=== PATIENT | female | born 1970 | race Caucasian/White ===

== ENCOUNTER 2017-12-21 12:09 | Emergency (ER) | payer MEDICAID, SELFPAY ==
[2017-12-21 12:10] VITALS: BP 150/79; PULSE 92; RESP 18; TEMP 36.3; O2SAT 95; BMI 42.5
[2017-12-21 14:10] VITALS: BP 136/78; PULSE 94; RESP 20; O2SAT 94
--- NOTE | 2017-12-21 14:34 | ED.VIS.GEN ---
History of Present Illness Chief Complaint: Chest Other Informant: Patient, PCP Onset: Yesterday Context: Sudden Onset - upon waking up from bronchoscopy procedure Timing: Continuous Quality: pain Location: right chest Current Severity: Moderate Maximum Severity: Moderate Worsened by: deep inspiration Relieved by: rest Associated Symptoms: mild sob Narrative: Patient has chronic cough, and in the workup for this had a bronchoscopy yesterday which involved taking a biopsy of a bronchiole in the right middle lobe. Since the procedure she has had right-sided pleuritic discomfort but did not tell the harness brusher until she called the office today because symptoms were worse. She was sent to the ER for further evaluation and x-ray to rule out pneumothorax. Prior similar symptoms: No - Past Medical History (1) Chronic cough Status: Chronic Past Medical History - Allergies and Home Meds Allergies/Adverse Reactions: Allergies latex Adverse Reaction (Verified 09/27/15 19:49) Hives Primary Care Physician: Moose Valdovinos DO [Primary Care Provider] - Smoking Status: Former smoker Review of Systems All systems negative except as indicated General: Reports: - - No syncope/near syncope Cardiovascular: Reports: Chest pain. Denies: Palpitations, Heart racing Respiratory: Reports: Dyspnea, Cough. Denies: Sputum, Dyspnea on exertion Gastrointestinal: Denies: Abdominal pain, Nausea, Vomiting Physical Exam Vital Signs/Narrative: Vital Signs Temp Pulse Resp BP Pulse Ox 12/21/17 12:10 97.3 F L 92 18 150/79 H 95 Inital Vital Signs reviewed: Yes General: Well nourished, Well developed, Obese Head: Normocephalic, Atraumatic Neck: Supple, Nontender, No JVD Cardiovascular: Regular rate, Regular rhythm, No murmurs Respiratory: No distress, CTA bilaterally, Chest nontender Skin: Normal color, No rash Neurological: Alert, Oriented x3, Cranial nerves II-XII grossly intact, Normal Strength, Normal Sensation Psychological: Normal affect - Well-appearing, NAD. Conversing in full sentences. Diagnostic/Tx/Re-eval Clinical Impression(s) from Imaging Studies Chest X-Ray 12/21/17 12:50 IMPRESSION: 10% right-sided pneumothorax with findings suggestive of bibasilar atelectasis worse on the left side. Electronically Signed: Aldair Su MD at 13:42 EDT Tel [phone], Service support , - Medical Decision Making Chest x-ray shows 10% pneumothorax. This explains her symptoms, there is no sign of a thorax, she is tolerating this extremely well and her vital signs are stable. Discussed with her harness brusher Dr. Forrester, who agrees that given that it has been about 24 hours, he would be comfortable managing her as an outpatient, repeating chest x-ray tomorrow. We will offer the patient analgesics, advising her to return if she gets worse, otherwise following up for repeat chest x-ray tomorrow in the office will contact her regarding the results. She is comfortable with that plan. ED Disposition - Plan for ED Patient: Disposition: Home or Assisted Living Chief Complaint: Chest Other Diagnosis: Pneumothorax after biopsy Instructions: ED Pneumothorax Spontaneous Prescriptions: Hydrocodone Bitart/Apap 5-325 [[place] 5MG-325MG] 1 tab PO Q4H PRN PRN 2 Days #10 tab PRN Reason: Pain Referrals: Jimmie Forrester MD [NON-STAFF] - Additional Instructions: There is an order already placed for a repeat chest x-ray tomorrow or you. Go to the [facility] outpatient specialty Center, in the radiology clinic. Dr. Forrester will look at the x-ray and call you to talk with you about the results.
== END 2017-12-21 15:05 | disposition home or self-care (01) ==
PROVIDERS: Emergency Provider Emergency Medicine; Family Provider Student in an Organized Health Care Education/Training Program; PCP Student in an Organized Health Care Education/Training Program
DX: J95.811 Postprocedural pneumothorax (principal); Z79.84 Long term (current) use of oral hypoglycemic drugs; Z79.82 Long term (current) use of aspirin; Z79.899 Other long term (current) drug therapy; Z87.891 Personal history of nicotine dependence
CPT/HCPCS: 71046; 99282

== ENCOUNTER 2018-01-22 09:58 | Inpatient (IN) | payer MEDICAID, SELFPAY ==
[2018-01-22] VITALS (9 sets, daily range): BP systolic 112–160; BP diastolic 68–94; PULSE 88–108; RESP 18–22; TEMP 36.9–37.2; O2SAT 95–100; BMI 43.7
--- NOTE | 2018-01-22 10:19 | EKG12_ITS ---
Test Reason : SOB Blood Pressure : / mmHG Vent. Rate : 103 BPM Atrial Rate : 103 BPM P-R Int : 162 ms QRS Dur : 086 ms QT Int : 374 ms P-R-T Axes : 054 055 042 degrees QTc Int : 489 ms Sinus tachycardia Otherwise normal ECG Confirmed by MACRINA AVINA MD ([id number]), assignment desk editor SERENITY BEY ([id number]) on 01/29/2018 3:22:10 PM Referred By: KATALINA
--- NOTE | 2018-01-22 10:23 | NURSING ---
NO OLD EKGS
[2018-01-22 10:47] LABS: Absolute Lymphocyte Count 6.75 X10^3/ul (0.83-4.51); Absolute Neutrophil Count 6.9 X10^3/uL (2.0-7.7); Basophil# 0.04 X10^3/uL; Basophil% 0.3 % (0-1); Eosinophil# 0.26 X10^3/uL; Eosinophils% 1.7 % (0-5); Hematocrit 43.8 % (37-47); Hemoglobin 15.1 g/dl (12.0-15.0); Lymphocyte # 6.75 X10^3/ul (4.0); Lymphocyte % 45.2 % (19-41); Mean Corp Hgb Conc 34.5 g/gl (32-36); Mean Corpuscular Hgb 31.5 pg (27.0-32.0); Mean Corpuscular Volume 91.3 fL (81-99); Mean Platelet Vol. 10.9 fl (6.2-12.0); Monocyte# 0.93 X10^3/uL; Monocyte% 6.2 % (0-10); Neutrophil # 6.87 X10^3/uL (2.7-7.7); Neutrophil % 46.1 % (47-70); Platelet Count 331 K/mm3 (150-450); RBC Distribution Width CV 12.9 % (11.6-14.6); RBC Distribution Width SD 42.1 fl (35.1-43.9); White Blood Count 14.9 K/mm3 (4.4-11.0)
[2018-01-22 10:52] LABS: Differential Indicated SCAN CRITERIA MET; POSITIVE COUNT NO; POSITIVE DIFFERENTIAL YES; POSITIVE MORPHOLOGY NO
[2018-01-22 11:03] LABS: Anion Gap 10 (5-15); BUN 10 mg/dL (7-18); BUN/Creat Ratio 12.8 RATIO (10-20); Chloride 99 mmol/L (98-107); Creatinine, Serum 0.78 mg/dL (0.55-1.02); EST Glomerular Filtration Rate 84 mL/min (>60); Est Glom Filt Rate - Afr Amer 102 mL/min (>60); Estimated Creatinine Clearance 75.34 ml/min; Glucose 307 mg/dL (74-106); Potassium 3.3 mmol/L (3.5-5.1); Sodium Level 135 mmol/L (136-145)
--- NOTE | 2018-01-22 11:05 | RAD_ITS ---
STUDY: X-RAY CHEST REASON FOR EXAM: Female, 47 years old. 3 week history of cough. Low-grade fever. TECHNIQUE: PA and lateral views of the chest. COMPARISON: Comparison is made with prior examination dated December 21, 2017. FINDINGS: Stable increased markings with areas of confluence in the lingular segment of the left upper lobe. This may represent a combination of scarring and possible superimposed infiltration and/or atelectasis. There is no demonstrated pleural abnormality. Normal size heart. Normal mediastinum and biju. Normal visualized pulmonary arteries. Normal visualized aortic arch and descending thoracic aorta. Normal visualized thoracic spine. Normal visualized ribs, clavicles, and shoulders. There is no demonstrated abnormality of the visualized soft tissue structures of the upper abdomen. RAD/Chest PA and Lateral IMPRESSION: Mild increased markings in the lingular segment of the left upper lobe suggestive of atelectasis and/or infiltrate superimposed on scarring. Electronically Signed: Aldair Su MD at 11:28 EDT Tel [phone], Service support ,
--- NOTE | 2018-01-22 11:29 | CT_ITS ---
STUDY: CTA CHEST REASON FOR EXAM: Female, 47 years old. Bronchitis, COPD, on antibiotics and steroids, worsening symptoms. History of hypertension, asthma, diabetes, factor V deficiency. RADIATION DOSAGE (If Supplied By Facility): CTDIvol = ( 16.71 ) mGy, DLP = ( 775.91 ) mGycm TECHNIQUE: The examination was performed with the intravenous administration of 100cc ml of Isovue 370 contrast material. Post-processing of the angiographic images was performed, with multiplanar reformation and 3D reconstruction. Individualized dose optimization techniques were used for this CT. COMPARISON: X-ray chest 01/22/2018 at 12/21/2017. FINDINGS: Supraclavicular: No acute process. Mild asymmetric enlargement of the right thyroid gland without distinct nodularity. Body wall soft tissues: No acute process. Upper abdomen: There is evidence of hepatic steatosis with probable hepatomegaly. No acute upper abdominal process is evident. Osseous structures: No acute process. Lungs: A few patchy very small groundglass opacities are present in the left lower lobe, anterior segment left upper lobe, no similar features seen on the right. Nonspecific. The largest focus of groundglass opacity in the left lower lobe measures about 11.5 mm. The region of ground glass opacity at the cardiophrenic angle of the anterior segment of the left upper lobe measures about 2.8 x 3.0 cm. In the lingula and right middle lobe, medial margins, there is mild subsegmental atelectasis associated with mild bronchial wall thickening and mild bronchiectasis, likely chronic inflammatory. Mediastinum: Normal esophagus. There is no mediastinal or hilar mass or lymphadenopathy. Aorta: Nondilated, no dissection, minimal atherosclerosis. Pulmonary arteries: Nondilated. No large central pulmonary embolus. Contrast bolus timing is suboptimal for definitive characterization of peripheral pulmonary arteries. There is no convincing evidence of peripheral pulmonary embolism in limited evaluation. Heart: Normal heart size without effusion. Grossly normal chamber morphology. No appendage thrombus. Minimal plaque seen in the proximal LAD. CT/CTA Chest W/WO Contrast IMPRESSION: There is no convincing evidence of acute pulmonary embolus. Minimal coronary atherosclerosis. No other acute cardiovascular abnormality. Mild abnormalities in the left lung. Small areas of groundglass opacity. Multifocal the left lower lobe, solitary zone of groundglass in the left upper lobe likely reflecting an infectious process with presenting symptoms of bronchitis. The airways do not exhibit a generalized pattern of bronchial wall thickening. There are however small subsegmental regions of chronic-appearing bronchial wall thickening with minimal bronchiectasis in the right middle lobe and lingula. Electronically Signed: Oliver Heard, at 12:19 EDT Tel , Service support ,
[2018-01-22] MEDS: levoFLOXacin IV 500 MG/100 ML BAG 100 MG IV (12:46)
--- NOTE | 2018-01-22 12:51 | NURSING ---
319 COPD EXAC, PNEUMONIA
--- NOTE | 2018-01-22 12:51 | ED.VISSUMM ---
- ER Visit Summary Date of Service: 01/22/18 Chief Complaint: Increased cough and increased wheezing History of Present Illness: The patient is a 47 F who was sent to the emergency department for failed outpatient treatment of COPD. The patient reports 2 weeks of increased cough and increased wheezing. She was recently treated with clarithromycin and prednisone by her primary care physician. She started treatment 5 days ago. She states she is not improving. She was seen again today and then sent to her steel rule die maker apprentice office. She was seen by the physician assistant media planner. They reported that she was very tight and wheezy she was given a breathing treatment and then sent here. The patient does also have a history of pulmonary embolism due to factor V Leiden. She was previously anticoagulated but had bleeding complications so currently only takes aspirin. She also has a history of diabetes hypertension hyperlipidemia although she denies any history of coronary disease. She denies any chest pain. Physical Examination: Heart rate 108 respiratory rate 22 Patient able to speak in full sentences she does not appear to be in any respiratory distress her lungs are clear to auscultation on my exam Heart regular rhythm tachycardia Abdomen soft Extremities nontender without edema Test Results: EKG shows sinus rhythm at a rate of 103. Labs notable for white blood cell count 14.9. Chest x-ray shows increased markings in the lingula and left upper lobe. CTA of the chest shows no convincing evidence of pulmonary embolism, there is minimal coronary arthrosclerosis, patient has multifocal groundglass opacity in the left lung as well as some chronic bronchial wall thickening Emergency Department Course and Treatment: Patient's lungs were actually clear at the time my exam. Patient did have a recent pneumothorax about 1 month ago. I was concerned that her ongoing cough and shortness of breath may be related to this and pulmonary embolism was also considered given her history. Workup as above shows no pneumothorax or pulmonary embolism but there is multifocal groundglass opacity. Patient was given IV Levaquin to cover community-acquired pneumonia and will be admitted. Treatment Plan: [] Disposition: Admit Impression: Community acquired pneumonia This note was generated with [employer] dictation software. It may contain incorrect words, spelling, and punctuation that were not noted in review of the chart prior to signing ED Disposition - Plan for ED Patient: Chief Complaint: Shortness of Breath Referrals: Moose Valdovinos DO [Primary Care Provider] -
--- NOTE | 2018-01-22 12:55 | ED.DCSUM_ITS ---
- ER Visit Summary Date of Service: 01/22/18 Chief Complaint: Increased cough and increased wheezing History of Present Illness: The patient is a 47 F who was sent to the emergency department for failed outpatient treatment of COPD. The patient reports 2 weeks of increased cough and increased wheezing. She was recently treated with clarithromycin and prednisone by her primary care physician. She started treatment 5 days ago. She states she is not improving. She was seen again today and then sent to her front line leader office. She was seen by the physician education administrative assistant. They reported that she was very tight and wheezy she was given a breathing treatment and then sent here. The patient does also have a history of pulmonary embolism due to factor V Leiden. She was previously anticoagulated but had bleeding complications so currently only takes aspirin. She also has a history of diabetes hypertension hyperlipidemia although she denies any history of coronary disease. She denies any chest pain. Physical Examination: Heart rate 108 respiratory rate 22 Patient able to speak in full sentences she does not appear to be in any respiratory distress her lungs are clear to auscultation on my exam Heart regular rhythm tachycardia Abdomen soft Extremities nontender without edema Test Results: EKG shows sinus rhythm at a rate of 103. Labs notable for white blood cell count 14.9. Chest x-ray shows increased markings in the lingula and left upper lobe. CTA of the chest shows no convincing evidence of pulmonary embolism, there is minimal coronary arthrosclerosis, patient has multifocal groundglass opacity in the left lung as well as some chronic bronchial wall thickening Emergency Department Course and Treatment: Patient's lungs were actually clear at the time my exam. Patient did have a recent pneumothorax about 1 month ago. I was concerned that her ongoing cough and shortness of breath may be related to this and pulmonary embolism was also considered given her history. Workup as above shows no pneumothorax or pulmonary embolism but there is multifocal groundglass opacity. Patient was given IV Levaquin to cover community-acquired pneumonia and will be admitted. Treatment Plan: [] Disposition: Admit Impression: Community acquired pneumonia This note was generated with [employer] dictation software. It may contain incorrect words, spelling, and punctuation that were not noted in review of the chart prior to signing ED Disposition - Plan for ED Patient: Chief Complaint: Shortness of Breath Referrals: Moose Valdovinos DO [Primary Care Provider] -
--- NOTE | 2018-01-22 13:33 | HP.PCM_ITS ---
Problem List (1) Atypical pneumonia Status: Acute (2) COPD exacerbation Status: Acute (3) Bronchiectasis Status: Chronic (4) Diabetes mellitus type 2 in obese Status: Chronic (5) Hypertension Status: Chronic (6) Morbid obesity Status: Chronic History of Present Illness Date of Admission: 01/22/18 Chief Complaint: Progressive worsening of shortness of breath for 2-3 weeks The patient is a 47 year old F with history of COPD, bronchiectasis and multiple recurrent pneumonia since age 8, 22 pack years of smoking, quit in 2014 came to ER with progressive worsening of shortness of breath for 2-3 weeks. Patient had bronchoscopy by Dr. Forrester about a month ago, exact diagnosis, findings not available. Patient is also not clear about her pulmonary history in detail. She is having fever for about 2-3 weeks, highest 102.3 Fahrenheit last night, worsening of cough with clear sputum, chest congestion and progressive worsening of shortness of breath. She saw PCP last and was given Biaxin and prednisone but she did not feel improvement in 5 days and therefore she went to see her doctor. She was seen by nurse practitioner of Dr. Forrester and was sent to ER. In ED, chest CT scan was done and shows no features of PE but small areas of groundglass opacity, multifocal left lower lobe and solitary zone left upper lobe. Subsegmental atelectasis chronic in nature [] Past Medical History Past Medical History (Chronic Problems): Chronic Problems Chronic cough (Chronic) Bronchiectasis (Chronic) Diabetes mellitus type 2 in obese (Chronic) Hypertension (Chronic) Morbid obesity (Chronic) Allergies latex Adverse Reaction (Verified 01/22/18 10:15) Hives Home Medications: Ambulatory Orders Medication Instructions Recorded Albuterol Aerosols [Ventolin 2.5 mg INHALATION Q4HWA.RT 09/27/15 Aerosols] Aspirin 81 mg PO DAILY 09/27/15 Cetirizine HCl [Zyrtec] 5 mg PO DAILY 09/27/15 Fluticasone 0.05% [Flonase Nasal 2 spray NASAL DAILY 09/27/15 [place]] Glimepiride [Amaryl] 2 mg PO BID 09/27/15 Lisinopril [Zestril] 20 mg PO DAILY 09/27/15 Montelukast [Singulair] 10 mg PO DAILY 09/27/15 [place]-3 Fatty Acids/Fish Oil [Fish 2 each PO DAILY 09/27/15 Oil 1,000 mg Softgel] Omeprazole [Prilosec] 40 mg PO DAILY 09/27/15 RX: Multivitamins,Ther W-Minerals 1 tablet PO DAILY 09/27/15 [Multivitamin With Minerals] Simvastatin [Zocor] 40 mg PO QHS 09/27/15 buPROPion XL [Wellbutrin Xl] 300 mg PO DAILY 09/27/15 Duloxetine Hcl [Cymbalta] 60 mg PO DAILY 01/30/16 Hydrochlorothiazide [Hctz] 25 mg PO DAILY 01/30/16 Alogliptin Benzoate [Alogliptin] 25 mg PO DAILY 01/22/18 Amitriptyline HCl [Elavil] 25 mg PO QHS 01/22/18 Calcium Carbonate [Calcium] 600 mg PO DAILY 01/22/18 Clarithromycin [Clarithromycin ER] 500 mg PO DAILY 01/22/18 Guaifenesin/Codeine [Robitussin AC] 5 ml PO Q6H PRN PRN 01/22/18 Insulin Glargine,Hum.rec.anlog 35 unit SQ DAILY 01/22/18 [Basaglar Kwikpen U-100] Lorazepam [Ativan] 0.5 mg PO BID PRN PRN 01/22/18 RX: Budesonide/Formoterol 160/4.5 4.5 - 160 mcg INHALATION BID 01/22/18 [Symbicort 160/4.5 Mcg Inhaler (SP)] RX: Metformin(XR) [Glucophage Xr] 1,000 mg PO BIDCM 01/22/18 RX: Ondansetron [Zofran Odt] 4 mg PO DAILY PRN 01/22/18 RX: Potassium Gluconate 500 mg PO DAILY 01/22/18 Smoking Status: Former smoker VTE Information - Inpt Only VTE Present on Admission: No VTE Mechan Device Prophylaxis: None VTE Pharm Prophylaxis ordered?: Yes Patient Problems: Active and Suspected Problems Atypical pneumonia (Acute) COPD exacerbation (Acute) - Physical Exam Vital Signs Temp Pulse Resp BP Pulse Ox 98.9 F 92 18 124/78 H 96 01/22/18 09:59 01/22/18 12:51 01/22/18 12:51 01/22/18 12:51 01/22/18 12:51 Oxygen Delivery Method Room Air Weight: 246 lb 14.684 oz Body Mass Index (BMI) 43.7 Laboratory Tests Past 24 Hrs 01/22/18 01/22/18 10:33 10:33 WBC 14.9 H RBC 4.80 Hgb 15.1 H Hct 43.8 MCV 91.3 MCH 31.5 MCHC 34.5 RDW 12.9 RDW Differential 42.1 Plt Count 331 MPV 10.9 Immature Gran % (Auto) 0.500 Neut % (Auto) 46.1 L Lymph % (Auto) 45.2 H [place]ancock % (Auto) 6.2 Eos % (Auto) 1.7 Baso % (Auto) 0.3 Absolute Neuts (auto) 6.9 Absolute Lymphs (auto) 6.75 H Total Counted Not Reportable Differential Comment COMMENT Sodium 135 L Potassium 3.3 L Chloride 99 Carbon Dioxide 26.0 Anion Gap 10 BUN 10 Creatinine 0.78 Estim Creat Clear Calc 75.34 Est GFR (MDRD) Af Amer 102 Est GFR (MDRD) Non-Af 84 BUN/Creatinine Ratio 12.8 Glucose 307 H Calcium 9.0 Assessment/Plan All Active Problems Atypical pneumonia (Acute) COPD exacerbation (Acute) The patient is a 47 year old F with history of COPD, bronchiectasis and multiple recurrent pneumonia since age 8, 22 pack years of smoking, quit in 2014 came to ER with progressive worsening of shortness of breath for 2-3 weeks. Patient had bronchoscopy by Dr. Forrester about a month ago, exact diagnosis, findings not available. Patient is also not clear about her pulmonary history in detail. She is having fever for about 2-3 weeks, highest 102.3 Fahrenheit last night, worsening of cough with clear sputum, chest congestion and progressive worsening of shortness of breath. She saw PCP last and was given Biaxin and prednisone but she did not feel improvement in 5 days and therefore she went to see her doctor. She was seen by nurse practitioner of Dr. Forrester and was sent to ER. Patient denies chest pain. In ED, chest CT scan was done and shows no features of PE but small areas of groundglass opacity, multifocal left lower lobe and solitary zone left upper lobe. Subsegmental atelectasis chronic in nature. Twelve-lead EKG shows sinus tach at 103/min. 1 COPD exacerbation, with chronic bronchial wall thickening with minimal atelectasis in right middle lobe and lingula: Patient is being admitted to regular MedSurg floor. On cardiac technologist. Started on bronchodilator, IV Solu- Medrol, incentive spirometry, chest physiotherapy and IV antibiotics. Infectious workup with sputum culture, blood cultures x2, urinary antigens, UA and respiratory panel. Requested medical record from Dr Forrester office regarding bronchoscopy report, tissue biopsy report, other pulmonary and cardiovascular workup like EKG and echo. 2. Atypical pneumonia, multifocal in left upper lobe and left lower lobe: Patient is treated with Biaxin for 5 days. Started on Levaquin. Follow culture reports as mentioned above. 3. 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 Diabetes mellitus type 2, hypertension and morbid obesity: Blood sugar is uncontrolled. A1c tomorrow a.m. On Accu-Cheks before meals and at bedtime and cover with NovoLog sliding scale. Dose of Lantus increased to 40 units daily. Weight loss counseling and operating room tech consult. Multiple comorbidities complicates the present care and expect difficult and delay recovery. Home medication reconciliation done. DVT prophylaxis: On heparin 5000 units subcutaneous twice daily. Follow CBC and if hemoglobin drops or any active bleeding will discontinue it. This note was generated with [employer] dictation software. Every effort was made to ensure accuracy, however computerized embroidery designer mistakes may persist. Clinical Impression(s) from Imaging Studies Chest X-Ray 01/22/18 11:05 IMPRESSION: Mild increased markings in the lingular segment of the left upper lobe suggestive of atelectasis and/or infiltrate superimposed on scarring. Chest CTA 01/22/18 11:29 IMPRESSION: There is no convincing evidence of acute pulmonary embolus. Minimal coronary atherosclerosis. No other acute cardiovascular abnormality. Mild abnormalities in the left lung. Small areas of groundglass opacity. Multifocal the left lower lobe, solitary zone of groundglass in the left upper lobe likely reflecting an infectious process with presenting symptoms of bronchitis. The airways do not exhibit a generalized pattern of bronchial wall thickening. There are however small subsegmental regions of chronic-appearing bronchial wall thickening with minimal bronchiectasis in the right middle lobe and lingula. Laboratory Results 01/22/18 10:33: WBC 14.9 H, RBC 4.80, Hgb 15.1 H, Hct 43.8, MCV 91.3, MCH 31.5, MCHC 34.5, RDW 12.9, RDW Differential 42.1, Plt Count 331, MPV 10.9, Immature Gran % (Auto) 0.500, Neut % (Auto) 46.1 L, Lymph % (Auto) 45.2 H, Hancock % (Auto) 6.2, Eos % (Auto) 1.7, Baso % (Auto) 0.3, Absolute Neuts (auto) 6.9, Absolute Lymphs (auto) 6.75 H, Total Counted Not Reportable, Differential Comment COMMENT 01/22/18 10:33: Sodium 135 L, Potassium 3.3 L, Chloride 99, Carbon Dioxide 26.0, Anion Gap 10, BUN 10, Creatinine 0.78, Estim Creat Clear Calc 75.34, Est GFR (MDRD) Af Amer 102, Est GFR (MDRD) Non-Af 84, BUN/Creatinine Ratio 12.8, Glucose 307 H, Calcium 9.0 Code Visit Inpatient E&M: 86964 Init Hosp L3
[2018-01-22] MEDS: Ipratropium/Albuterol Sulfate 3 ML AMPUL.NEB INHALATION ×2 (15:32→19:22)
[2018-01-22 16:14] LABS: BNP,B-Type NATRIURETIC PEPTIDE 10.9 pg/mL (0-100)
[2018-01-22 17:25] LABS: Bedside Glucose 314 mg/dL (70-110)
[2018-01-22] MEDS: guaiFENesin/Codeine 5 ML UDC PO (17:29)
[2018-01-22] MEDS: Glimepiride 2 MG Tablet PO (17:29)
[2018-01-22] MEDS: Insulin Lispro 100 UNIT/ML INSULN.PEN SQ ×2 (17:29→22:09)
[2018-01-22] MEDS: Loratadine 10 MG Tablet PO (17:29)
[2018-01-22] MEDS: Heparin Injection (Vial) 5,000 UNIT/ML VIAL 5000 UNIT SC (17:29)
[2018-01-22 20:31] LABS: Bacteria 0 SEEN /hpf (None Seen); Mucous, Urine 0 SEEN /hpf (<or=2+); Red Blood Cells-Urine 0 SEEN /hpf (0-5)
[2018-01-22 20:54] LABS: Color, Urine Yellow (Yellow); Glucose, Dipstick 1000 mg/dl (Normal); Ketone-Dipstick Negative (Negative); Leukocyte Esterase-Dipstick 25 /ul (Negative); Nitrite-Dipstick Negative (Negative); Occult Blood-Urine Negative /ul (Negative); Protein-Dipstick Negative (Negative); Specific Gravity, Urine 1.015 (1.002-1.030); Urine Bilirubin Dipstick Negative (Negative); Urine Clarity Clear (Clear); Urine Urobilinogen Normal (Normal)
[2018-01-22 21:02] LABS: Squamous Epithelial Cells - UA 0-5 SEEN /hpf (5-10); White Blood Cells 0-5 SEEN /hpf (0-5)
[2018-01-22] MEDS: guaiFENesin 600 MG Tablet PO (22:08)
[2018-01-22] MEDS: Amitriptyline 25 MG Tablet PO (22:08)
[2018-01-22] MEDS: Atorvastatin Calcium 20 MG Tablet PO (22:08)
[2018-01-22] MEDS: 0.9% NaCl Peripheral Flush Adult/Peds IV (22:15)
[2018-01-22 22:20] LABS: Bedside Glucose 185 mg/dL (70-110)
[2018-01-23] VITALS (16 sets, daily range): BP systolic 114–140; BP diastolic 61–81; PULSE 63–112; RESP 16–18; TEMP 36.6–36.9; O2SAT 95–100
[2018-01-23] MEDS: guaiFENesin/Codeine 5 ML UDC PO ×5 (00:15→23:29)
[2018-01-23 06:07] LABS: Absolute Lymphocyte Count 1.95 X10^3/ul (0.83-4.51); Absolute Neutrophil Count 7.1 X10^3/uL (2.0-7.7); Basophil# 0.02 X10^3/uL; Basophil% 0.2 % (0-1); Eosinophil# 0.01 X10^3/uL; Eosinophils% 0.1 % (0-5); Hematocrit 43.1 % (37-47); Hemoglobin 14.5 g/dl (12.0-15.0); Lymphocyte # 1.95 X10^3/ul (4.0); Mean Corp Hgb Conc 33.6 g/gl (32-36); Mean Corpuscular Volume 92.1 fL (81-99); Mean Platelet Vol. 11.3 fl (6.2-12.0); Monocyte# 0.14 X10^3/uL; Monocyte% 1.5 % (0-10); Neutrophil % 76.7 % (47-70); Platelet Count 318 K/mm3 (150-450); RBC Distribution Width CV 13.1 % (11.6-14.6); RBC Distribution Width SD 43.4 fl (35.1-43.9); Red Blood Count 4.68 M/mm3 (4.2-5.4); White Blood Count 9.3 K/mm3 (4.4-11.0)
[2018-01-23 06:15] LABS: POSITIVE COUNT NO; POSITIVE DIFFERENTIAL NO; POSITIVE MORPHOLOGY NO
[2018-01-23 06:30] LABS: ALB/GLOB Ratio 0.8 RATIO (0.9-2.4); AST(SGOT) 32 U/L (15-37); Alanine Aminotransfer ALT/SGPT 43 U/L (13-56); Albumin, Serum 3.2 g/dL (3.2-5.0); Alkaline Phosphatase 76 U/L (45-117); Anion Gap 6 (5-15); BUN 10 mg/dL (7-18); BUN/Creat Ratio 14.6 RATIO (10-20); Calcium,Total 8.7 mg/dL (8.5-10.1); Chloride 102 mmol/L (98-107); Creatinine, Serum 0.68 mg/dL (0.55-1.02); EST Glomerular Filtration Rate 99 mL/min (>60); Est Glom Filt Rate - Afr Amer 119 mL/min (>60); Estimated Creatinine Clearance 86.42 ml/min; Globulin 4.2 g/dL (2.2-4.2); Glucose 328 mg/dL (74-106); Potassium 4.8 mmol/L (3.5-5.1); Protein, Total 7.4 g/dL (6.4-8.2); Sodium Level 135 mmol/L (136-145)
[2018-01-23 06:35] LABS: Bedside Glucose 324 mg/dL (70-110)
[2018-01-23] MEDS: 0.9% NaCl Peripheral Flush Adult/Peds IV ×3 (06:36→22:01)
[2018-01-23] MEDS: Insulin Lispro 100 UNIT/ML INSULN.PEN SQ ×4 (06:36→21:55)
[2018-01-23] MEDS: Ipratropium/Albuterol Sulfate 3 ML AMPUL.NEB INHALATION ×5 (07:10→23:38)
[2018-01-23] MEDS: Multivitamins,Ther W-Minerals Tablet 1 TABLET PO (07:43)
[2018-01-23] MEDS: Calcium Carbonate 500 MG Tablet PO (07:43)
[2018-01-23] MEDS: Glimepiride 2 MG Tablet PO ×2 (07:43→17:20)
[2018-01-23] MEDS: Aspirin 81 MG TAB.CHEW PO (07:44)
[2018-01-23 07:59] LABS: Hemoglobin A1c 10.5 % (4.2-6.3)
--- NOTE | 2018-01-23 09:23 | PN_ITS ---
Patient Problems: Active and Suspected Problems Atypical pneumonia (Acute) COPD exacerbation (Acute) Subjective: Patient shortness of breath, cough is better than yesterday but is still wheezing and gets easily short of breath and starts coughing on conversation. Complain of mild chest congestion. Has history of asthmatic bronchitis/COPD with bronchiectasis. History of multiple pneumonia since age of 8. Did not get outpatient records from Dr Forrester office. Vitals/I&O's: Vital Signs Temp Pulse Resp BP Pulse Ox 98.1 F 63 16 114/81 H 97 01/23/18 07:39 01/23/18 07:39 01/23/18 07:39 01/23/18 07:39 01/23/18 07:39 Oxygen Delivery Method Room Air Weight: 246 lb 14.684 oz Body Mass Index (BMI) 43.7 Intake and Output for Last 24 Hours 01/21/18 01/22/18 01/23/18 23:59 23:59 23:59 Intake Total 240 / 240 1770 / 1770 Balance 240 / 240 1770 / 1770 General: Alert, Oriented x3, Cooperative HEENT: Atraumatic, PERRLA, EOMI, Normocephalic Neck: Supple, No JVD, Negative Carotid Bruits Lungs: Diminished, Rhonchi, Short of Breath, Wheezes Cardiovascular: Regular rate, No murmurs Abdomen: Bowel Sounds Present, Soft, Non Tender, Non-Distended Extremities: No edema, Capillary Refill Less than 3 Seconds Skin: No rashes, No breakdown Musculoskeletal: No Tenderness to Palpation of Joints or Extremities Neurological: Cranial nerves II-XII grossly intact Psych/Mental Status: Normal Affect, Appropriate Microbiology Past 72 Hours 01/22/18 15:45 Mucosa - Nasopharyngeal Respiratory Panel (PCR) - Final 01/22/18 20:20 Urine, Clean Catch Streptococcus pneumoniae Antigen (M - Final 01/22/18 20:20 Urine, Clean Catch Legionella Antigen - Final Laboratory Results 01/22/18 10:33: WBC 14.9 H, RBC 4.80, Hgb 15.1 H, Hct 43.8, MCV 91.3, MCH 31.5, MCHC 34.5, RDW 12.9, RDW Differential 42.1, Plt Count 331, MPV 10.9, Immature Gran % (Auto) 0.500, Neut % (Auto) 46.1 L, Lymph % (Auto) 45.2 H, [place] % (Auto) 6.2, Eos % (Auto) 1.7, Baso % (Auto) 0.3, Absolute Neuts (auto) 6.9, Absolute Lymphs (auto) 6.75 H, Total Counted Not Reportable, Differential Comment COMMENT 01/22/18 10:33: Sodium 135 L, Potassium 3.3 L, Chloride 99, Carbon Dioxide 26.0, Anion Gap 10, BUN 10, Creatinine 0.78, Estim Creat Clear Calc 75.34, Est GFR (MDRD) Af Amer 102, Est GFR (MDRD) Non-Af 84, BUN/Creatinine Ratio 12.8, Glucose 307 H, Calcium 9.0 01/22/18 15:10: B-Natriuretic Peptide 10.9 01/22/18 17:20: POC Glucose 314 H 01/22/18 20:20: Urine Color Yellow, Urine Clarity Clear, Urine pH 6.0, Ur Specific Aline 1.015, Urine Protein Negative, Urine Glucose (UA) 1000 H, Urine Ketones Negative, Urine Occult Blood Negative, Urine Nitrite Negative, Urine Bilirubin Negative, Urine Urobilinogen Normal, Ur Leukocyte Esterase 25 H, Urine RBC 0 SEEN, Urine WBC 0-5 SEEN, Ur Squamous Epith Cells 0-5 SEEN, Urine Bacteria 0 SEEN, Urine Mucus 0 SEEN 01/22/18 22:05: POC Glucose 185 H 01/23/18 05:25: WBC 9.3, RBC 4.68, Hgb 14.5, Hct 43.1, MCV 92.1, MCH 31.0, MCHC 33.6, RDW 13.1, RDW Differential 43.4, Plt Count 318, MPV 11.3, Immature Gran % (Auto) 0.500, Neut % (Auto) 76.7 H, Lymph % (Auto) 21.0, [place] % (Auto) 1.5, Eos % (Auto) 0.1, Baso % (Auto) 0.2, Absolute Neuts (auto) 7.1, Absolute Lymphs (auto) 1.95, Total Counted Not Reportable 01/23/18 05:25: Sodium 135 L, Potassium 4.8, Chloride 102, Carbon Dioxide 27.0, Anion Gap 6, BUN 10, Creatinine 0.68, Estim Creat Clear Calc 86.42, Est GFR (MDRD) Af Amer 119, Est GFR (MDRD) Non-Af 99, BUN/Creatinine Ratio 14.6, Glucose 328 H, Calcium 8.7, Total Bilirubin 0.30, AST 32, ALT 43, Alkaline Phosphatase 76, Total Protein 7.4, Albumin 3.2, Globulin 4.2, Albumin/Globulin Ratio 0.8 L 01/23/18 05:25: Hemoglobin A1c 10.5 H 01/23/18 06:28: POC Glucose 324 H Current Medications Acetaminophen (Tylenol) 650 mg PO Q6H PRN PRN PRN Reason: Mild Pain (scale 0-3)/T>100.7 Al Hydroxide/Mg Hydroxide (Mylanta Ii) 30 ml PO Q6H PRN PRN PRN Reason: Gastric Burning Albuterol Sulfate (Ventolin Aerosols) 2.5 mg INHALATION Q2H PRN PRN PRN Reason: SHORTNESS OF BREATH Albuterol/Ipratropium (Duoneb) 3 ml INHALATION Q4H.RT [facility] Last Admin: 01/23/18 07:10 Dose: 3 ml Amitriptyline HCl (Elavil) 25 mg PO QHS [facility] Last Admin: 01/22/18 22:08 Dose: 25 mg Aspirin (Aspirin, Baby) 81 mg PO DAILY@0800 [facility] Last Admin: 01/23/18 07:44 Dose: 81 mg Atorvastatin Calcium (Lipitor) 20 mg PO QHS [facility] Last Admin: 01/22/18 22:08 Dose: 20 mg Bisacodyl (Dulcolax) 10 mg RECTAL DAILY PRN PRN PRN Reason: Constipation Bupropion HCl (Wellbutrin Xl) 300 mg PO DAILY [facility] Admin: 01/23/18 07:43 Dose: 500 mg Dextrose (D50w Syringe) 0 gm IV X1 PRN; Protocol PRN Reason: Hypoglycemia Docusate Sodium (Colace) 200 mg PO BID PRN PRN PRN Reason: Constipation Duloxetine HCl (Cymbalta) 60 mg PO DAILY [facility] Fluticasone Propionate (Flonase Nasal [place]) 2 spray NASAL DAILY [facility] Glimepiride (Amaryl) [facility] Last Admin: 01/23/18 07:43 Dose: 2 mg Glucagon () 1 mg IM .X1 PRN PRN Reason: Hypoglycemia Guaifenesin (Mucinex) 600 mg PO BID [facility] Last Admin: 01/22/18 22:08 Dose: 600 mg Guaifenesin/Codeine Phosphate (Robitussin Ac) 5 ml PO Q6 [facility] Last Admin: 01/23/18 06:35 Dose: 5 ml Heparin Sodium (Porcine) (Heparin Na) 5,000 unit SC BID [facility] Last Admin: 01/22/18 17:29 Dose: 5,000 unit Hydrochlorothiazide (Hctz) 25 mg PO DAILY [facility] Influenza Virus Vaccine Quadrival (Fluarix/Fluzone) 0.5 ml IM .ONCE ONE Stop: 01/23/18 10:01 Insulin Glargine (Lantus (Bkc)) 40 units SC QHS [facility] Last Admin: 01/22/18 22:09 Dose: 40 u Insulin Human Lispro (Humalog Kwikpen (Bkc)) 0 unit SQ ACHS [facility]; Protocol Last Admin: 01/23/18 06:36 Dose: 6 units Lisinopril (Zestril) 20 mg PO DAILY [facility] Loratadine (Claritin) 10 mg PO DAILY [facility] Last Admin: 01/22/18 17:29 Dose: 10 mg Lorazepam (Ativan) 0.5 mg PO BID PRN PRN PRN Reason: ANXIETY Methylprednisolone (Solu-Medrol) 40 mg IV Q8 [facility] Last Admin: 01/23/18 06:36 Dose: 40 mg Montelukast Sodium (Singulair) 10 mg PO DAILY [facility] Morphine Sulfate () 2 - 4 mg IV Q3H PRN PRN PRN Reason: Severe Pain (pain scale 6-10) Multivitamins/Minerals (Multivitamin With Minerals) [facility] Last Admin: 01/23/18 07:43 Dose: 1 tablet Ondansetron HCl (Zofran) 4 mg IV Q8H PRN PRN PRN Reason: Nausea Oxycodone HCl (Oxyir) 5 mg PO Q4H PRN PRN PRN Reason: Moderate Pain (pain scale 4-5) Pantoprazole Sodium (Protonix) 40 mg PO DAILY [facility] Polyethylene Glycol (Miralax) 17 gm PO DAILY [facility] Sodium Chloride () 5 - 30 ml IV UD PRN PRN Reason: SALINE FLUSH Last Admin: 10/02/18 06:36 Dose: 10 ml Zolpidem Tartrate (Ambien (Generic)) 5 mg PO QHS PRN PRN PRN Reason: INSOMNIA Medical Necessity - Tobacco Use Smoking Status: Former smoker Assessment/Plan All Active Problems Atypical pneumonia (Acute) COPD exacerbation (Acute) The patient is a 47 year old F with history of COPD, bronchiectasis and multiple recurrent pneumonia since age 8, 22 pack years of smoking, quit in 2015 came to ER with progressive worsening of shortness of breath for 2-3 weeks. Patient had bronchoscopy by Dr. Forrester about a month ago, exact diagnosis, findings not available. Patient is also not clear about her pulmonary history in detail. She is having fever for about 2-3 weeks, highest 102.3 Fahrenheit last night, worsening of cough with clear sputum, chest congestion and progressive worsening of shortness of breath. She saw PCP last and was given Biaxin and prednisone but she did not feel improvement in 5 days and therefore she went to see her doctor. She was seen by nurse practitioner of Dr. Forrester and was sent to ER. Patient denies chest pain. In ED, chest CT scan was done and shows no features of PE but small areas of groundglass opacity, multifocal left lower lobe and solitary zone left upper lobe. Subsegmental atelectasis chronic in nature. Twelve-lead EKG shows sinus tach at 103/min. 1 COPD exacerbation, with chronic bronchial wall thickening with minimal atelectasis in right middle lobe and lingula: Patient is being admitted to regular MedSurg floor. 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 Started on bronchodilator, IV Solu- Medrol, incentive spirometry, chest physiotherapy and IV antibiotics. Infectious workup with sputum culture, blood cultures x2, pending. Urinary antigens, UA and respiratory panel are negative. Requested medical record from Dr Forrester office regarding bronchoscopy report, tissue biopsy report, other pulmonary and cardiovascular workup like EKG and echo but has not received yet. 2. Atypical pneumonia, multifocal in left upper lobe and left lower lobe: Patient is treated with Biaxin for 5 days. Started on Levaquin. Follow culture reports as mentioned above. 3. 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 Diabetes mellitus type 2, hypertension and morbid obesity: Blood sugar is uncontrolled. A1c tomorrow a.m. On Accu-Cheks before meals and at bedtime and cover with NovoLog sliding scale. Dose of Lantus increased to 40 units daily. Weight loss counseling and clinical nurse consult. Multiple comorbidities complicates the present care and expect difficult and delay recovery. Home medication reconciliation done. DVT prophylaxis: On heparin 5000 units subcutaneous twice daily. Follow CBC and if hemoglobin drops or any active bleeding will discontinue it. This note was generated with [employer] dictation software. Every effort was made to ensure accuracy, however computerized cistern room operator mistakes may persist. Clinical Impression(s) from Imaging Studies Chest X-Ray 01/22/18 11:05 IMPRESSION: Mild increased markings in the lingular segment of the left upper lobe suggestive of atelectasis and/or infiltrate superimposed on scarring. Chest CTA 01/22/18 11:29 IMPRESSION: There is no convincing evidence of acute pulmonary embolus. Minimal coronary atherosclerosis. No other acute cardiovascular abnormality. Mild abnormalities in the left lung. Small areas of groundglass opacity. Multifocal the left lower lobe, solitary zone of groundglass in the left upper lobe likely reflecting an infectious process with presenting symptoms of bronchitis. The airways do not exhibit a generalized pattern of bronchial wall thickening. There are however small subsegmental regions of chronic-appearing bronchial wall thickening with minimal bronchiectasis in the right middle lobe and lingula. Clinical Impression(s) from Imaging Studies Chest X-Ray 01/22/18 11:05 IMPRESSION: Mild increased markings in the lingular segment of the left upper lobe suggestive of atelectasis and/or infiltrate superimposed on scarring. Chest CTA 01/22/18 11:29 IMPRESSION: There is no convincing evidence of acute pulmonary embolus. Minimal coronary atherosclerosis. No other acute cardiovascular abnormality. Mild abnormalities in the left lung. Small areas of groundglass opacity. Multifocal the left lower lobe, solitary zone of groundglass in the left upper lobe likely reflecting an infectious process with presenting symptoms of bronchitis. The airways do not exhibit a generalized pattern of bronchial wall thickening. There are however small subsegmental regions of chronic-appearing bronchial wall thickening with minimal bronchiectasis in the right middle lobe and lingula. Microbiology Past 72 Hours 01/22/18 15:45 Mucosa - Nasopharyngeal Respiratory Panel (PCR) - Final 01/22/18 20:20 Urine, Clean Catch Streptococcus pneumoniae Antigen (M - Final 01/22/18 20:20 Urine, Clean Catch Legionella Antigen - Final Laboratory Results 01/23/18 05:25: WBC 9.3, RBC 4.68, Hgb 14.5, Hct 43.1, MCV 92.1, MCH 31.0, MCHC 33.6, RDW 13.1, RDW Differential 43.4, Plt Count 318, MPV 11.3, Immature Gran % (Auto) 0.500, Neut % (Auto) 76.7 H, Lymph % (Auto) 21.0, [place] % (Auto) 1.5, Eos % (Auto) 0.1, Baso % (Auto) 0.2, Absolute Neuts (auto) 7.1, Absolute Lymphs (auto) 1.95, Total Counted Not Reportable 01/23/18 05:25: Sodium 135 L, Potassium 4.8, Chloride 102, Carbon Dioxide 27.0, Anion Gap 6, BUN 10, Creatinine 0.68, Estim Creat Clear Calc 86.42, Est GFR (MDRD) Af Amer 119, Est GFR (MDRD) Non-Af 99, BUN/Creatinine Ratio 14.6, Glucose 328 H, Calcium 8.7, Total Bilirubin 0.30, AST 32, ALT 43, Alkaline Phosphatase 76, Total Protein 7.4, Albumin 3.2, Globulin 4.2, Albumin/Globulin Ratio 0.8 L 01/23/18 05:25: Hemoglobin A1c 10.5 H 01/23/18 06:28: POC Glucose 324 H Code Visit Inpatient E&M: 07292 Subs Hosp L3
--- NOTE | 2018-01-23 09:47 | PCA ---
faxed medical records again to [facility]
[2018-01-23] MEDS: buPROPion (XL) 300 MG TABLET.XL PO (10:01)
[2018-01-23] MEDS: DULoxetine Hcl 60 MG Capsule PO (10:01)
[2018-01-23] MEDS: Fluticasone 0.05% 1 SPRAY NASAL.SRY 2 SPRAY NASAL (10:01)
[2018-01-23] MEDS: Heparin Injection (Vial) 5,000 UNIT/ML VIAL 5000 UNIT SC ×2 (10:02→22:00)
[2018-01-23] MEDS: Lisinopril 20 MG Tablet PO (10:02)
[2018-01-23] MEDS: Montelukast 10 MG Tablet PO (10:02)
[2018-01-23] MEDS: guaiFENesin 600 MG Tablet PO ×2 (10:02→22:00)
[2018-01-23] MEDS: hydroCHLOROthiazide 25 MG Tablet PO (10:02)
[2018-01-23] MEDS: Loratadine 10 MG Tablet PO (10:03)
[2018-01-23] MEDS: Polyethylene Glycol 3350 17 GM PACKET PO (10:04)
[2018-01-23] MEDS: Pantoprazole Sodium 40 MG Tablet PO (10:04)
--- NOTE | 2018-01-23 10:05 | CASEMGMT ---
SEE YRN PALACIOS ASSESS LINK: D/C PLAN: Home Face to Face with patient for initial transition planning/care coordination assessment. YRN PALACIOS introduced self and role at [facility]. Pt sitting up on chair in room. Awake/alert/oriented. Care providers, pharmacy, and demographics verified. Pt is diabetic and states she has all of the diabetic supplies and meds that she needs. Pt does report that she has been interested in looking into getting some assistance at home for vp ad sales [place] d/t she has not been feeling well for awhile and states she could use some assistance with financial needs. SW consult made for this as well as for AD. Offered/accepted flyer on [facility] and voiced appreciation. PCP: Dr Moose Valdovinos Specialists: Dr. Loving Preferred Pharmacy: [facility] [facility] Retail on Day of discharge only. Insurance: [employer] Plan Prescription Benefit: [employer] Plan Living Will/HPOA: Does not have but would like to speak with SW. SW consult made. Living Arrangements: Lives w/dari, Ignacio Joseph. Transportation: Drives. States her figuerita's mother can provide transportation home from hospital. DME/HHC: Has a rollator which she does use. Also has shower chair, raised toilet seat, rails/grab bars, hand held shower, CPAP, nebulizer, and O2. [facility] Has a concentrator and portable O2. Wears 2 L/M PRN. CM to follow for any further discharge planning needs that may arise. Braulio FREY RN, CM
--- NOTE | 2018-01-23 11:12 | CASEMGMT ---
Social Work Note SW received referral for limited support at home and advanced directives. SW met with pt. SW educated pt on [facility], private aide and Home assistance program through [facility]. Pt informed this worker that she will be switching to [employer] insurance soon. SW explained that once pt gets [employer] she will get a case resource manager. SW informed pt to contact her case resource manager through [facility] and her case resource manager can contact [facility] to see about waiver services. Pt states understanding. Pt states that she would like to complete advanced directives. Pt and this worker completed advanced directives. Original provided to pt and copy was placed on chart. Pt denied additional needs or concerns at this time. Sandy Soto CLINICAL DIETICIAN, SPRING MACHINE OPERATOR
[2018-01-23 11:26] LABS: Bedside Glucose 376 mg/dL (70-110)
--- NOTE | 2018-01-23 14:36 | ECHOD_ITS ---
Reason For Study: COPD, BRONCHIECTASIS Procedure This was a 2D Doppler, Color Flow transthoracic echocardiogram. The study was technically difficult. Exam performed portable in patient room. Left Ventricle Normal LV size. Left ventricular systolic function is normal. The estimated ejection fraction is 70 %. No evidence for diastolic dysfunction. No regional wall motion abnormalities noted. Right Ventricle Normal RV size. Normal systolic function. Atria Normal left atrium. Normal right atrium. No doppler evidence for ASD. Mitral Valve There is no mitral annular calcification. Normal mitral valve. Trivial mitral valve insufficiency. Tricuspid Valve Normal tricuspid valve. Trivial tricuspid valve insufficiency. Right ventricular systolic pressure estimated to be 24 mmHg. Aortic Valve The aortic valve is not well visualized. Pulmonic Valve The pulmonic valve is not well visualized. Trivial pulmonic valve insufficiency. Great Vessels Normal sized aortic root. Pericardium/Pleural No pericardial effusion. MMode/2D Measurements & Calculations LVIDd: 4.5 cm IVSd: 1.1 cm Ao root diam: 3.0 cm LVIDs: 2.7 cm LVPWd: 1.1 cm LA dimension: 3.6 cm FS: 41.1 % LAV(MOD-bp): 40.0 ml LA A4 area: 14.4 cm2 LAV(MOD-bp) Indexed: 18.9 ml/m2 LAV(MOD-sp2): 44.1 ml LAV(MOD-sp4): 31.8 ml Doppler Measurements & Calculations MV E max armani: 85.4 cm/sec Lat Peak E' Armani: 10.1 cm/sec Med Peak E' Armani: 7.9 cm/sec MV A max armani: 110.4 cm/sec E/E' lat: 8.5 E/E' med: 10.8 MV E/A: 0.77 Ao V2 max: 153.0 cm/sec LV V1 max: 115.3 cm/sec PA V2 max: 88.9 cm/sec Ao max P.4 mmHg LV V1 max P.3 mmHg TR max armani: 229.5 cm/sec TR max P.1 mmHg Interpretation Summary The study was technically difficult. Left ventricular systolic function is normal. The estimated ejection fraction is 70 %. Trivial mitral valve insufficiency. Trivial tricuspid valve insufficiency. Trivial pulmonic valve insufficiency. Right ventricular systolic pressure estimated to be 24 mmHg. No evidence for diastolic dysfunction. Ordering Physician: Kennedy Esteban Referring Physician: Moose Pelaez Performed By: Fidelia Joseph, MAUREEN, RVT
[2018-01-23 16:10] LABS: Bedside Glucose 386 mg/dL (70-110)
--- NOTE | 2018-01-23 21:45 | NURSING ---
Called for lab backup. Blood sugar 517. Text to
[2018-01-23] MEDS: Amitriptyline 25 MG Tablet PO (22:00)
[2018-01-23] MEDS: Atorvastatin Calcium 20 MG Tablet PO (22:00)
[2018-01-23 22:11] LABS: Bedside Glucose > 500 mg/dL (70-110)
[2018-01-23 22:27] LABS: Glucose 492 mg/dL (74-106)
[2018-01-23 22:41] LABS: Bedside Glucose > 500 mg/dL (70-110)
[2018-01-23 23:05] LABS: Bedside Glucose 477 mg/dL (70-110)
[2018-01-23] MEDS: Insulin Lispro 100 UNIT/ML INSULN.PEN 10 UNIT SC (23:29)
[2018-01-24 03:19] VITALS: BP 97/52; PULSE 88; RESP 16; TEMP 37.2; O2SAT 98
[2018-01-24 03:21] LABS: Bedside Glucose 345 mg/dL (70-110)
[2018-01-24 03:22] VITALS: PULSE 82
[2018-01-24 03:25] VITALS: PULSE 107; RESP 18
[2018-01-24] MEDS: Ipratropium/Albuterol Sulfate 3 ML AMPUL.NEB INHALATION ×2 (03:25→11:11)
[2018-01-24] MEDS: guaiFENesin/Codeine 5 ML UDC PO ×2 (06:17→13:02)
[2018-01-24] MEDS: 0.9% NaCl Peripheral Flush Adult/Peds IV (06:17)
[2018-01-24] MEDS: Insulin Lispro 100 UNIT/ML INSULN.PEN SQ ×2 (06:19→12:44)
[2018-01-24 06:31] LABS: Bedside Glucose 330 mg/dL (70-110)
[2018-01-24 08:36] VITALS: BP 96/64; PULSE 78; RESP 20; TEMP 37; O2SAT 95
[2018-01-24] MEDS: DULoxetine Hcl 60 MG Capsule PO (08:48)
[2018-01-24] MEDS: Calcium Carbonate 500 MG Tablet PO (08:48)
[2018-01-24] MEDS: Loratadine 10 MG Tablet PO (08:48)
[2018-01-24] MEDS: Multivitamins,Ther W-Minerals Tablet 1 TABLET PO (08:48)
[2018-01-24] MEDS: Aspirin 81 MG TAB.CHEW PO (08:48)
[2018-01-24] MEDS: Pantoprazole Sodium 40 MG Tablet PO (08:48)
[2018-01-24] MEDS: Montelukast 10 MG Tablet PO (08:48)
[2018-01-24] MEDS: guaiFENesin 600 MG Tablet PO (08:49)
[2018-01-24 08:50] LABS: Bedside Glucose 273 mg/dL (70-110)
[2018-01-24] MEDS: buPROPion (XL) 300 MG TABLET.XL PO (08:50)
[2018-01-24] MEDS: Polyethylene Glycol 3350 17 GM PACKET PO (08:50)
[2018-01-24] MEDS: Glimepiride 2 MG Tablet PO (08:50)
[2018-01-24 10:00] VITALS: PULSE 100
[2018-01-24] MEDS: Insulin Lispro 100 UNIT/ML INSULN.PEN 8 UNIT SC ×2 (10:30→12:43)
--- NOTE | 2018-01-24 10:30 | PCM.DC ---
- Discharge Diagnoses Current Active Problems: Current Active and Chronic Problems Atypical pneumonia (Acute) COPD exacerbation (Acute) Bronchiectasis (Chronic) Diabetes mellitus type 2 in obese (Chronic) Hypertension (Chronic) Morbid obesity (Chronic) You will use the following diet at home:: Calorie/Carbohydrate Controlled (specify 1200, 1400, etc) - 1800 ADA diet Your food should be the consistency of: Regular Discharge Activity: May not drive while taking narcotic pain medications. - On Robitussin-AC Call your doctor if you observe: Fever of 101 or Higher, Inability to urinate, Shortness of breath, Fainting spells Allergies/Adverse Reactions: Allergies latex Adverse Reaction (Verified 01/22/18 10:15) Hives Medications to take at Discharge Albuterol Aerosols [Ventolin Aerosols] 2.5 mg INHALATION Q4HWA.RT 09/27/15 Aspirin 81 mg PO DAILY 09/27/15 Cetirizine HCl [Zyrtec] 5 mg PO DAILY 09/27/15 Fluticasone 0.05% [Flonase Nasal [place]] 2 spray NASAL DAILY 09/27/15 Glimepiride [Amaryl] 2 mg PO BID 09/27/15 Lisinopril [Zestril] 20 mg PO DAILY 09/27/15 Montelukast [Singulair] 10 mg PO DAILY 09/27/15 Multivitamins,Ther W-Minerals [Multivitamin With Minerals] 1 tablet PO DAILY 09/27/15 [place]-3 Fatty Acids/Fish Oil [Fish Oil 1,000 mg Softgel] 2 each PO DAILY 09/27/15 Omeprazole [Prilosec] 40 mg PO DAILY 09/27/15 Simvastatin [Zocor] 40 mg PO QHS 09/27/15 buPROPion XL [Wellbutrin Xl] 300 mg PO DAILY 09/27/15 Duloxetine Hcl [Cymbalta] 60 mg PO DAILY 01/30/16 Hydrochlorothiazide [Hctz] 25 mg PO DAILY 01/30/16 Alogliptin Benzoate [Alogliptin] 25 mg PO DAILY 01/22/18 Amitriptyline HCl [Elavil] 25 mg PO QHS 01/22/18 Budesonide/Formoterol 160/4.5 [Symbicort 160/4.5 Mcg Inhaler (SP)] 4.5 - 160 mcg INHALATION BID 01/22/18 Calcium Carbonate [Calcium] 600 mg PO DAILY 01/22/18 Lorazepam [Ativan] 0.5 mg PO BID PRN PRN 01/22/18 Metformin(XR) [Glucophage Xr] 1,000 mg PO BIDCM 01/22/18 Ondansetron [Zofran Odt] 4 mg PO DAILY PRN 01/22/18 Potassium Gluconate 500 mg PO DAILY 01/22/18 Guaifenesin/Codeine [Robitussin AC] 5 ml PO Q6H PRN #0 01/24/18 Insulin Glargine,Hum.rec.anlog [Basaglar Kwikpen U-100] 40 unit SQ DAILY #0 01/24/18 Levofloxacin [Levaquin] 500 mg PO DAILY #7 tab 01/24/18 Prednisone 10 mg PO UD #42 tab 01/24/18 The following prescriptions were given: Levofloxacin [Levaquin] 500 mg PO DAILY #7 tab Prednisone 10 mg PO UD #42 tab Primary Care Physician: Moose Valdovinos DO [Primary Care Provider] - Please follow up with your Primary Care Physician in: in 2 weeks Test Results: Test results from this visit will be discussed in further detail at your follow-up appointment, if applicable. Please Follow Up With: Jimmie Forrester MD When: in 2 weeks
--- NOTE | 2018-01-24 10:33 | PCM.DC.SUM ---
Discharge Date and Diagnosis Date of Admission: 01/22/18 Date of Discharge: 01/24/18 - Primary Discharge Diagnosis Active and Suspected Problems Atypical pneumonia (Acute) COPD exacerbation (Acute) - Secondary Discharge Diagnosis Chronic Problems Chronic cough (Chronic) Bronchiectasis (Chronic) Diabetes mellitus type 2 in obese (Chronic) Hypertension (Chronic) Morbid obesity (Chronic) Hospital Course and Treatment Summary of Care Provided: [] The patient is a 47 year old F with history of COPD, bronchiectasis and multiple recurrent pneumonia since age 8, 22 pack years of smoking, quit in 2014 came to ER with progressive worsening of shortness of breath for 2-3 weeks. Patient had bronchoscopy by Dr. Forrester about a month ago, exact diagnosis, findings not available. Patient is also not clear about her pulmonary history in detail. She is having fever for about 2-3 weeks, highest 102.3 Fahrenheit last night, worsening of cough with clear sputum, chest congestion and progressive worsening of shortness of breath. She saw PCP last and was given Biaxin and prednisone but she did not feel improvement in 5 days and therefore she went to see her doctor. She was seen by nurse practitioner of Dr. Forrester and was sent to ER. Patient denies chest pain. In ED, chest CT scan was done and shows no features of PE but small areas of groundglass opacity, multifocal left lower lobe and solitary zone left upper lobe. Subsegmental atelectasis chronic in nature. Twelve-lead EKG shows sinus tach at 103/min. Patient was seen and examined today. Patient symptoms of shortness of breath and cough improved. General: Alert, Oriented x3, Cooperative HEENT: Atraumatic, PERRLA, EOMI, Normocephalic Neck: Supple, No JVD, Negative Carotid Bruits Lungs: Air entry improved bilaterally. Mild rhonchi and wheezes Cardiovascular: Regular rate, No murmurs Abdomen: Bowel Sounds Present, Soft, Non Tender, Non-Distended Extremities: No edema, Capillary Refill Less than 3 Seconds Skin: No rashes, No breakdown Musculoskeletal: No Tenderness to Palpation of Joints or Extremities Neurological: Cranial nerves II-XII grossly intact Psych/Mental Status: Normal Affect, Appropriate 1 COPD exacerbation, with chronic bronchial wall thickening with minimal atelectasis in right middle lobe and lingula: Patient is being admitted to regular MedSurg floor. 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 Started on bronchodilator, IV Solu-Medrol, incentive spirometry, chest physiotherapy and IV antibiotics. Infectious workup with blood cultures x2 are negative for more than 2 days. Urinary antigens, UA and respiratory panel are negative. Requested medical record from Dr Forrester office regarding bronchoscopy report, tissue biopsy report, other pulmonary and cardiovascular workup like EKG and echo but has not received yet. BNP normal. Patient discharged on Levaquin for 7 more days. Patient advised to follow-up with Dr Forrester. 2. Atypical pneumonia, multifocal in left upper lobe and left lower lobe: Patient is treated with Biaxin for 5 days. Started on Levaquin. Follow culture reports as mentioned above. 3. 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 Diabetes mellitus type 2, hypertension and morbid obesity: Blood sugar is uncontrolled. A1c high, 10.5. On Accu-Cheks before meals and at bedtime and cover with NovoLog sliding scale. Dose of Lantus increased to 40 units daily. Weight loss counseling and document manager consult. Multiple comorbidities complicates the present care and expect difficult and delay recovery. Home medication reconciliation done. DVT prophylaxis: On heparin 5000 units subcutaneous twice daily. Follow CBC and if hemoglobin drops or any active bleeding will discontinue it. Discharge medication reconciliation done. Discharge follow-up instructions completed. Total time spent, exact 35 minutes on discharge meds reconciliation, examination, review of imaging and blood test and discussion with the patient on follow-up instructions. This note was generated with [employer] dictation software. 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 Discharge Activity: May not drive while taking narcotic pain medications. - On Robitussin-AC Call your doctor if you observe: Fever of 101 or Higher, Inability to urinate, Shortness of breath, Fainting spells Home Medications: Medications to take at Discharge Albuterol Aerosols [Ventolin Aerosols] 2.5 mg INHALATION Q4HWA.RT 09/27/15 Aspirin 81 mg PO DAILY 09/27/15 Cetirizine HCl [Zyrtec] 5 mg PO DAILY 09/27/15 Fluticasone 0.05% [Flonase Nasal [place]] 2 spray NASAL DAILY 09/27/15 Glimepiride [Amaryl] 2 mg PO BID 09/27/15 Lisinopril [Zestril] 20 mg PO DAILY 09/27/15 Montelukast [Singulair] 10 mg PO DAILY 09/27/15 Multivitamins,Ther W-Minerals [Multivitamin With Minerals] 1 tablet PO DAILY 09/27/15 Scammon-3 Fatty Acids/Fish Oil [Fish Oil 1,000 mg Softgel] 2 each PO DAILY 09/27/15 Omeprazole [Prilosec] 40 mg PO DAILY 09/27/15 Simvastatin [Zocor] 40 mg PO QHS 09/27/15 buPROPion XL [Wellbutrin Xl] 300 mg PO DAILY 09/27/15 Duloxetine Hcl [Cymbalta] 60 mg PO DAILY 01/30/16 Hydrochlorothiazide [Hctz] 25 mg PO DAILY 01/30/16 Alogliptin Benzoate [Alogliptin] 25 mg PO DAILY 01/22/18 Amitriptyline HCl [Elavil] 25 mg PO QHS 01/22/18 Budesonide/Formoterol 160/4.5 [Symbicort 160/4.5 Mcg Inhaler (SP)] 4.5 - 160 mcg INHALATION BID 01/22/18 Calcium Carbonate [Calcium] 600 mg PO DAILY 01/22/18 Lorazepam [Ativan] 0.5 mg PO BID PRN PRN 01/22/18 Metformin(XR) [Glucophage Xr] 1,000 mg PO BIDCM 01/22/18 Ondansetron [Zofran Odt] 4 mg PO DAILY PRN 01/22/18 Potassium Gluconate 500 mg PO DAILY 01/22/18 Guaifenesin/Codeine [Robitussin AC] 5 ml PO Q6H PRN #0 01/24/18 Insulin Glargine,Hum.rec.anlog [Basaglstone Trinhikpen U-100] 40 unit SQ DAILY #0 01/24/18 Levofloxacin [Levaquin] 500 mg PO DAILY #7 tab 01/24/18 Prednisone 10 mg PO UD #42 tab 01/24/18 Following Prescrptions Were Given to Patient: Levofloxacin [Levaquin] 500 mg PO DAILY #7 tab Prednisone 10 mg PO UD #42 tab Primary Care Physician: Moose Valdovinos DO [Primary Care Provider] - Please follow up with your Primary Care Physician in: in 2 weeks Please Follow Up With: Jimmie Forrester MD When: in 2 weeks Medical Necessity - Tobacco Use Smoking Status: Former smoker Meaningful Use Info Meaningful Use Diagnoses (Choose all that apply): None applicable Code Visit Inpatient E&M: 28331 Disch Hosp
[2018-01-24] MEDS: Fluticasone 0.05% 1 SPRAY NASAL.SRY 2 SPRAY NASAL (10:34)
[2018-01-24 11:30] VITALS: PULSE 108; RESP 23
[2018-01-24 12:30] LABS: Bedside Glucose 343 mg/dL (70-110)
[2018-01-24] MEDS: levoFLOXacin 500 MG Tablet PO (13:02)
--- NOTE | 2018-01-25 16:06 | CASEMGMT ---
YRN PALACIOS DC PHONE CALL DC Date: 01/24/18 Disposition: home LACE/STRATA: 02/24 Call to pt's phone. Message left with call back information if pt had questions or concern re: dc, instructions, prescriptions or f/u. A.Susu BSN RN ACM
== END 2018-01-24 14:44 | disposition home or self-care (01) | DRG 89 ==
LOC: ED 10:51 → MS3 13:01
PROVIDERS: Hospitalist; Admitting Provider Internal Medicine; Emergency Provider Emergency Medicine; Family Provider Student in an Organized Health Care Education/Training Program; PCP Student in an Organized Health Care Education/Training Program; Visit Provider Internal Medicine
DX: J18.9 Pneumonia, unspecified organism (principal); E11.65 Type 2 diabetes mellitus with hyperglycemia; J44.0 Chronic obstructive pulmonary disease with (acute) lower respiratory infection; J44.1 Chronic obstructive pulmonary disease with (acute) exacerbation; J47.9 Bronchiectasis, uncomplicated; D68.51 Activated protein C resistance; Z23 Encounter for immunization; I10 Essential (primary) hypertension; E66.01 Morbid (severe) obesity due to excess calories; Z79.4 Long term (current) use of insulin; Z68.41 Body mass index [BMI] 40.0-44.9, adult; Z87.891 Personal history of nicotine dependence; Z86.711 Personal history of pulmonary embolism; Z87.01 Personal history of pneumonia (recurrent)
CPT/HCPCS: 36415; 71046; 71275; 80048; 80053; 81001; 82947; 82962; 83036; 83880; 85025; 87040; 87086; 87088; 87449; 87633; 93005; 93306; 94640; 94667; 94668; 99282; J7050; Q9957; Q9967; 90686; A4216

== ENCOUNTER 2018-06-15 08:32 | Emergency (ER) | payer MEDICAID, SELFPAY ==
[2018-06-15] VITALS (7 sets, daily range): BP systolic 122–148; BP diastolic 80–107; PULSE 99–114; RESP 16–22; TEMP 36.6–37.7; O2SAT 96–98; BMI 43.5
--- NOTE | 2018-06-15 08:45 | RAD_ITS ---
STUDY: X-RAY CHEST REASON FOR EXAM: Female, 47 years old. One-week history of cough, fever and wheezing. TECHNIQUE: PA and lateral views of the chest. COMPARISON: Comparison is made with prior study dated January 22, 2018. FINDINGS: Since prior study, there has been increased infiltration and/or atelectasis in the lingular segment of the left upper lobe. This most likely represents superimposed position of atelectasis and infiltrate on scarring. Follow-up is recommended. There is no demonstrated pleural abnormality. Normal size heart. Normal mediastinum and biju. Normal visualized pulmonary arteries. Normal visualized aortic arch and descending thoracic aorta. Normal visualized thoracic spine. Normal visualized ribs, clavicles, and shoulders. There is no demonstrated abnormality of the visualized soft tissue structures of the upper abdomen. RAD/Chest PA and Lateral IMPRESSION: Progressive increased markings in the lingular segment of the left upper lobe as described. Superimposed infiltration and/or atelectasis should be excluded. Electronically Signed: Aldair Su MD at 10:40 EST , Service support ,
--- NOTE | 2018-06-15 08:47 | ED.VIS.GEN ---
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 2 days ago she developed headache, fever subjective since she does not have a thermometer, myalgias, arthralgias, nasal symptoms, sore throat and cough. She reports increased wheezing. She is only able to walk 5-10 steps before she becomes dyspneic. She denies chest discomfort of any type. She has no known history of coronary disease. She denies orthopnea or PND. She states her blood sugars normally are approximately 100. They have been 300 to greater than 400 the past several days. She does have history of pulmonary embolus and factor V Leiden deficiency. She had complications with anticoagulation and is only on aspirin. (Menorrhagia for greater than a month) Past Medical History - Allergies and Home Meds Allergies/Adverse Reactions: Allergies latex Adverse Reaction (Verified 06/15/18 08:35) [facility] Primary Care Physician: Moose Valdovinos DO [Primary Care Provider] - Prior records reviewed: Yes Past Medical History: - - Type 2 diabetes requiring insulin, hypertension, hypercholesterolemia, COPD Lives: Alone Smoking Status: Former smoker Alcohol: None Drugs: None Review of Systems General: Reports: Chills, Fever, Malaise, Subjective, Sweats. Denies: Weight loss Eyes: Reports: Blurred Vision - bilaterally. Denies: Visual changes - bilaterally, Diplopia ENT: Denies: Bilateral ear pain, Rhinorrhea, Sore throat Cardiovascular: Denies: Chest pain, Palpitations Respiratory: Reports: Dyspnea, Cough, Dyspnea on exertion. Denies: Sputum, Orthopnea, Paroxysmal nocturnal dyspnea Gastrointestinal: Reports: Nausea. Denies: Abdominal pain, Vomiting, Diarrhea, Melena, Hematochezia Genitourinary: Denies: Dysuria, Hematuria, Frequency Musculoskeletal: Reports: Myalgias, Arthralgias. Denies: Back pain, Extremity Pain Skin: Denies: Rash, Wounds Neurological: Reports: Headache, Weakness. Denies: Parasthesia, Numbness Endocrine: Reports: Polyuria, Polydipsia Allergy: Reports: Uticaria, Swelling of the mouth Physical Exam Vital Signs/Narrative: Vital Signs Temp Pulse Resp BP Pulse Ox 06/15/18 08:32 100 F H 114 H 20 H 148/107 H 98 Inital Vital Signs reviewed: Yes General: Well nourished, Well developed, Obese, Acute Distress, - - Mild Head: Normocephalic, Atraumatic Eyes: Perrl, EOMI. Negative for: Pale conjunctiva, Scleral icterus ENT: TM's clear, Dry mucous membranes. Negative for: No rhinorrhea, Sinus tenderness Neck: Supple, Nontender, No lymphadenopathy, No JVD Cardiovascular: Regular rhythm, No murmurs, Normal S1, Normal S2, Tachycardia. Negative for: Regular rate Respiratory: Chest nontender, Wheezing, Decreased Air Movement. Negative for: No distress, Retractions Abdomen: Soft, Nontender, Nondistended, Normal bowel sounds Back: Nontender, Normal Inspection Extremities: Nontender, No edema. Negative for: Tenderness, Calf Tenderness Skin: Normal color, No rash. Negative for: Cyanosis, Diaphoresis Neurological: Alert, Oriented x3, Cranial nerves II-XII grossly intact, Normal Strength, Normal Sensation, Normal Gait Psychological: Normal affect, Normal Mood Diagnostic/Tx/Re-eval Chest X-Ray - ED: 2 View, Normal, Heart, Lungs, Mediastinum, Bony Structures, No Acute Disease CBC is unremarkable. Basic metabolic panels marked for glucose of 404 with a normal CO2 and anion gap. Rapid influenza test is negative. Urinalysis is consistent with urinary tract infection. This is contributing to her hyperglycemia. - Rhythm Strip Rhythm Strip: Sinus Rhythm Rate: 98 - IA interval, QRS duration, QT interval and axis are normal. Ectopy: None - EKG Initial EKG Interpretation: Sinus Rhythm, - - Ventricular rate is 98. IA interval, QRS duration, QT interval and axis are normal. The EKG is normal. - Medical Decision Making Patient has symptoms consistent with influenza. Rapid influenza screen was obtained. Because she was reporting dyspnea with exertion with history of diabetes will obtain EKG to evaluate for acute cardiac ischemia. Chest x-ray to evaluate for pneumonia since she has history of COPD with wheezing. CBC was obtained to assess white count and H&H. Electrode panel was obtained to assess CO2, anion gap and blood sugar. Patient has classic symptoms for hyper glycemia greater than 400. Will obtain UA as well to evaluate for infection. Patient was ordered 10 units of insulin subcu for glucose of 404. She also received 1 L of normal saline. Since urine is consistent with a urinary tract infection, urine culture was sent and she received 1 g of Rocephin. Plan is to discharge with antibiotics for 7 days, Macrobid 100 mg twice daily ED Disposition - Plan for ED Patient: Disposition: Home or Assisted Living Diagnosis: Acute URI, Acute cystitis, Hyperglycemia due to type 2 diabetes mellitus Instructions: ED Viral Syndrome, ED UTI Cystitis Female, ED Hyperglycemia Diabetic Prescriptions: Nitrofurantoin Macrocrystals [Macrobid] 100 mg PO Q12 #10 cap Referrals: Moose Valdovinos DO [Primary Care Provider] - 3-5 Days
--- NOTE | 2018-06-15 08:51 | ED.DCSUM_ITS ---
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 2 days ago she developed headache, fever subjective since she does not have a thermometer, myalgias, arthralgias, nasal symptoms, sore throat and cough. She reports increased wheezing. She is only able to walk 5- 10 steps before she becomes dyspneic. She denies chest discomfort of any type. She has no known history of coronary disease. She denies orthopnea or PND. She states her blood sugars normally are approximately 100. They have been 300 to greater than 400 the past several days. She does have history of pulmonary embolus and factor V Leiden deficiency. She had complications with anticoagulation and is only on aspirin. (Menorrhagia for greater than a month) Past Medical History - Allergies and Home Meds Allergies/Adverse Reactions: Allergies latex Adverse Reaction (Verified 06/15/18 08:35) [facility] Primary Care Physician: Moose Valdovinos DO [Primary Care Provider] - Prior records reviewed: Yes Past Medical History: - - Type 2 diabetes requiring insulin, hypertension, hypercholesterolemia, COPD Lives: Alone Smoking Status: Former smoker Alcohol: None Drugs: None Review of Systems General: Reports: Chills, Fever, Malaise, Subjective, Sweats. Denies: Weight loss Eyes: Reports: Blurred Vision - bilaterally. Denies: Visual changes - bilaterally, Diplopia ENT: Denies: Bilateral ear pain, Rhinorrhea, Sore throat Cardiovascular: Denies: Chest pain, Palpitations Respiratory: Reports: Dyspnea, Cough, Dyspnea on exertion. Denies: Sputum, Orthopnea, Paroxysmal nocturnal dyspnea Gastrointestinal: Reports: Nausea. Denies: Abdominal pain, Vomiting, Diarrhea, Melena, Hematochezia Genitourinary: Denies: Dysuria, Hematuria, Frequency Musculoskeletal: Reports: Myalgias, Arthralgias. Denies: Back pain, Extremity Pain Skin: Denies: Rash, Wounds Neurological: Reports: Headache, Weakness. Denies: Parasthesia, Numbness Endocrine: Reports: Polyuria, Polydipsia Allergy: Reports: Uticaria, Swelling of the mouth Physical Exam Vital Signs/Narrative: Vital Signs Temp Pulse Resp BP Pulse Ox 06/15/18 08:32 100 F H 114 H 20 H 148/107 H 98 Inital Vital Signs reviewed: Yes General: Well nourished, Well developed, Obese, Acute Distress, - - Mild Head: Normocephalic, Atraumatic Eyes: Perrl, EOMI. Negative for: Pale conjunctiva, Scleral icterus ENT: TM's clear, Dry mucous membranes. Negative for: No rhinorrhea, Sinus tenderness Neck: Supple, Nontender, No lymphadenopathy, No JVD Cardiovascular: Regular rhythm, No murmurs, Normal S1, Normal S2, Tachycardia. Negative for: Regular rate Respiratory: Chest nontender, Wheezing, Decreased Air Movement. Negative for: No distress, Retractions Abdomen: Soft, Nontender, Nondistended, Normal bowel sounds Back: Nontender, Normal Inspection Extremities: Nontender, No edema. Negative for: Tenderness, Calf Tenderness Skin: Normal color, No rash. Negative for: Cyanosis, Diaphoresis Neurological: Alert, Oriented x3, Cranial nerves II-XII grossly intact, Normal Strength, Normal Sensation, Normal Gait Psychological: Normal affect, Normal Mood Diagnostic/Tx/Re-eval Chest X-Ray - ED: 2 View, Normal, Heart, Lungs, Mediastinum, Bony Structures, No Acute Disease CBC is unremarkable. Basic metabolic panels marked for glucose of 404 with a normal CO2 and anion gap. Rapid influenza test is negative. Urinalysis is consistent with urinary tract infection. This is contributing to her hyperglycemia. - Rhythm Strip Rhythm Strip: Sinus Rhythm Rate: 98 - TN interval, QRS duration, QT interval and axis are normal. Ectopy: None - EKG Initial EKG Interpretation: Sinus Rhythm, - - Ventricular rate is 98. TN interval, QRS duration, QT interval and axis are normal. The EKG is normal. - Medical Decision Making Patient has symptoms consistent with influenza. Rapid influenza screen was obtained. Because she was reporting dyspnea with exertion with history of diabetes will obtain EKG to evaluate for acute cardiac ischemia. Chest x-ray to evaluate for pneumonia since she has history of COPD with wheezing. CBC was obtained to assess white count and H&H. Electrode panel was obtained to assess CO2, anion gap and blood sugar. Patient has classic symptoms for hyper glycemia greater than 400. Will obtain UA as well to evaluate for infection. Patient was ordered 10 units of insulin subcu for glucose of 404. She also received 1 L of normal saline. Since urine is consistent with a urinary tract infection, urine culture was sent and she received 1 g of Rocephin. Plan is to discharge with antibiotics for 7 days, Macrobid 100 mg twice daily ED Disposition - Plan for ED Patient: Disposition: Home or Assisted Living Diagnosis: Acute URI, Acute cystitis, Hyperglycemia due to type 2 diabetes mellitus Instructions: ED Viral Syndrome, ED UTI Cystitis Female, ED Hyperglycemia Diabetic Prescriptions: Nitrofurantoin Macrocrystals [Macrobid] 100 mg PO Q12 #10 cap Referrals: Moose Valdovinos DO [Primary Care Provider] - 3-5 Days
--- NOTE | 2018-06-15 08:54 | EKG12_ITS ---
Test Reason : DYSRHYTHMIA Blood Pressure : / mmHG Vent. Rate : 098 BPM Atrial Rate : 098 BPM P-R Int : 166 ms QRS Dur : 084 ms QT Int : 364 ms P-R-T Axes : 045 068 026 degrees QTc Int : 464 ms Normal sinus rhythm Normal ECG Confirmed by FABRICE GARZA, MACRINA ([id number]), senior editor ANGELICA JUNE ([id number] on 06/19/2018 4:40:47 PM Referred By: MARY ANN Confirmed By:MACRINA AVINA MD
[2018-06-15 09:03] LABS: Absolute Lymphocyte Count 4.05 X10^3/ul (0.83-4.51); Absolute Neutrophil Count 5.6 X10^3/uL (2.0-7.7); Basophil# 0.04 X10^3/uL; Basophil% 0.4 % (0-1); Eosinophil# 0.47 X10^3/uL; Eosinophils% 4.3 % (0-5); Hemoglobin 15.7 g/dl (12.0-15.0); Lymphocyte # 4.05 X10^3/ul (4.0); Lymphocyte % 37.1 % (19-41); Mean Corp Hgb Conc 33.4 g/gl (32-36); Mean Corpuscular Hgb 31.5 pg (27.0-32.0); Mean Corpuscular Volume 94.4 fL (81-99); Monocyte# 0.73 X10^3/uL; Monocyte% 6.7 % (0-10); Neutrophil # 5.59 X10^3/uL (2.7-7.7); Neutrophil % 51.2 % (47-70); POSITIVE COUNT NO; POSITIVE DIFFERENTIAL NO; POSITIVE MORPHOLOGY NO; Platelet Count 296 K/mm3 (150-450); RBC Distribution Width CV 13.4 % (11.6-14.6); RBC Distribution Width SD 46.1 fl (35.1-43.9); Red Blood Count 4.98 M/mm3 (4.2-5.4); White Blood Count 10.9 K/mm3 (4.4-11.0)
[2018-06-15] MEDS: 0.9% Normal Saline 1,000 ML 1000 ML IV (09:06)
[2018-06-15] MEDS: Ipratropium/Albuterol Sulfate 3 ML AMPUL.NEB INHALATION (09:07)
[2018-06-15] MEDS: Albuterol 2.5 MG/3 ML VIAL.NEB. INHALATION (09:07)
[2018-06-15 09:16] LABS: Anion Gap 14 (5-15); BUN 8 mg/dL (7-18); Calcium,Total 8.3 mg/dL (8.5-10.1); Chloride 99 mmol/L (98-107); Creatinine, Serum 0.89 mg/dL (0.55-1.02); EST Glomerular Filtration Rate 72 mL/min (>60); Est Glom Filt Rate - Afr Amer 88 mL/min (>60); Estimated Creatinine Clearance 66.03 ml/min; Glucose 404 mg/dL (74-106); Potassium 3.8 mmol/L (3.5-5.1); Sodium Level 137 mmol/L (136-145)
[2018-06-15] MEDS: Insulin Lispro 100 UNIT/ML INSULN.PEN 10 UNIT SC (10:48)
[2018-06-15 11:13] LABS: Mucous, Urine 0 SEEN /hpf (<or=2+)
[2018-06-15 11:16] LABS: Color, Urine Yellow (Yellow); Glucose, Dipstick 1000 mg/dl (Normal); Ketone-Dipstick 5 mg/dl (Negative); Leukocyte Esterase-Dipstick 500 /ul (Negative); Nitrite-Dipstick Negative (Negative); Occult Blood-Urine 10 /ul (Negative); Protein-Dipstick Negative (Negative); Specific Gravity, Urine 1.015 (1.002-1.030); Urine Bilirubin Dipstick Negative (Negative); Urine Clarity Sl. Cloudy (Clear); Urine Urobilinogen Normal (Normal)
[2018-06-15 11:23] LABS: Red Blood Cells-Urine 0-5 SEEN /hpf (0-5); Squamous Epithelial Cells - UA 0-5 SEEN /hpf (5-10); White Blood Cells 25-50 SEEN /hpf (0-5)
[2018-06-15 11:24] LABS: Bacteria 1+ /hpf (None Seen); Trichomonas 0-5 SEEN /hpf (None Seen)
[2018-06-15] MEDS: Ceftriaxone 1 GM/50 ML BAG IV (12:03)
--- NOTE | 2018-06-15 12:56 | ED.RN ---
IV DC'ED, CATHETER INTACT, SMALL GAUZE DRESSING PLACED. DISCHARGE INSTRUCTIONS GIVEN TO AND REVIEWED WITH PATIENT, PATIENT DENIES QUESTIONS OR CONCERNS AND VOICES UNDERSTANDING OF DISCHARGE INSTRUCTIONS. PT AMBULATES OUT OF ROOM WITHOUT DIFFICULTY.
== END 2018-06-15 12:57 | disposition home or self-care (01) ==
PROVIDERS: Emergency Provider Emergency Medicine; Family Provider Student in an Organized Health Care Education/Training Program; PCP Student in an Organized Health Care Education/Training Program
DX: J06.9 Acute upper respiratory infection, unspecified (principal); N30.00 Acute cystitis without hematuria; E11.65 Type 2 diabetes mellitus with hyperglycemia; D68.51 Activated protein C resistance; J44.9 Chronic obstructive pulmonary disease, unspecified; I10 Essential (primary) hypertension; E78.00 Pure hypercholesterolemia, unspecified; Z79.82 Long term (current) use of aspirin; Z79.4 Long term (current) use of insulin; Z79.899 Other long term (current) drug therapy; Z86.711 Personal history of pulmonary embolism; Z87.891 Personal history of nicotine dependence
CPT/HCPCS: 71046; 80048; 81001; 85025; 87086; 87088; 87804; 93005; 94640; 96361; 96365; 99284; J7030; A4216

== ENCOUNTER 2018-06-22 17:17 | Inpatient (IN) | payer MEDICAID, SELFPAY ==
[2018-06-15 08:32] VITALS: BMI 43.5
[2018-06-22] VITALS (13 sets, daily range): BP systolic 90–141; BP diastolic 45–92; PULSE 93–129; RESP 15–32; TEMP 36.2–37.4; O2SAT 91–98; BMI 43.3; BMI 42.7
--- NOTE | 2018-06-22 17:38 | EKG12_ITS ---
Test Reason : REPEAT Blood Pressure : / mmHG Vent. Rate : 101 BPM Atrial Rate : 101 BPM P-R Int : 156 ms QRS Dur : 078 ms QT Int : 368 ms P-R-T Axes : 007 042 025 degrees QTc Int : 477 ms Sinus tachycardia Low voltage QRS Septal infarct , age undetermined Abnormal ECG Confirmed by FABRICE GARZA, MACRINA ([id number]), videotape editor SERENITY BEY ([id number]) on 06/25/2018 1:14:46 PM Referred By: Vinod Jaffe Confirmed By:MACRINA AVINA MD
[2018-06-22] MEDS: Ipratropium/Albuterol Sulfate 3 ML AMPUL.NEB INHALATION (17:54)
[2018-06-22] MEDS: 0.9% Normal Saline 1,000 ML 999 ML IV (17:58)
[2018-06-22] MEDS: MethylPREDNISolone 125 MG/2 ML Vial IV (17:58)
[2018-06-22] MEDS: Ketorolac 30 MG/ML Syringe IV (17:58)
--- NOTE | 2018-06-22 18:00 | RAD_ITS ---
STUDY: X-RAY CHEST REASON FOR EXAM: Female, 48 years old. Cough and fever TECHNIQUE: Frontal and lateral views of the chest. COMPARISON: June 15, 2018 chest x-ray FINDINGS: Left lower lobe airspace disease. Right lung clear. There is no demonstrated pleural abnormality. Normal size heart. Normal mediastinum and biju. Normal visualized pulmonary arteries. Normal visualized aortic arch and descending thoracic aorta. Normal visualized thoracic spine. Normal visualized ribs, clavicles, and shoulders. There is no demonstrated abnormality of the visualized soft tissue structures of the upper abdomen. RAD/Chest PA and Lateral IMPRESSION: Left lower lobe airspace disease unchanged. Electronically Signed: Julio Cesar Holly MD at 18:33 EST , Service support ,
[2018-06-22 18:11] LABS: Absolute Lymphocyte Count 2.71 X10^3/ul (0.83-4.51); Absolute Neutrophil Count 4.8 X10^3/uL (2.0-7.7); Basophil# 0.03 X10^3/uL; Basophil% 0.3 % (0-1); Eosinophil# 0.05 X10^3/uL; Eosinophils% 0.6 % (0-5); Hematocrit 46.1 % (37-47); Hemoglobin 15.6 g/dl (12.0-15.0); Lymphocyte # 2.71 X10^3/ul (4.0); Lymphocyte % 31.2 % (19-41); Mean Corp Hgb Conc 33.8 g/gl (32-36); Mean Corpuscular Hgb 31.1 pg (27.0-32.0); Mean Corpuscular Volume 91.8 fL (81-99); Mean Platelet Vol. 11.4 fl (6.2-12.0); Monocyte# 1.03 X10^3/uL; Monocyte% 11.9 % (0-10); Neutrophil # 4.83 X10^3/uL (2.7-7.7); Neutrophil % 55.7 % (47-70); Platelet Count 237 K/mm3 (150-450); RBC Distribution Width CV 13.6 % (11.6-14.6); RBC Distribution Width SD 45.1 fl (35.1-43.9); Red Blood Count 5.02 M/mm3 (4.2-5.4); White Blood Count 8.7 K/mm3 (4.4-11.0)
[2018-06-22 18:14] LABS: POSITIVE COUNT NO; POSITIVE DIFFERENTIAL NO; POSITIVE MORPHOLOGY NO
[2018-06-22 18:28] LABS: Anion Gap 14 (5-15); BUN 11 mg/dL (7-18); BUN/Creat Ratio 11.7 RATIO (10-20); Chloride 95 mmol/L (98-107); Creatinine, Serum 0.94 mg/dL (0.55-1.02); EST Glomerular Filtration Rate 68 mL/min (>60); Est Glom Filt Rate - Afr Amer 82 mL/min (>60); Estimated Creatinine Clearance 61.86 ml/min; Glucose 297 mg/dL (74-106); Magnesium 1.2 mg/dL (1.6-2.6); Potassium 3.3 mmol/L (3.5-5.1); Sodium Level 134 mmol/L (136-145)
--- NOTE | 2018-06-22 18:47 | ED.DCSUM_ITS ---
- ER Visit Summary Date of Service: 06/22/18 Chief Complaint: Cough History of Present Illness: The patient is a [address] Root. She reports that she has a cough began approximately 3 weeks ago. Is nonproductive. States that she has had a temperature of 103.9 degrees. She was here 1 week ago and had an influenza test that was negative. She was diagnosed with UTI and discharged on Macrobid. She reports that her dysuria and frequency is completely resolved. However, her cough is worsened. Patient saw her primary care physician 2 days ago and was placed on Levaquin. States that her last dose was today. She reports that she is continuing to have fevers up to 102.3 degrees. Her cough is nonproductive. She has chest pain that is increased with breathing or coughing. She reports that she has moderate shortness of breath. Is worse with ambulation or coughing. She reports she has had nausea without vomiting or diarrhea. She has a headache that stated 10 severity. She has a history of similar headaches. Physical Examination: Vitals: 9.4, 140/83, 129, 32, 95% on room air which is not hypoxic. General: Well-nourished and well-developed. Head: Normocephalic atraumatic. Neck: Supple, no lymphadenopathy. No JVD. Nontender. Cardiovascular: Tachycardic regular rhythm. No murmurs. Respiratory: No respiratory distress. Mild wheezing bilaterally with decreased air movement. Abdominal: Soft, nontender, nondistended, normal bowel sounds. No guarding, rebound, or peritoneal signs. Back: Nontender. Extremities: Nontender, no edema. Skin: Normal color, no rash. Neurologic: Alert and oriented ?3. Cranial nerves II through XII are intact. Normal strength and sensation. Psych: Normal affect. Test Results: EKG is sinus tach at 122 with a QTC of 604. This is a change from last month. At that time her QTC was 464. Repeat EKG shows her QT to be improved to 477. CBC is marked for hemoglobin of 15.6 monocytes of 2. Chem-7 is more for sodium 134, potassium 3.3, chloride 95, glucose 297. Troponin is negative. Chest x-ray shows a left lower lobe infiltrate. Patient is positive for influenza A. Magnesium is 1.2. Emergency Department Course and Treatment: Patient was treated albuterol and Atrovent aerosols. She is given Solu-Medrol IV. She is given Toradol IV. She was given Rocephin and doxycycline IV. She was given Tamiflu p.o. She is resting comfortably. We attempted to ambulate the patient emergency department. She did not even make it to the door prior to being so short of breath that she can walk. Her pulse ox at that time was 90%. She will be admitted to the hospital for further relation and treatment. Treatment Plan: Patient was discussed with Dr. Jaffe. Disposition: Admitted in improved condition. Impression: 1. Influenza A. 2. Pneumonia, community-acquired. 3. Hypoxia. 4. Prolonged QTC on Levaquin. This note was generated with [email or web address] dictation software. It may contain incorrect words, spelling, and punctuation that were not noted in review of the chart prior to signing ED Disposition - Plan for ED Patient: Disposition: Acute [facility], [place]
--- NOTE | 2018-06-22 19:15 | EKG12_ITS ---
Test Reason : SOB Blood Pressure : / mmHG Vent. Rate : 122 BPM Atrial Rate : 122 BPM P-R Int : 152 ms QRS Dur : 078 ms QT Int : 424 ms P-R-T Axes : 056 072 066 degrees QTc Int : 604 ms Sinus tachycardia Otherwise normal ECG Confirmed by FABRICE GARZA, MACRINA ([id number]), technical writer and editor SERENITY BEY ([id number] on 06/25/2018 1:36:32 PM Referred By: Vinod Jaffe Confirmed By:MACRINA AVINA MD
--- NOTE | 2018-06-22 19:34 | ED.RN ---
PT ONLY MADE IT ABOUT 10 STEPS OUT OF ER ROOM BEFORE COUGHING UNCONTROLLABLY AND STATING SHE COULD NOT WALK ANY FURTHER
[2018-06-22] MEDS: Ceftriaxone 1 GM/50 ML BAG IV (19:35)
[2018-06-22] MEDS: Oseltamivir Phosphate 75 MG Capsule PO ×2 (20:35→22:54)
--- NOTE | 2018-06-22 20:48 | HP.PCM_ITS ---
Problem List (1) COPD (chronic obstructive pulmonary disease) Status: Chronic (2) Bronchiectasis Status: Chronic (3) Diabetes mellitus type 2 in obese Status: Chronic (4) Hypertension Status: Chronic (5) Morbid obesity Status: Chronic History of Present Illness Date of Admission: 06/22/18 Chief Complaint: Cough, fever, shortness of breath. The patient is a 48 year old F with past medical history as mentioned above presented to the emergency room because of cough, shortness of breath, fever and wheezing. Her illness started around 3 weeks ago with dry cough, that has been progressive, associated with gradually increasing shortness of breath, mainly exertional, aggravated by activity, not significantly relieved with rest and also associated with wheezing and fever of up to 103.9 Fahrenheit. Around 1 week ago, she came to the emergency department because of cough and shortness of breath, nasal swab for influenza a and B were negative and she was found to have UTI and was discharged on Macrobid. She continued to have cough, shortness of breath and fever and 3 days ago, she saw the nurse practitioner at her PCPs office who prescribed Levaquin and she has been on Levaquin for the last 3 days. She mentioned that she has no improvement of her symptoms after she was started on either Macrobid or Levaquin. She has history of long times smoking, quit a few years ago and was diagnosed with COPD/asthma overlap and also with probable bronchiectasis. She has been following up with [facility] pulmonology [place]. In the emergency department, patient was afebrile, tachycardic, blood pressure was stable, pulse ox was 94% on 2 L. Her routine blood work was remarkable for pota ssium of 3.3 and magnesium of 1.2. Initial EKG revealed sinus tachycardia with prolonged QTC of 604 ms, there was no evidence of acute ischemic changes. After she received breathing treatment, repeat EKG revealed sinus tachycardia and QTC was 464 ms and again without evidence of acute ischemic changes. Her troponin was negative. Chest x-ray showed questionable left lower lobe infiltrate. Nasa l swab for influenza a and B was positive for influenza A. She is being admitted acute COPD exacerbation likely triggered by influenza A as well as probable in the left lower lobe community-acquired pneumonia, hypokalemia, hypomagnesemia and prolonged QTC on the EKG. Past Medical History Past Medical History (Chronic Problems): Chronic Problems COPD (chronic obstructive pulmonary disease) (Chronic) Chronic cough (Chronic) Bronchiectasis (Chronic) Diabetes mellitus type 2 in obese (Chronic) Hypertension (Chronic) Morbid obesity (Chronic) Allergies latex Adverse Reaction (Verified 06/22/18 17:21) Hives Home Medications: Ambulatory Orders Medication Instructions Recorded Albuterol Aerosols [Ventolin 2.5 mg INHALATION Q4HWA.RT 09/27/15 Aerosols] Aspirin 81 mg PO DAILY #0 09/27/15 Cetirizine HCl [Zyrtec] 5 mg PO DAILY 09/27/15 Fluticasone 0.05% [Flonase Nasal 2 spray NASAL BID 09/27/15 [place]] Glimepiride [Amaryl] 2 mg PO BID 09/27/15 Lisinopril [Zestril] 20 mg PO DAILY 09/27/15 Montelukast [Singulair] 10 mg PO DAILY 09/27/15 Multivitamins,Ther W-Minerals 1 tablet PO DAILY 09/27/15 [Multivitamin With Minerals] [place]-3 Fatty Acids/Fish Oil [Fish 2 each PO BID 09/27/15 Oil 1,000 mg Softgel] Omeprazole [Prilosec] 40 mg PO DAILY 09/27/15 Simvastatin [Zocor] 40 mg PO QHS 09/27/15 buPROPion XL [Wellbutrin Xl] 300 mg PO DAILY 09/27/15 Hydrochlorothiazide [Hctz] 25 mg PO DAILY 01/30/16 Alogliptin Benzoate [Alogliptin] 25 mg PO DAILY 01/22/18 Amitriptyline HCl [Elavil] 25 mg PO QHS 01/22/18 Budesonide/Formoterol 160/4.5 4.5 - 160 mcg INHALATION BID 01/22/18 [Symbicort 160/4.5 Mcg Inhaler (SP)] Calcium Carbonate [Calcium] 600 mg PO DAILY 01/22/18 Lorazepam [Ativan] 0.5 mg PO BID PRN PRN 01/22/18 Metformin(XR) [Glucophage Xr] 1,000 mg PO BIDCM 01/22/18 Ondansetron [Zofran Odt] 4 mg PO DAILY PRN 01/22/18 Potassium Gluconate 500 mg PO DAILY 01/22/18 Insulin Glargine,Hum.rec.anlog 40 unit SQ DAILY #0 01/24/18 [Basaglar Gregoriapen U-100] Bupropion HCl [Wellbutrin Xl] 150 mg PO DAILY 06/22/18 Duloxetine HCl 60 mg PO BID 06/22/18 levoFLOXacin tablet [Levaquin 750 mg PO DAILY 06/22/18 tablet] Surgical History: no surgical history Psychiatric History: Depression 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 Denies: Weakness, Fatigue Eyes: Denies: Blurred vision, Double vision, Drainage, Redness HEENT: Denies: Difficulty Hearing, Ear Pain, Eye Pain, Nasal Congestion, Sore Throat Cardiovascular: Denies: Chest Pain, Chest Pressure, Chest Tightness, Heaviness, Light Headedness, Palpitations, Syncope Respiratory: Reports: Cough, Pleuritic Pain, Shortness of breath at rest, Shortness of breath upon exertion, Wheezing. Denies: Sputum production Gastrointestinal: Denies: Abdominal Pain, Constipation, Diarrhea, Nausea, Vomiting Genitourinary: Denies: Dysuria, Frequency, Hematuria Musculoskeletal: Denies: Arm Pain, Back Pain, Foot Pain Skin: Denies: Dryness, Rash Neurological: Denies: Balance problems, Double vision, Slurred speech, Confusion, Focal weakness, Headaches, Incoordination Psychiatric: Reports: Depression. Denies: Anxiety Endocrine: Denies: Change in Body Habitus, Polydipsia VTE Information - Inpt Only VTE Present on Admission: No VTE Mechan Device Prophylaxis: None VTE Pharm Prophylaxis ordered?: Yes - Physical Exam General: Alert, Oriented x3, Cooperative, - - Moderately short of breath. HEENT: Atraumatic, PERRLA, EOMI, Normocephalic Oral: Moist Mucosa, No Gingival or Mucosal Lesions/ Ulcerations Neck: Supple, No JVD, Negative Carotid Bruits, Trachea Midline, Thyroid Normal Size and Texture Lungs: No rales, Diminished, Rhonchi, Short of Breath, Wheezes, - - Decreased sounds bilateral, bilateral expiratory wheezes, rhonchi. Cardiovascular: Regular rate, Regular Rhythm, Normal S1, Normal S2, PMI Normal, Tachycardic Abdomen: Bowel Sounds Present, Soft, Non Tender, Non-Distended, No Hepato- splenomegaly, Obese Extremities: No clubbing, No cyanosis, No edema Skin: No rashes, No breakdown Lymphatic: No Cervical, Supraclavicular, or Inguinal Adenopathy Neurological: Cranial nerves II-XII grossly intact, Motor Exam 5/5 strength throughout Psych/Mental Status: Normal Affect, Appropriate, Alert and oriented to time, place, person, mood and affect Vital Signs Temp Pulse Resp BP Pulse Ox 97.1 F L 110 H 18 112/68 94 06/22/18 19:10 06/22/18 19:10 06/22/18 19:10 06/22/18 19:10 06/22/18 19:10 Oxygen Flow Rate (L/min) 2 Oxygen Delivery Method Room Air Weight: 244 lb 7.882 oz Body Mass Index (BMI) 43.3 Microbiology Past 72 Hours 06/22/18 17:55 Influenza Types A,B Direct FA (RORY) - Final Mucosa - Nose Influenzae A Laboratory Tests Past 24 Hrs 06/22/18 06/22/18 18:00 18:00 WBC 8.7 RBC 5.02 Hgb 15.6 H Hct 46.1 MCV 91.8 MCH 31.1 MCHC 33.8 RDW 13.6 RDW Differential 45.1 H Plt Count 237 MPV 11.4 Immature Gran % (Auto) 0.300 Neut % (Auto) 55.7 Lymph % (Auto) 31.2 [place] % (Auto) 11.9 H Eos % (Auto) 0.6 Baso % (Auto) 0.3 Absolute Neuts (auto) 4.8 Absolute Lymphs (auto) 2.71 Total Counted Not Reportable Sodium 134 L Potassium 3.3 L Chloride 95 L Carbon Dioxide 25.0 Anion Gap 14 BUN 11 Creatinine 0.94 Estim Creat Clear Calc 61.86 Est GFR (MDRD) Af Amer 82 Est GFR (MDRD) Non-Af 68 BUN/Creatinine Ratio 11.7 Glucose 297 H Calcium 9.0 Magnesium 1.2 L Troponin I < 0.015 Clinical Impression(s) from Imaging Studies Chest X-Ray 06/22/18 18:00 IMPRESSION: Left lower lobe airspace disease unchanged. Electronically Signed: Julio Cesar Holly MD at 18:33 EST , Service support , Assessment/Plan This is a 48 years old female patient presented to the emergency room because of 3 weeks history of persistent dry cough, shortness of breath, fever and wheezing, has been on Levaquin for the last 3 days and was on Macrobid for 5 days before that without improvement, found to have questionable left lower lobe infiltrate and also tested positive for influenza A and she is being admitted for acute COPD exacerbation due to influenza A, probable left lower lobe community acquired pneumonia, hypoxia, hypokalemia, hypomagnesemia and prolonged QTC on the EKG. #1 acute COPD exacerbation/hypoxia: Likely triggered by influenza A. Patient mentioned that she has oxygen tank at home but she is not using it. Chest x-ray reviewed as above. She is hypoxic, tachycardic, afebrile. Plan: Admit to MedSurg floor, cardiac monitoring, sputum culture, start IV Zosyn, Tamiflu twice daily, IV steroids, bronchodilators, chest physiotherapy, incentive spirometer, repeat CBC and BMP tomorrow morning. #2 probable left lower lobe community-acquired pneumonia: Chest x-ray reviewed as above. No sepsis or severe sepsis. On her chart, bronchiectasis listed on her medical problems and she did mention that she had bronchiectasis as well, unclear. Patient was on Levaquin for 3 days and was on Macrobid for 5 days before that. Plan: Sputum culture, start IV Zosyn, bronchodilators, IV steroids as above. #3 hypokalemia/hypomagnesemia: Likely because of HCTZ. Plan to replace potassium with oral K Dur, replace magnesium with IV magnesium sulfate, repeat BMP and serum medicine tomorrow morning. #4 prolonged QTC on the EKG: Initial EKG revealed QTC of 604 ms, sinus tachycardia. After she received breathing treatment, repeat EKG revealed QTC of 464 ms without evidence of acute ischemic changes. Her troponin is negative. She denies any chest pain. Plan: Replace potassium and magnesium, repeat EKG tomorrow morning. #5 hypertension: Blood pressure stable, continue HCTZ and lisinopril. #6 type 2 diabetes mellitus: ADA diet, Accu-Cheks, continue home doses of glargine insulin, continue glimepiride and metformin. #7 depression/anxiety: Continue Wellbutrin, duloxetine, Ativan. #8 hyperlipidemia: Continue statins. #9 DVT prophylaxis: Subcu Lovenox. This note was generated with [employer] dictation software. It may contain incorrect words, spelling, and punctuation that were not noted in checking the note before signing. Code Visit Inpatient E&M: 34951 Init Hosp L3
[2018-06-22] MEDS: Magnesium Sulfate 4gm/100mL 4 GM/100 ML IV.SOLN. IV (22:12)
[2018-06-22] MEDS: 0.9% Normal Saline 1,000 ML 75 ML IV (22:12)
[2018-06-22] MEDS: Atorvastatin Calcium 20 MG Tablet PO (22:54)
[2018-06-22] MEDS: guaiFENesin 1,200 MG Tablet 1200 MG PO (22:54)
[2018-06-22] MEDS: DULoxetine Hcl 60 MG Capsule PO (22:54)
[2018-06-22] MEDS: Amitriptyline 25 MG Tablet PO (22:56)
[2018-06-22] MEDS: Albuterol 2.5 MG/3 ML VIAL.NEB. INHALATION (22:59)
[2018-06-22 23:10] LABS: Bedside Glucose > 500 mg/dL (70-110)
--- NOTE | 2018-06-22 23:24 | NURSING ---
CHECKED BGT ON ADMISSION. 1ST FPPDI=447, 2ND CHECK = 511. CALLED LAB FOR STAT BACK UP GLUCOSE LEVEL. PT IS NOT SYMPTOMATIC AT THIS TIME
[2018-06-23] VITALS (23 sets, daily range): BP systolic 96–122; BP diastolic 52–69; PULSE 88–110; RESP 12–26; TEMP 36.2–37.2; O2SAT 90–97
[2018-06-23 00:08] LABS: Glucose 482 mg/dL (74-106)
[2018-06-23] MEDS: Insulin Lispro 100 UNIT/ML INSULN.PEN 20 UNIT SC (00:58)
[2018-06-23] MEDS: Ipratropium/Albuterol Sulfate 3 ML AMPUL.NEB INHALATION ×4 (01:02→19:16)
[2018-06-23 01:44] LABS: Color, Urine Yellow (Yellow); Glucose, Dipstick 1000 mg/dl (Normal); Leukocyte Esterase-Dipstick 100 /ul (Negative); Nitrite-Dipstick Negative (Negative); Occult Blood-Urine 150 /ul (Negative); Protein-Dipstick 15 mg/dl (Negative); Specific Gravity, Urine 1.015 (1.002-1.030); Urine Bilirubin Dipstick Negative (Negative); Urine Clarity Sl. Cloudy (Clear); Urine Urobilinogen Normal (Normal)
[2018-06-23 01:46] LABS: Ketone-Dipstick 150 mg/dl (Negative)
--- NOTE | 2018-06-23 05:55 | EKG12_ITS ---
Test Reason : AM EKG Blood Pressure : / mmHG Vent. Rate : 096 BPM Atrial Rate : 096 BPM P-R Int : 180 ms QRS Dur : 090 ms QT Int : 400 ms P-R-T Axes : 053 053 041 degrees QTc Int : 505 ms Normal sinus rhythm Low voltage QRS Prolonged QT Abnormal ECG When compared with ECG of 22-JUN-2018 17:50, MANUAL COMPARISON REQUIRED, DATA IS UNCONFIRMED Confirmed by FABRICE GARZA, MACRINA ([id number]), manuscript editor SERNEITY BEY ([id number]) on 06/26/2018 1:18:44 PM Referred By: Vinod Jaffe Confirmed By:MACRINA AVINA MD
[2018-06-23 06:33] LABS: Absolute Lymphocyte Count 1.14 X10^3/ul (0.83-4.51); Basophil# 0.01 X10^3/uL; Basophil% 0.1 % (0-1); Hematocrit 41.9 % (37-47); Hemoglobin 13.8 g/dl (12.0-15.0); Lymphocyte # 1.14 X10^3/ul (4.0); Lymphocyte % 10.7 % (19-41); Mean Corp Hgb Conc 32.9 g/gl (32-36); Mean Corpuscular Hgb 30.4 pg (27.0-32.0); Mean Corpuscular Volume 92.3 fL (81-99); Mean Platelet Vol. 11.8 fl (6.2-12.0); Monocyte# 0.46 X10^3/uL; Monocyte% 4.3 % (0-10); Neutrophil # 8.98 X10^3/uL (2.7-7.7); Neutrophil % 84.5 % (47-70); Platelet Count 220 K/mm3 (150-450); RBC Distribution Width CV 13.7 % (11.6-14.6); RBC Distribution Width SD 45.7 fl (35.1-43.9); Red Blood Count 4.54 M/mm3 (4.2-5.4); White Blood Count 10.6 K/mm3 (4.4-11.0)
[2018-06-23 06:44] LABS: POSITIVE COUNT NO; POSITIVE DIFFERENTIAL NO; POSITIVE MORPHOLOGY NO
[2018-06-23 06:50] LABS: Anion Gap 14 (5-15); BUN 17 mg/dL (7-18); BUN/Creat Ratio 22.3 RATIO (10-20); Calcium,Total 7.6 mg/dL (8.5-10.1); Chloride 100 mmol/L (98-107); Creatinine, Serum 0.76 mg/dL (0.55-1.02); EST Glomerular Filtration Rate 87 mL/min (>60); Est Glom Filt Rate - Afr Amer 105 mL/min (>60); Estimated Creatinine Clearance 76.51 ml/min; Glucose 427 mg/dL (74-106); Magnesium 2.5 mg/dL (1.6-2.6); Potassium 3.7 mmol/L (3.5-5.1); Sodium Level 131 mmol/L (136-145)
[2018-06-23 07:11] LABS: Bedside Glucose 425 mg/dL (70-110)
[2018-06-23] MEDS: Aspirin 81 MG TAB.CHEW PO (08:45)
[2018-06-23] MEDS: Glimepiride 2 MG Tablet PO ×2 (08:45→16:44)
[2018-06-23] MEDS: Pantoprazole Sodium 40 MG Tablet PO (10:23)
[2018-06-23] MEDS: Oseltamivir Phosphate 75 MG Capsule PO ×2 (10:23→20:42)
[2018-06-23] MEDS: Montelukast 10 MG Tablet PO (10:23)
[2018-06-23] MEDS: Lisinopril 20 MG Tablet PO (10:23)
[2018-06-23] MEDS: buPROPion (XL) 300 MG TABLET.XL PO (10:23)
[2018-06-23] MEDS: buPROPion (XL) 150 MG TABLET.XL PO (10:23)
[2018-06-23] MEDS: DULoxetine Hcl 60 MG Capsule PO ×2 (10:23→20:42)
[2018-06-23] MEDS: guaiFENesin 1,200 MG Tablet 1200 MG PO ×2 (10:23→20:42)
[2018-06-23] MEDS: Enoxaparin 40 MG/0.4 ML Syringe SC (10:24)
[2018-06-23] MEDS: Glucerna Shake 120 ML LIQUID PO ×3 (10:26→16:44)
[2018-06-23] MEDS: hydroCHLOROthiazide 25 MG Tablet PO (10:28)
--- NOTE | 2018-06-23 11:21 | CASEMGMT ---
YRN PALACIOS assessment: Face to Face with patient for initial transition planning/care coordination assessment. YRN PALACIOS introduced self and role at [facility], pt voices understanding and consents to assessment at this time. Pt is sitting up in bed in no distress at this time. Pt is A/Ox4 at this time and answers all questions appropriately at this time. Care providers, pharmacy, and demographics verified at this time. PCP: Bonifacio Specialists: claus Forrester Preferred Pharmacy: [facility] Insurance: [place] Prescription Benefit: [place] Living Will/HPOA: Pt does have LW/HPOA and they are currently on file at [facility] at this time. Pt states her dari, Ignacio Joseph, is HPOA. LNOK: dari Stanley Living Arrangements: Pt states lives with dari in 1 story home and states no concerns at home at this time. Pt states is normally independent with ADL's. Transportation: Pt states drives self and states no transportation concerns at this time. DME/HHC: Pt states has the following DME: rollater, raised toilet, hand held shower, grab bars, shower chair, nebulizer, cpap, and 2 liters home oxygen prn thru [facility] but states all her portable tanks are empty. Pt then was unsure if her order was even thru [facility] still. Call to [facility] answering service and they state that no one has access to charts on the weekend so there is no one to verify pt is active with [facility] at this time. Pt nuha has had HHC in the past but not currently and has not been to SNF. Pt states no concerns with going home at time of discharge. Pt states is on disability. Pt states does not smoke or drink ETOH. Pt states no further concerns/needs at this time. CM to follow for any further discharge planning/needs. Advised pt to ask for CM if any further questions/concerns/needs arise, voices understanding. Plan: [place] YRN PALACIOS
[2018-06-23 11:50] LABS: Bedside Glucose 445 mg/dL (70-110)
--- NOTE | 2018-06-23 12:14 | PCM.PROGNOTE ---
Subjective: Antibiotics day #2-Zosyn The patient is a 48-year-old female with a past medical history of morbid obesity, diabetes mellitus type 2, hypertension, hyperlipidemia, anxiety, depression, obstructive sleep apnea (noncompliant with CPAP), bronchiectasis and COPD who presented to the emergency department at [facility] on 06/22/2018 complaining of cough, fever and shortness of breath. She stated that symptoms started 3 weeks ago with a dry cough. She complained of fevers up to 103.9 ?F. 3 days prior to presentation to the emergency room she saw the nurse practitioner at her PCPs office and was prescribed Levaquin. She stated she had no improvement. She is followed by the nursing educator at the [facility] in [place]. Vital signs at presentation to the emergency room were temp 99.4, pulse rate 129, blood pressure 140/83, respiratory rate 32 and she was 95% saturated on room air. White blood cell count was 8.7 with a unremarkable differential. Hemoglobin was 15.6 and platelets were within normal limits. Sodium was low at 134 and the potassium was low at 3.3. BUN was 11 and the creatinine was 0.94. Random blood sugar was 297. Magnesium was low at 1.2 and the troponin was less than 0.015. Rapid influenza swab was positive for influenza A. Chest x-ray showed infiltrate versus atelectasis in the left base. She was admitted to the hospital with a diagnosis of influenza A, possible community-acquired pneumonia in the left base, hypokalemia, hypomagnesemia and prolonged QTC. She was started on Tamiflu, IV steroids, aerosolized bronchodilators, incentive spirometry and Acapella. All events of the past 24 hours been reviewed. T-max was at admission and was 99.4. She has been afebrile since. She is mildly tachycardic with heart rates that ranged from 88-107 bpm. Blood pressures are within normal limits. Pulse ox this morning is 90% on 4 L. All lab from today was personally reviewed. White blood cell count is 10.6 and she has a left shift however she is on high-dose intravenous steroids. Sodium was low at 131 and the serum bicarb is 17. The anion gap is 14. Blood sugars are in excess of 400. Magnesium has been repleted and is 2.5. Urine for Legionella and streptococcal antigens is negative. - Physical Exam General: Alert, Cooperative, - - looks ill and she is working hard to breath HEENT: Atraumatic, PERRLA, EOMI, Normocephalic, - - injected conjunctiva BL Oral: Dry Mucosa Neck: Supple, No Nodes, No Nuchal Rigidity, Trachea Midline Lungs: Diminished, Tachypneic, Wheezes, - - + Conversational dyspnea, mild grunting respirations Cardiovascular: Regular Rhythm, Normal S1, Normal S2, No murmurs, No rub noted, No Gallop, Tachycardic Abdomen: Bowel Sounds Present, Soft, Non Tender, Non-Distended, Obese Extremities: No clubbing, No cyanosis, No edema, Capillary Refill Less than 3 Seconds, No Calf Tenderness Skin: No rashes, No breakdown Neurological: Neuro grossly intact Vital Signs Temp Pulse Resp BP Pulse Ox 98.4 F 104 H 18 101/54 L 94 06/23/18 11:44 06/23/18 11:44 06/23/18 11:44 06/23/18 11:44 06/23/18 11:44 Oxygen Flow Rate (L/min) 3 Oxygen Delivery Method Nasal Cannula Weight: 240 lb 15.444 oz Body Mass Index (BMI) 42.7 Intake and Output for Last 24 Hours 06/21/18 06/22/18 06/23/18 23:59 23:59 23:59 Intake Total 1035 / 1035 757 / 757 Output Total 1000 / 1000 Balance 1035 / 1035 -243 / -243 Microbiology Past 72 Hours 06/23/18 01:05 Streptococcus pneumoniae Antigen (M - Final Urine, Clean Catch 06/23/18 01:05 Legionella Antigen - Final Urine, Clean Catch 06/22/18 17:55 Influenza Types A,B Direct FA (RORY) - Final Mucosa - Nose Influenzae A Laboratory Tests Past 24 Hrs 06/22/18 06/22/18 06/22/18 18:00 18:00 23:25 WBC 8.7 RBC 5.02 Hgb 15.6 H Hct 46.1 MCV 91.8 MCH 31.1 MCHC 33.8 RDW 13.6 RDW Differential 45.1 H Plt Count 237 MPV 11.4 Immature Gran % (Auto) 0.300 Neut % (Auto) 55.7 Lymph % (Auto) 31.2 [place] % (Auto) 11.9 H Eos % (Auto) 0.6 Baso % (Auto) 0.3 Absolute Neuts (auto) 4.8 Absolute Lymphs (auto) 2.71 Total Counted Not Reportable Sodium 134 L Potassium 3.3 L Chloride 95 L Carbon Dioxide 25.0 Anion Gap 14 BUN 11 Creatinine 0.94 Estim Creat Clear Calc 61.86 Est GFR (MDRD) Af Amer 82 Est GFR (MDRD) Non-Af 68 BUN/Creatinine Ratio 11.7 Glucose 297 H 482 H* Calcium 9.0 Magnesium 1.2 L Troponin I < 0.015 Urine Color Urine Clarity Urine pH Ur Specific [place] Urine Protein Urine Glucose (UA) Urine Ketones Urine Occult Blood Urine Nitrite Urine Bilirubin Urine Urobilinogen Ur Leukocyte Esterase 06/23/18 06/23/18 06/23/18 01:05 05:55 05:55 WBC 10.6 RBC 4.54 Hgb 13.8 Hct 41.9 MCV 92.3 MCH 30.4 MCHC 32.9 RDW 13.7 RDW Differential 45.7 H Plt Count 220 MPV 11.8 Immature Gran % (Auto) 0.400 Neut % (Auto) 84.5 H Lymph % (Auto) 10.7 L [place] % (Auto) 4.3 Eos % (Auto) 0.0 Baso % (Auto) 0.1 Absolute Neuts (auto) 9.0 H Absolute Lymphs (auto) 1.14 Total Counted Not Reportable Sodium 131 L Potassium 3.7 Chloride 100 Carbon Dioxide 17.0 L Anion Gap 14 BUN 17 Creatinine 0.76 Estim Creat Clear Calc 76.51 Est GFR (MDRD) Af Amer 105 Est GFR (MDRD) Non-Af 87 BUN/Creatinine Ratio 22.3 H Glucose 427 H Calcium 7.6 L Magnesium 2.5 Troponin I Urine Color Yellow Urine Clarity Sl. Cloudy Urine pH 5.0 Ur Specific [place] 1.015 Urine Protein 15 H Urine Glucose (UA) 1000 H Urine Ketones 150 H Urine Occult Blood 150 H Urine Nitrite Negative Urine Bilirubin Negative Urine Urobilinogen Normal Ur Leukocyte Esterase 100 H POC Glucose 06/23/18 06/23/18 06/22/18 11:40 07:04 23:06 POC Glucose 445 H 425 H > 500 H* Medical Necessity - Tobacco Use Smoking Status: Former smoker Assessment/Plan Impressions 1. acute exacerbation asthma/COPD 2. possible L basilar pneumonia vs atelectasis 3. acute respiratory failure with hypoxemia 4. 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 History of bronchiectasis 6. Type 2 diabetes mellitus 7. Morbid obesity 8. Hypertension 9. Depression 10. Metabolic acidosis-suspect secondary to hyperventilation/respiratory alkalosis Increase Lantus to 60 units every morning 22 units of Humalog now And sliding scale insulin before meals and at bedtime-high dose DC the zosyn and continue Levaquin - it was working.....temps have defervesced and the white blood cell count was normal at admission with a normal differential. ABG now serum acetone, liver panel, serum and urine osmolality and urine sodium. Recheck the lab in the AM BIPAP Code Visit Inpatient E&M: 71218 Subs Hosp L3
[2018-06-23] MEDS: Insulin Lispro 100 UNIT/ML INSULN.PEN 22 UNIT SC (12:56)
[2018-06-23] MEDS: 0.9% Normal Saline 1,000 ML 999 ML IV (12:56)
[2018-06-23 12:59] LABS: AST(SGOT) 30 U/L (15-37); Alanine Aminotransfer ALT/SGPT 30 U/L (13-56); Albumin, Serum 3.3 g/dL (3.2-5.0); Alkaline Phosphatase 65 U/L (45-117); Bilirubin, Direct 0.15 mg/dL (0.00-0.30); Protein, Total 7.3 g/dL (6.4-8.2)
[2018-06-23 13:04] LABS: Hemoglobin A1c 11.5 % (4.2-6.3)
[2018-06-23 13:53] LABS: Osmolality, Serum 301 mOsm/KG (275-295)
[2018-06-23] MEDS: 0.9% Normal Saline 1,000 ML 125 ML IV ×2 (13:55→20:41)
[2018-06-23] MEDS: levoFLOXacin IV 750 MG/150 ML BAG 100 MG IV (13:55)
[2018-06-23 13:56] LABS: Allen Test POS; Base Excess -9 mmol/L (-2 to +2); Bicarbonate 16.4 mmol/L (22-26); Blood Gas Specimen Type ART; O2 Delivery Device Nasal Can; PO2 63 mmHG (75-100); SITE L Radial; SO2 92 % (95-99); Time Given 1340; Total Carbon Dioxide 17 mmol/L; pCO2 28.3 mmHg (35-45); pH 7.37 (7.35-7.45)
[2018-06-23] MEDS: Acetaminophen 325 MG Tablet 650 MG PO (13:59)
[2018-06-23] MEDS: 0.9% NaCl Peripheral Flush Adult/Peds IV ×2 (14:00→20:43)
[2018-06-23 14:03] LABS: Osmolality, Urine 677 mOsm/KG
[2018-06-23 16:25] LABS: Bedside Glucose 266 mg/dL (70-110)
[2018-06-23] MEDS: Insulin Lispro 100 UNIT/ML INSULN.PEN SC ×2 (16:40→20:52)
[2018-06-23] MEDS: Amitriptyline 25 MG Tablet PO (20:42)
[2018-06-23] MEDS: Atorvastatin Calcium 20 MG Tablet PO (20:42)
[2018-06-23 21:01] LABS: Bedside Glucose 307 mg/dL (70-110)
[2018-06-23 22:39] LABS: Urine Sodium 43 mmol/L (Not Establ.)
[2018-06-24] VITALS (22 sets, daily range): BP systolic 97–123; BP diastolic 58–73; PULSE 85–115; RESP 12–24; TEMP 36.3–36.9; O2SAT 92–97
[2018-06-24] MEDS: Ipratropium/Albuterol Sulfate 3 ML AMPUL.NEB INHALATION ×4 (00:04→19:05)
[2018-06-24] MEDS: 0.9% Normal Saline 1,000 ML 125 ML IV ×3 (04:28→22:17)
[2018-06-24] MEDS: Insulin Lispro 100 UNIT/ML INSULN.PEN SC ×4 (06:12→22:23)
[2018-06-24 06:25] LABS: Bedside Glucose 265 mg/dL (70-110)
[2018-06-24] MEDS: Albuterol 2.5 MG/3 ML VIAL.NEB. INHALATION (07:11)
[2018-06-24] MEDS: Glimepiride 2 MG Tablet PO ×2 (07:37→17:09)
[2018-06-24] MEDS: Aspirin 81 MG TAB.CHEW PO (07:37)
[2018-06-24 07:39] LABS: Anion Gap 11 (5-15); BUN 14 mg/dL (7-18); BUN/Creat Ratio 27.9 RATIO (10-20); Calcium,Total 7.7 mg/dL (8.5-10.1); Chloride 106 mmol/L (98-107); Cholesterol 138 mg/dL (200); EST Glomerular Filtration Rate 141 mL/min (>60); Est Glom Filt Rate - Afr Amer 170 mL/min (>60); Glucose 270 mg/dL (74-106); High Density Lipoprotein 27 mg/dL; Magnesium 2.4 mg/dL (1.6-2.6); Phosphorus 2.9 mg/dL (2.5-4.9); Potassium 4.9 mmol/L (3.5-5.1); Sodium Level 136 mmol/L (136-145); Triglycerides 192 mg/dL; Very Low Density Lipoprotein 38 mg/dL (5-40)
[2018-06-24] MEDS: Glucerna Shake 120 ML LIQUID PO ×3 (09:55→17:11)
[2018-06-24] MEDS: Montelukast 10 MG Tablet PO (09:56)
[2018-06-24] MEDS: levoFLOXacin IV 750 MG/150 ML BAG 100 MG IV (09:56)
[2018-06-24] MEDS: DULoxetine Hcl 60 MG Capsule PO ×2 (09:56→22:17)
[2018-06-24] MEDS: Lisinopril 20 MG Tablet PO (09:56)
[2018-06-24] MEDS: Pantoprazole Sodium 40 MG Tablet PO (09:56)
[2018-06-24] MEDS: buPROPion (XL) 300 MG TABLET.XL PO (09:56)
[2018-06-24] MEDS: Oseltamivir Phosphate 75 MG Capsule PO ×2 (09:56→22:18)
[2018-06-24] MEDS: guaiFENesin 1,200 MG Tablet 1200 MG PO ×2 (09:56→22:17)
[2018-06-24] MEDS: LINAGLIPTIN 5 MG TABLET PO (09:58)
[2018-06-24] MEDS: buPROPion (XL) 150 MG TABLET.XL PO (09:58)
[2018-06-24] MEDS: hydroCHLOROthiazide 25 MG Tablet PO (09:58)
[2018-06-24] MEDS: Enoxaparin 40 MG/0.4 ML Syringe SC (10:04)
[2018-06-24 11:30] LABS: Bedside Glucose 344 mg/dL (70-110)
--- NOTE | 2018-06-24 12:14 | PCM.PROGNOTE ---
Subjective: Day #3 antibiotics Day #3 Tamiflu The patient is a 48-year-old female with a past medical history of morbid obesity, diabetes mellitus type 2, hypertension, hyperlipidemia, anxiety, depression, obstructive sleep apnea (noncompliant with CPAP), bronchiectasis and COPD who presented to the emergency department at [facility] on 06/22/2018 complaining of cough, fever and shortness of breath. Chest x-ray in the emergency room showed possible infiltrate in the left base. The influenza swab was positive for influenza A. She was admitted to the hospital with a diagnosis of influenza A, left basal pneumonia and exacerbation of asthma/COPD. She was started on Tamiflu, high-dose intravenous steroids, aerosolized bronchodilators, incentive spirometry and Acapella. All events of the past 24 hours of been reviewed. She has been afebrile for greater than 24 hours now. Vital signs are stable. Oxygen has been weaned down to 2 L/min and she is 93% saturated on a 2 L nasal cannula currently. She was started on BiPAP at 12/6 yesterday and tolerated well. Fluid balance since admission is +[phone]. Lab: Serum bicarb is up to 19 today from 17 yesterday. Blood sugars are not well controlled secondary to high-dose intravenous steroids. Phosphorus and magnesium are within normal limits. Sodium is 136 today, up from 131 with hydration. Creatinine is 0.5 with a BUN of 14. LDL is 73 and the HDL is 27 with triglycerides of 192. Microbiology Legionella and streptococcal antigens in the urine were negative. Sputum was never obtained for culture. doing much better today. Tolerated the BIPAP without a problem. Still having SOB with minimal exertion. Denies CP....except with cough Cough is dry Objective: General: Alert, oriented ?3, cooperative, pleasant and appropriate, NAD when lying in bed....gets tachypneic with minimal exertion Neck: Supple, trachea midline, no enlarged cervical nodes, no enlarged supraclavicular nodes Lungs: better air exchange today, still with end expiratory wheezing, no rales, not tachypneic at rest, no conversational dyspnea and no accessory muscle use today Heart: regular with an increased resting HR, normal S1, normal S2, no murmur, no gallop, no rub Abdomen: Soft, NT, ND, bowel sounds present Extremities: No clubbing, no peripheral edema, no cyanosis - Physical Exam Vital Signs Temp Pulse Resp BP Pulse Ox 97.8 F 112 H 18 103/64 93 06/24/18 08:09 06/24/18 10:00 06/24/18 08:09 06/24/18 08:09 06/24/18 09:00 Oxygen Flow Rate (L/min) 2 Oxygen Delivery Method Nasal Cannula Weight: 240 lb 15.444 oz Body Mass Index (BMI) 42.7 Intake and Output for Last 24 Hours 06/22/18 06/23/18 06/24/18 23:59 23:59 23:59 Intake Total 1035 / 1035 4957 / 4957 2494 / 2494 Output Total 1000 / 1000 800 / 800 Balance 1035 / 1035 3957 / 3957 1694 / 1694 Microbiology Past 72 Hours 06/23/18 01:05 Streptococcus pneumoniae Antigen (M - Final Urine, Clean Catch 06/23/18 01:05 Legionella Antigen - Final Urine, Clean Catch 06/22/18 17:55 Influenza Types A,B Direct FA (RORY) - Final Mucosa - Nose Influenzae A Laboratory Tests Past 24 Hrs 06/23/18 06/23/18 06/23/18 05:55 05:55 12:25 Specimen Type Sample Site pH Bicarbonate Actual POC Total CO2 Base Excess O2 Saturation ABG pCO2 ABG pO2 Evans Test O2 Delivery Device Liter Flow Blood Gas Notified Whom Blood Gas Notified Time Sodium Potassium Chloride Carbon Dioxide Anion Gap BUN Creatinine Estim Creat Clear Calc Est GFR (MDRD) Af Amer Est GFR (MDRD) Non-Af BUN/Creatinine Ratio Glucose Hemoglobin A1c 11.5 H Serum Osmolality Calcium Phosphorus Magnesium Total Bilirubin 0.50 Direct Bilirubin 0.15 AST 30 ALT 30 Alkaline Phosphatase 65 Total Protein 7.3 Albumin 3.3 Globulin 4.0 Triglycerides Cholesterol LDL Cholesterol VLDL Cholesterol HDL Cholesterol Urine Osmolality Ur Random Sodium 43 Acetone Level 06/23/18 06/23/18 06/23/18 12:50 12:50 13:48 Specimen Type ART Sample Site L Radial pH 7.37 Bicarbonate Actual 16.4 L POC Total CO2 17 Base Excess -9 L O2 Saturation 92 L ABG pCO2 28.3 L ABG pO2 63 L Evans Test POS O2 Delivery Device Nasal Can Liter Flow 4.0 Blood Gas Notified Whom [facility] Blood Gas Notified Time 1340 Sodium Potassium Chloride Carbon Dioxide Anion Gap BUN Creatinine Estim Creat Clear Calc Est GFR (MDRD) Af Amer Est GFR (MDRD) Non-Af BUN/Creatinine Ratio Glucose Hemoglobin A1c Serum Osmolality 301 H Calcium Phosphorus Magnesium Total Bilirubin Direct Bilirubin AST ALT Alkaline Phosphatase Total Protein Albumin Globulin Triglycerides Cholesterol LDL Cholesterol VLDL Cholesterol HDL Cholesterol Urine Osmolality Ur Random Sodium Acetone Level NEGATIVE 06/23/18 06/24/18 13:50 05:56 Specimen Type Sample Site pH Bicarbonate Actual POC Total CO2 Base Excess O2 Saturation ABG pCO2 ABG pO2 Evans Test O2 Delivery Device Liter Flow Blood Gas Notified Whom Blood Gas Notified Time Sodium 136 Potassium 4.9 Chloride 106 Carbon Dioxide 19.0 L Anion Gap 11 BUN 14 Creatinine 0.50 L Estim Creat Clear Calc 116.30 Est GFR (MDRD) Af Amer 170 Est GFR (MDRD) Non-Af 141 BUN/Creatinine Ratio 27.9 H Glucose 270 H Hemoglobin A1c Serum Osmolality Calcium 7.7 L Phosphorus 2.9 Magnesium 2.4 Total Bilirubin Direct Bilirubin AST ALT Alkaline Phosphatase Total Protein Albumin Globulin Triglycerides 192 Cholesterol 138 LDL Cholesterol 73 VLDL Cholesterol 38 HDL Cholesterol 27 L Urine Osmolality 677 Ur Random Sodium Acetone Level POC Glucose 06/24/18 06/24/18 06/23/18 11:24 06:11 20:51 POC Glucose 344 H 265 H 307 H 06/23/18 16:20 POC Glucose 266 H Medical Necessity - Tobacco Use Smoking Status: Former smoker Assessment/Plan Impressions 1. acute exacerbation asthma/COPD 2. possible L basilar pneumonia vs atelectasis 3. acute respiratory failure with hypoxemia 4. RUFINA - has not been compliant with CPAP for years...sees Dr. Muse's ACLS SPECIALIST 5. History of bronchiectasis 6. Type 2 diabetes mellitus-uncontrolled, hemoglobin A1c is 11.5. 7. Morbid obesity 8. Hypertension 9. Depression 10. Metabolic acidosis-suspect secondary to hyperventilation/respiratory alkalosis 11. Hyponatremia-resolved with normal saline Continue to adjust insulin Continue Solu-Medrol 40 mg every 8 hours Continue Tamiflu Continue Levaquin 750 mg daily Recommend she follow-up [facility] at discharge She would like to follow-up with Dr. Hernandez or Dr. Chase in pulmonary clinic for PFTs and a sleep study going forward We discussed lifestyle changes and weight loss Continue BiPAP anytime she is sleeping Code Visit Inpatient E&M: 95492 Subs Hosp L2
[2018-06-24 17:20] LABS: Bedside Glucose 260 mg/dL (70-110)
[2018-06-24] MEDS: Amitriptyline 25 MG Tablet PO (22:17)
[2018-06-24] MEDS: Atorvastatin Calcium 20 MG Tablet PO (22:18)
[2018-06-24 22:50] LABS: Bedside Glucose 294 mg/dL (70-110)
[2018-06-25] VITALS (11 sets, daily range): BP systolic 120–132; BP diastolic 71–81; PULSE 80–111; RESP 12–20; TEMP 36.1–36.7; O2SAT 83–96
[2018-06-25] MEDS: 0.9% Normal Saline 1,000 ML 125 ML IV (06:08)
[2018-06-25] MEDS: Insulin Lispro 100 UNIT/ML INSULN.PEN SC ×2 (06:10→11:55)
[2018-06-25 06:21] LABS: Bedside Glucose 259 mg/dL (70-110)
[2018-06-25] MEDS: Ipratropium/Albuterol Sulfate 3 ML AMPUL.NEB INHALATION ×2 (07:12→12:58)
[2018-06-25 07:25] LABS: Bedside Glucose > 500 mg/dL (70-110)
[2018-06-25 07:25] LABS: Bedside Glucose 447 mg/dL (70-110)
[2018-06-25] MEDS: DULoxetine Hcl 60 MG Capsule PO (09:19)
[2018-06-25] MEDS: Lisinopril 20 MG Tablet PO (09:19)
[2018-06-25] MEDS: Montelukast 10 MG Tablet PO (09:19)
[2018-06-25] MEDS: Pantoprazole Sodium 40 MG Tablet PO (09:19)
[2018-06-25] MEDS: LINAGLIPTIN 5 MG TABLET PO (09:19)
[2018-06-25] MEDS: hydroCHLOROthiazide 25 MG Tablet PO (09:19)
[2018-06-25] MEDS: buPROPion (XL) 300 MG TABLET.XL PO (09:19)
[2018-06-25] MEDS: Glimepiride 2 MG Tablet PO (09:20)
[2018-06-25] MEDS: levoFLOXacin IV 750 MG/150 ML BAG 100 MG IV (09:20)
[2018-06-25] MEDS: Aspirin 81 MG TAB.CHEW PO (09:20)
[2018-06-25] MEDS: Glucerna Shake 120 ML LIQUID PO (09:20)
[2018-06-25] MEDS: Enoxaparin 40 MG/0.4 ML Syringe SC (09:20)
[2018-06-25] MEDS: buPROPion (XL) 150 MG TABLET.XL PO (09:20)
[2018-06-25] MEDS: guaiFENesin 1,200 MG Tablet 1200 MG PO (09:20)
[2018-06-25] MEDS: Oseltamivir Phosphate 75 MG Capsule PO (09:21)
--- NOTE | 2018-06-25 11:22 | PCM.DC ---
- Discharge Diagnoses Current Active Problems: Current Active and Chronic Problems COPD (chronic obstructive pulmonary disease) (Chronic) You will use the following diet at home:: Calorie/Carbohydrate Controlled (specify 1200, 1400, etc) Your food should be the consistency of: Regular Your liquids should be the consistency of: Regular/Thin Discharge Activity: Return to Normal Activity Call your doctor if you observe: Fever of 101 or Higher, Shortness of breath, Dizziness, Fainting spells, Chest pain, Increased palpitations (irregular heartbeat) Allergies/Adverse Reactions: Allergies latex Adverse Reaction (Verified 06/22/18 17:21) Hives Medications to take at Discharge Albuterol Aerosols [Ventolin Aerosols] 2.5 mg INHALATION Q4HWA.RT 09/27/15 Aspirin 81 mg PO DAILY #0 09/27/15 Cetirizine HCl [Zyrtec] 5 mg PO DAILY 09/27/15 Fluticasone 0.05% [Flonase Nasal [place]] 2 spray NASAL BID 09/27/15 Glimepiride [Amaryl] 2 mg PO BID 09/27/15 Lisinopril [Zestril] 20 mg PO DAILY 09/27/15 Montelukast [Singulair] 10 mg PO DAILY 09/27/15 Multivitamins,Ther W-Minerals [Multivitamin With Minerals] 1 tablet PO DAILY 09/27/15 [place]-3 Fatty Acids/Fish Oil [Fish Oil 1,000 mg Softgel] 2 each PO BID 09/27/15 Omeprazole [Prilosec] 40 mg PO DAILY 09/27/15 Simvastatin [Zocor] 40 mg PO QHS 09/27/15 buPROPion XL [Wellbutrin Xl] 300 mg PO DAILY 09/27/15 Hydrochlorothiazide [Hctz] 25 mg PO DAILY 01/30/16 Alogliptin Benzoate [Alogliptin] 25 mg PO DAILY 01/22/18 Amitriptyline HCl [Elavil] 25 mg PO QHS 01/22/18 Budesonide/Formoterol 160/4.5 [Symbicort 160/4.5 Mcg Inhaler (SP)] 4.5 - 160 mcg INHALATION BID 01/22/18 Calcium Carbonate [Calcium] 600 mg PO DAILY 01/22/18 Lorazepam [Ativan] 0.5 mg PO BID PRN PRN 01/22/18 Metformin(XR) [Glucophage Xr] 1,000 mg PO BIDCM 01/22/18 Ondansetron [Zofran Odt] 4 mg PO DAILY PRN 01/22/18 Potassium Gluconate 500 mg PO DAILY 01/22/18 Bupropion HCl [Wellbutrin Xl] 150 mg PO DAILY 06/22/18 Duloxetine HCl 60 mg PO BID 06/22/18 levoFLOXacin tablet [Levaquin tablet] 750 mg PO DAILY 06/22/18 Insulin Glargine,Hum.rec.anlog [Basaglar Kwikpen U-100] 60 unit SQ DAILY #0 06/25/18 Oseltamivir Phosphate [Tamiflu] 75 mg PO BID #4 capsule 06/25/18 Prednisone [Deltasone] 40 mg PO DAILY #14 tablet 06/25/18 The following prescriptions were given: Prednisone [Deltasone] 40 mg PO DAILY #14 tablet Oseltamivir Phosphate [Tamiflu] 75 mg PO BID #4 capsule Primary Care Physician: Moose Valdovinos DO [Primary Care Provider] - Please follow up with your Primary Care Physician in: 3-5 days Test Results: Test results from this visit will be discussed in further detail at your follow-up appointment, if applicable.
--- NOTE | 2018-06-25 11:29 | DS.PCM_ITS ---
Discharge Date and Diagnosis Date of Admission: 06/22/18 Date of Discharge: 06/25/18 - Secondary Discharge Diagnosis Chronic Problems COPD (chronic obstructive pulmonary disease) (Chronic) Chronic cough (Chronic) Bronchiectasis (Chronic) Diabetes mellitus type 2 in obese (Chronic) Hypertension (Chronic) Morbid obesity (Chronic) Hospital Course and Treatment Imaging Results: CXR: IMPRESSION: Left lower lobe airspace disease unchanged. Consults: None Operations: None Procedures: None Summary of Care Provided: Per HPI: The patient is a 48 year old F with past medical history as mentioned above presented to the emergency room because of cough, shortness of breath, fever and wheezing. Her illness started around 3 weeks ago with dry cough, that has been progressive, associated with gradually increasing shortness of breath, mainly exertional, aggravated by activity, not significantly relieved with rest and also associated with wheezing and fever of up to 103.9 Fahrenheit. Around 1 week ago, she came to the emergency department because of cough and shortness of breath, nasal swab for influenza a and B were negative and she was found to have UTI and was discharged on Macrobid. She continued to have cough, shortness of breath and fever and 3 days ago, she saw the nurse practitioner at her PCPs office who prescribed Levaquin and she has been on Levaquin for the last 3 days. She mentioned that she has no improvement of her symptoms after she was started on either Macrobid or Levaquin. She has history of long times smoking, quit a few years ago and was diagnosed with COPD/asthma overlap and also with probable bronchiectasis. She has been following up with [facility] pulmonology [place]. In the emergency department, patient was afebrile, tachycardic, blood pressure was stable, pulse ox was 94% on 2 L. Her routine blood work was remarkable for potassium of 3.3 and magnesium of 1.2. Initial EKG revealed sinus tachycardia with prolonged QTC of 604 ms, there was no evidence of acute ischemic changes. After she received breathing treatment, repeat EKG revealed sinus tachycardia and QTC was 464 ms and again without evidence of acute ischemic changes. Her troponin was negative. Chest x-ray showed questionable left lower lobe infiltrate. Nasal swab for influenza a and B was positive for influenza A. She is being admitted acute COPD exacerbation likely triggered by influenza A as well as probable in the left lower lobe community-acquired pneumonia, hypokalemia, hypomagnesemia and prolonged QTC on the EKG. Hospital Course 1. Acute asthma/COPD exacerbation secondary to a left basilar community acquired pneumonia and and influenza A/acute respiratory failure with hypoxemia as/RUFINA/history of [id number]-old female presenting with hypoxia and acute respiratory failure secondary to influenza, community-acquired pneumonia, and asthma/COPD exacerbation. She has improved significantly since admission and she is on 2 L of nasal cannula which she has been on intermittently over the last several years. She states that she does have an oxygen tank at home but she has not used it in the last year. We will perform an ambulatory pulse ox today prior to discharge for evaluation of the necessity for home O2. Otherwise she was admitted while on Levaquin as an outpatient, which we will continue on discharge to complete her course, will also send with Tamiflu to complete a total of 5 days. She was having Solu-Medrol 40 mg IV 3 times daily while inpatient, which can be transitioned to prednisone 40 mg daily for 7 days total. She will follow-up with Dr. David Chase for PFTs and a sleep study going forward to see if there is any adjustments necessary for her sleep apnea. [place] acidosis has resolved 2. IDDM 2-her insulin requirements have been higher given her recent infection as well as now the steroids for her COPD exacerbation, will increase her insulin glargine to 60 units daily. Do recommend that once she is off the steroids that she check her blood sugars regularly at home to readjust her long-acting insulin if necessary. Can resume her home oral hypoglycemics as well. 3. Her other medical history was evaluated and her home medications were continued where appropriate - Physical Exam General: Alert, Oriented x3, Cooperative, No apparent distress HEENT: Atraumatic, PERRLA, EOMI, Normocephalic Oral: Moist Mucosa Neck: Supple, No JVD, Trachea Midline Lungs: Normal air movement, Diminished, Rhonchi, Wheezes Cardiovascular: Regular rate, Regular Rhythm, Normal S1, Normal S2, No murmurs Abdomen: Soft, Non Tender, Non-Distended, No Hepato-splenomegaly Extremities: No edema, Capillary Refill Less than 3 Seconds Skin: No rashes, No breakdown Neurological: Deep Tendon Reflexes 2+/4 and Symmetrical, Neuro grossly intact, Sensory exam intact to light touch and pain Psych/Mental Status: Normal Affect, Appropriate Vital Signs Temp Pulse Resp BP Pulse Ox 98.0 F 93 18 132/81 H 94 06/25/18 09:15 06/25/18 09:15 06/25/18 09:15 06/25/18 09:15 06/25/18 09:15 Oxygen Flow Rate (L/min) 2 Oxygen Delivery Method Nasal Cannula Weight: 240 lb 15.444 oz Body Mass Index (BMI) 42.7 Intake and Output for Last 24 Hours 06/23/18 06/24/18 06/25/18 23:59 23:59 23:59 Intake Total 4957 / 4957 6294 / 6294 3254 / 3254 Output Total 1000 / 1000 800 / 800 800 / 800 Balance 3957 / 3957 5494 / 5494 2454 / 2454 Microbiology Past 72 Hours 06/23/18 01:05 Streptococcus pneumoniae Antigen (M - Final Urine, Clean Catch 06/23/18 01:05 Legionella Antigen - Final Urine, Clean Catch 06/22/18 17:55 Influenza Types A,B Direct FA (RORY) - Final Mucosa - Nose Influenzae A POC Glucose 06/25/18 06/24/18 06/24/18 06:05 22:09 17:07 POC Glucose 259 H 294 H 260 H 06/24/18 06/22/18 06/22/18 11:24 23:02 22:59 POC Glucose 344 H 447 H > 500 H* Discharge Activity: Return to Normal Activity Call your doctor if you observe: Fever of 101 or Higher, Shortness of breath, Dizziness, Fainting spells, Chest pain, Increased palpitations (irregular heartbeat) Home Medications: Medications to take at Discharge Albuterol Aerosols [Ventolin Aerosols] 2.5 mg INHALATION Q4HWA.RT 09/27/15 Aspirin 81 mg PO DAILY #0 09/27/15 Cetirizine HCl [Zyrtec] 5 mg PO DAILY 09/27/15 Fluticasone 0.05% [Flonase Nasal [place]] 2 spray NASAL BID 09/27/15 Glimepiride [Amaryl] 2 mg PO BID 09/27/15 Lisinopril [Zestril] 20 mg PO DAILY 09/27/15 Montelukast [Singulair] 10 mg PO DAILY 09/27/15 Multivitamins,Ther W-Minerals [Multivitamin With Minerals] 1 tablet PO DAILY 09/27/15 [place]-3 Fatty Acids/Fish Oil [Fish Oil 1,000 mg Softgel] 2 each PO BID 09/27/15 Omeprazole [Prilosec] 40 mg PO DAILY 09/27/15 Simvastatin [Zocor] 40 mg PO QHS 09/27/15 buPROPion XL [Wellbutrin Xl] 300 mg PO DAILY 09/27/15 Hydrochlorothiazide [Hctz] 25 mg PO DAILY 01/30/16 Alogliptin Benzoate [Alogliptin] 25 mg PO DAILY 01/22/18 Amitriptyline HCl [Elavil] 25 mg PO QHS 01/22/18 Budesonide/Formoterol 160/4.5 [Symbicort 160/4.5 Mcg Inhaler (SP)] 4.5 - 160 mcg INHALATION BID 01/22/18 Calcium Carbonate [Calcium] 600 mg PO DAILY 01/22/18 Lorazepam [Ativan] 0.5 mg PO BID PRN PRN 01/22/18 Metformin(XR) [Glucophage Xr] 1,000 mg PO BIDCM 01/22/18 Ondansetron [Zofran Odt] 4 mg PO DAILY PRN 01/22/18 Potassium Gluconate 500 mg PO DAILY 01/22/18 Bupropion HCl [Wellbutrin Xl] 150 mg PO DAILY 06/22/18 Duloxetine HCl 60 mg PO BID 06/22/18 levoFLOXacin tablet [Levaquin tablet] 750 mg PO DAILY 06/22/18 Insulin Glargine,Hum.rec.anlog [Basaglar Kwikpen U-100] 60 unit SQ DAILY #0 06/25/18 Oseltamivir Phosphate [Tamiflu] 75 mg PO BID #4 capsule 06/25/18 Prednisone [Deltasone] 40 mg PO DAILY #14 tablet 06/25/18 Following Prescrptions Were Given to Patient: Prednisone [Deltasone] 40 mg PO DAILY #14 tablet Oseltamivir Phosphate [Tamiflu] 75 mg PO BID #4 capsule Primary Care Physician: Moose Valdovinos DO [Primary Care Provider] - Please follow up with your Primary Care Physician in: 3-5 days Please Follow Up With: Jadon Hernandez MD When: 2-4 weeks Disposition: Home Minutes spent on discharge:: 35 Patient Condition:: Stable Medical Necessity - Tobacco Use Smoking Status: Former smoker Meaningful Use Info Meaningful Use Diagnoses (Choose all that apply): None applicable Code Visit Inpatient E&M: 26464 Disch Hosp
[2018-06-25 12:10] LABS: Bedside Glucose 329 mg/dL (70-110)
--- NOTE | 2018-06-26 14:54 | CASEMGMT ---
RN CM DISCHARGE PHONE CALL DC DATE:06/25/18 DC DISPOSITION: Home LACE/STRATA:04/08 Message left with call back information if pt has questions re: dc instructions, prescriptions or follow up. Caleb PEREAN RN ACM
== END 2018-06-25 15:44 | disposition home or self-care (01) | DRG 140 ==
LOC: ED 18:28 → MS3 20:45
PROVIDERS: Internal Medicine; Admitting Provider Hospitalist; Emergency Provider Emergency Medicine; Family Provider Student in an Organized Health Care Education/Training Program; PCP Student in an Organized Health Care Education/Training Program; Referring Provider Hospitalist; Visit Provider Family Medicine
DX: J44.0 Chronic obstructive pulmonary disease with (acute) lower respiratory infection (principal); J10.00 Influenza due to other identified influenza virus with unspecified type of pneumonia; E66.01 Morbid (severe) obesity due to excess calories; Z68.41 Body mass index [BMI] 40.0-44.9, adult; J44.1 Chronic obstructive pulmonary disease with (acute) exacerbation; I45.81 Long QT syndrome; E87.6 Hypokalemia; E83.42 Hypomagnesemia; J96.01 Acute respiratory failure with hypoxia; G47.33 Obstructive sleep apnea (adult) (pediatric); E87.1 Hypo-osmolality and hyponatremia; E11.9 Type 2 diabetes mellitus without complications; I10 Essential (primary) hypertension; Z79.4 Long term (current) use of insulin; Z87.891 Personal history of nicotine dependence
CPT/HCPCS: 36415; 36600; 71046; 80048; 80061; 80076; 81002; 82009; 82803; 82947; 82962; 83036; 83735; 83930; 83935; 84100; 84300; 84484; 85025; 87449; 87804; 93005; 94002; 94003; 94640; 94667; 94668; 97802; 99283; J7030; A4216

== ENCOUNTER → 2018-07-06 19:53 | Outpatient (CLI) | payer MEDICAID, SELFPAY ==
[2018-06-22 21:10] VITALS: BMI 42.7
== END ==
PROVIDERS: Family Provider Student in an Organized Health Care Education/Training Program; PCP Student in an Organized Health Care Education/Training Program; Referring Provider Nurse Practitioner Adult Health; Visit Provider Nurse Practitioner Adult Health
DX: G47.33 Obstructive sleep apnea (adult) (pediatric) (principal)
CPT/HCPCS: 95810

== ENCOUNTER → 2018-08-24 21:23 | Outpatient (CLI) | payer MEDICAID, SELFPAY ==
[2018-06-22 21:10] VITALS: BMI 42.7
== END ==
PROVIDERS: Family Provider Student in an Organized Health Care Education/Training Program; PCP Student in an Organized Health Care Education/Training Program; Referring Provider Nurse Practitioner Adult Health; Visit Provider Nurse Practitioner Adult Health
DX: G47.33 Obstructive sleep apnea (adult) (pediatric) (principal)
CPT/HCPCS: 95811

== ENCOUNTER → 2018-10-02 09:00 | Outpatient (CLI) | payer MEDICAID, SELFPAY ==
[2018-06-22 21:10] VITALS: BMI 42.7
== END ==
PROVIDERS: Family Provider Student in an Organized Health Care Education/Training Program; PCP Student in an Organized Health Care Education/Training Program; Referring Provider Nurse Practitioner Adult Health; Visit Provider Nurse Practitioner Adult Health
DX: Z00.00 Encounter for general adult medical examination without abnormal findings (principal)

== ENCOUNTER → 2018-11-13 11:24 | Outpatient (CLI) | payer MEDICAID, SELFPAY ==
[2018-11-13 10:50] VITALS: BMI 43.2
[2018-11-13 12:49] LABS: Vitamin D,25 Hydroxy 25.2 ng/mL (29.95-100.01)
[2018-11-13 12:54] LABS: Anion Gap 8 (5-15); BUN 4 mg/dL (7-18); BUN/Creat Ratio 5.7 RATIO (10-20); Chloride 99 mmol/L (98-107); EST Glomerular Filtration Rate 96 mL/min (>60); Est Glom Filt Rate - Afr Amer 116 mL/min (>60); Glucose 235 mg/dL (74-106); Magnesium 1.6 mg/dL (1.6-2.6); Potassium 3.6 mmol/L (3.5-5.1); Sodium Level 134 mmol/L (136-145)
== END ==
PROVIDERS: Family Provider Student in an Organized Health Care Education/Training Program; PCP Internal Medicine; Visit Provider Internal Medicine
DX: E83.42 Hypomagnesemia (principal); E83.51 Hypocalcemia; I10 Essential (primary) hypertension
CPT/HCPCS: 36415; 80048; 82306; 83735

== ENCOUNTER 2019-01-03 08:58 | Outpatient (RCR) | payer MEDICAID, SELFPAY ==
[2019-01-02 07:53] VITALS: BMI 43.2
== END 2019-01-21 23:59 ==
LOC: DC 08:58
PROVIDERS: Family Provider Student in an Organized Health Care Education/Training Program; PCP Student in an Organized Health Care Education/Training Program; Visit Provider Internal Medicine
DX: E11.69 Type 2 diabetes mellitus with other specified complication (principal); E66.9 Obesity, unspecified; Z68.41 Body mass index [BMI] 40.0-44.9, adult; Z71.3 Dietary counseling and surveillance
CPT/HCPCS: 97803

== ENCOUNTER 2019-01-30 14:28 | Emergency (ER) | payer MEDICAID, SELFPAY ==
[2019-01-25 16:17] VITALS: BMI 43.2
[2019-01-30 14:29] VITALS: BP 106/68; PULSE 113; RESP 18; TEMP 36.6; O2SAT 99; BMI 42.5
--- NOTE | 2019-01-30 14:45 | EKG12_ITS ---
Test Reason : DIZZINESS Blood Pressure : / mmHG Vent. Rate : 118 BPM Atrial Rate : 118 BPM P-R Int : 160 ms QRS Dur : 086 ms QT Int : 454 ms P-R-T Axes : 064 067 035 degrees QTc Int : 636 ms Sinus tachycardia Cannot rule out Inferior infarct , age undetermined Prolonged QT Abnormal ECG Confirmed by LINDA GARZA, USMAN ([id number]), codifier KENNEDY BOWENS ([id number]) on 02/06/2019 9:29:16 A M Referred By: SCOTT Confirmed By:PETER MCKEON MD
[2019-01-30 14:46] LABS: Bedside Glucose 141 mg/dL (70-110)
--- NOTE | 2019-01-30 15:17 | ED.VIS.GEN ---
History of Present Illness Chief Complaint: General Illness Detail of Chief Complaint: Low blood sugar Informant: Patient, Family Onset: Today Current Severity: Mild Maximum Severity: Moderate Narrative: Patient presents after an episode which she believes is low blood sugar. She is been having trouble with her blood sugar dropping too low, into the 40s, over the past week and a half. She was previously on insulin as well as oral anti-glycemic's. She saw her primary care physician who advised her to stop all of her medications. If her blood sugar is elevated she is to take only her Glucophage. Her last dose of Glucophage was yesterday morning. Patient states she was at a local store this afternoon when she felt shaky and sweaty like she typically does when her blood sugar drops. She went outside and got some lemonade to drink. When paramedics arrived she was feeling improved and blood sugar was improved. She states that the paramedics were concerned there is something further going on and encouraged her to be transported. At this time patient's only complaint is feeling slightly shaky when she gets up to walk, otherwise she feels back to baseline. She denies any change in medications or diet over the past 2 weeks. - Past Medical History (1) Anxiety Status: Chronic (2) Asthma Status: Chronic Comment: COPD Overlap Syndrome (3) COPD (chronic obstructive pulmonary disease) Status: Chronic (4) Depression Status: Chronic Comment: Hospitalized [facility] from age [age] (5) Diabetes Status: Chronic (6) GERD (gastroesophageal reflux disease) Status: Chronic (7) Hyperlipidemia Status: Chronic (8) Hypertension Status: Chronic Past Medical History - Allergies and Home Meds Allergies/Adverse Reactions: Allergies latex Adverse Reaction (Verified 01/30/19 14:29) [facility] Primary [facility] Physician: Jose Loving MD [Primary Care Provider] - Prior records reviewed: Yes Past Medical History: - - Reviewed Surgical History: no surgical history Lives: Spouse/ Significant Other Smoking Status: Never smoker Review of Systems General: Denies: Chills, Fever Eyes: Denies: Visual changes - bilaterally ENT: Denies: Bilateral ear pain Cardiovascular: Denies: Chest pain Respiratory: Denies: Dyspnea, Cough Gastrointestinal: Denies: Abdominal pain, Nausea, Vomiting Musculoskeletal: Denies: Myalgias, Extremity Pain Skin: Denies: Rash Neurological: Denies: Headache Hematologic: Denies: Easy bruising, Easy bleeding Allergy: Denies: Uticaria Physical Exam Vital Signs/Narrative: Vital Signs Temp Pulse Resp BP Pulse Ox 01/30/19 14:29 97.9 F 113 H 18 106/68 99 Inital Vital Signs reviewed: Yes General: Well nourished, Well developed Head: Normocephalic ENT: Moist mucous membranes Neck: Supple Cardiovascular: Regular rate, Regular rhythm Respiratory: No distress, CTA bilaterally Abdomen: Soft, Nontender Back: Nontender Extremities: Nontender Skin: Normal color, No rash Neurological: Alert, Oriented x3 Psychological: Normal affect Diagnostic/Tx/Re-eval Laboratory Results 01/30/19 01/30/19 01/30/19 14:42 14:55 14:55 WBC 15.2 H RBC 4.90 Hgb 15.2 H Hct 44.9 MCV 91.6 MCH 31.0 MCHC 33.9 RDW Std Deviation 44.3 H RDW Coeff of Roxanne 13.1 Plt Count 420 MPV 10.6 Immature Gran % (Auto) 0.500 Neut % (Auto) 56.4 Lymph % (Auto) 34.9 [place] % (Auto) 5.1 Eos % (Auto) 2.6 Baso % (Auto) 0.5 Absolute Neuts (auto) 8.6 H Absolute Lymphs (auto) 5.31 H Nucleated RBC % 0 Differential Comment SCANNED PT 13.7 INR 1.1 APTT 29.2 Sodium Potassium Chloride Carbon Dioxide Anion Gap BUN Creatinine Estim Creat Clear Calc Est GFR (MDRD) Af Amer Est GFR (MDRD) Non-Af BUN/Creatinine Ratio Glucose Calcium POC Glucose 141 H 01/30/19 14:55 WBC RBC Hgb Hct MCV MCH MCHC RDW Std Deviation RDW Coeff of Roxanne Plt Count MPV Immature Gran % (Auto) Neut % (Auto) Lymph % (Auto) [place] % (Auto) Eos % (Auto) Baso % (Auto) Absolute Neuts (auto) Absolute Lymphs (auto) Nucleated RBC % Differential Comment PT INR APTT Sodium 135 L Potassium 3.5 Chloride 100 Carbon Dioxide 25.0 Anion Gap 10 BUN 11 Creatinine 1.27 H Estim Creat Clear Calc 45.79 Est GFR (MDRD) Af Amer 58 L Est GFR (MDRD) Non-Af 48 L BUN/Creatinine Ratio 8.7 L Glucose 166 H Calcium 9.8 POC Glucose - EKG Initial EKG Interpretation: Sinus Tachycardia - Sinus tach at 118. No acute ST change. - Medical Decision Making My evaluation patient felt well. She states her blood sugars last couple days have been good, in the 100 115 range. This morning when she woke up her blood sugar was 101. She states she did not eat today prior to this dizzy episode. She is given a sandwich and pop here to drink so she has some carbs. She will be given a 500 cc fluid bolus. I spoke with the patient's primary care physician. She is to stop all of her diabetes medicines. She is to keep track of her blood sugars with a journal and follow-up in the office. She is encouraged to eat frequent small meals. Patient is aware the plan and in agreement. ED Disposition - Plan for ED Patient: Disposition: Home or Assisted Living Diagnosis: Hypoglycemic reaction, Mild dehydration Instructions: HYPOGLYCEMIA, Oral Diabetic Medicine Referrals: Jose Loving MD [Primary Care Provider] - 5-7 Days
[2019-01-30 15:19] LABS: Absolute Lymphocyte Count 5.31 X10^3/uL (0.83-4.51); Absolute Neutrophil Count 8.6 X10^3/uL (2.0-7.7); Basophil# 0.08 X10^3/uL; Basophil% 0.5 % (0-1); Eosinophils% 2.6 % (0-5); Hematocrit 44.9 % (37-47); Hemoglobin 15.2 g/dL (12.0-15.0); Lymphocyte # 5.31 X10^3/ul (4.0); Lymphocyte % 34.9 % (19-41); Mean Corp Hgb Conc 33.9 g/dL (32-36); Mean Corpuscular Volume 91.6 fL (81-99); Mean Platelet Vol. 10.6 fl (6.2-12.0); Monocyte# 0.78 X10^3/uL; Monocyte% 5.1 % (0-10); NRBC Flagged by Analyzer 0 % (0-5); Neutrophil # 8.57 X10^3/uL (2.7-7.7); Neutrophil % 56.4 % (47-70); POSITIVE DIFFERENTIAL YES; Platelet Count 420 K/mm3 (150-450); RBC Distribution Width CV 13.1 % (11.6-14.6); RBC Distribution Width SD 44.3 fl (35.1-43.9); White Blood Count 15.2 K/mm3 (4.4-11.0)
[2019-01-30 15:20] VITALS: PULSE 110; RESP 20; O2SAT 98
[2019-01-30] MEDS: 0.9% Normal Saline 1,000 ML 50 ML IV (15:28)
[2019-01-30 15:29] LABS: Anion Gap 10 (5-15); BUN 11 mg/dL (7-18); BUN/Creat Ratio 8.7 RATIO (10-20); Calcium,Total 9.8 mg/dL (8.5-10.1); Chloride 100 mmol/L (98-107); Creatinine, Serum 1.27 mg/dL (0.55-1.02); EST Glomerular Filtration Rate 48 mL/min (>60); Est Glom Filt Rate - Afr Amer 58 mL/min (>60); Estimated Creatinine Clearance 45.79 ml/min; Glucose 166 mg/dL (74-106); International Normalized Ratio 1.1; Potassium 3.5 mmol/L (3.5-5.1); Prothrombin Time (Protime)PT. 13.7 SECONDS (11.7-14.9); Sodium Level 135 mmol/L (136-145)
[2019-01-30 15:30] LABS: Partial Thromboplast Time 29.2 Seconds (24.1-36.2)
[2019-01-30 15:32] LABS: Differential Indicated SCAN CRITERIA MET
[2019-01-30 15:49] LABS: Differential Comment SCANNED
[2019-01-30 16:38] VITALS: BP 99/58; PULSE 96; RESP 17; O2SAT 99
== END 2019-01-30 16:39 | disposition home or self-care (01) ==
PROVIDERS: Emergency Provider Emergency Medicine; Family Provider Internal Medicine; PCP Internal Medicine
DX: E11.649 Type 2 diabetes mellitus with hypoglycemia without coma (principal); E86.0 Dehydration; R00.0 Tachycardia, unspecified; J44.9 Chronic obstructive pulmonary disease, unspecified; I10 Essential (primary) hypertension; E78.5 Hyperlipidemia, unspecified; K21.9 Gastro-esophageal reflux disease without esophagitis; F32.9 Major depressive disorder, single episode, unspecified; F41.9 Anxiety disorder, unspecified; E66.9 Obesity, unspecified; Z68.41 Body mass index [BMI] 40.0-44.9, adult; Z71.3 Dietary counseling and surveillance; Z79.4 Long term (current) use of insulin; Z79.899 Other long term (current) drug therapy; Z79.82 Long term (current) use of aspirin; Z79.52 Long term (current) use of systemic steroids
CPT/HCPCS: 80048; 82962; 85025; 85610; 85730; 93005; 99285; G0108; J7030; A4216

== ENCOUNTER 2019-01-30 20:58 | Emergency (ER) | payer MEDICAID, SELFPAY ==
[2019-01-30 14:29] VITALS: BMI 42.5
[2019-01-30 20:58] VITALS: BP 133/77; PULSE 99; RESP 88; TEMP 36.7; O2SAT 99; BMI 43.5
--- NOTE | 2019-01-30 21:07 | EKG12_ITS ---
Test Reason : ABD PAIN Blood Pressure : / mmHG Vent. Rate : 092 BPM Atrial Rate : 092 BPM P-R Int : 140 ms QRS Dur : 088 ms QT Int : 384 ms P-R-T Axes : 046 059 042 degrees QTc Int : 474 ms Normal sinus rhythm Low voltage QRS Borderline ECG Confirmed by LINDA GARZA, USMAN ([id number]), editor news KENNEDY BOWENS ([id number]) on 02/06/2019 9:27:40 A M Referred By: WAYNE Confirmed By:PETER MCKEON MD
--- NOTE | 2019-01-30 21:08 | ED.VIS.GEN ---
History of Present Illness Chief Complaint: Upper Extremity Injury Detail of Chief Complaint: Left wrist pain Informant: Patient, Family Onset: Today Context: Gradual Onset Current Severity: Moderate Maximum Severity: Moderate Narrative: Patient presents with pain around the extensor portion of her left wrist, worse with movement. Patient was seen in the emergency room earlier today. She was at a local grocery store when she believes her blood sugar dropped. She went outside and sat down. She does not remember if she injured her wrist when she sat down. She was not having pain until after she left the emergency room earlier this afternoon. Patient did have an IV in her left arm at the left AC. There is no tenderness around the IV site itself. Past Medical History - Allergies and Home Meds Allergies/Adverse Reactions: Allergies latex Adverse Reaction (Verified 01/30/19 14:29) Cecy Primary Care Physician: Jose Loving MD [Primary Care Provider] - Prior records reviewed: Yes Past Medical History: - - Reviewed Surgical History: no surgical history Lives: Spouse/ Significant Other Smoking Status: Never smoker Review of Systems General: Denies: Chills, Fever Eyes: Denies: Visual changes - bilaterally ENT: Denies: Bilateral ear pain Cardiovascular: Denies: Chest pain Respiratory: Denies: Dyspnea Gastrointestinal: Denies: Abdominal pain, Nausea, Vomiting Musculoskeletal: Reports: Arthralgias, Extremity Pain Skin: Denies: Rash Neurological: Denies: Headache Hematologic: Denies: Easy bruising, Easy bleeding Allergy: Denies: Uticaria Physical Exam Vital Signs/Narrative: Vital Signs Temp Pulse Resp BP Pulse Ox 01/30/19 20:58 98.1 F 99 88 H 133/77 H 99 Inital Vital Signs reviewed: Yes General: Well nourished, Well developed Eyes: EOMI ENT: Moist mucous membranes Neck: Supple Cardiovascular: Regular rate, Regular rhythm Respiratory: No distress, CTA bilaterally Abdomen: Soft, Nontender Extremities: Tenderness - Reproducible tenderness of the extensor portion of the left wrist. Minimal edema. No erythema. She has good range of motion but has pain with dorsiflexion. Strong pulses are noted. There is no tenderness around the previous IV site at the left AC. Skin: Diaphoresis Neurological: Alert, Oriented x3, Normal Strength, Normal Sensation Psychological: Normal affect Diagnostic/Tx/Re-eval Left wrist x-ray per my review reveals no fracture. - EKG Initial EKG Interpretation: Sinus Rhythm - Sinus at 92 with no acute ischemia. - Medical Decision Making Patient was diaphoretic and had significant left lower arm pain on arrival. Due to the fact that she is diabetic and EKG was obtained. This is sinus rhythm at 92 with no acute ischemia. Patient was given naproxen and prednisone. Blood sugar was obtained and was equal to 70. Patient states she does normally start to get symptomatic with this. She was given p.o. diet. Left wrist x-rays are unremarkable per my review. My suspicion is when she sat down outside the store earlier she did put her head up to catch herself. I think she likely sprained it and has an element of tendinitis starting now. Morris wrap was applied. She will be given naproxen and steroids for home. She was advised that the steroids would increase her blood sugars while she is taking them. ED Disposition - Plan for ED Patient: Disposition: Home or Assisted Living Diagnosis: Left wrist sprain Instructions: Wrist Sprain Prescriptions: Prednisone [Deltasone] 40 mg PO DAILY #10 tablet Naproxen [Naprosyn] 500 mg PO BID PRN PRN #20 tablet PRN Reason: Pain Score 4-10/10 Referrals: Jose Loving MD [Primary Care Provider] - 1 Week
[2019-01-30] MEDS: Naproxen 500 MG Tablet PO (21:23)
[2019-01-30] MEDS: predniSONE 20 MG Tablet 40 MG PO (21:24)
[2019-01-30 21:30] LABS: Bedside Glucose 70 mg/dL (70-110)
--- NOTE | 2019-01-30 21:35 | RAD_ITS ---
STUDY: X-RAY - LEFT WRIST REASON FOR EXAM: Female, 48 years old. Left wrist pain TECHNIQUE: 3 view(s) of the wrist were obtained. COMPARISON: None. FINDINGS: Normal visualized distal radius and ulna. Normal radiocarpal articulation. Normal distal radioulnar articulation. Normal carpal bones. Normal carpal articulations. Normal carpometacarpal articulation of the thumb. Normal second through fifth carpometacarpal articulations. Normal visualized metacarpal bones. The soft tissue structures are unremarkable. RAD/Wrist min 3 Views IMPRESSION: Normal x-ray examination of the wrist. Electronically Signed: Julio Cesar Holly MD at 21:51 EDT , Service support ,
--- NOTE | 2019-01-30 21:38 | ED.RN ---
dr. charles made aware of pt blood glucose of 70. pt given apple juice and a peanut butter and jelly sandwich. will re-check prior to d/c. pt resting in a position of comfort no further needs at this time.
[2019-01-30 21:58] VITALS: RESP 18
== END 2019-01-30 21:58 | disposition home or self-care (01) ==
PROVIDERS: Emergency Provider Emergency Medicine; Family Provider Internal Medicine; PCP Internal Medicine
DX: S63.502A Unspecified sprain of left wrist, initial encounter (principal); X58.XXXA Exposure to other specified factors, initial encounter; Y93.9 Activity, unspecified; Y92.9 Unspecified place or not applicable; Y99.9 Unspecified external cause status; E11.649 Type 2 diabetes mellitus with hypoglycemia without coma; E86.0 Dehydration; R00.0 Tachycardia, unspecified; J44.9 Chronic obstructive pulmonary disease, unspecified; I10 Essential (primary) hypertension; E78.5 Hyperlipidemia, unspecified; Z71.3 Dietary counseling and surveillance; K21.9 Gastro-esophageal reflux disease without esophagitis; F32.9 Major depressive disorder, single episode, unspecified; F41.9 Anxiety disorder, unspecified; E66.9 Obesity, unspecified; Z68.41 Body mass index [BMI] 40.0-44.9, adult; Z79.82 Long term (current) use of aspirin; Z79.4 Long term (current) use of insulin; Z79.52 Long term (current) use of systemic steroids; Z79.899 Other long term (current) drug therapy
CPT/HCPCS: 73110; 80048; 82962; 85025; 85610; 85730; 93005; 99283; 99285; G0108; J7030; A4216

== ENCOUNTER 2019-02-13 15:21 | Observation (INO) | payer MEDICAID, SELFPAY ==
[2019-02-05 14:20] VITALS: BMI 43.5
[2019-02-13] VITALS (8 sets, daily range): BP systolic 90–122; BP diastolic 60–77; PULSE 90–189; RESP 16–19; TEMP 35.6–36.8; O2SAT 96–99; BMI 43.3; BMI 42.7
--- NOTE | 2019-02-13 15:42 | EKG12_ITS ---
Test Reason : PALPS Blood Pressure : / mmHG Vent. Rate : 092 BPM Atrial Rate : 092 BPM P-R Int : 140 ms QRS Dur : 080 ms QT Int : 354 ms P-R-T Axes : 059 077 044 degrees QTc Int : 437 ms Normal sinus rhythm Nonspecific ST abnormality Abnormal ECG Confirmed by LINDA GARZA, USMAN ([id number]), editor farm journal SERENITY BEY ([id number]) on 02/15/2019 1:17:28 PM Referred By: ANTHONY Confirmed By:PETER MCKEON MD
--- NOTE | 2019-02-13 15:42 | RAD_ITS ---
STUDY: X-RAY CHEST REASON FOR EXAM: Female, 48 years old. Palpitations. TECHNIQUE: Portable chest. COMPARISON: 06/22/2018. FINDINGS: The lungs are clear and expanded. Trace scarring in the left lung base. No pleural effusion. Normal size heart. Normal mediastinum and biju. Normal visualized pulmonary arteries. Normal visualized aortic arch and descending thoracic aorta. Normal visualized thoracic spine. Normal visualized ribs, clavicles, and shoulders. There is no demonstrated abnormality of the visualized soft tissue structures of the upper abdomen. RAD/Chest 1 View (Portable) IMPRESSION: No acute findings. Electronically Signed: Andra Ahn MD at 16:33 EDT Tel , Service support ,
[2019-02-13 15:51] LABS: Bedside Glucose 73 mg/dL (70-110)
--- NOTE | 2019-02-13 15:52 | ED.VISSUMM ---
- ER Visit Summary Date of Service: 02/13/19 Chief Complaint: Lightheaded History of Present Illness: The patient is a 48 F who presents the emergency department feeling lightheaded. Patient states that she has been fighting to keep her blood sugars elevated today. She was driving in [facility] and felt her heart racing. Eventually she got so weak significant other brought her to the emergency department. She is felt palpitations in the past but states they have usually had a heart rate around 130 and was related to her COPD. She notes that she has had problems with her potassium and her magnesium recently. She denies chest pain or chest tightness. Physical Examination: Afebrile blood pressure 90/67 heart rate of 194 pulse ox 90% room air Gen: Well-nourished well-developed obese Head: Normocephalic atraumatic Eyes: Perrl EOMI ENT: TMs clear no rhinorrhea moist mucous membranes Neck: Supple no lymphadenopathy no JVD nontender CVS: Regular rate tachycardic rhythm no murmurs normal S1-S2 Respiratory: No distress clear to auscultation bilaterally chest nontender Abdomen: Soft nontender nondistended normal bowel sounds no masses Back: Nontender Extremity: Nontender no edema Skin: Normal color diaphoretic Neuro: alert orientated ?3 CN II-XII intact normal strength Psych: Slightly anxious Test Results: EKG demonstrates a supraventricular tachycardia at a rate of 189. Subsequent EKG shows a normal sinus rhythm at a rate of 92. There are no concerning features on the repeat EKG of ACS. White count elevated 14.4. Potassium 3.3. Glucose 54. Troponin negative. Chest x-ray negative. Emergency Department Course and Treatment: Patient performed the modified Valsalva maneuver with a 10 cc syringe and converted to sinus rhythm. While her heart rate was 194 blood pressure is 90/67. After she converted to a sinus rhythm with a heart rate in the 90s blood pressure 133/79 she was no longer diaphoretic. Patient received D50 was given p.o. Short time later her blood sugar was down again to 71. She is placed on D5 half-normal. I have not been able to secure a medication list to review with her but I do believe with the patient's recurrent hypoglycemia especially the amount of glucose it is rather surprising that her blood sugar would only be 71. At this point patient will be admitted for further care. Impression: 1. Supraventricular tachycardia 2. Modified Valsalva cardioversion 3. Recurrent hypoglycemia This note was generated with [employer] dictation software. It may contain incorrect words, spelling, and punctuation that were not noted in review of the chart prior to signing ED Disposition - Plan for ED Patient: Disposition: Acute Care Hospital [facility]
[2019-02-13] MEDS: Dextrose 50%-Water 25 GM/50 ML DISP.SYRIN IV ×3 (15:53→23:05)
[2019-02-13] MEDS: 0.9% Normal Saline 1,000 ML 1000 ML IV (15:53)
[2019-02-13 15:56] LABS: Absolute Lymphocyte Count 5.06 X10^3/uL (0.83-4.51); Basophil# 0.09 X10^3/uL; Basophil% 0.6 % (0-1); Eosinophil# 0.46 X10^3/uL; Eosinophils% 3.2 % (0-5); Hematocrit 45.7 % (37-47); Hemoglobin 15.1 g/dL (12.0-15.0); Lymphocyte # 5.06 X10^3/ul (4.0); Lymphocyte % 35.1 % (19-41); Mean Corpuscular Hgb 31.3 pg (27.0-32.0); Mean Corpuscular Volume 94.6 fL (81-99); Mean Platelet Vol. 10.5 fl (6.2-12.0); Monocyte# 0.78 X10^3/uL; Monocyte% 5.4 % (0-10); NRBC Flagged by Analyzer 0 % (0-5); Neutrophil # 7.95 X10^3/uL (2.7-7.7); Neutrophil % 55.2 % (47-70); POSITIVE DIFFERENTIAL YES; Platelet Count 352 K/mm3 (150-450); RBC Distribution Width CV 13.3 % (11.6-14.6); RBC Distribution Width SD 45.9 fl (35.1-43.9); Red Blood Count 4.83 M/mm3 (4.2-5.4); White Blood Count 14.4 K/mm3 (4.4-11.0)
[2019-02-13 15:57] LABS: Differential Indicated SCAN CRITERIA MET
[2019-02-13 16:21] LABS: ALB/GLOB Ratio 0.8 RATIO (0.9-2.4); AST(SGOT) 20 U/L (15-37); Alanine Aminotransfer ALT/SGPT 26 U/L (13-56); Albumin, Serum 3.7 g/dL (3.2-5.0); Alkaline Phosphatase 84 U/L (45-117); Anion Gap 9 (5-15); BUN 4 mg/dL (7-18); BUN/Creat Ratio 5.5 RATIO (10-20); Calcium,Total 9.8 mg/dL (8.5-10.1); Chloride 105 mmol/L (98-107); Creatinine, Serum 0.73 mg/dL (0.55-1.02); EST Glomerular Filtration Rate 92 mL/min (>60); Est Glom Filt Rate - Afr Amer 111 mL/min (>60); Estimated Creatinine Clearance 79.66 ml/min; Globulin 4.5 g/dL (2.2-4.2); Glucose 54 mg/dL (74-106); Magnesium 1.7 mg/dL (1.6-2.6); Potassium 3.3 mmol/L (3.5-5.1); Protein, Total 8.2 g/dL (6.4-8.2); Sodium Level 140 mmol/L (136-145); Thyroid Stim Hormone (TSH) 2.17 uIU/mL (0.358-3.74)
[2019-02-13 17:10] LABS: Differential Comment SCANNED
[2019-02-13 17:21] LABS: Bedside Glucose 71 mg/dL (70-110)
--- NOTE | 2019-02-13 17:27 | PCM.HP.STD ---
History of Present Illness Date of Admission: 02/13/19 Chief Complaint: lightheadedness, dizziness The patient is a 48 year old F with an extensive past medical history as listed which includes type 1 diabetes and a history of tachycardia likely supraventricular and COPD. Patient came into the ED and was admitted on 02/13/2019 with a complaint of lightheadedness. Patient is a known diabetic and states she has been struggling with her blood sugars for a while now with a blood sugar has been mainly low. She was taken off her insulin by her PCP recently and last week she was also taken off her metformin on account of persistent hypoglycemia. She has never not taking any diabetic medications for the last week. Today she was driving to stand started feeling lightheaded and dizzy. She therefore decided to come into the ED as she says she felt like how she usually felt when her blood sugars were low. On arrival in the ED she was found to have a heart rate of 194 and EKG done showed supraventricular tachycardia with a heart rate of 189. She denied any associated palpitations when I reviewed her though it is stated in the ED notes that patient complained of heart racing. She denied any fever or chills, chest pain, cough, abdominal pain, any urinary symptoms or vomiting. She however did admit to a few episodes of diarrhea over the last few days. 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 Patient states she has been in counseling for a long time but quit about 6 years ago. She admits that she does struggle with her mental health and thinks that affects her diet as she says she thinks she is gained about 6 kg recently and so has been struggling to lose it and this is affected how she eats. She has however been working with the diabetic dietitians and states that this has been helping her with maintaining a regular diet. Review of systems was otherwise negative. She had a Valsalva maneuver done in the ED which brought down to her heart rate to 92. Vitals showed tachycardia with heart rate of 106 at time of review. Chest x-ray was unremarkable. Chemistry showed potassium of 3.3 initial troponin was negative. Magnesium was 1.7. CBC showed white cell count of 14.4 and hemoglobin of 15.1. She has been admitted to be managed for recurrent hypoglycemia and SVT. [] Past Medical History Past Medical History (Chronic Problems): Chronic Problems (Last Reviewed 02/05/19 @ 14:20 by Sarah Olmedo) Bronchiectasis (Chronic) RUFINA (obstructive sleep apnea) (Chronic) DASCO Venous insufficiency of both lower extremities (Chronic) Type 2 diabetes mellitus (Chronic) Iatrogenic pneumothorax (Chronic) Sleep apnea (Chronic) Frequent sinus infections (Chronic) Anxiety (Chronic) Depression (Chronic) Hospitalized mental hospital from age [age] Vision problems (Chronic) GERD (gastroesophageal reflux disease) (Chronic) Fatty liver (Chronic) Hyperlipidemia (Chronic) High blood pressure (Chronic) COPD (chronic obstructive pulmonary disease) (Chronic) H/O emotional problems (Chronic) Diabetes (Chronic) Chronic bronchitis (Chronic) factor,sleiden (Chronic) Asthma (Chronic) COPD Overlap Syndrome Seasonal allergies (Chronic) COPD (chronic obstructive pulmonary disease) (Chronic) Chronic cough (Chronic) Bronchiectasis (Chronic) Diabetes mellitus type 2 in obese (Chronic) Hypertension (Chronic) Morbid obesity (Chronic) Medical History: Medical History (Last Reviewed 02/05/19 @ 14:20 by Sarah Olmedo) Iatrogenic pneumothorax (Chronic) J95.811 Sleep apnea (Chronic) G47.30 Frequent sinus infections (Chronic) J32.9 Anxiety (Chronic) F41.9 Depression (Chronic) F32.9 Hospitalized mental hospital from age [age] Vision problems (Chronic) H54.7 GERD (gastroesophageal reflux disease) (Chronic) K21.9 Pneumonia (Resolved) J18.9 Fatty liver (Chronic) K76.0 Hyperlipidemia (Chronic) E78.5 High blood pressure (Chronic) I10 COPD (chronic obstructive pulmonary disease) (Chronic) J44.9 H/O emotional problems (Chronic) Z86.59 Diabetes (Chronic) E11.9 Chronic bronchitis (Chronic) J42 factor,sleiden (Chronic) Asthma (Chronic) J45.909 COPD Overlap Syndrome Seasonal allergies (Chronic) J30.2 Allergies latex Adverse Reaction (Verified 02/05/19 14:20) Hives Home Medications: Ambulatory Orders Medication Instructions Recorded Albuterol Aerosols [Ventolin 2.5 mg INHALATION Q4HWA.RT 09/27/15 Aerosols] Aspirin 81 mg PO DAILY #0 09/27/15 Fluticasone 0.05% [Flonase Nasal 2 spray NASAL BID 09/27/15 Accident] Lisinopril [Zestril] 20 mg PO DAILY 09/27/15 Montelukast [Singulair] 10 mg PO DAILY 09/27/15 Multivitamins,Ther W-Minerals 1 tab PO DAILY 09/27/15 [Multivitamin With Minerals] [place]-3 Fatty Acids/Fish Oil [Fish 2 ea PO BID 09/27/15 Oil 1,000 mg Softgel] Omeprazole [Prilosec] 40 mg PO DAILY 09/27/15 Simvastatin [Zocor] 40 mg PO QHS 09/27/15 buPROPion XL [Wellbutrin Xl] 300 mg PO DAILY 09/27/15 Hydrochlorothiazide [Hctz] 25 mg PO DAILY 01/30/16 Alogliptin Benzoate [Alogliptin] 25 mg PO DAILY 01/22/18 Amitriptyline HCl [Elavil] 25 mg PO QHS 01/22/18 Budesonide/Formoterol 160/4.5 4.5 - 160 mcg INHALATION BID 01/22/18 [Symbicort 160/4.5 Mcg Inhaler (SP)] Calcium Carbonate [Calcium] 600 mg PO DAILY 01/22/18 Potassium Gluconate 500 mg PO DAILY 01/22/18 Bupropion HCl [Wellbutrin Xl] 150 mg PO DAILY 06/22/18 Duloxetine HCl 60 mg PO BID 06/22/18 cholecalciferol (vitamin D3) 5,000 10,000 unit PO DAILY 12/07/18 unit capsule Naproxen [Naprosyn] 500 mg PO BID PRN PRN #20 tab 01/30/19 Cetirizine HCl [Zyrtec] 10 mg PO DAILY 02/13/19 Surgical History: Surgical History (Last Reviewed 02/05/19 @ 14:20 by Sarah Olmedo) No history of previous surgery Surgical History: no surgical history Psychiatric History: Depression 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 Lives: Spouse/ Significant Other Smoking Status: Current every day smoker Tobacco Use: Vapor Alcohol: None Drugs: None - *Family History Maternal Family History: Family History (Last Reviewed 02/05/19 @ 14:20 by Sarah Olmedo) Mother Alcoholism Asthma Depression hormone problem Respiratory disease Suicide attempt Drug abuse Hepatitis C Brother Alcoholism Asthma Diabetes Respiratory disease Drug abuse Grandmother Depression Psychiatric care Father Diabetes Hypertension Respiratory disease Emphysema of lung Review of Systems Constitutional: Denies: Anorexia, Chills, Fever, Night Sweats, Malaise, Weakness, Fatigue Eyes: Denies: Blurred vision HEENT: Denies: Head Aches, Sinus Congestion, Sinus Drainage Cardiovascular: Reports: Light Headedness, Palpitations. Denies: Chest Pain, Chest Pressure, Chest Tightness, Heaviness, Paroxysmal Noc. Dyspnea, Syncope Respiratory: Denies: Cough, Shortness of Breath, Shortness of breath at rest, Shortness of breath upon exertion, Sputum production Gastrointestinal: Denies: Abdominal Pain, Nausea, Vomiting Genitourinary: Denies: Dysuria Musculoskeletal: Denies: Joint Pain, Joint Tenderness Skin: Denies: Rash, Wounds Neurological: Denies: Numbness, Tingling, Focal weakness Psychiatric: Denies: Anxiety, Depression, Homicidal Ideations, Suicidal Ideations Endocrine: Reports: Hx of Irradiation. Denies: Change in Body Habitus, Polydipsia, Polyuria Hematologic/ Lymphatic: Denies: Easy Bruising, Easy Bleeding VTE Information - Inpt Only VTE Present on Admission: No VTE Pharm Prophylaxis ordered?: Yes - Physical Exam Vitals/I&O's: Vital Signs Temp Pulse Resp BP Pulse Ox 96.1 F L 106 H 17 93/61 96 02/13/19 15:25 02/13/19 16:52 02/13/19 16:52 02/13/19 16:52 02/13/19 16:52 Oxygen Delivery Method Room Air Weight: 244 lb 11.41 oz Body Mass Index (BMI) 43.3 Finger Stick Blood Glucose 76 General: Alert, Oriented x3, Cooperative, No apparent distress HEENT: Atraumatic, PERRLA, EOMI, Normocephalic Oral: Dry Mucosa Neck: Supple, No JVD, Negative Carotid Bruits, Negative Hepatojugular Reflux, No Nodes Lungs: Clear to auscultation, Normal air movement, No rhonchi, No wheeze, No rales Cardiovascular: Regular Rhythm, Normal S1, Normal S2, No murmurs, Tachycardic Abdomen: Bowel Sounds Present, Soft, Non Tender, Non-Distended, No Hepato-splenomegaly Extremities: No clubbing, No cyanosis, No edema, Capillary Refill Less than 3 Seconds Skin: No rashes, No breakdown Musculoskeletal: No Tenderness to Palpation of Joints or Extremities Lymphatic: No Cervical, Supraclavicular, or Inguinal Adenopathy Neurological: Cranial nerves II-XII grossly intact, Neuro grossly intact, Motor Exam 5/5 strength throughout Psych/Mental Status: Normal Affect, Appropriate, Alert and oriented to time, place, person, mood and affect Laboratory Results 02/13/19 15:25: WBC 14.4 H, RBC 4.83, Hgb 15.1 H, Hct 45.7, MCV 94.6, MCH 31.3, MCHC 33.0, RDW Std Deviation 45.9 H, RDW Coeff of Roxanne 13.3, Plt Count 352, MPV 10.5, Immature Gran % (Auto) 0.500, Neut % (Auto) 55.2, Lymph % (Auto) 35.1, Forrest % (Auto) 5.4, Eos % (Auto) 3.2, Baso % (Auto) 0.6, Absolute Neuts (auto) 8.0 H, Absolute Lymphs (auto) 5.06 H, Nucleated RBC % 0, Differential Comment SCANNED 02/13/19 15:25: Sodium 140, Potassium 3.3 L, Chloride 105, Carbon Dioxide 26.0, Anion Gap 9, BUN 4 L, Creatinine 0.73, Estim Creat Clear Calc 79.66, Est GFR (MDRD) Af Amer 111, Est GFR (MDRD) Non-Af 92, BUN/Creatinine Ratio 5.5 L, Glucose 54 L, Calcium 9.8, Magnesium 1.7, Total Bilirubin 0.30, AST 20, ALT 26, Alkaline Phosphatase 84, Troponin I < 0.015, Total Protein 8.2, Albumin 3.7, Globulin 4.5 H, Albumin/Globulin Ratio 0.8 L, TSH 2.17 02/13/19 15:36: POC Glucose 73 02/13/19 17:06: POC Glucose 71 Diagnostic Data Chest X-Ray 02/13/19 15:42 IMPRESSION: No acute findings. Electronically Signed: Andra Ahn MD at 16:33 EDT Tel , Service support , Current Medications Sodium Chloride () 1,000 mls @ 150 mls/hr IV .Q6H40M PRAMOD Dextrose/Sodium Chloride () 1,000 mls @ 100 mls/hr IV .Q10H PRAMOD Assessment/Plan All Active Problems (Last Reviewed 02/05/19 @ 14:20 by Sarah Olmedo) Pneumonia (Resolved) 48-year-old female admitted with complaint of lightheadedness. 1. Recurrent hypoglycemia in a known diabetic blood sugar was 73 on admission says her blood sugar can go as low as the 60s, and has necessitated ED visits in the past metformin stopped last week by PCP, per patient. Insulin also discontinued a couple of weeks ago, according to patient I believe her history of bulimia-anorexia and current worries about trying to lose weight are influencing her dietary habits; she is likely not eating enough, though she does say she ate well today (sausage and biscuit for breakfast, and chicken broth for lunch). will give D5 NS @ 75cc/hr will benefit from endocrinology referral on outpatient basis monitor blood sugar q4hrly last A1C per EMR was 10.1 (11/13/18). Per PCP's note from , A1C checked in office was 7.1 2. Supraventricular tachycardia Does have a history of rapid heart rate but states she has never been worked up for it. She states that she is scheduled to have a 6-minute walk test by her direct service professional to see if her lungs are causing her rapid heart rate. Required a modified Valsalva maneuver on admission in the ED as her heart rate was up to 189. TSH was 2.17. Potassium is 3.3 and magnesium is 1.7. Will replace potassium. Order 2D echo. Last echo was seen January 2018 which showed normal left ventricular systolic function and EF of 70% with no evidence of diastolic dysfunction and no regional wall motion abnormalities noted. 3. Hypokalemia: K was 3.3. Will replace and monitor 4. COPD: Not in exacerbation. On Symbicort and albuterol inhaler. Breathing treatments as needed. 5. Hypertension: Blood pressure is currently around 93/61. On hydrochlorothiazide 25 mg daily. Will hold and monitor. 6. History of factor V Leiden deficiency: Has a history of PE. States she is not on oral anticoagulant on account of heavy menstrual flow. On aspirin 81 mg daily. 7. Hyperlipidemia: On simvastatin. 8. History of anxiety and depression: On Wellbutrin. Will benefit from referral to psychiatrist mental health counselor on outpatient basis. DVT prophylaxis: Lovenox CODE STATUS: Full code Patient counseled extensively about different types of CODE STATUS including full code, DNR CCA and DNR CCA. Patient elects to be full code. Total [id number] time 17 minutes. Code Visit OBSV E&M: 40954 Initial observation care L3 Procedures: 56174 Advncd Care Plan 30 Min
[2019-02-13] MEDS: Dext 5%-0.45% NS 1,000 ML 100 ML IV (17:40)
--- NOTE | 2019-02-13 17:43 | EKG12_ITS ---
Test Reason : PALPS Blood Pressure : / mmHG Vent. Rate : 189 BPM Atrial Rate : 187 BPM P-R Int : 000 ms QRS Dur : 068 ms QT Int : 202 ms P-R-T Axes : 000 069 252 degrees QTc Int : 358 ms Supraventricular tachycardia Abnormal ECG Confirmed by LINDA GARZA, USMAN ([id number]), editorial cartoonist SERENITY BEY ([id number]) on 02/15/2019 1:19:03 PM Referred By: ANTHONY Confirmed By:PETER MCKEON MD
--- NOTE | 2019-02-13 18:11 | ECHOD_ITS ---
Reason For Study: Arrhythmia Procedure This was a 2D Doppler, Color Flow transthoracic echocardiogram. Exam performed portable in patient room. Left Ventricle Normal size and thickness. The estimated ejection fraction is 60 %. No evidence for diastolic dysfunction. No regional wall motion abnormalities noted. Right Ventricle Normal RV size. Normal systolic function. Atria Normal left atrium. Normal right atrium. No doppler evidence for ASD. Mitral Valve There is no mitral valve stenosis. No mitral valve insufficiency. Tricuspid Valve There is no tricuspid stenosis. Unable to estimate RV systolic pressure due to inadequate jet, pulmonary artery pressure probably normal. Aortic Valve Trisinus/trileaflet aortic valve. There is no aortic stenosis. No aortic valve insufficiency. Pulmonic Valve There is no pulmonic valvular stenosis. No pulmonic valve insufficiency. Great Vessels Normal aortic root. Pericardium/Pleural No pericardial effusion. MMode/2D Measurements & Calculations LVIDd: 4.4 cm IVSd: 0.99 cm Ao root diam: 3.2 cm LVIDs: 2.4 cm LVPWd: 0.97 cm RVDd: 2.9 cm FS: 45.7 % LAV(MOD-bp): 43.7 ml LVAd ap4: 27.5 cm2 SV(MOD-sp4): 48.1 ml LAV(MOD-bp) Indexed: 20.9 ml/m2 EDV(MOD-sp4): 77.9 ml LAV(MOD-sp2): 38.0 ml EDV(sp4-el): 81.0 ml LAV(MOD-sp4): 41.4 ml LVAs ap4: 15.1 cm2 ESV(MOD-sp4): 29.8 ml ESV(sp4-el): 29.3 ml EF(MOD-sp4): 61.8 % EF(sp4-el): 63.8 % SV(sp4-el): 51.7 ml LA A4 area: 17.0 cm2 LA dimension(2D): 3.7 cm RA A4 area: 10.4 cm2 Doppler Measurements & Calculations MV E max armani: 81.2 cm/sec Lat Peak E' Armani: 9.8 cm/sec Med Peak E' Armani: 8.7 cm/sec MV A max armani: 87.6 cm/sec E/E' lat: 8.3 E/E' med: 9.4 MV E/A: 0.93 Ao V2 max: 140.9 cm/sec LV V1 max: 106.0 cm/sec PA V2 max: 89.4 cm/sec Ao max P.9 mmHg LV V1 max P.5 mmHg Interpretation Summary The estimated ejection fraction is 60 %. No evidence for diastolic dysfunction. Ordering Physician: Marta Stephens Referring Physician: Jose Loving By: Rachel Velasquez RDCS
[2019-02-13 18:41] LABS: Bedside Glucose 57 mg/dL (70-110)
[2019-02-13 19:11] LABS: Hemoglobin A1c 6.7 % (4.2-6.3)
[2019-02-13] MEDS: Dextrose 5%/0.9% NaCl 1,000 ML 75 ML IV (19:56)
[2019-02-13 20:41] LABS: Bedside Glucose 37 mg/dL (70-110)
[2019-02-13 20:54] LABS: Glucose 154 mg/dL (74-106)
[2019-02-13 21:06] LABS: Bedside Glucose 112 mg/dL (70-110)
[2019-02-13 22:21] LABS: Bedside Glucose 60 mg/dL (70-110)
[2019-02-13] MEDS: CLARIFY ORDER 1 EACH NOTE (22:41)
[2019-02-13 22:45] LABS: Bedside Glucose 54 mg/dL (70-110)
--- NOTE | 2019-02-13 22:55 | NURSING ---
Paged Dr. Donahue d/t blood glucose level 60 at 22:10 after increase in D5NS infusion, awaited call back. When MD returned call this RN did not get opportunity to speak with MD and was told he will call back. This RN did a recheck on blood glucose @ 22:36 while waiting for return call and level was 54. MD returned call shortly after and new orders received.
[2019-02-13] MEDS: Amitriptyline 25 MG Tablet PO (23:08)
[2019-02-13] MEDS: Atorvastatin Calcium 20 MG Tablet PO (23:09)
[2019-02-13] MEDS: DULoxetine Hcl 60 MG Capsule PO (23:09)
[2019-02-13 23:40] LABS: Bedside Glucose 110 mg/dL (70-110)
[2019-02-13] MEDS: Dextrose 10%-Water 250 ML 40 ML IV (23:41)
[2019-02-14] VITALS (15 sets, daily range): BP systolic 102–135; BP diastolic 61–81; PULSE 85–98; RESP 16–18; TEMP 36.4–36.9; O2SAT 93–98
[2019-02-14 00:50] LABS: Bedside Glucose 61 mg/dL (70-110)
[2019-02-14] MEDS: Dextrose 50%-Water 25 GM/50 ML DISP.SYRIN IV (00:58)
[2019-02-14 01:46] LABS: Bedside Glucose 99 mg/dL (70-110)
[2019-02-14 03:15] LABS: Bedside Glucose 89 mg/dL (70-110)
[2019-02-14 04:16] LABS: Bedside Glucose 61 mg/dL (70-110)
[2019-02-14] MEDS: Glucagon 1 MG/ML Syringe IM (04:16)
[2019-02-14] MEDS: 0.9% Saline Lock 10 ML Syringe IV (04:18)
[2019-02-14 05:00] LABS: Bedside Glucose 131 mg/dL (70-110)
[2019-02-14] MEDS: Dextrose 10%-Water 250 ML 40 ML IV ×2 (05:54→12:14)
[2019-02-14 06:16] LABS: Bedside Glucose 170 mg/dL (70-110)
[2019-02-14 06:53] LABS: Absolute Lymphocyte Count 5.43 X10^3/uL (0.83-4.51); Absolute Neutrophil Count 11.8 X10^3/uL (2.0-7.7); Basophil# 0.06 X10^3/uL; Basophil% 0.3 % (0-1); Eosinophil# 0.42 X10^3/uL; Eosinophils% 2.3 % (0-5); Hematocrit 38.9 % (37-47); Hemoglobin 12.8 g/dL (12.0-15.0); Lymphocyte # 5.43 X10^3/ul (4.0); Lymphocyte % 29.3 % (19-41); Mean Corp Hgb Conc 32.9 g/dL (32-36); Mean Corpuscular Hgb 30.7 pg (27.0-32.0); Mean Corpuscular Volume 93.3 fL (81-99); Mean Platelet Vol. 10.6 fl (6.2-12.0); Monocyte# 0.84 X10^3/uL; Monocyte% 4.5 % (0-10); NRBC Flagged by Analyzer 0 % (0-5); Neutrophil # 11.75 X10^3/uL (2.7-7.7); Neutrophil % 63.3 % (47-70); POSITIVE DIFFERENTIAL YES; Platelet Count 274 K/mm3 (150-450); RBC Distribution Width CV 13.4 % (11.6-14.6); RBC Distribution Width SD 45.4 fl (35.1-43.9); Red Blood Count 4.17 M/mm3 (4.2-5.4); White Blood Count 18.6 K/mm3 (4.4-11.0)
[2019-02-14 06:59] LABS: Differential Indicated SCAN CRITERIA MET
[2019-02-14 07:05] LABS: Anion Gap 7 (5-15); BUN 4 mg/dL (7-18); BUN/Creat Ratio 6.5 RATIO (10-20); Calcium,Total 8.5 mg/dL (8.5-10.1); Chloride 106 mmol/L (98-107); Creatinine, Serum 0.61 mg/dL (0.55-1.02); EST Glomerular Filtration Rate 112 mL/min (>60); Est Glom Filt Rate - Afr Amer 135 mL/min (>60); Estimated Creatinine Clearance 95.33 ml/min; Glucose 154 mg/dL (74-106); Potassium 3.7 mmol/L (3.5-5.1); Sodium Level 139 mmol/L (136-145)
[2019-02-14] MEDS: Budesonide Respules 0.5 MG/2 ML AMPUL.NEB. INHALATION ×2 (07:16→19:40)
[2019-02-14] MEDS: Albuterol 2.5 MG/3 ML VIAL.NEB. INHALATION ×2 (07:16→19:40)
[2019-02-14 07:20] LABS: Differential Comment SCANNED
[2019-02-14 08:16] LABS: Bedside Glucose 106 mg/dL (70-110)
[2019-02-14] MEDS: Montelukast 10 MG Tablet PO (09:12)
[2019-02-14] MEDS: Pantoprazole Sodium 40 MG Tablet PO (09:12)
[2019-02-14] MEDS: Aspirin 81 MG TAB.CHEW PO (09:12)
[2019-02-14] MEDS: Calcium (Elemental) 500 MG Tablet PO (09:12)
[2019-02-14] MEDS: Multivitamins,Ther W-Minerals Tablet 1 TABLET PO (09:13)
[2019-02-14] MEDS: Loratadine 10 MG Tablet PO (09:13)
[2019-02-14] MEDS: buPROPion (XL) 150 MG TABLET.XL PO (09:14)
[2019-02-14] MEDS: buPROPion (XL) 300 MG TABLET.XL PO (09:14)
[2019-02-14] MEDS: Enoxaparin 40 MG/0.4 ML Syringe SC (09:15)
[2019-02-14 10:16] LABS: Bedside Glucose 184 mg/dL (70-110)
--- NOTE | 2019-02-14 10:50 | CASEMGMT ---
LW/POA forms in summary tab of Ignacio maya, pt's dari, is listed as healthcare POA. CAROLINA Santo
[2019-02-14] MEDS: DULoxetine Hcl 60 MG Capsule PO ×2 (12:14→21:58)
[2019-02-14 12:26] LABS: Bedside Glucose 164 mg/dL (70-110)
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
--- NOTE | 2019-02-14 13:59 | DCINST_ITS ---
You will use the following diet at home:: No restrictions, Other - Continue small frequent balanced meals, every 3-4 hours. Discharge Activity: Return to Normal Activity Call your doctor if you observe: Shortness of breath, Dizziness, Fainting spells, Chest pain Additional Instructions: Recommend follow-up with counseling/psychiatry for eating disorder. Also recommend follow-up with dietitian. Allergies/Adverse Reactions: Allergies latex Adverse Reaction (Verified 02/05/19 14:20) Hives Medications to take at Discharge Albuterol Aerosols [Ventolin Aerosols] 2.5 mg INHALATION Q4HWA.RT 09/27/15 Aspirin 81 mg PO DAILY #0 09/27/15 Fluticasone 0.05% [Flonase Nasal [place]] 2 spray NASAL BID 09/27/15 Lisinopril [Zestril] 20 mg PO DAILY 09/27/15 Montelukast [Singulair] 10 mg PO DAILY 09/27/15 Multivitamins,Ther W-Minerals [Multivitamin With Minerals] 1 tab PO DAILY 09/27/15 [place]-3 Fatty Acids/Fish Oil [Fish Oil 1,000 mg Softgel] 2 ea PO BID 09/27/15 Omeprazole [Prilosec] 40 mg PO DAILY 09/27/15 Simvastatin [Zocor] 40 mg PO QHS 09/27/15 buPROPion XL [Wellbutrin Xl] 300 mg PO DAILY 09/27/15 Hydrochlorothiazide [Hctz] 25 mg PO DAILY 01/30/16 Alogliptin Benzoate [Alogliptin] 25 mg PO DAILY 01/22/18 Amitriptyline HCl [Elavil] 25 mg PO QHS 01/22/18 Budesonide/Formoterol 160/4.5 [Symbicort 160/4.5 Mcg Inhaler (SP)] 2 puff INHALATION BID 01/22/18 Calcium Carbonate [Calcium] 600 mg PO DAILY 01/22/18 Potassium Gluconate 500 mg PO DAILY 01/22/18 Bupropion HCl [Wellbutrin Xl] 150 mg PO DAILY 06/22/18 Duloxetine HCl 60 mg PO BID 06/22/18 cholecalciferol (vitamin D3) 5,000 unit capsule 10,000 unit PO DAILY 12/07/18 Naproxen [Naprosyn] 500 mg PO BID PRN PRN #20 tab 01/30/19 Cetirizine HCl [Zyrtec] 10 mg PO DAILY 02/13/19 Primary Care Physician: Jose Loving MD [Primary Care Provider] - Please follow up with your Primary Care Physician in: 1 Week Test Results: Test results from this visit will be discussed in further detail at your follow- up appointment, if applicable. Please Follow Up With: Leoncio Jones MD - Endocrinology When: 1 Week Please Follow Up With: Jadon Hernandez MD When: As scheduled Proposed Discharge Date: 02/14/19
[2019-02-14 14:11] LABS: Bedside Glucose 105 mg/dL (70-110)
[2019-02-14 15:06] LABS: Bedside Glucose 81 mg/dL (70-110)
--- NOTE | 2019-02-14 15:29 | PCM.PROGNOTE ---
<Em Castaneda - Last Filed: 02/14/19 15:33> Subjective: Patient seen and examined. Planned for discharge home however glucose continued to drop following discontinuation of dextrose IV fluids. We will keep overnight and continue to monitor glucose closely. Encouraged oral intake. - Physical Exam Vitals/I&O's: Vital Signs Temp Pulse Resp BP Pulse Ox 97.7 F L 94 18 135/81 H 96 02/14/19 14:00 02/14/19 14:00 02/14/19 14:00 02/14/19 14:00 02/14/19 14:00 Oxygen Delivery Method Room Air Weight: 241 lb 0.008 oz Body Mass Index (BMI) 42.7 Finger Stick Blood Glucose 71 Intake and Output for Last 24 Hours 02/12/19 02/13/19 02/14/19 23:59 23:59 23:59 Intake Total 1584.92 / 1584.92 1118.00 / 1118.00 Output Total 800 / 800 Balance 1584.92 / 1584.92 318.00 / 318.00 General: Alert, Oriented x3, Cooperative HEENT: Atraumatic, PERRLA, EOMI, Normocephalic Neck: Supple, No JVD, Negative Carotid Bruits Lungs: Clear to auscultation, Normal air movement Cardiovascular: Regular rate, Regular Rhythm, Normal S1, Normal S2, No murmurs Abdomen: Bowel Sounds Present, Soft, Non Tender, Non-Distended Extremities: No clubbing, No cyanosis, No edema, Capillary Refill Less than 3 Seconds Skin: No rashes, No breakdown Musculoskeletal: No Tenderness to Palpation of Joints or Extremities Neurological: Cranial nerves II-XII grossly intact, Neuro grossly intact Psych/Mental Status: Normal Affect, Appropriate Laboratory Results 02/13/19 15:25: WBC 14.4 H, RBC 4.83, Hgb 15.1 H, Hct 45.7, MCV 94.6, MCH 31.3, MCHC 33.0, RDW Std Deviation 45.9 H, RDW Coeff of Roxanne 13.3, Plt Count 352, MPV 10.5, Immature Gran % (Auto) 0.500, Neut % (Auto) 55.2, Lymph % (Auto) 35.1, [place] % (Auto) 5.4, Eos % (Auto) 3.2, Baso % (Auto) 0.6, Absolute Neuts (auto) 8.0 H, Absolute Lymphs (auto) 5.06 H, Nucleated RBC % 0, Differential Comment SCANNED 02/13/19 15:25: Sodium 140, Potassium 3.3 L, Chloride 105, Carbon Dioxide 26.0, Anion Gap 9, BUN 4 L, Creatinine 0.73, Estim Creat Clear Calc 79.66, Est GFR (MDRD) Af Amer 111, Est GFR (MDRD) Non-Af 92, BUN/Creatinine Ratio 5.5 L, Glucose 54 L, Calcium 9.8, Magnesium 1.7, Total Bilirubin 0.30, AST 20, ALT 26, Alkaline Phosphatase 84, Troponin I < 0.015, Total Protein 8.2, Albumin 3.7, Globulin 4.5 H, Albumin/Globulin Ratio 0.8 L, TSH 2.17 02/13/19 15:25: Hemoglobin A1c 6.7 H 02/13/19 15:36: POC Glucose 73 02/13/19 17:06: POC Glucose 71 02/13/19 18:34: POC Glucose 57 L 02/13/19 20:03: POC Glucose 37 L* 02/13/19 20:25: Glucose 154 H 02/13/19 20:59: POC Glucose 112 H 02/13/19 22:10: POC Glucose 60 L 02/13/19 22:36: POC Glucose 54 L 02/13/19 23:37: POC Glucose 110 02/14/19 00:45: POC Glucose 61 L 02/14/19 01:40: POC Glucose 99 02/14/19 02:45: POC Glucose 89 02/14/19 03:47: POC Glucose 61 L 02/14/19 04:54: POC Glucose 131 H 02/14/19 06:11: POC Glucose 170 H 02/14/19 06:20: WBC 18.6 H, RBC 4.17 L, Hgb 12.8, Hct 38.9, MCV 93.3, MCH 30.7, MCHC 32.9, RDW Std Deviation 45.4 H, RDW Coeff of Roxanne 13.4, Plt Count 274, MPV 10.6, Immature Gran % (Auto) 0.300, Neut % (Auto) 63.3, Lymph % (Auto) 29.3, [place] % (Auto) 4.5, Eos % (Auto) 2.3, Baso % (Auto) 0.3, Absolute Neuts (auto) 11.8 H, Absolute Lymphs (auto) 5.43 H, Nucleated RBC % 0, Differential Comment SCANNED 02/14/19 06:20: Sodium 139, Potassium 3.7, Chloride 106, Carbon Dioxide 26.0, Anion Gap 7, BUN 4 L, Creatinine 0.61, Estim Creat Clear Calc 95.33, Est GFR (MDRD) Af Amer 135, Est GFR (MDRD) Non-Af 112, BUN/Creatinine Ratio 6.5 L, Glucose 154 H, Calcium 8.5 02/14/19 07:55: POC Glucose 106 02/14/19 10:08: POC Glucose 184 H 02/14/19 12:07: POC Glucose 164 H 02/14/19 14:00: POC Glucose 105 02/14/19 15:02: POC Glucose 81 Current Medications Albuterol Sulfate (Ventolin Aerosols) 2.5 mg INHALATION Q2H PRN PRN PRN Reason: sob/wheezing Albuterol Sulfate (Ventolin Aerosols) 2.5 mg INHALATION Q6HWA.RT [facility] Last Admin: 02/14/19 13:15 Dose: Not Given Documented by: Amitriptyline HCl (Elavil) 25 mg PO QHS [facility] Last Admin: 02/13/19 23:08 Dose: 25 mg Documented by: Aspirin ([facility]in, Baby) [facility] Last Admin: 02/14/19 09:12 Dose: 81 mg Documented by: Atorvastatin Calcium (Lipitor) 20 mg PO QHS [facility] Last Admin: 02/13/19 23:09 Dose: 20 mg Documented by: Budesonide (Pulmicort Aerosol) 0.5 mg INHALATION Q12H.RT [facility] Last Admin: 02/14/19 07:16 Dose: 0.5 mg Documented by: Bupropion HCl (Wellbutrin Xl) 300 mg PO DAILY [facility] Last Admin: 02/14/19 09:14 Dose: 300 mg Documented by: Bupropion HCl (Wellbutrin Xl) 150 mg PO DAILY [facility] Last Admin: 02/14/19 09:14 Dose: 150 mg Documented by: Calcium Carbonate (Os-Everardo 500) [facility] Last Admin: 02/14/19 09:12 Dose: 500 mg Documented by: Cholecalciferol (Vitamin D) 10,000 unit PO MoTuWeThFr [facility] Last Admin: 02/13/19 23:08 Dose: Not Given Documented by: Dextrose (D50w Syringe) 0 gm IV X1 PRN; Protocol PRN Reason: Hypoglycemia Last Admin: 02/14/19 00:58 Dose: 12.5 gm Documented by: Duloxetine HCl (Cymbalta) 60 mg PO BID [facility] Last Admin: 02/14/19 12:14 Dose: 60 mg Documented by: Enoxaparin Sodium (Lovenox) 40 mg SC DAILY@1000 [facility] Last Admin: 02/14/19 09:15 Dose: 40 mg Documented by: Fluticasone Propionate (Flonase Nasal [place]) 2 spray NASAL BID [facility] Last Admin: 02/14/19 09:13 Dose: Not Given Documented by: Glucagon () 1 mg IM .X1 PRN PRN Reason: Hypoglycemia Last Admin: 02/14/19 04:16 Dose: 1 mg Documented by: Sodium Chloride () 250 mls @ 15 mls/hr IV .[id number] PRN PRN Reason: Saline Flush Loratadine (Claritin) 10 mg PO DAILY [facility] Last Admin: 02/14/19 09:13 Dose: 10 mg Documented by: Metoprolol Tartrate (Lopressor (Beta Jose)) 5 mg IV Q6 [facility] Last Admin: 02/14/19 12:20 Dose: Not Given Documented by: Montelukast Sodium (Singulair) 10 mg PO DAILY [facility] Last Admin: 02/14/19 09:12 Dose: 10 mg Documented by: Multivitamins/Minerals (Multivitamin With Minerals) 1 tablet PO DAILYCM [facility] Last Admin: 02/14/19 09:13 Dose: 1 tablet Documented by: Naproxen (Naprosyn) 500 mg PO BID PRN PRN PRN Reason: Pain Score 4-10/10 Pantoprazole Sodium (Protonix) 40 mg PO DAILY [facility] Last Admin: 02/14/19 09:12 Dose: 40 mg Documented by: Sodium Chloride () 10 - 40 ml IV UD PRN PRN Reason: SALINE FLUSH Last Admin: 02/14/19 04:18 Dose: 10 ml Documented by: Medical Necessity - Tobacco Use Smoking Status: Current every day smoker Tobacco Use: Cigarettes, Vapor Assessment/Plan All Active Problems (Last Reviewed 02/05/19 @ 14:20 by Sarah Olmedo) Pneumonia (Resolved) 1. Recurrent hypoglycemia-recently taken off of insulin and metformin. Patient has not been eating regularly as she has trying to lose weight and has a history of bulimia and anorexia. Dietitian consult. Recommend outpatient follow-up with dietitian as well as counselor/psychiatry. Will refer to Dr. Jones, endocrinology as well. Monitor glucose closely overnight. Dextrose IV fluids discontinued and patient's blood glucose has been trending down. Encourage oral intake. 2. SVT-patient required modified Valsalva maneuver in the ED. Has not had further SVT or medication intervention. Echocardiogram demonstrated an EF of 60%. Patient has underlying untreated RUFINA. She reports she is scheduled for 6 minute Walk test with pulmonary medicine. Continue outpatient follow-up with pulmonary medicine. #1 may have contributed to SVT as well. Monitor telemetry overnight. 3. Mild hypokalemia-resolved, replaced per protocol. 4. COPD-no acute exacerbation. Continue as needed albuterol aerosol and Symbicort. Continue outpatient follow-up with pulmonary medicine. Patient reports she has upcoming appointment for 6-minute walk test. 5. Hypertension-stable, continue lisinopril, HCTZ regimen. 6. RUIFNA-noncompliant with CPAP regimen. 7. Morbid obesity-also has a history of anorexia and bulimia. Dietitian consulted during admission. Recommend continued outpatient follow-up with dietitian as well as psychiatric follow-up. 8. Anxiety/Depression-continue home bupropion, duloxetine, amitriptyline regimen. Recommend outpatient counseling/psychiatric follow-up. 9. GERD-continue omeprazole regimen. 10. History of factor V Leiden deficiency/PE-continue daily aspirin. Not on oral anticoagulation due to heavy menstrual cycle. DVT prophylaxis-Lovenox subcu. This patient was seen by NICHOLAS Vazquez under the supervision of Dr. Esteban. <Kennedy Esteban - Last Filed: 02/14/19 17:15> Subjective: Seen and examined. Patient has a history of chronic hypoglycemia as per the patient. She also has history of occasional supraventricular tachycardia. Patient seems anxious. Usually her heart rate goes up to 140 but it was about 188 at the time of admission. - Physical Exam Vitals/I&O's: Vital Signs Temp Pulse Resp BP Pulse Ox 97.7 F L 93 18 135/81 H 96 02/14/19 14:00 02/14/19 15:49 02/14/19 14:00 02/14/19 14:00 02/14/19 14:00 Oxygen Delivery Method Room Air Weight: 241 lb 0.008 oz Body Mass Index (BMI) 42.7 Finger Stick Blood Glucose 71 Intake and Output for Last 24 Hours 02/12/19 02/13/19 02/14/19 23:59 23:59 23:59 Intake Total 1584.92 / 1584.92 1118.00 / 1118.00 Output Total 800 / 800 Balance 1584.92 / 1584.92 318.00 / 318.00 General: Alert, Oriented x3, Cooperative HEENT: Atraumatic, PERRLA, EOMI, Normocephalic Neck: Supple, No JVD, Negative Carotid Bruits Lungs: Clear to auscultation, Normal air movement, No rhonchi, No wheeze, No rales Cardiovascular: Regular rate, Regular Rhythm, Normal S1, Normal S2, No murmurs Abdomen: Bowel Sounds Present, Soft, Non Tender, Non-Distended Extremities: No clubbing, No cyanosis, No edema, Capillary Refill Less than 3 Seconds Skin: No rashes, No breakdown Musculoskeletal: No Tenderness to Palpation of Joints or Extremities Neurological: Cranial nerves II-XII grossly intact, Neuro grossly intact Psych/Mental Status: Normal Affect, Appropriate Laboratory Results 02/13/19 15:25: Hemoglobin A1c 6.7 H 02/13/19 17:06: POC Glucose 71 02/13/19 18:34: POC Glucose 57 L 02/13/19 20:03: POC Glucose 37 L* 02/13/19 20:25: Glucose 154 H 02/13/19 20:59: POC Glucose 112 H 02/13/19 22:10: POC Glucose 60 L 02/13/19 22:36: POC Glucose 54 L 02/13/19 23:37: POC Glucose 110 02/14/19 00:45: POC Glucose 61 L 02/14/19 01:40: POC Glucose 99 02/14/19 02:45: POC Glucose 89 02/14/19 03:47: POC Glucose 61 L 02/14/19 04:54: POC Glucose 131 H 02/14/19 06:11: POC Glucose 170 H 02/14/19 06:20: WBC 18.6 H, RBC 4.17 L, Hgb 12.8, Hct 38.9, MCV 93.3, MCH 30.7, MCHC 32.9, RDW Std Deviation 45.4 H, RDW Coeff of Roxanne 13.4, Plt Count 274, MPV 10.6, Immature Gran % (Auto) 0.300, Neut % (Auto) 63.3, Lymph % (Auto) 29.3, Coryell % (Auto) 4.5, Eos % (Auto) 2.3, Baso % (Auto) 0.3, Absolute Neuts (auto) 11.8 H, Absolute Lymphs (auto) 5.43 H, Nucleated RBC % 0, Differential Comment SCANNED 02/14/19 06:20: Sodium 139, Potassium 3.7, Chloride 106, Carbon Dioxide 26.0, Anion Gap 7, BUN 4 L, Creatinine 0.61, Estim Creat Clear Calc 95.33, Est GFR (MDRD) Af Amer 135, Est GFR (MDRD) Non-Af 112, BUN/Creatinine Ratio 6.5 L, Glucose 154 H, Calcium 8.5 02/14/19 07:55: POC Glucose 106 02/14/19 10:08: POC Glucose 184 H 02/14/19 12:07: POC Glucose 164 H 02/14/19 14:00: POC Glucose 105 02/14/19 15:02: POC Glucose 81 02/14/19 16:05: POC Glucose 61 L 02/14/19 16:43: POC Glucose 79 Current Medications Albuterol Sulfate (Ventolin Aerosols) 2.5 mg INHALATION Q2H PRN PRN PRN Reason: sob/wheezing Albuterol Sulfate (Ventolin Aerosols) 2.5 mg INHALATION Q6HWA.RT [facility] Last Admin: 02/14/19 13:15 Dose: Not Given Documented by: Amitriptyline HCl (Elavil) 25 mg PO QHS [facility] Last Admin: 02/13/19 23:08 Dose: 25 mg Documented by: Aspirin ([facility]in, Baby) [facility] Last Admin: 02/14/19 09:12 Dose: 81 mg Documented by: Atorvastatin Calcium (Lipitor) 20 mg PO QHS [facility] Last Admin: 02/13/19 23:09 Dose: 20 mg Documented by: Budesonide (Pulmicort Aerosol) 0.5 mg INHALATION Q12H.RT [facility] Last Admin: 02/14/19 07:16 Dose: 0.5 mg Documented by: Bupropion HCl (Wellbutrin Xl) 300 mg PO DAILY [facility] Last Admin: 02/14/19 09:14 Dose: 300 mg Documented by: Bupropion HCl (Wellbutrin Xl) 150 mg PO DAILY [facility] Last Admin: 02/14/19 09:14 Dose: 150 mg Documented by: Calcium Carbonate (Os-Everardo 500) 500 mg PO DAILYCM [facility] Last Admin: 02/14/19 09:12 Dose: 500 mg Documented by: Cholecalciferol (Vitamin D) 10,000 unit PO MoTuWeThFr [facility] Last Admin: 02/13/19 23:08 Dose: Not Given Documented by: Dextrose (D50w Syringe) 0 gm IV X1 PRN; Protocol PRN Reason: Hypoglycemia Last Admin: 02/14/19 00:58 Dose: 12.5 gm Documented by: Duloxetine HCl (Cymbalta) 60 mg PO BID [facility] Last Admin: 02/14/19 12:14 Dose: 60 mg Documented by: Enoxaparin Sodium (Lovenox) 40 mg SC DAILY@1000 [facility] Last Admin: 02/14/19 09:15 Dose: 40 mg Documented by: Fluticasone Propionate (Flonase Nasal [place]) 2 spray NASAL BID [facility] Last Admin: 02/14/19 09:13 Dose: Not Given Documented by: Glucagon () 1 mg IM .X1 PRN PRN Reason: Hypoglycemia Last Admin: 02/14/19 04:16 Dose: 1 mg Documented by: Sodium Chloride () 250 mls @ 15 mls/hr IV .[id number] PRN PRN Reason: Saline Flush Loratadine (Claritin) 10 mg PO DAILY [facility] Last Admin: 02/14/19 09:13 Dose: 10 mg Documented by: Metoprolol Tartrate (Lopressor (Beta Jose)) 5 mg IV Q6 [facility] Last Admin: 02/14/19 12:20 Dose: Not Given Documented by: Montelukast Sodium (Singulair) 10 mg PO DAILY [facility] Last Admin: 02/14/19 09:12 Dose: 10 mg Documented by: Multivitamins/Minerals (Multivitamin With Minerals) 1 tablet PO DAILYCM [facility] Last Admin: 02/14/19 09:13 Dose: 1 tablet Documented by: Naproxen (Naprosyn) 500 mg PO BID PRN PRN PRN Reason: Pain Score 4-10/10 Pantoprazole Sodium (Protonix) 40 mg PO DAILY [facility] Last Admin: 02/14/19 09:12 Dose: 40 mg Documented by: Sodium Chloride () 10 - 40 ml IV UD PRN PRN Reason: SALINE FLUSH Last Admin: 02/14/19 04:18 Dose: 10 ml Documented by: Assessment/Plan This patient was seen in conjunction with Em QUISPE. I have independently interviewed and examined the patient and reviewed pertinent history, examination findings, laboratory and plan of management. I have reviewed the note and agree with the documented findings with the few additional points. In brief, patient is admitted for recurrent hypoglycemia. Patient is off insulin and oral hypoglycemic agent. Patient needs further education about weight, food intake and [place]. Patient is still having low serum glucose, glucose is 79, 81 mg percent. Does not feel comfortable going home. Patient also has supraventricular tachycardia. Echo was done showed EF 60%. Overall echo is reported normal. It may be related to pulmonary condition possible RUFINA. Patient has scheduled with Dr. Hernandez with 6-minute walk test. I have discussed my assessment with Em QUISPE and orders have been reviewed. Code Visit OBSV E&M: 24207 Subsequent observation care L2
[2019-02-14 16:10] LABS: Bedside Glucose 61 mg/dL (70-110)
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
[2019-02-14 16:45] LABS: Bedside Glucose 79 mg/dL (70-110)
[2019-02-14 18:20] LABS: Bedside Glucose 122 mg/dL (70-110)
[2019-02-14 19:00] LABS: AST(SGOT) 23 U/L (15-37); Alanine Aminotransfer ALT/SGPT 20 U/L (13-56); Alkaline Phosphatase 52 U/L (45-117); Bilirubin, Direct 0.09 mg/dL (0.00-0.30); Globulin 3.5 g/dL (2.2-4.2); Protein, Total 6.5 g/dL (6.4-8.2)
[2019-02-14 21:51] LABS: Bedside Glucose 132 mg/dL (70-110)
[2019-02-14] MEDS: Atorvastatin Calcium 20 MG Tablet PO (21:55)
[2019-02-14] MEDS: Amitriptyline 25 MG Tablet PO (21:55)
[2019-02-14 22:25] LABS: Bedside Glucose 137 mg/dL (70-110)
[2019-02-15] VITALS (10 sets, daily range): BP systolic 107–121; BP diastolic 67–76; PULSE 85–100; RESP 12–18; TEMP 36.6–36.7; O2SAT 96–100
[2019-02-15 02:05] LABS: Bedside Glucose 142 mg/dL (70-110)
[2019-02-15 02:05] LABS: Bedside Glucose 113 mg/dL (70-110)
[2019-02-15 04:11] LABS: Bedside Glucose 123 mg/dL (70-110)
[2019-02-15 06:10] LABS: Bedside Glucose 113 mg/dL (70-110)
[2019-02-15] MEDS: Albuterol 2.5 MG/3 ML VIAL.NEB. INHALATION (06:44)
[2019-02-15] MEDS: Budesonide Respules 0.5 MG/2 ML AMPUL.NEB. INHALATION (06:44)
[2019-02-15 07:06] LABS: Hematocrit 41.6 % (37-47); Hemoglobin 13.7 g/dL (12.0-15.0); Mean Corp Hgb Conc 32.9 g/dL (32-36); Mean Corpuscular Hgb 30.9 pg (27.0-32.0); Mean Corpuscular Volume 93.9 fL (81-99); Mean Platelet Vol. 10.4 fl (6.2-12.0); Platelet Count 292 K/mm3 (150-450); RBC Distribution Width CV 13.2 % (11.6-14.6); RBC Distribution Width SD 45.8 fl (35.1-43.9); Red Blood Count 4.43 M/mm3 (4.2-5.4); White Blood Count 11.9 K/mm3 (4.4-11.0)
[2019-02-15] MEDS: Aspirin 81 MG TAB.CHEW PO (09:01)
[2019-02-15] MEDS: Calcium (Elemental) 500 MG Tablet PO (09:01)
[2019-02-15] MEDS: Multivitamins,Ther W-Minerals Tablet 1 TABLET PO (09:01)
[2019-02-15] MEDS: DULoxetine Hcl 60 MG Capsule PO (09:02)
[2019-02-15] MEDS: Pantoprazole Sodium 40 MG Tablet PO (09:02)
[2019-02-15] MEDS: Fluticasone 0.05% 1 SPRAY NASAL.SRY 2 SPRAY NASAL (09:03)
[2019-02-15] MEDS: buPROPion (XL) 300 MG TABLET.XL PO (09:03)
[2019-02-15] MEDS: Loratadine 10 MG Tablet PO (09:03)
[2019-02-15] MEDS: buPROPion (XL) 150 MG TABLET.XL PO (09:04)
[2019-02-15] MEDS: Enoxaparin 40 MG/0.4 ML Syringe SC (09:04)
[2019-02-15] MEDS: Montelukast 10 MG Tablet PO (09:05)
[2019-02-15 09:51] LABS: Bedside Glucose 120 mg/dL (70-110)
[2019-02-15 13:25] LABS: Bedside Glucose 67 mg/dL (70-110)
[2019-02-15 14:40] LABS: Bedside Glucose 197 mg/dL (70-110)
--- NOTE | 2019-02-15 15:19 | PCM.DC.SUM ---
<Em Castaneda - Last Filed: 02/15/19 11:14> Discharge Date and Diagnosis Date of Admission: 02/13/19 Date of Discharge: 02/14/19 - Primary Discharge Diagnosis 1. Recurrent hypoglycemia 2. SVT 3. Mild hypokalemia 4. COPD, chronic 5. Hypertension 6. RUFINA 7. Morbid obesity 8. Anxiety/Depression 9. GERD 10. History of factor V Leiden deficiency/PE - Secondary Discharge Diagnosis Chronic Problems (Last Reviewed 02/05/19 @ 14:20 by Sarah Olmedo) Bronchiectasis (Chronic) RUFINA (obstructive sleep apnea) (Chronic) DASCO Venous insufficiency of both lower extremities (Chronic) Type 2 diabetes mellitus (Chronic) Iatrogenic pneumothorax (Chronic) Sleep apnea (Chronic) Frequent sinus infections (Chronic) Anxiety (Chronic) Depression (Chronic) Hospitalized [facility] from age 17[facility]26 Vision problems (Chronic) GERD (gastroesophageal reflux disease) (Chronic) Fatty liver (Chronic) Hyperlipidemia (Chronic) High blood pressure (Chronic) COPD (chronic obstructive pulmonary disease) (Chronic) H/O emotional problems (Chronic) Diabetes (Chronic) Chronic bronchitis (Chronic) factor,sleiden (Chronic) Asthma (Chronic) COPD Overlap Syndrome Seasonal allergies (Chronic) COPD (chronic obstructive pulmonary disease) (Chronic) Chronic cough (Chronic) Bronchiectasis (Chronic) Diabetes mellitus type 2 in obese (Chronic) Hypertension (Chronic) Morbid obesity (Chronic) Hospital Course and Treatment Imaging Results: Diagnostic Data Chest X-Ray 02/13/19 15:42 IMPRESSION: No acute findings. Electronically Signed: Andra hAn MD at 16:33 EDT Tel , Service support , Operations: None Procedures: 2-D Echocardiogram Summary of Care Provided: The patient is a 48 year old F admitted 02/13/2019 due to lightheadedness, dizziness. 1. Recurrent hypoglycemia-recently taken off of insulin and metformin. Patient has not been eating regularly as she has trying to lose weight and has a history of bulimia and anorexia. Dietitian consult during admission. Recommend outpatient follow-up with dietitian as well as counselor/psychiatry. Referred to Dr. Jones, endocrinology as well. Follow-up with primary care provider in 1 week. Recommended close glucose monitoring at home with frequent balanced meals, every 3-4 hours. 2. SVT-patient required modified Valsalva maneuver in the ED. Has not had further SVT or medication intervention. Echocardiogram demonstrated an EF of 60%. Patient has underlying untreated RUFINA. She reports she is scheduled for 6 minute Walk test with pulmonary medicine. Continue outpatient follow-up with pulmonary medicine. #1 may have contributed to SVT as well. If patient has recurrence of SVT, may require initiating beta-jose/medication regimen. 3. Mild hypokalemia-resolved, replaced per protocol. 4. COPD-no acute exacerbation. Continue as needed albuterol aerosol and Symbicort. Continue outpatient follow-up with pulmonary medicine. Patient reports she has upcoming appointment for 6-minute walk test. 5. Hypertension-stable, continue lisinopril, HCTZ regimen. 6. RUFINA-noncompliant with CPAP regimen. 7. Morbid obesity-also has a history of anorexia and bulimia. Dietitian consulted during admission. Recommend continued outpatient follow-up with dietitian as well as psychiatric follow-up. 8. Anxiety/Depression-continue home bupropion, duloxetine, amitriptyline regimen. Recommend outpatient counseling/psychiatric follow-up. 9. GERD-continue omeprazole regimen. 10. History of factor V Leiden deficiency/PE-continue daily aspirin. Not on oral anticoagulation due to heavy menstrual cycle. Patient seen and examined prior to discharge. Physical assessment as noted below. Patient is stable for discharge with follow up recommendations as noted above. This patient was seen by NICHOLAS Vazquez under the supervision of Dr. Esteban. - Physical Exam Vitals/I&O's: Vital Signs Temp Pulse Resp BP Pulse Ox 98.0 F 90 18 102/64 93 02/14/19 07:58 02/14/19 12:20 02/14/19 07:58 02/14/19 07:58 02/14/19 07:58 Oxygen Delivery Method Room Air Weight: 241 lb 0.008 oz Body Mass Index (BMI) 42.7 Finger Stick Blood Glucose 71 Intake and Output for Last 24 Hours 02/12/19 02/13/19 02/14/19 23:59 23:59 23:59 Intake Total 1584.92 / 1584.92 1118.00 / 1118.00 Output Total 800 / 800 Balance 1584.92 / 1584.92 318.00 / 318.00 General: Alert, Oriented x3, Cooperative HEENT: Atraumatic, PERRLA, EOMI, Normocephalic Neck: Supple, No JVD, Negative Carotid Bruits Lungs: Clear to auscultation, Normal air movement Cardiovascular: Regular rate, Regular Rhythm, Normal S1, Normal S2, No murmurs Abdomen: Bowel Sounds Present, Soft, Non Tender, Non-Distended Extremities: No clubbing, No cyanosis, No edema, Capillary Refill Less than 3 Seconds Skin: No rashes, No breakdown Musculoskeletal: No Tenderness to Palpation of Joints or Extremities Neurological: Cranial nerves II-XII grossly intact, Neuro grossly intact Psych/Mental Status: Normal Affect, Appropriate Laboratory Results 02/13/19 15:25: WBC 14.4 H, RBC 4.83, Hgb 15.1 H, Hct 45.7, MCV 94.6, MCH 31.3, MCHC 33.0, RDW Std Deviation 45.9 H, RDW Coeff of Roxanne 13.3, Plt Count 352, MPV 10.5, Immature Gran % (Auto) 0.500, Neut % (Auto) 55.2, Lymph % (Auto) 35.1, Madison % (Auto) 5.4, Eos % (Auto) 3.2, Baso % (Auto) 0.6, Absolute Neuts (auto) 8.0 H, Absolute Lymphs (auto) 5.06 H, Nucleated RBC % 0, Differential Comment SCANNED 02/13/19 15:25: Sodium 140, Potassium 3.3 L, Chloride 105, Carbon Dioxide 26.0, Anion Gap 9, BUN 4 L, Creatinine 0.73, Estim Creat Clear Calc 79.66, Est GFR (MDRD) Af Amer 111, Est GFR (MDRD) Non-Af 92, BUN/Creatinine Ratio 5.5 L, Glucose 54 L, Calcium 9.8, Magnesium 1.7, Total Bilirubin 0.30, AST 20, ALT 26, Alkaline Phosphatase 84, Troponin I < 0.015, Total Protein 8.2, Albumin 3.7, Globulin 4.5 H, Albumin/Globulin Ratio 0.8 L, TSH 2.17 02/13/19 15:25: Hemoglobin A1c 6.7 H 02/13/19 15:36: POC Glucose 73 02/13/19 17:06: POC Glucose 71 02/13/19 18:34: POC Glucose 57 L 02/13/19 20:03: POC Glucose 37 L* 02/13/19 20:25: Glucose 154 H 02/13/19 20:59: POC Glucose 112 H 02/13/19 22:10: POC Glucose 60 L 02/13/19 22:36: POC Glucose 54 L 02/13/19 23:37: POC Glucose 110 02/14/19 00:45: POC Glucose 61 L 02/14/19 01:40: POC Glucose 99 02/14/19 02:45: POC Glucose 89 02/14/19 03:47: POC Glucose 61 L 02/14/19 04:54: POC Glucose 131 H 02/14/19 06:11: POC Glucose 170 H 02/14/19 06:20: WBC 18.6 H, RBC 4.17 L, Hgb 12.8, Hct 38.9, MCV 93.3, MCH 30.7, MCHC 32.9, RDW Std Deviation 45.4 H, RDW Coeff of Roxanne 13.4, Plt Count 274, MPV 10.6, Immature Gran % (Auto) 0.300, Neut % (Auto) 63.3, Lymph % (Auto) 29.3, Madison % (Auto) 4.5, Eos % (Auto) 2.3, Baso % (Auto) 0.3, Absolute Neuts (auto) 11.8 H, Absolute Lymphs (auto) 5.43 H, Nucleated RBC % 0, Differential Comment SCANNED 02/14/19 06:20: Sodium 139, Potassium 3.7, Chloride 106, Carbon Dioxide 26.0, Anion Gap 7, BUN 4 L, Creatinine 0.61, Estim Creat Clear Calc 95.33, Est GFR (MDRD) Af Amer 135, Est GFR (MDRD) Non-Af 112, BUN/Creatinine Ratio 6.5 L, Glucose 154 H, Calcium 8.5 02/14/19 07:55: POC Glucose 106 02/14/19 10:08: POC Glucose 184 H 02/14/19 12:07: POC Glucose 164 H Current Medications Albuterol Sulfate (Ventolin Aerosols) 2.5 mg INHALATION Q2H PRN PRN PRN Reason: sob/wheezing Albuterol Sulfate (Ventolin Aerosols) 2.5 mg INHALATION Q6HWA.RT [facility] Last Admin: 02/14/19 13:15 Dose: Not Given Documented by: Amitriptyline HCl (Elavil) 25 mg PO QHS [facility] Last Admin: 02/13/19 23:08 Dose: 25 mg Documented by: Aspirin (Aspirin, Baby) 81 mg PO DAILYCM [facility] Last Admin: 02/14/19 09:12 Dose: 81 mg Documented by: Atorvastatin Calcium (Lipitor) 20 mg PO QHS [facility] Last Admin: 02/13/19 23:09 Dose: 20 mg Documented by: Budesonide (Pulmicort Aerosol) 0.5 mg INHALATION Q12H.RT [facility] Last Admin: 02/14/19 07:16 Dose: 0.5 mg Documented by: Bupropion HCl (Wellbutrin Xl) 300 mg PO DAILY [facility] Last Admin: 02/14/19 09:14 Dose: 300 mg Documented by: Bupropion HCl (Wellbutrin Xl) 150 mg PO DAILY [facility] Last Admin: 02/14/19 09:14 Dose: 150 mg Documented by: [facility] ([facility]Everardo [facility] Last Admin: 02/14/19 09:12 Dose: 500 mg Documented by: Cholecalciferol (Vitamin D) 10,000 unit PO MoTuWeThFr [facility] Last Admin: 02/13/19 23:08 Dose: Not Given Documented by: Dextrose (D50w Syringe) 0 gm IV X1 PRN; Protocol PRN Reason: Hypoglycemia Last Admin: 02/14/19 00:58 Dose: 12.5 gm Documented by: Duloxetine HCl (Cymbalta) 60 mg PO BID [facility] Last Admin: 02/14/19 12:14 Dose: 60 mg Documented by: Enoxaparin Sodium (Lovenox) 40 mg SC DAILY@1000 [facility] Last Admin: 02/14/19 09:15 Dose: 40 mg Documented by: Fluticasone Propionate (Flonase Nasal [place]) 2 spray NASAL BID [facility] Last Admin: 02/14/19 09:13 Dose: Not Given Documented by: Glucagon () 1 mg IM .X1 PRN PRN Reason: Hypoglycemia Last Admin: 02/14/19 04:16 Dose: 1 mg Documented by: Sodium Chloride () 250 mls @ 15 mls/hr IV .[id number] PRN PRN Reason: Saline Flush Loratadine (Claritin) 10 mg PO DAILY [facility] Last Admin: 02/14/19 09:13 Dose: 10 mg Documented by: Metoprolol Tartrate (Lopressor (Beta Jose)) 5 mg IV Q6 [facility] Last Admin: 02/14/19 12:20 Dose: Not Given Documented by: Montelukast Sodium (Singulair) 10 mg PO DAILY [facility] Last Admin: 02/14/19 09:12 Dose: 10 mg Documented by: Multivitamins/Minerals (Multivitamin With Minerals) 1 tablet PO DAILYCM [facility] Last Admin: 02/14/19 09:13 Dose: 1 tablet Documented by: Naproxen (Naprosyn) 500 mg PO BID PRN PRN PRN Reason: Pain Score 4-10/10 Pantoprazole Sodium (Protonix) 40 mg PO DAILY [facility] Last Admin: 02/14/19 09:12 Dose: 40 mg Documented by: Sodium Chloride () 10 - 40 ml IV UD PRN PRN Reason: SALINE FLUSH Last Admin: 02/14/19 04:18 Dose: 10 ml Documented by: Discharge Diet: 1800 Calorie Control Diet Discharge Activity: Return to Normal Activity Call your doctor if you observe: Shortness of breath, Dizziness, Fainting spells, Chest pain Home Medications: Medications to take at Discharge Albuterol Aerosols [Ventolin Aerosols] 2.5 mg INHALATION Q4HWA.RT 09/27/15 Aspirin 81 mg PO DAILY #0 09/27/15 Fluticasone 0.05% [Flonase Nasal [place]] 2 spray NASAL BID 09/27/15 Lisinopril [Zestril] 20 mg PO DAILY 09/27/15 Montelukast [Singulair] 10 mg PO DAILY 09/27/15 Multivitamins,Ther W-Minerals [Multivitamin With Minerals] 1 tab PO DAILY 09/27/15 Amo-3 Fatty Acids/Fish Oil [Fish Oil 1,000 mg Softgel] 2 ea PO BID 09/27/15 Omeprazole [Prilosec] 40 mg PO DAILY 09/27/15 Simvastatin [Zocor] 40 mg PO QHS 09/27/15 buPROPion XL [Wellbutrin Xl] 300 mg PO DAILY 09/27/15 Hydrochlorothiazide [Hctz] 25 mg PO DAILY 10/08/16 Alogliptin Benzoate [Alogliptin] 25 mg PO DAILY 01/22/18 Amitriptyline HCl [Elavil] 25 mg PO QHS 01/22/18 Budesonide/Formoterol 160/4.5 [Symbicort 160/4.5 Mcg Inhaler (SP)] 2 puff INHALATION BID 01/22/18 Calcium Carbonate [Calcium] 600 mg PO DAILY 01/22/18 Potassium Gluconate 500 mg PO DAILY 01/22/18 Bupropion HCl [Wellbutrin Xl] 150 mg PO DAILY 06/22/18 Duloxetine HCl 60 mg PO BID 06/22/18 cholecalciferol (vitamin D3) 5,000 unit capsule 10,000 unit PO DAILY 12/07/18 Naproxen [Naprosyn] 500 mg PO BID PRN PRN #20 tab 01/30/19 Cetirizine HCl [Zyrtec] 10 mg PO DAILY 02/13/19 Primary Care Physician: oJse Loving MD [Primary Care Provider] - Please follow up with your Primary Care Physician in: 1 Week Please Follow Up With: Leoncio Jones MD - Endocrinology When: 1 Week Please Follow Up With: Jadon Hernandez MD When: As scheduled Disposition: Home Minutes spent on discharge:: 35 Patient Condition:: Stable Medical Necessity - Tobacco Use Smoking Status: Current every day smoker Tobacco Use: Cigarettes, Vapor Meaningful Use Info Meaningful Use Diagnoses (Choose all that apply): None applicable <Kennedy Esteban - Last Filed: 02/15/19 15:19> Discharge Date and Diagnosis Date of Discharge: 02/15/19 - Secondary Discharge Diagnosis Chronic Problems (Last Reviewed 02/05/19 @ 14:20 by Sarah Olmedo) Bronchiectasis (Chronic) RUFINA (obstructive sleep apnea) (Chronic) DASCO Venous insufficiency of both lower extremities (Chronic) Type 2 diabetes mellitus (Chronic) Iatrogenic pneumothorax (Chronic) Sleep apnea (Chronic) Frequent sinus infections (Chronic) Anxiety (Chronic) Depression (Chronic) Hospitalized [facility] from age 17[facility]26 Vision problems (Chronic) GERD (gastroesophageal reflux disease) (Chronic) Fatty liver (Chronic) Hyperlipidemia (Chronic) High blood pressure (Chronic) COPD (chronic obstructive pulmonary disease) (Chronic) H/O emotional problems (Chronic) Diabetes (Chronic) Chronic bronchitis (Chronic) factor,sleiden (Chronic) Asthma (Chronic) COPD Overlap Syndrome Seasonal allergies (Chronic) COPD (chronic obstructive pulmonary disease) (Chronic) Chronic cough (Chronic) Bronchiectasis (Chronic) Diabetes mellitus type 2 in obese (Chronic) Hypertension (Chronic) Morbid obesity (Chronic) Hospital Course and Treatment Summary of Care Provided: [] This patient was seen in conjunction with [employer]. I have independently interviewed and examined the patient and reviewed pertinent history, examination findings, laboratory and plan of management. I have reviewed the note and agree with the documented findings with the few additional points. In brief, patient is admitted for recurrent hypoglycemia. Patient is off insulin and oral hypoglycemic agent. Patient needs further education about weight, food intake and [place]. Patient is still having low serum glucose, glucose is 79, 81 mg percent. Later on glucose control. Currently 120-150. Patient further said she was on glimepiride which was discontinued 1 week before admission. Patient also has supraventricular tachycardia. Echo was done showed EF 60%. Overall echo is reported normal. It may be related to pulmonary condition possible RUFINA. Patient has scheduled with Dr. Hernandez with 6-minute walk test. Follow-up with pulmonary clinic. I have discussed my assessment with [employer] and orders have been reviewed. Discharge medication reconciliation done. Discharge follow-up instructions completed. Discharge process discussed with the patient and all questions were answered to patient's satisfaction. Total time spent, exact 35 minutes on discharge meds reconciliation, examination, review of imaging and blood test and discussion with the patient on follow-up instructions. Subjective: Seen and examined. Patient glucose is well controlled. Heart rate in 80s to 90s. No hypoxia. Echo reviewed and by and enlarge normal - Physical Exam Vitals/I&O's: Vital Signs Temp Pulse Resp BP Pulse Ox 97.8 F 100 16 107/67 100 02/15/19 08:59 02/15/19 11:56 02/15/19 08:59 02/15/19 08:59 02/15/19 08:59 Oxygen Delivery Method Room Air Weight: 241 lb 0.008 oz Body Mass Index (BMI) 42.7 Finger Stick Blood Glucose 71 Intake and Output for Last 24 Hours 02/13/19 02/14/19 02/15/19 23:59 23:59 23:59 Intake Total 1584.92 / 1584.92 1478.00 / 1478.00 120 / 120 Output Total 1400 / 1400 Balance 1584.92 / 1584.92 78.00 / 78.00 120 / 120 General: Alert, Oriented x3, Cooperative HEENT: Atraumatic, PERRLA, EOMI, Normocephalic Neck: Supple, No JVD, Negative Carotid Bruits Lungs: Clear to auscultation, Normal air movement, No rhonchi, No wheeze, No rales Cardiovascular: Regular rate, Regular Rhythm, Normal S1, No murmurs Abdomen: Bowel Sounds Present, Soft, Non Tender, Non-Distended Extremities: No edema, Capillary Refill Less than 3 Seconds Skin: No rashes, No breakdown Musculoskeletal: No Tenderness to Palpation of Joints or Extremities Neurological: Cranial nerves II-XII grossly intact Psych/Mental Status: Normal Affect, Appropriate Laboratory Results 02/13/19 15:16: POC Glucose 67 L 02/13/19 15:25: C-Peptide Pending 02/14/19 06:20: Total Bilirubin 0.40, Direct Bilirubin 0.09, AST 23, ALT 20, Alkaline Phosphatase 52, Total Protein 6.5, Albumin 3.0 L, Globulin 3.5 02/14/19 16:05: POC Glucose 61 L 02/14/19 16:43: POC Glucose 79 02/14/19 18:13: POC Glucose 122 H 02/14/19 19:59: POC Glucose 132 H 02/14/19 22:00: POC Glucose 137 H 02/15/19 00:01: POC Glucose 113 H 02/15/19 01:59: POC Glucose 142 H 02/15/19 03:56: POC Glucose 123 H 02/15/19 06:05: POC Glucose 113 H 02/15/19 06:35: WBC 11.9 H, RBC 4.43, Hgb 13.7, Hct 41.6, MCV 93.9, MCH 30.9, MCHC 32.9, RDW Std Deviation 45.8 H, RDW Coeff of Roxanne 13.2, Plt Count 292, MPV 10.4 02/15/19 09:47: POC Glucose 120 H 02/15/19 14:11: POC Glucose 197 H Current Medications Albuterol Sulfate (Ventolin Aerosols) 2.5 mg INHALATION Q2H PRN PRN PRN Reason: sob/wheezing Albuterol Sulfate (Ventolin Aerosols) 2.5 mg INHALATION Q6HWA.RT [facility] Last Admin: 02/15/19 13:40 Dose: Not Given Documented by: Amitriptyline HCl (Elavil) 25 mg PO QHS [facility] Last Admin: 02/14/19 21:55 Dose: 25 mg Documented by: Aspirin (Aspirin, Baby) 81 mg PO DAILYCM [facility] Last Admin: 02/15/19 09:01 Dose: 81 mg Documented by: Atorvastatin Calcium (Lipitor) 20 mg PO QHS [facility] Last Admin: 02/14/19 21:55 Dose: 20 mg Documented by: Budesonide (Pulmicort Aerosol) 0.5 mg INHALATION Q12H.RT [facility] Last Admin: 02/15/19 06:44 Dose: 0.5 mg Documented by: Bupropion HCl (Wellbutrin Xl) 300 mg PO DAILY [facility] Last Admin: 02/15/19 09:03 Dose: 300 mg Documented by: Bupropion HCl (Wellbutrin Xl) 150 mg PO DAILY [facility] Last Admin: 02/15/19 09:04 Dose: 150 mg Documented by: Calcium Carbonate (Os-Everardo 500) [facility] Last Admin: 02/15/19 09:01 Dose: 500 mg Documented by: Cholecalciferol (Vitamin D) 10,000 unit PO MoTuWeThFr [facility] Last Admin: 02/14/19 21:55 Dose: 10,000 unit Documented by: Dextrose (D50w Syringe) 0 gm IV X1 PRN; Protocol PRN Reason: Hypoglycemia Last Admin: 02/14/19 00:58 Dose: 12.5 gm Documented by: Duloxetine HCl (Cymbalta) 60 mg PO BID [facility] Last Admin: 02/15/19 09:02 Dose: 60 mg Documented by: Enoxaparin Sodium (Lovenox) 40 mg SC DAILY@1000 [facility] Last Admin: 02/15/19 09:04 Dose: 40 mg Documented by: Fluticasone Propionate (Flonase Nasal [place]) 2 spray NASAL BID [facility] Last Admin: 02/15/19 09:03 Dose: 2 spray Documented by: Glucagon () 1 mg IM .X1 PRN PRN Reason: Hypoglycemia Last Admin: 02/14/19 04:16 Dose: 1 mg Documented by: Sodium Chloride () 250 mls @ 15 mls/hr IV .[id number] PRN PRN Reason: Saline Flush Loratadine (Claritin) 10 mg PO DAILY [facility] Last Admin: 02/15/19 09:03 Dose: 10 mg Documented by: Metoprolol Tartrate (Lopressor (Beta Jose)) 5 mg IV Q6 [facility] Last Admin: 02/15/19 11:56 Dose: Not Given Documented by: Montelukast Sodium (Singulair) 10 mg PO DAILY [facility] Last Admin: 02/15/19 09:05 Dose: 10 mg Documented by: Multivitamins/Minerals (Multivitamin With Minerals) 1 tablet PO DAILYCM [facility] Last Admin: 02/15/19 09:01 Dose: 1 tablet Documented by: Naproxen (Naprosyn) 500 mg PO BID PRN PRN PRN Reason: Pain Score 4-10/10 Pantoprazole Sodium (Protonix) 40 mg PO DAILY [facility] Last Admin: 02/15/19 09:02 Dose: 40 mg Documented by: Sodium Chloride () 10 - 40 ml IV UD PRN PRN Reason: SALINE FLUSH Last Admin: 02/14/19 04:18 Dose: 10 ml Documented by: Code Visit Inpatient E&M: [id number] Disch Hosp
[2019-02-18 10:33] LABS: C-Peptide 4.7 ng/mL (1.1-4.4)
== END 2019-02-15 11:14 | disposition home or self-care (01) ==
LOC: ED 15:50 → PCU 17:44
PROVIDERS: Nurse Practitioner Family; Admitting Provider Student in an Organized Health Care Education/Training Program; Emergency Provider Emergency Medicine; Family Provider Internal Medicine; PCP Internal Medicine; Visit Provider Internal Medicine
DX: E11.649 Type 2 diabetes mellitus with hypoglycemia without coma (principal); I47.1 Supraventricular tachycardia; E87.6 Hypokalemia; J44.9 Chronic obstructive pulmonary disease, unspecified; G47.33 Obstructive sleep apnea (adult) (pediatric); K21.9 Gastro-esophageal reflux disease without esophagitis; F41.9 Anxiety disorder, unspecified; F32.9 Major depressive disorder, single episode, unspecified; I87.2 Venous insufficiency (chronic) (peripheral); E78.5 Hyperlipidemia, unspecified; K76.0 Fatty (change of) liver, not elsewhere classified; I10 Essential (primary) hypertension; D68.51 Activated protein C resistance; F17.290 Nicotine dependence, other tobacco product, uncomplicated; E66.01 Morbid (severe) obesity due to excess calories; Z79.899 Other long term (current) drug therapy; Z79.51 Long term (current) use of inhaled steroids; Z79.82 Long term (current) use of aspirin; Z68.41 Body mass index [BMI] 40.0-44.9, adult; Z71.3 Dietary counseling and surveillance; Z91.19 Patient's noncompliance with other medical treatment and regimen
CPT/HCPCS: 36415; 71045; 80048; 80053; 80076; 82947; 82962; 83036; 83735; 84443; 84484; 84681; 85025; 85027; 93005; 93306; 94002; 94640; 96361; 96372; 96374; 96376; 97802; 99218; 99285; J7030; A4216; G0378; J1610; J7799

== ENCOUNTER 2019-02-19 15:30 | Outpatient (RCR) | payer MEDICAID, SELFPAY ==
[2019-01-07 10:47] VITALS: BMI 43.2
[2019-01-25 16:17] VITALS: BMI 43.2
[2019-02-13 18:17] VITALS: BMI 42.7
== END 2019-02-19 23:59 | disposition home or self-care (01) ==
LOC: DC 15:30
PROVIDERS: Family Provider Student in an Organized Health Care Education/Training Program; PCP Internal Medicine; Visit Provider Internal Medicine
DX: Z71.3 Dietary counseling and surveillance (principal); E11.69 Type 2 diabetes mellitus with other specified complication; E66.9 Obesity, unspecified; Z68.41 Body mass index [BMI] 40.0-44.9, adult
CPT/HCPCS: 97803; G0108

== ENCOUNTER → 2019-02-26 08:22 | Outpatient (CLI) | payer MEDICAID, SELFPAY ==
[2019-01-02 07:53] VITALS: BMI 43.2
[2019-02-25 08:35] VITALS: BMI 42.7
--- NOTE | 2019-02-27 08:34 | PFT ---
INTRODUCTION: The patient is a 48-year-old female that presents for pulmonary function studies secondary to a diagnosis of bronchitis. Respiratory therapy reports good patient effort. Bronchodilators were used during testing. INTERPRETATION: Forced expiration spirometry demonstrates no evidence of a large airways obstructive ventilatory defect. There was no significant response to aerosolized bronchodilators. Spirograms are of good quality and plateau normally. Body plethysmography was performed and reveals lung volumes to be within normal limits. Diffusing capacity by single breath CO is also within normal limits. IMPRESSION: Normal pulmonary function studies.
== END ==
PROVIDERS: Family Provider Internal Medicine; PCP Internal Medicine; Referring Provider Internal Medicine Critical Care Medicine; Visit Provider Internal Medicine Critical Care Medicine
DX: J47.9 Bronchiectasis, uncomplicated (principal)
CPT/HCPCS: 94060; 94726; 94729

== ENCOUNTER → 2019-03-11 08:36 | Outpatient (CLI) | payer MEDICAID, SELFPAY ==
[2019-01-02 07:53] VITALS: BMI 43.2
[2019-02-25 08:35] VITALS: BMI 42.7
[2019-03-11 09:09] VITALS: PULSE 112; PULSE 114; PULSE 117; PULSE 118; PULSE 119; PULSE 120; PULSE 96; PULSE 99; O2SAT 93; O2SAT 94; O2SAT 95; O2SAT 96; O2SAT 98
--- NOTE | 2019-03-11 13:06 | PCM.PSN.6M ---
PSN 6 Minute Walk Test - 6 Minute Walk Test 6 Minute Walk Test: 6 Minute Walk Test PSN:6-Minute Walk Test Start: 03/11/19 09:08 Freq: Status: Active Protocol: RESP.6MINW Document 03/11/19 09:09 SELWYN (Rec: 03/11/19 09:11 SELWYN [id number]) 6 Minute Walk Test Date Performed 03/11/19 Time Performed 09:00 Height 5 ft 3 in Weight: 238 lb Weight in Pounds 238.[address]: Jadon Hernandez Assistive device used: None Pre-test Oxygen Delivery Method Room Air Pulse Ox (%) 98 Pulse Rate (60-100 beats/min) 96 Dyspnea Taisha Scale (0-10) 0 Exertion Taisha Scale (6-20) 6 1st minute Oxygen Delivery Method Room Air Pulse Ox (%) 96 Pulse Rate (60-100 beats/min) 112 H 2nd minute Oxygen Delivery Method Room Air Pulse Ox (%) 95 Pulse Rate (60-100 beats/min) 117 H Number of Rests Taken 1 3rd minute Oxygen Delivery Method Room Air Pulse Ox (%) 94 Pulse Rate (60-100 beats/min) 114 H 4th minute Oxygen Delivery Method Room Air Pulse Ox (%) 94 Pulse Rate (60-100 beats/min) 120 H 5th minute Oxygen Delivery Method Room Air Pulse Ox (%) 94 Pulse Rate (60-100 beats/min) 118 H 6th minute Oxygen Delivery Method Room Air Pulse Ox (%) 93 Pulse Rate (60-100 beats/min) 119 H Dyspnea Taisha Scale (0-10) 4 Exertion Taisha Scale (6-20) 14 Post-test Oxygen Delivery Method Room Air Pulse Ox (%) 98 Pulse Rate (60-100 beats/min) 99 Full Laps Walked 16 Partial Lap, Number of Tiles Walked 29 Total Distance Walked (ft) 973 - Interpretation Interpretation: The patient ambulated 973 feet over the course of 6 minutes beginning on room air without assistive devices or breaks. Pretesting oxygen saturation was noted to be 98% on room air. With ambulation, the pedro oxygen saturation was 93%. This represents a significant exertional oxygen desaturation. - Recommendations Recommendations: There is no indication for the use of supplemental oxygen at this time. However, close interval follow-up was recommended, given the degree of oxygen desaturation noted during this study.
== END ==
PROVIDERS: Family Provider Internal Medicine; PCP Internal Medicine; Referring Provider Internal Medicine Critical Care Medicine; Visit Provider Internal Medicine Critical Care Medicine
DX: J47.9 Bronchiectasis, uncomplicated (principal)
CPT/HCPCS: 94618

== ENCOUNTER 2019-04-13 22:47 | Emergency (ER) | payer MEDICAID, SELFPAY ==
[2019-04-11 06:02] VITALS: BMI 42.5
[2019-04-13 22:48] VITALS: BP 142/82; PULSE 90; RESP 15; TEMP 36.8; O2SAT 95; BMI 42.7
--- NOTE | 2019-04-13 23:02 | ED.DCSUM_ITS ---
History of Present Illness Chief Complaint: Cold Sx Detail of Chief Complaint: Sinus congestion, cough, sore throat Informant: Patient Onset: Weeks Context: Gradual Onset Timing: Waxes and wanes Current Severity: Moderate Maximum Severity: Moderate Narrative: Patient presents with URI symptoms that been ongoing for little over a week. She states she has sinus pressure and drainage in her throat. She has a sore throat and cough. She is bringing up thick green sputum. She was seen by her bank operations officer earlier this week and her respiratory medications were refilled for her. She is not currently on an antibiotic. She states she gets episodes where she feels warm and has chills but has not measured a fever at home. She does have a history of COPD per her medical records. - Past Medical History (1) Factor V Leiden Status: Chronic (2) Anxiety and depression Status: Chronic (3) Asthma Status: Chronic (4) Bronchiectasis Status: Chronic (5) COPD (chronic obstructive pulmonary disease) Status: Chronic (6) Depression Status: Chronic Comment: Hospitalized [facility] from age [age] (7) Diabetes Status: Chronic (8) GERD (gastroesophageal reflux disease) Status: Chronic (9) High blood pressure Status: Chronic (10) Hyperlipidemia Status: Chronic (11) Sleep apnea Status: Chronic Past Medical History - Allergies and Home Meds Allergies/Adverse Reactions: Allergies latex Adverse Reaction (Verified 04/13/19 22:54) Hives Primary Care Physician: Jose Loving MD [Primary Care Provider] - Doctors: Dr. Chase/David Surgical History: no surgical history Smoking Status: Current every day smoker Review of Systems General: Reports: Chills Eyes: Denies: Visual changes - bilaterally ENT: Reports: Left ear pain, Sore throat Cardiovascular: Denies: Chest pain Respiratory: Reports: Dyspnea, Cough, Sputum Gastrointestinal: Denies: Abdominal pain, Nausea, Vomiting, Diarrhea Genitourinary: Denies: Dysuria Skin: Denies: Rash Neurological: Denies: Headache Hematologic: Denies: Easy bruising Allergy: Denies: Uticaria Physical Exam Vital Signs/Narrative: Vital Signs Temp Pulse Resp BP Pulse Ox 04/13/19 22:48 98.2 F 90 15 142/82 H 95 Inital Vital Signs reviewed: Yes General: Well nourished, Well developed Head: Normocephalic Eyes: Perrl, EOMI ENT: Moist mucous membranes, TM's clear, Sinus tenderness - Diffuse tenderness over the frontal and maxillary sinuses., - - Posterior pharyngeal drainage with 3+ tonsils. No exudate. Uvula midline. Neck: Supple Cardiovascular: Regular rate, Regular rhythm Respiratory: Decreased Air Movement - Lung sounds slightly diminished. No wheezing or rhonchi noted. Abdomen: Soft, Nontender Extremities: Nontender Skin: Normal color, No rash Neurological: Alert, Oriented x3 Psychological: Normal affect Diagnostic/Tx/Re-eval - Medical Decision Making Patient has evidence of sinusitis and bronchitis on exam. Patient be covered with antibiotics for her sinusitis and obtaining a throat swab or chest x-ray will not change our treatment. Patient is agreement with this plan. She will treat with doxycycline and will be given Tessalon Perles to help with cough. ED Disposition - Plan for ED Patient: Disposition: Home or Assisted Living Diagnosis: Sinusitis, Bronchitis Instructions: BRONCHITIS, Antiobiotic Treatment (Adult), Acute Sinusitis Prescriptions: Doxycycline 100 mg PO BID #20 cap Transmission Status: Pending to [id number] Benzonatate [Tessalon Perle] 200 mg PO TID PRN PRN #20 cap PRN Reason: Cough Transmission Status: Pending to [id number] Referrals: Jose Loving MD [Primary Care Provider] - 1 Week
[2019-04-13] MEDS: Doxycycline 100 MG CAPSULE PO (23:36)
[2019-04-13 23:37] VITALS: BP 117/86; PULSE 94; RESP 18; O2SAT 96
[2019-04-13] MEDS: Benzonatate 100 MG Capsule 200 MG PO (23:37)
== END 2019-04-13 23:44 | disposition home or self-care (01) ==
PROVIDERS: Emergency Provider Emergency Medicine; Family Provider Internal Medicine; PCP Internal Medicine
DX: J32.9 Chronic sinusitis, unspecified (principal); J40 Bronchitis, not specified as acute or chronic; I10 Essential (primary) hypertension; E78.5 Hyperlipidemia, unspecified; F32.9 Major depressive disorder, single episode, unspecified; F41.9 Anxiety disorder, unspecified; K21.9 Gastro-esophageal reflux disease without esophagitis; E11.9 Type 2 diabetes mellitus without complications; D68.51 Activated protein C resistance; F17.200 Nicotine dependence, unspecified, uncomplicated; Z79.82 Long term (current) use of aspirin; Z79.899 Other long term (current) drug therapy
CPT/HCPCS: 99283

== ENCOUNTER → 2019-05-29 13:02 | Outpatient (CLI) | payer MEDICAID, SELFPAY ==
[2019-05-29 12:54] VITALS: BMI 42.7
--- NOTE | 2019-05-29 13:03 | RAD_ITS ---
STUDY: X-RAY - RIGHT KNEE REASON FOR EXAM: Female, 48 years old. PAIN X 3 DAYS TECHNIQUE: 4 view(s) of the knee. COMPARISON: None. FINDINGS: Normal visualized distal femur. Normal visualized proximal tibia and fibula. Normal proximal tibiofibular articulation. There is mild degenerative arthrosis of the medial femorotibial compartment. Normal lateral femorotibial compartment. Normal patellofemoral articulation. Anterior soft tissue swelling. RAD/Knee 4 or More Views IMPRESSION: Degenerative arthrosis. Anterior soft tissue swelling. Electronically Signed: Aldair Su, at 14:08 EST , Service support ,
== END ==
PROVIDERS: PCP Internal Medicine; Referring Provider Physician Assistant; Visit Provider Physician Assistant
DX: M17.11 Unilateral primary osteoarthritis, right knee (principal)
CPT/HCPCS: 73564

== ENCOUNTER 2019-06-02 16:34 | Emergency (ER) | payer MEDICAID, SELFPAY ==
[2019-05-29 12:54] VITALS: BMI 42.7
[2019-06-02 16:35] VITALS: BP 133/90; PULSE 98; RESP 22; TEMP 35.7; O2SAT 98; BMI 42.8
--- NOTE | 2019-06-02 17:12 | EKG12_ITS ---
Test Reason : SOB Blood Pressure : / mmHG Vent. Rate : 096 BPM Atrial Rate : 096 BPM P-R Int : 176 ms QRS Dur : 088 ms QT Int : 352 ms P-R-T Axes : 065 059 029 degrees QTc Int : 444 ms Normal sinus rhythm Low voltage QRS Borderline ECG Confirmed by FABRICE GARZA, MACRINA ([id number]), design editor DOREEN MATHEW ([id number]) on 06/04/2019 8:02:58 AM Referred By: SCOTT Confirmed By:MACRINA AVINA MD
--- NOTE | 2019-06-02 17:15 | ED.VIS.DYS ---
History of Present Illness Chief Complaint: Cough Informant: Patient Onset: Weeks Activity at onset: Unknown Timing: Intermittent Quality: Dyspnea on exertion, Wheezing Worsened by: Coughing Associated Symptoms: Cough, Post-nasal drainage, Sweats Chest Pain: None Narrative: Patient is a 48-year-old female with history of obstructive sleep apnea, mild persistent asthma, bronchiectasis, obesity, factor V Leiden with history of PE, currently on aspirin but no other anticoagulation, sinusitis, Anxiety/depression, hyperlipidemia, hypertension, COPD, diabetes mellitus type 2 presenting with worsening cough and respiratory symptoms. Patient states she has had cough and postnasal drip as well as sinus congestion for the past month and a half. She has been on 2 courses of antibiotics as well as a course of prednisone. She is currently on a course of Augmentin. She notes since last night her symptoms have significantly worsened. She has had nonproductive cough, sinus congestion and felt very short of breath. She has been sweating. She has nausea but no vomiting. She denies any bowel symptoms. She has had increased frequency of urination as well as dysuria. Patient has previously followed up with ENT as well as her bank teller machine mechanic for the symptoms. She is currently on a DuoNeb nebulizer, rescue inhaler, Pro Air as well as maintenance inhaler. Patient has any swelling of her legs. She does have some dyspnea on exertion that started today. She continues to have a symptom of postnasal drip which she thinks is worsening her coughing. Patient has been intubated in the past secondary to pneumonia. This is why she came to the emergency room because she was worried about the significant progression of her symptoms within the last 24 hours. PE Risk Factors: Prior DVT or PE. Negative for: Cancer, OCP + Smoking + > 35, Recent immobilization, Recent surgery, Recent travel Past Medical History - Allergies and Home Meds Allergies/Adverse Reactions: Allergies latex Adverse Reaction (Verified 06/02/19 16:53) Cecy Primary Care Physician: Jose Loving MD [Primary Care Provider] - Past Medical History: - - obstructive sleep apnea, mild persistent asthma, bronchiectasis, obesity, factor V Leiden with history of PE, currently on aspirin but no other anticoagulation, sinusitis, Anxiety/depression, hyperlipidemia, hypertension, COPD, diabetes mellitus type 2 Surgical History: - Lives: With Family Smoking Status: Current every day smoker Review of Systems General: Reports: Sweats. Denies: Chills, Fever Eyes: Denies: Visual changes - bilaterally, Diplopia ENT: Reports: Rhinorrhea. Denies: Bilateral ear pain, Sore throat Cardiovascular: Denies: Chest pain, Palpitations Respiratory: Reports: Dyspnea, Cough, Dyspnea on exertion. Denies: Sputum Gastrointestinal: Reports: Nausea. Denies: Abdominal pain, Vomiting, Diarrhea, Melena, Hematochezia Genitourinary: Denies: Dysuria, Hematuria, Frequency Musculoskeletal: Denies: Back pain, Extremity Pain Skin: Denies: Rash, Wounds Neurological: Denies: Headache, Weakness, Numbness Physical Exam Vital Signs/Narrative: Vital Signs Temp Pulse Resp BP Pulse Ox 06/02/19 16:35 96.3 F L 98 22 H 133/90 H 98 Inital Vital Signs reviewed: Yes General: Well nourished, Well developed, Obese, No Acute Distress Head: Normocephalic, Atraumatic Eyes: Perrl, EOMI ENT: Moist mucous membranes, No rhinorrhea, TM's clear, Nasal congestion Neck: Supple, Nontender Cardiovascular: Regular rate, Regular rhythm, No murmurs Respiratory: No distress, Chest nontender, Rhonchi - Bilateral, Wheezing - Expiratory, - - Coarse rhonchorous cough during my exam. Negative for: Retractions Abdomen: Soft, Nontender, Nondistended, Normal bowel sounds Back: Nontender, Normal Inspection Extremities: Nontender, No edema Skin: Normal color, No rash Neurological: Alert, Oriented x3, Cranial nerves II-XII grossly intact, Normal Strength, Normal Sensation Psychological: Normal affect, Normal Mood Diagnostic/Tx/Re-eval Chest X-Ray - ED: 2 View, Read by ED Physician, Read by Radiologist, No Acute Disease Clinical Impression(s) from Imaging Studies Chest X-Ray 06/02/19 18:00 IMPRESSION: Stable linear subsegmental atelectasis or scarring in the left lung base. No acute pneumonic infiltrate or CHF. Electronically Signed: Sebastian Brady MD at 18:25 EST , Service support , Laboratory Data 02/09/20 02/09/20 02/09/20 17:20 17:20 17:20 WBC 13.8 H RBC 4.52 Hgb 14.0 Hct 42.6 MCV 94.2 MCH 31.0 MCHC 32.9 RDW Std Deviation 44.9 H RDW Coeff of Roxanne 13.2 Plt Count 307 MPV 10.3 Immature Gran % (Auto) 0.400 Neut % (Auto) 62.7 Lymph % (Auto) 28.3 [place] % (Auto) 5.1 Eos % (Auto) 3.1 Baso % (Auto) 0.4 Absolute Neuts (auto) 8.6 H Absolute Lymphs (auto) 3.90 Nucleated RBC % 0 D-Dimer Quant (PE/DVT) 0.41 Sodium 140 Potassium 3.1 L Chloride 105 Carbon Dioxide 25.0 Anion Gap 10 BUN 5 L Creatinine 0.78 Estim Creat Clear Calc 74.55 Est GFR (MDRD) Af Amer 102 Est GFR (MDRD) Non-Af 84 BUN/Creatinine Ratio 6.4 L Glucose 123 H Calcium 9.3 Troponin I < 0.015 - Rhythm Strip Rhythm Strip: Sinus Rhythm Rate: 96 Ectopy: None - EKG Initial EKG Interpretation: Sinus Rhythm, - - Sinus rhythm at a rate of 96Normal intervalsNormal axisNormal ST segmentsCompared to prior EKG patient is slightly lower voltage but no other changes Treatment - Dyspnea: Albuterol, Atrovent, Steroid Repeat Evaluation: Improved With Ambulation: Tachypnea - Medical Decision Making Patient is a 48-year-old female with extensive respiratory history presenting with shortness of breath. Patient has had upper respiratory symptoms as well as cough for the past 6 weeks or so. Her symptoms do seem to worsen today. She is coughing but otherwise appears nontoxic no acute distress. She is not required any supplementary oxygen. She does have a history of PE however she is low risk by Wells criteria. Her d-dimer is normal. I do not think she requires a CT at this time. Chest x-rays not show any acute infiltrates or pneumothorax. Troponin and EKG are not consistent with ACS. Patient is given stacked breathing treatments and does have improvement. She does states she feels little jittery after them. Patient is ambulated and while she has become tachycardic and a little bit symptomatic she does not drop her O2 sat below 91%. Patient states that her cough has improved while in the emergency room. She states she would like to go home and I think this is reasonable. Patient be started on a course of prednisone as I have feeling she has a component of reactive airway contributing to her symptoms. She is counseled that this might affect her ability to have allergy testing but is agreeable regardless. She will call her ENT doctor tomorrow. She also follow-up with her bank teller machine mechanic as needed. Patient does have a mild leukocytosis however to review shows that she has a history of leukocytosis without infection. Patient is counseled on signs and symptoms requiring return to the emergency room. Patient verbalizes agreement and understand this plan. Patient discharged home in stable and improved condition. ED Disposition - Plan for ED Patient: Disposition: Home or Assisted Living Diagnosis: Cough, COPD exacerbation Instructions: Copd Flare Prescriptions: Prednisone [Deltasone] 40 mg PO DAILY #8 tab Prescription Printed Referrals: Jose Loving MD [Primary Care Provider] - Additional Instructions: You do not have signs of pneumonia, influenza, blood clots or other serious complication today. I suspect mixture of your COPD/reactive airway and postnasal drip is what is causing your symptoms. Will be placed on steroids for this. Please contact her ENT doctor tomorrow to discuss if you need to change your allergy testing appointment. Return the emergency room with any worsening symptoms.
[2019-06-02 17:30] VITALS: BP 127/73; PULSE 99; RESP 20; TEMP 36.4; O2SAT 95
[2019-06-02 17:30] LABS: Absolute Neutrophil Count 8.6 X10^3/uL (2.0-7.7); Basophil# 0.05 X10^3/uL; Basophil% 0.4 % (0-1); Eosinophil# 0.43 X10^3/uL; Eosinophils% 3.1 % (0-5); Hematocrit 42.6 % (37-47); Lymphocyte % 28.3 % (19-41); Mean Corp Hgb Conc 32.9 g/dL (32-36); Mean Corpuscular Volume 94.2 fL (81-99); Mean Platelet Vol. 10.3 fl (6.2-12.0); Monocyte% 5.1 % (0-10); NRBC Flagged by Analyzer 0 % (0-5); Neutrophil # 8.63 X10^3/uL (2.7-7.7); Neutrophil % 62.7 % (47-70); Platelet Count 307 K/mm3 (150-450); RBC Distribution Width CV 13.2 % (11.6-14.6); RBC Distribution Width SD 44.9 fl (35.1-43.9); Red Blood Count 4.52 M/mm3 (4.2-5.4); White Blood Count 13.8 K/mm3 (4.4-11.0)
[2019-06-02] MEDS: Ipratropium/Albuterol Sulfate 3 ML AMPUL.NEB INHALATION (17:32)
[2019-06-02] MEDS: 0.9% Normal Saline 1,000 ML 999 ML IV (17:32)
[2019-06-02] MEDS: Albuterol 2.5 MG/3 ML VIAL.NEB. INHALATION ×3 (17:32→18:05)
[2019-06-02 17:48] LABS: Anion Gap 10 (5-15); BUN 5 mg/dL (7-18); BUN/Creat Ratio 6.4 RATIO (10-20); Calcium,Total 9.3 mg/dL (8.5-10.1); Chloride 105 mmol/L (98-107); Creatinine, Serum 0.78 mg/dL (0.55-1.02); EST Glomerular Filtration Rate 84 mL/min (>60); Est Glom Filt Rate - Afr Amer 102 mL/min (>60); Estimated Creatinine Clearance 74.55 ml/min; Glucose 123 mg/dL (74-106); Potassium 3.1 mmol/L (3.5-5.1); Sodium Level 140 mmol/L (136-145)
[2019-06-02 17:53] LABS: D-Dimer Quantitative (DVT/PE) 0.41 FEU/ug/m (0.27-0.49)
[2019-06-02 18:00] VITALS: BP 129/62; PULSE 99; RESP 20; TEMP 37; O2SAT 99
--- NOTE | 2019-06-02 18:00 | RAD_ITS ---
STUDY: X-RAY CHEST REASON FOR EXAM: Female, 48 years old. Pt. states she has had a cough since March, several rounds of antibiotics, the past few days her cough got really bad, now has fever/chills TECHNIQUE: PA and lateral views of the chest. COMPARISON: Portable AP upright chest x-ray February 13, 2019. FINDINGS: The lungs are incompletely expanded. There is stable transverse, platelike subsegmental atelectasis or scarring in the inferior left base. No new infiltrate. There is no demonstrated pleural abnormality. Normal size heart. Normal mediastinum and biju. Normal visualized pulmonary arteries. Normal visualized aortic arch and descending thoracic aorta. Normal visualized thoracic spine. Normal visualized ribs, clavicles, and shoulders. There is no demonstrated abnormality of the visualized soft tissue structures of the upper abdomen. RAD/Chest PA and Lateral IMPRESSION: Stable linear subsegmental atelectasis or scarring in the left lung base. No acute pneumonic infiltrate or CHF. Electronically Signed: Sebastian Brady MD at 18:25 EST , Service support ,
[2019-06-02 18:30] VITALS: O2SAT 98
[2019-06-02 19:01] VITALS: BP 137/72; PULSE 96; RESP 20; O2SAT 98
[2019-06-02] MEDS: predniSONE 20 MG Tablet 60 MG PO (19:10)
== END 2019-06-02 19:11 | disposition home or self-care (01) ==
PROVIDERS: Emergency Provider Emergency Medicine; PCP Internal Medicine
DX: J44.1 Chronic obstructive pulmonary disease with (acute) exacerbation (principal); I10 Essential (primary) hypertension; E11.9 Type 2 diabetes mellitus without complications; E78.5 Hyperlipidemia, unspecified; D68.51 Activated protein C resistance; F32.9 Major depressive disorder, single episode, unspecified; F41.9 Anxiety disorder, unspecified; F17.200 Nicotine dependence, unspecified, uncomplicated; E66.9 Obesity, unspecified; Z86.711 Personal history of pulmonary embolism; Z86.718 Personal history of other venous thrombosis and embolism; Z79.82 Long term (current) use of aspirin
CPT/HCPCS: 71046; 80048; 84484; 85025; 85379; 87804; 93005; 94640; 96360; 99284; J7030

== ENCOUNTER 2019-06-04 22:39 | Emergency (ER) | payer MEDICAID, SELFPAY ==
[2019-06-04 16:12] VITALS: BMI 42.1
[2019-06-04 22:40] VITALS: BP 136/92; PULSE 91; RESP 20; TEMP 36.1; O2SAT 94; BMI 42.1
[2019-06-04 22:48] VITALS: O2SAT 97
--- NOTE | 2019-06-04 23:00 | RAD_ITS ---
STUDY: X-RAY CHEST REASON FOR EXAM: Female, 48 years old. PT WITH COUGH, CONGESTION, SOB, GENERAL ACHINESS. -- HX OF COPD AND ASTHMA TECHNIQUE: Frontal and lateral views of the chest. COMPARISON: 06/02/2019. 02/13/2019. FINDINGS: There is mild chronic left basilar atelectasis or fibrosis. There is no demonstrated acute pulmonary infiltrate. There is no demonstrated pleural abnormality. Normal size heart. Normal mediastinum and biju. Normal visualized pulmonary arteries. Normal visualized aortic arch and descending thoracic aorta. There are diffuse degenerative changes of the visualized thoracic spine. Normal visualized ribs, clavicles, and shoulders. There is no demonstrated abnormality of the visualized soft tissue structures of the upper abdomen. RAD/Chest PA and Lateral IMPRESSION: Chronic fibrosis or atelectasis left lung base. No evidence for acute cardiopulmonary pathology. Electronically Signed: Louis Armenta MD at 0:29 EST , Service support ,
--- NOTE | 2019-06-04 23:01 | ED.DCSUM_ITS ---
History of Present Illness Chief Complaint: Shortness of Breath Informant: Patient Narrative: Presents with cough and shortness of breath. Patient stated for the last 6 weeks she has had respiratory symptoms. She has been on 3 courses of antibiotics. Currently she is on Augmentin. She was also on azithromycin and doxycycline during this course of respiratory disease. Patient had been on steroids at one point. She is back on steroids today day 3 of burst therapy. This was given after an emergency visit 2 days ago here in our emergency department. She had EKG lab work and chest x-ray at that time. She was given breathing treatments and discharged. She has a history of asthma and COPD. Stop smoking cigarettes 3 days ago. Patient stated that her pulse ox was dropping when she was having a coughing fit and walking around at home. She is not on home oxygen. Denies any chest pain or fevers or chills. Her influenza test was negative just 2 days ago. Some by walking. Relieved with rest. Last breathing treatment was approximately 3 and half hours ago. - Past Medical History (1) Bronchitis Status: Acute (2) Anxiety Status: Chronic (3) Anxiety and depression Status: Chronic (4) Asthma Status: Chronic (5) Bronchiectasis Status: Chronic (6) Bronchiectasis Status: Chronic (7) COPD (chronic obstructive pulmonary disease) Status: Chronic (8) COPD (chronic obstructive pulmonary disease) Status: Chronic (9) Chronic bronchitis Status: Chronic (10) Chronic cough Status: Chronic (11) Depression Status: Chronic Comment: Hospitalized [facility] from age 17[facility]26 (12) Diabetes Status: Chronic (13) Diabetes mellitus type 2 in obese Status: Chronic (14) Factor V Leiden Status: Chronic (15) Fatty liver Status: Chronic (16) Frequent sinus infections Status: Chronic (17) GERD (gastroesophageal reflux disease) Status: Chronic (18) H/O emotional problems Status: Chronic (19) High blood pressure Status: Chronic (20) Hyperlipidemia Status: Chronic (21) Hypertension Status: Chronic (22) Iatrogenic pneumothorax Status: Chronic (23) Morbid obesity Status: Chronic (24) RUFINA (obstructive sleep apnea) Status: Chronic Comment: BREANN (25) Seasonal allergies Status: Chronic (26) Sleep apnea Status: Chronic (27) Type 2 diabetes mellitus Status: Chronic (28) Venous insufficiency of both lower extremities Status: Chronic (29) Vision problems Status: Chronic (30) factor,sleiden Status: Chronic (31) Pneumonia Status: Resolved Past Medical History - Allergies and Home Meds Allergies/Adverse Reactions: Allergies latex Adverse Reaction (Verified 06/04/19 22:39) Hives Primary Care Physician: Jose Loving MD [Primary Care Provider] - Prior records reviewed: Yes Past Medical History: - - See problem list Surgical History: - - Reviewed with patient Lives: With Family Smoking Status: Former smoker - Quit 3 days ago Alcohol: None Drugs: None Review of Systems General: Denies: Chills, Fever, Sweats Eyes: Denies: Visual changes - bilaterally, Diplopia ENT: Denies: Rhinorrhea, Sore throat Cardiovascular: Denies: Chest pain, Palpitations Respiratory: Reports: Dyspnea, Cough, Dyspnea on exertion. Denies: Sputum Gastrointestinal: Denies: Abdominal pain, Nausea, Vomiting, Diarrhea, Melena, Hematochezia Genitourinary: Denies: Dysuria, Hematuria, Frequency Musculoskeletal: Denies: Back pain, Extremity Pain Skin: Denies: Rash, Wounds Neurological: Denies: Headache, Weakness, Numbness Physical Exam Vital Signs/Narrative: Vital Signs Temp Pulse Resp BP Pulse Ox 06/04/19 22:40 96.9 F L 91 20 H 136/92 H 94 General: Well nourished, Well developed, No Acute Distress Head: Normocephalic, Atraumatic Eyes: Perrl, EOMI ENT: Moist mucous membranes, No rhinorrhea Neck: Supple, Nontender Cardiovascular: Regular rate, Regular rhythm, No murmurs Respiratory: No distress, Chest nontender, Wheezing - Mild expiratory wheezing throughout all lung chris, Diminished - Mildly secondary to wheezing. Negative for: CTA bilaterally, Rales, Rhonchi, Chest tenderness Abdomen: Soft, Nontender, Nondistended, Normal bowel sounds Back: Nontender, Normal Inspection Extremities: Nontender, No edema Skin: Normal color, No rash Neurological: Alert, Oriented x3, Cranial nerves II-XII grossly intact, Normal Strength, Normal Sensation Psychological: Normal affect, Normal Mood Diagnostic/Tx/Re-eval Impressions Chest X-Ray 06/04/19 23:00 IMPRESSION: Chronic fibrosis or atelectasis left lung base. No evidence for acute cardiopulmonary pathology. Electronically Signed: Louis Armenta MD at 0:29 EST , Service support , 06/04/19 23:00 Chest PA and Lateral [RAD] Stat Laboratory Results 06/04/19 06/04/19 23:25 23:25 WBC 16.4 H RBC 4.51 Hgb 13.7 Hct 41.4 MCV 91.8 MCH 30.4 MCHC 33.1 RDW Std Deviation 45.1 H RDW Coeff of Roxanne 13.2 Plt Count 320 MPV 10.4 Immature Gran % (Auto) 0.400 Neut % (Auto) 80.8 H Lymph % (Auto) 15.1 L [place] % (Auto) 3.3 Eos % (Auto) 0.2 Baso % (Auto) 0.2 Absolute Neuts (auto) 13.2 H Absolute Lymphs (auto) 2.47 Nucleated RBC % 0 Sodium 134 L Potassium 3.9 Chloride 101 Carbon Dioxide 25.0 Anion Gap 8 BUN 9 Creatinine 0.78 Estim Creat Clear Calc 74.55 Est GFR (MDRD) Af Amer 102 Est GFR (MDRD) Non-Af 84 BUN/Creatinine Ratio 11.6 Glucose 182 H Calcium 9.3 Troponin I < 0.015 - Medical Decision Making Patient given albuterol and DuoNeb breathing treatment. Lab work and repeat chest x-ray obtained. Lab work unremarkable except for a leukocytosis of 16,000. I suspect this is acute secondary to steroids on top of chronic leukocytosis. This is not significantly changed from prior. It is however changed likely from the steroids. Chest x-ray shows no pneumonia or acute findings. Atelectasis is suspected on top of chronic changes. Troponin negative. At this time after breathing treatment patient felt much better. Resting comfortably. Pulse ox is 95% on room air. Her wheezing is better but still faintly there. We did walk her and her pulse ox remained above 90 until the very and when she had a short dip for a few seconds down to 89%. She came back up into the mid 90s when she sat down afterwards. I do not feel she needs to be admitted. She is resting comfortably with no active shortness of breath. She does not have a pneumonia. She is on steroids. She does not work. She is can go home and rest. She has cough suppressants. She will continue her breathing treatments. At this time I feel she has COPD exacerbation ED Disposition - Plan for ED Patient: Disposition: [facility] Hospital or Unit Diagnosis: COPD exacerbation Instructions: Copd Flare Referrals: Jose Loving MD [Primary Care Provider] -
[2019-06-04 23:27] VITALS: PULSE 89; RESP 20
[2019-06-04] MEDS: Ipratropium/Albuterol Sulfate 3 ML AMPUL.NEB INHALATION (23:27)
[2019-06-04 23:33] LABS: Absolute Lymphocyte Count 2.47 X10^3/uL (0.83-4.51); Absolute Neutrophil Count 13.2 X10^3/uL (2.0-7.7); Basophil# 0.04 X10^3/uL; Basophil% 0.2 % (0-1); Eosinophil# 0.04 X10^3/uL; Eosinophils% 0.2 % (0-5); Hematocrit 41.4 % (37-47); Hemoglobin 13.7 g/dL (12.0-15.0); Lymphocyte # 2.47 X10^3/ul (4.0); Lymphocyte % 15.1 % (19-41); Mean Corp Hgb Conc 33.1 g/dL (32-36); Mean Corpuscular Hgb 30.4 pg (27.0-32.0); Mean Corpuscular Volume 91.8 fL (81-99); Mean Platelet Vol. 10.4 fl (6.2-12.0); Monocyte# 0.54 X10^3/uL; Monocyte% 3.3 % (0-10); NRBC Flagged by Analyzer 0 % (0-5); Neutrophil # 13.22 X10^3/uL (2.7-7.7); Neutrophil % 80.8 % (47-70); Platelet Count 320 K/mm3 (150-450); RBC Distribution Width CV 13.2 % (11.6-14.6); RBC Distribution Width SD 45.1 fl (35.1-43.9); Red Blood Count 4.51 M/mm3 (4.2-5.4); White Blood Count 16.4 K/mm3 (4.4-11.0)
[2019-06-04 23:52] LABS: Anion Gap 8 (5-15); BUN 9 mg/dL (7-18); BUN/Creat Ratio 11.6 RATIO (10-20); Calcium,Total 9.3 mg/dL (8.5-10.1); Chloride 101 mmol/L (98-107); Creatinine, Serum 0.78 mg/dL (0.55-1.02); EST Glomerular Filtration Rate 84 mL/min (>60); Est Glom Filt Rate - Afr Amer 102 mL/min (>60); Estimated Creatinine Clearance 74.55 ml/min; Glucose 182 mg/dL (74-106); Potassium 3.9 mmol/L (3.5-5.1); Sodium Level 134 mmol/L (136-145)
[2019-06-05 00:04] VITALS: O2SAT 96
[2019-06-05 00:47] VITALS: BP 130/74; PULSE 109; RESP 20; O2SAT 95
== END 2019-06-05 00:48 | disposition home or self-care (01) ==
PROVIDERS: Emergency Provider Emergency Medicine; PCP Internal Medicine
DX: J44.1 Chronic obstructive pulmonary disease with (acute) exacerbation (principal); I10 Essential (primary) hypertension; E11.9 Type 2 diabetes mellitus without complications; F32.9 Major depressive disorder, single episode, unspecified; F41.9 Anxiety disorder, unspecified; K21.9 Gastro-esophageal reflux disease without esophagitis; E78.5 Hyperlipidemia, unspecified; D68.51 Activated protein C resistance; I87.2 Venous insufficiency (chronic) (peripheral); E66.01 Morbid (severe) obesity due to excess calories; Z68.41 Body mass index [BMI] 40.0-44.9, adult; Z79.82 Long term (current) use of aspirin; Z87.891 Personal history of nicotine dependence
CPT/HCPCS: 71046; 80048; 84484; 85025; 94640; 99285; A4216

== ENCOUNTER → 2019-06-05 09:23 | Outpatient (CLI) | payer MEDICAID, SELFPAY ==
[2019-06-05 08:34] VITALS: BMI 42.1
== END ==
PROVIDERS: PCP Internal Medicine; Referring Provider Nurse Practitioner Family; Visit Provider Nurse Practitioner Family
DX: R05 Cough (principal)
CPT/HCPCS: 87070; 87077; 87205

== ENCOUNTER 2019-06-09 18:55 | Inpatient (IN) | payer MEDICAID, SELFPAY ==
[2019-06-07 11:15] VITALS: BMI 42.1
[2019-06-09 18:56] VITALS: BP 123/78; PULSE 96; RESP 16; TEMP 36.3; O2SAT 97; BMI 42.1
--- NOTE | 2019-06-09 19:14 | EKG12_ITS ---
Test Reason : COUGH Blood Pressure : / mmHG Vent. Rate : 096 BPM Atrial Rate : 096 BPM P-R Int : 154 ms QRS Dur : 086 ms QT Int : 368 ms P-R-T Axes : 021 050 048 degrees QTc Int : 464 ms Normal sinus rhythm Normal ECG Confirmed by ORLIN GARZA, WAYNE ([id number]), order editor KENNEDY BOWENS ([id number]) on 06/12/2019 8:47:32 AM Referred By: WAYNE Confirmed By:WAYNE ORDAZ MD
--- NOTE | 2019-06-09 19:19 | ED.VIS.GEN ---
History of Present Illness Chief Complaint: Cough Informant: Patient, Family Onset: Weeks Narrative: Patient present secondary to continued cough. Family states the cough started a week and a half ago. She has been seen here on the and the , and at that time it was document that she had a cough for 6 weeks. Regardless patient continues to have severe cough. She has already been on azithromycin, doxycycline, and Augmentin. She was just switched to cefuroxime 2 days ago secondary to Haemophilus influenza growing in her sputum culture. Patient states that her doctor told her she was not better by today she should come to the emergency room. Patient denies having fever. - Past Medical History (1) Anxiety and depression Status: Chronic (2) Asthma Status: Chronic (3) COPD (chronic obstructive pulmonary disease) Status: Chronic (4) Diabetes Status: Chronic (5) Factor V Leiden Status: Chronic (6) GERD (gastroesophageal reflux disease) Status: Chronic (7) High blood pressure Status: Chronic (8) Hyperlipidemia Status: Chronic (9) RUFINA (obstructive sleep apnea) Status: Chronic Comment: DASCO Past Medical History - Allergies and Home Meds Allergies/Adverse Reactions: Allergies latex Adverse Reaction (Verified 06/09/19 18:56) Cecy Primary Care Physician: Jose Loving MD [Primary Care Provider] - Doctors: Dr. Hernandez Prior records reviewed: Yes Surgical History: - - Reviewed with patient Smoking Status: Former smoker Review of Systems General: Denies: Chills, Fever Eyes: Denies: Visual changes - bilaterally ENT: Denies: Bilateral ear pain Cardiovascular: Denies: Chest pain Respiratory: Reports: Dyspnea, Cough Gastrointestinal: Denies: Vomiting, Diarrhea Skin: Denies: Rash Neurological: Denies: Headache Hematologic: Denies: Easy bruising, Easy bleeding Allergy: Denies: Uticaria Physical Exam Vital Signs/Narrative: Vital Signs Temp Pulse Resp BP Pulse Ox 06/09/19 18:56 97.4 F L 96 16 123/78 H 97 Inital Vital Signs reviewed: Yes General: Well nourished, Well developed Head: Normocephalic ENT: Moist mucous membranes Neck: Supple Cardiovascular: Tachycardia Respiratory: - - Diminished air movement. Frequent moist sounding cough. Abdomen: Soft, Nontender Skin: Normal color Neurological: Alert, Oriented x3 Psychological: Normal affect Diagnostic/Tx/Re-eval Impressions Chest X-Ray 06/09/19 19:20 IMPRESSION: Persistent left basilar atelectasis or infiltrate and nonspecific interstitial thickening at the right base Electronically Signed: Ignacio Mishra MD at 19:43 EST , Service support , Chest CTA 06/09/19 20:41 IMPRESSION: Multifocal patchy areas of groundglass opacity consistent with nonspecific alveolitis possibly due to inflammatory changes Bibasilar subsegmental atelectasis greater on the left No definitive evidence for pulmonary embolus however examination is less than optimal due to poor bolus technique and if strong clinical suspicion for pulmonary embolus Doppler scan of the deep venous system of lower extremities is recommended for further assessment. Electronically Signed: Ignacio Mishra MD at 21:31 EST , Service support , 06/09/19 19:20 Chest 1 View (Portable) [RAD] Stat 06/09/19 20:41 CTA Chest W/WO Contrast [CT] Stat Laboratory Results 06/09/19 06/09/19 06/09/19 19:20 19:20 19:35 WBC 19.7 H RBC 4.82 Hgb 14.8 Hct 44.4 MCV 92.1 MCH 30.7 MCHC 33.3 RDW Std Deviation 44.7 H RDW Coeff of Roxanne 13.1 Plt Count 441 MPV 10.3 Immature Gran % (Auto) 0.600 Neut % (Auto) 56.8 Lymph % (Auto) 34.5 [place] % (Auto) 5.3 Eos % (Auto) 2.3 Baso % (Auto) 0.5 Absolute Neuts (auto) 11.2 H Absolute Lymphs (auto) 6.79 H Nucleated RBC % 0 Differential Comment SCANNED Sodium 137 Potassium 4.3 Chloride 100 Carbon Dioxide 29.0 Anion Gap 8 BUN 10 Creatinine 0.70 Estim Creat Clear Calc 83.07 Est GFR (MDRD) Af Amer 114 Est GFR (MDRD) Non-Af 95 BUN/Creatinine Ratio 14.2 Glucose 90 Lactic Acid Cancelled Calcium 9.6 06/09/19 20:44 WBC RBC Hgb Hct MCV MCH MCHC RDW Std Deviation RDW Coeff of Roxanne Plt Count MPV Immature Gran % (Auto) Neut % (Auto) Lymph % (Auto) [place] % (Auto) Eos % (Auto) Baso % (Auto) Absolute Neuts (auto) Absolute Lymphs (auto) Nucleated RBC % Differential Comment Sodium Potassium Chloride Carbon Dioxide Anion Gap BUN Creatinine Estim Creat Clear Calc Est GFR (MDRD) Af Amer Est GFR (MDRD) Non-Af BUN/Creatinine Ratio Glucose Lactic Acid 1.8 Calcium - EKG Initial EKG Interpretation: Sinus Rhythm - Sinus at 96 with no acute ischemia. - Medical Decision Making Patient was given cycle of aerosol treatments. On repeat evaluation cough is improved. Lung sounds remain coarse. CTA shows area of inflammation of her lungs, but no PE. Patient is already on steroids and is currently on cefuroxime secondary to Haemophilus influenza on her sputum culture. I will give her a dose of Levaquin and patient be admitted for further treatment. She had multiple visits and has failed outpatient therapy at this point. ED Disposition - Plan for ED Patient: Disposition: Home or Assisted Living Diagnosis: COPD exacerbation Referrals: Jose Loving MD [Primary Care Provider] -
--- NOTE | 2019-06-09 19:20 | RAD_ITS ---
STUDY: X-RAY CHEST REASON FOR EXAM: Female, 48 years old. cough TECHNIQUE: AP portable COMPARISON: June 04, 2019 FINDINGS: Persistent mild left lower lobe atelectasis or infiltrate and nonspecific interstitial prominence in the right lower lobe. There is no demonstrated pleural abnormality. Normal size heart. Normal mediastinum and biju. Normal visualized pulmonary arteries. Normal visualized aortic arch and descending thoracic aorta. Dorsal spine demonstrates degenerative changes. Normal visualized ribs, clavicles, and shoulders. There is no demonstrated abnormality of the visualized soft tissue structures of the upper abdomen. No significant changes since prior exam RAD/Chest 1 View (Portable) IMPRESSION: Persistent left basilar atelectasis or infiltrate and nonspecific interstitial thickening at the right base Electronically Signed: Ignacio Mishra MD at 19:43 EST , Service support ,
[2019-06-09 19:30] VITALS: PULSE 93; RESP 25
[2019-06-09] MEDS: Albuterol 2.5 MG/3 ML VIAL.NEB. INHALATION ×2 (19:39→19:40)
[2019-06-09] MEDS: Ipratropium/Albuterol Sulfate 3 ML AMPUL.NEB INHALATION (19:39)
[2019-06-09 19:52] VITALS: PULSE 93; RESP 25
[2019-06-09 20:12] VITALS: PULSE 93; RESP 16; TEMP 36.9; O2SAT 93
[2019-06-09 20:12] LABS: Absolute Lymphocyte Count 6.79 X10^3/uL (0.83-4.51); Absolute Neutrophil Count 11.2 X10^3/uL (2.0-7.7); Basophil# 0.09 X10^3/uL; Basophil% 0.5 % (0-1); Eosinophil# 0.46 X10^3/uL; Eosinophils% 2.3 % (0-5); Hematocrit 44.4 % (37-47); Hemoglobin 14.8 g/dL (12.0-15.0); Lymphocyte # 6.79 X10^3/ul (4.0); Lymphocyte % 34.5 % (19-41); Mean Corp Hgb Conc 33.3 g/dL (32-36); Mean Corpuscular Hgb 30.7 pg (27.0-32.0); Mean Corpuscular Volume 92.1 fL (81-99); Mean Platelet Vol. 10.3 fl (6.2-12.0); Monocyte# 1.04 X10^3/uL; Monocyte% 5.3 % (0-10); NRBC Flagged by Analyzer 0 % (0-5); Neutrophil # 11.21 X10^3/uL (2.7-7.7); Neutrophil % 56.8 % (47-70); POSITIVE DIFFERENTIAL YES; POSITIVE MORPHOLOGY YES; Platelet Count 441 K/mm3 (150-450); RBC Distribution Width CV 13.1 % (11.6-14.6); RBC Distribution Width SD 44.7 fl (35.1-43.9); Red Blood Count 4.82 M/mm3 (4.2-5.4); White Blood Count 19.7 K/mm3 (4.4-11.0)
[2019-06-09] MEDS: 0.9% Normal Saline 1,000 ML 150 ML IV (20:13)
[2019-06-09 20:26] LABS: Differential Indicated SCAN CRITERIA MET
[2019-06-09 20:28] LABS: Anion Gap 8 (5-15); BUN 10 mg/dL (7-18); BUN/Creat Ratio 14.2 RATIO (10-20); Calcium,Total 9.6 mg/dL (8.5-10.1); Chloride 100 mmol/L (98-107); EST Glomerular Filtration Rate 95 mL/min (>60); Est Glom Filt Rate - Afr Amer 114 mL/min (>60); Estimated Creatinine Clearance 83.07 ml/min; Glucose 90 mg/dL (74-106); Potassium 4.3 mmol/L (3.5-5.1); Sodium Level 137 mmol/L (136-145)
--- NOTE | 2019-06-09 20:41 | CT_ITS ---
STUDY: CTA CHEST REASON FOR EXAM: Female, 48 years old. SOB,COUGH, DX WITH FLU ON MONDAY, HX FACTOR 5, HTN, COPD, DIAB-NO MEDS TAKEN RADIATION DOSAGE (If Supplied By Facility): CTDIvol = ( 17.41 ) mGy, DLP = ( 581.69 ) mGycm TECHNIQUE: The examination was performed with the intravenous administration of IV 100mL Isovue-370. Post-processing of the angiographic images was performed, with multiplanar reformation and 3D reconstruction. Individualized dose optimization techniques were used for this CT. COMPARISON: None. FINDINGS: Examination of the pulmonary arteries is less than optimal due to suboptimal bolus technique and delayed scanning much of the contrast in the left-sided heart structures having been washed out of the pulmonary arteries.. There is no definitive evidence for intraluminal clot however if there is strong clinical suspicion for pulmonary embolus Doppler scan of the deep venous system of lower extremities is recommended for further evaluation Minor atherosclerotic changes of the aorta without evidence for aneurysm. There is no demonstrated aortic dissection. Heart size is normal. Mild coronary artery calcification. Normal mediastinum. Normal hilar regions. Normal visualized trachea and bronchi. The lungs are well expanded. There is mild interstitial thickening within the mid and lower lung zones. Patchy areas of groundglass opacity is seen consistent with nonspecific alveolitis. There is subsegmental atelectasis in both lower lobes greater on the left. Normal pleura. Normal chest wall structures. Dorsal spine demonstrates mild spondylosis Normal visualized upper abdomen. CT/CTA Chest W/WO Contrast IMPRESSION: Multifocal patchy areas of groundglass opacity consistent with nonspecific alveolitis possibly due to inflammatory changes Bibasilar subsegmental atelectasis greater on the left No definitive evidence for pulmonary embolus however examination is less than optimal due to poor bolus technique and if strong clinical suspicion for pulmonary embolus Doppler scan of the deep venous system of lower extremities is recommended for further assessment. Electronically Signed: Ignacio Mishra MD at 21:31 EST , Service support ,
[2019-06-09] MEDS: Acetaminophen 500 MG Tablet 1000 MG PO (20:45)
[2019-06-09 21:00] VITALS: BP 105/58; PULSE 89; RESP 16; O2SAT 94
[2019-06-09 21:15] LABS: Lactic Acid 1.8 mmol/L (0.4-1.9)
[2019-06-09 21:32] LABS: Differential Comment SCANNED
--- NOTE | 2019-06-09 22:24 | PCM.HP.STD ---
Problem List (1) COPD exacerbation Status: Acute (2) Asthma Status: Acute Qualifiers: Asthma severity: moderate Asthma persistence: persistent Asthma complication type: uncomplicated Qualified Code(s): J45.40 - Moderate persistent asthma, uncomplicated (3) Sleep apnea Status: Chronic Qualifiers: Sleep apnea type: unspecified type Qualified Code(s): G47.30 - Sleep apnea, unspecified (4) Anxiety Status: Chronic (5) Depression Status: Chronic Qualifiers: Depression Type: unspecified Qualified Code(s): F32.9 - Major depressive disorder, single episode, unspecified Comment: Hospitalized [facility] from age [age] (6) GERD (gastroesophageal reflux disease) Status: Chronic Qualifiers: Esophagitis presence: esophagitis presence not specified Qualified Code(s): K21.9 - Gastro-esophageal reflux disease without esophagitis (7) Fatty liver Status: Chronic (8) Hyperlipidemia Status: Chronic Qualifiers: Hyperlipidemia type: unspecified Qualified Code(s): E78.5 - Hyperlipidemia, unspecified (9) Seasonal allergies Status: Chronic (10) Diabetes mellitus type 2 in obese Status: Chronic (11) Hypertension Status: Chronic Qualifiers: Hypertension type: essential hypertension Qualified Code(s): I10 - Essential (primary) hypertension (12) Morbid obesity Status: Chronic History of Present Illness Date of Admission: 06/09/19 Chief Complaint: Cough, recent abx outpatient The patient is a 48 y/o F w/ PMHx: Hx Factor V Leiden deficiency, History of anorexia bulimia syndrome, Diabetes mellitus type II, Asthma/COPD, HTN, HLD, Allergic rhinitis, Chronic headaches, RUFINA, GERD, Anxiety and Depression with prior psychiatric hospitalizations who presents to the [facility] ED on 06/09/19 with history of ongoing persistent cough for the last several weeks, productive with dyspnea, worse with exertion with pleuritic chest discomfort secondary to severity of coughing in addition to nausea with no emesis following coughing bouts with several ED/outpatient evaluations with treatment with azithromycin round, doxycycline around as well as Augmentin with recent transition to cefuroxime x2 days secondary to noted Haemophilus influenza in her sputum culture with steroid taper concurrently however given patient feels as though she is not improving with ongoing harsh cough although no recent fevers or chills she eventually decided come the ED for reevaluation. Review of cultures with noted 06/05/2019 Haemophilus influenza culture and of note she had already been on doxycycline as well as azithromycin prior to culture with noted ongoing treatment during of augmentin. Work-up in the ED included T 98.4, heart rate 89, BP 105/58, respiratory rate initially 25 with improvement to 16, 94% on room air, CBC with WBC 19.7, hemoglobin 14.8, platelet 441 with left shift, BMP unremarkable, lactic acid 1.8, blood culture x2 pending per ED, chest x-ray with persistent left basilar atelectasis and/or infiltrate and nonspecific interstitial thickening at the right base, follow-up CTPA with multifocal patchy areas of groundglass opacity consistent with nonspecific alveolitis possibly due to inflammatory changes, bibasilar subsegmental atelectasis greater on the left, no definitive evidence for pulmonary embolus although suboptimal. In the ED patient administered DuoNeb, albuterol, Tylenol, normal saline in addition to IV Levaquin 750 mg x 1. Past Medical History Past Medical History (Chronic Problems): Chronic Problems (Last Reviewed 06/07/19 @ 11:24 by Camelia Morris) Factor V Leiden (Chronic) Anxiety and depression (Chronic) Bronchiectasis (Chronic) RUFINA (obstructive sleep apnea) (Chronic) DASCO Venous insufficiency of both lower extremities (Chronic) Type 2 diabetes mellitus (Chronic) Iatrogenic pneumothorax (Chronic) Sleep apnea (Chronic) Frequent sinus infections (Chronic) Anxiety (Chronic) Depression (Chronic) Hospitalized [facility] from age [age] Vision problems (Chronic) GERD (gastroesophageal reflux disease) (Chronic) Fatty liver (Chronic) Hyperlipidemia (Chronic) COPD (chronic obstructive pulmonary disease) (Chronic) H/O emotional problems (Chronic) Diabetes (Chronic) Chronic bronchitis (Chronic) factor,sleiden (Chronic) Seasonal allergies (Chronic) COPD (chronic obstructive pulmonary disease) (Chronic) Chronic cough (Chronic) Bronchiectasis (Chronic) Diabetes mellitus type 2 in obese (Chronic) Hypertension (Chronic) Morbid obesity (Chronic) Medical History: Medical History (Last Reviewed 06/07/19 @ 11:24 by Camelia Morris) Iatrogenic pneumothorax (Chronic) J95.811 Sleep apnea (Chronic) G47.30 Frequent sinus infections (Chronic) J32.9 Anxiety (Chronic) F41.9 Depression (Chronic) F32.[address] [facility] from age [age] Vision problems (Chronic) H54.7 GERD (gastroesophageal reflux disease) (Chronic) K21.9 Pneumonia (Resolved) J18.9 Fatty liver (Chronic) K76.0 Hyperlipidemia (Chronic) E78.5 High blood pressure (Chronic) I10 COPD (chronic obstructive pulmonary disease) (Chronic) J44.9 H/O emotional problems (Chronic) Z86.59 Diabetes (Chronic) E11.9 Chronic bronchitis (Chronic) J42 factor,sleiden (Chronic) Asthma (Chronic) J45.909 Seasonal allergies (Chronic) J30.2 Diarrhea R19.7 Fatigue R53.83 Hay fever J30.1 Hx of viral pneumonia Z87.01 SOB (shortness of breath) R06.02 Severe headache R51 Allergies latex Adverse Reaction (Verified 06/09/19 18:56) Hives Home Medications: Ambulatory Orders Medication Instructions Recorded Aspirin 81 mg PO DAILY #0 09/27/15 Lisinopril [Zestril] 20 mg PO DAILY 09/27/15 Montelukast [Singulair] 10 mg PO DAILY 09/27/15 Multivitamins,Ther W-Minerals 1 tab PO DAILY 09/27/15 [Multivitamin With Minerals ([facility])] Cherry-3 Fatty Acids/Fish Oil [Fish 2 ea PO BID 09/27/15 Oil 1,000 mg Softgel] Simvastatin [Zocor] 40 mg PO QHS 09/27/15 Hydrochlorothiazide [Hctz] 25 mg PO DAILY 01/30/16 Calcium Carbonate [Calcium] 600 mg PO DAILY 01/22/18 Potassium Gluconate 500 mg PO DAILY 01/22/18 Bupropion HCl [Wellbutrin Xl] 150 mg PO DAILY 06/22/18 cholecalciferol (vitamin D3) 125 10,000 unit PO DAILY 12/07/18 mcg (5,000 unit) capsule Naproxen [Naprosyn] 500 mg PO BID PRN PRN #20 tab 01/30/19 trazodone 50 mg tablet 50 mg PO BID #60 tab 04/10/19 budesonide-formoterol HFA 160 2 puff INHALATION BID #10.2 g 04/11/19 mcg-4.5 mcg/actuation aerosol inhaler fluticasone propionate 50 2 spray INTRANASAL BID #18.2 ml 04/11/19 mcg/actuation nasal spray,suspension duloxetine 60 mg capsule,delayed 60 mg PO BID #180 cap 12/27/19 release blood sugar diagnostic See Rx Instructions .ROUTE 05/09/19 .MEDSUPPLY #150 ea fluconazole 150 mg tablet 150 mg PO QWEEK #4 tab 05/15/19 metoprolol succinate 25 mg 25 mg PO DAILY #30 tab 05/21/19 tablet,extended release 24 hr codeine 10 mg-guaifenesin 100 mg/5 5 ml PO Q6H PRN #120 ml 06/04/19 mL oral liquid prednisone 10 mg tablet See Rx Instructions PO QDAY #18 tab 06/04/19 cefuroxime axetil 500 mg tablet 500 mg PO Q12H #20 tab 06/07/19 levocetirizine 5 mg tablet 5 mg PO DAILY #90 tab 06/07/19 pantoprazole 40 mg tablet,delayed 40 mg PO BID #60 tab 06/07/19 release Surgical History: Surgical History (Last Reviewed 06/07/19 @ 11:24 by Camelia Morris) No history of previous surgery Surgical History: no surgical history Psychiatric History: Anxiety, Depression SENIOR LIVING ADVISOR History: No pertinent SENIOR LIVING ADVISOR history Lives: Spouse/ Significant Other Smoking Status: Former smoker - Prior cigarette tobacco usage with transition to vaping however notes that she quit approximately 1 week prior to current presentation. Tobacco Use: Non-smoker Alcohol: None Drugs: None - *Family History Maternal Family History: Family History (Last Reviewed 06/07/19 @ 11:24 by Camelia Morris) Mother Alcoholism Asthma Depression hormone problem Respiratory disease Suicide attempt Drug abuse Hepatitis C Brother Alcoholism Asthma Diabetes Respiratory disease Drug abuse Grandmother Depression Psychiatric care Father Diabetes Hypertension Respiratory disease Emphysema of lung Other Bronchitis Dementia Heart disease History Items: Pulmonary Disease, - - Additionally maternal family history of alcoholism, drug abuse, hepatitis C, anxiety and depression with suicide attempts. Paternal Family History: Family History (Last Reviewed 06/07/19 @ 11:24 by Camelia Morris) Mother Alcoholism Asthma Depression hormone problem Respiratory disease Suicide attempt Drug abuse Hepatitis C Brother Alcoholism Asthma Diabetes Respiratory disease Drug abuse Grandmother Depression Psychiatric care Father Diabetes Hypertension Respiratory disease Emphysema of lung Other Bronchitis Dementia Heart disease History Items: Diabetes, Heart Disease, Pulmonary Disease Review of Systems Constitutional: Reports: Anorexia, Chills, Malaise, Weakness, Fatigue. Denies: Fever, Weight Change HEENT: Reports: Head Aches, Nasal Congestion, Sinus Congestion, Sinus Drainage Cardiovascular: Denies: Chest Pain, Palpitations Respiratory: Reports: Cough, Pleuritic Pain, Shortness of Breath, Shortness of breath at rest, Shortness of breath upon exertion, Sputum production, Wheezing Gastrointestinal: Reports: Nausea. Denies: Abdominal Pain, Vomiting Genitourinary: Denies: Dysuria Gynecological: Reports: Excessively long or heavy periods Musculoskeletal: Reports: Back Pain, Joint Pain. Denies: Joint Tenderness Skin: Denies: Rash, Wounds Neurological: Denies: Numbness, Tingling, Focal weakness Psychiatric: Reports: Anxiety, Depression. Denies: Homicidal Ideations, Suicidal Ideations Hematologic/ Lymphatic: Reports: Easy Bruising, Easy Bleeding VTE Information - Inpt Only VTE Present on Admission: No VTE Mechan Device Prophylaxis: SCD's VTE Pharm Prophylaxis ordered?: Yes Patient Problems: Active and Suspected Problems (Last Reviewed 06/07/19 @ 11:24 by Camelia Morris) COPD exacerbation (Acute) Subjective: Seated upright in ED bed, fatigued and ill-appearing. Objective: Physical Examination: General: awake, alert, oriented x 3 and cooperative, seated upright in the ED bed, no obvious distress but ill-appearing, harsh coughing fits. Skin: normal color, turgor, no icterus, cyanosis. HEENT: AT/NC, EOMI, PERRLA, dry MM, posterior OP erythema without exudate, no carotid bruits or JVD noted. Lungs: Diminished breath sounds, greater bases, coarse rhonchorous throughout, occasional expiratory wheezing, coughing fits during evaluation. Heart: Regular rate and rhythm; no gallop, rub audible. Abdomen: soft, morbidly obese, NTTP, ND, normal BS, no HSM; however, habitus makes examination difficult. Extremities: no cyanosis, clubbing, or edema. Neurological: patient awake, alert, oriented x 3; cognitive function intact; pupils equally reactive to light and accomodation; cranial nerves II-XII grossly normal, moving all 4 extremities, no focal deficits, strength moderately to severely globally decreased secondary to acute presentation. Psychiatric: affect appears fatigued, ill-appearing, no acute evidence of depressive or anxiety feelings. - Physical Exam Vitals/I&O's: Vital Signs Temp Pulse Resp BP Pulse Ox 98.4 F 89 16 105/58 L 94 06/09/19 20:12 06/09/19 21:00 06/09/19 21:00 06/09/19 21:00 06/09/19 21:00 Oxygen Delivery Method Room Air Weight: 238 lb Body Mass Index (BMI) 42.1 Finger Stick Blood Glucose 71 Laboratory Results 06/09/19 19:20: WBC 19.7 H, RBC 4.82, Hgb 14.8, Hct 44.4, MCV 92.1, MCH 30.7, MCHC 33.3, RDW Std Deviation 44.7 H, RDW Coeff of Roxanne 13.1, Plt Count 441, MPV 10.3, Immature Gran % (Auto) 0.600, Neut % (Auto) 56.8, Lymph % (Auto) 34.5, [place] % (Auto) 5.3, Eos % (Auto) 2.3, Baso % (Auto) 0.5, Absolute Neuts (auto) 11.2 H, Absolute Lymphs (auto) 6.79 H, Nucleated RBC % 0, Differential Comment SCANNED 06/09/19 19:20: Sodium 137, Potassium 4.3, Chloride 100, Carbon Dioxide 29.0, Anion Gap 8, BUN 10, Creatinine 0.70, Estim Creat Clear Calc 83.07, Est GFR (MDRD) Af Amer 114, Est GFR (MDRD) Non-Af 95, BUN/Creatinine Ratio 14.2, Glucose 90, Calcium 9.6 06/09/19 19:35: Lactic Acid Cancelled 06/09/19 20:44: Lactic Acid 1.8 Current Medications Sodium Chloride () 1,000 mls @ 150 mls/hr IV .[id number] [facility] Last Admin: 06/09/19 20:13 Dose: 150 mls/hr Documented by: Levofloxacin (Levaquin Iv) 750 mg in 150 mls @ 100 mls/hr IV X1 ONE Stop: 06/09/19 23:43 Assessment/Plan All Active Problems (Last Reviewed 06/07/19 @ 11:24 by Camelia Morris) COPD exacerbation (Acute) Bronchitis (Acute) Pneumonia (Resolved) Asthma (Acute) The patient is a 48 y/o F w/ PMHx: Hx Factor V Leiden deficiency, History of anorexia bulimia syndrome, Diabetes mellitus type II, Asthma/COPD, HTN, HLD, Allergic rhinitis, Chronic headaches, RUFINA, GERD, Anxiety and Depression who presents to the [facility] ED on 06/09/19 with history of ongoing persistent cough for the last several weeks, productive with dyspnea, worse with exertion with pleuritic chest discomfort secondary to severity of coughing in addition to nausea with no emesis s/p abx round x now 3rd as well as steroid regimen, currently ongoing w/ recent 06/05/19 Sputum Cx w/ Haemophilus influenza, not improving. 1. Acute on chronic COPD/Asthma exacerbation secondary to Haemophilus influenza, Failed outpatient therapies: Will admit to [facility], maintain on oxygen with wean as tolerated to room air, continue ATC duonebs, PRN albuterol, IV methylprednisolone, HOB, IS parameters, IV Rocephin, request respiratory viral panel, recent 06/05/19 sputum cx as noted. 2. Diabetes mellitus type II: Most recent HgbA1c 6.8% 04/10/19, not on regimen, will continue ADA diet, accu checks w/ ISS. 3. Hypertension: Continue home regimen including metoprolol, hydrochlorothiazide, lisinopril, PRN hydralazine. 4 hyperlipidemia: Continue home statin regimen. 5. Anxiety and depression, history of anorexia/bulimia syndrome: We will continue patient home Wellbutrin, Cymbalta, trazodone regimen, continue outpatient therapy. 6. Morbid obesity: Weight loss and lifestyle changes encouraged. 7. GERD: We will continue patient home PPI. 8. Hx Factor V Leiden deficiency: Hx prior PE, not anticoagulated secondary to menorrhagia, maintain on asa. 9. RUFIAN: CPAP q HS. 10. DVT Prophylaxis: SCDs, lovenox. Code Visit Inpatient E&M: 75692 Init Hosp L3
[2019-06-09 22:36] VITALS: BP 101/60; PULSE 90; RESP 24; TEMP 36.8; O2SAT 94
[2019-06-09] MEDS: levoFLOXacin IV 750 MG/150 ML BAG 100 MG IV (22:43)
[2019-06-09 23:13] VITALS: BMI 42.0; BMI 42.1
[2019-06-10] VITALS (8 sets, daily range): BP systolic 95–118; BP diastolic 57–74; PULSE 88–93; RESP 18–22; TEMP 36.6–37.9; O2SAT 92–96
[2019-06-10] MEDS: oxyCODONE 5 MG Tablet PO ×2 (00:04→19:53)
[2019-06-10] MEDS: MELATONIN 3 MG TABLET PO ×2 (00:05→22:15)
[2019-06-10] MEDS: 0.9% Normal Saline 1,000 ML 125 ML IV (00:05)
[2019-06-10 06:44] LABS: Anion Gap 7 (5-15); BUN 8 mg/dL (7-18); BUN/Creat Ratio 9.7 RATIO (10-20); Calcium,Total 8.7 mg/dL (8.5-10.1); Chloride 99 mmol/L (98-107); Creatinine, Serum 0.83 mg/dL (0.55-1.02); EST Glomerular Filtration Rate 78 mL/min (>60); Est Glom Filt Rate - Afr Amer 95 mL/min (>60); Estimated Creatinine Clearance 70.06 ml/min; Glucose 258 mg/dL (74-106); Potassium 3.7 mmol/L (3.5-5.1); Sodium Level 135 mmol/L (136-145)
[2019-06-10] MEDS: Insulin Lispro 100 UNIT/ML INSULN.PEN SC ×3 (06:53→22:14)
[2019-06-10 06:57] LABS: Absolute Lymphocyte Count 1.72 X10^3/uL (0.83-4.51); Absolute Neutrophil Count 10.1 X10^3/uL (2.0-7.7); Basophil# 0.03 X10^3/uL; Basophil% 0.2 % (0-1); Eosinophil# 0.02 X10^3/uL; Eosinophils% 0.2 % (0-5); Hemoglobin 13.3 g/dL (12.0-15.0); Lymphocyte # 1.72 X10^3/ul (4.0); Lymphocyte % 14.2 % (19-41); Mean Corp Hgb Conc 31.7 g/dL (32-36); Mean Corpuscular Hgb 29.7 pg (27.0-32.0); Mean Corpuscular Volume 93.8 fL (81-99); Monocyte# 0.17 X10^3/uL; Monocyte% 1.4 % (0-10); NRBC Flagged by Analyzer 0 % (0-5); Neutrophil # 10.05 X10^3/uL (2.7-7.7); Platelet Count 373 K/mm3 (150-450); RBC Distribution Width CV 13.2 % (11.6-14.6); RBC Distribution Width SD 45.4 fl (35.1-43.9); Red Blood Count 4.48 M/mm3 (4.2-5.4); White Blood Count 12.1 K/mm3 (4.4-11.0)
[2019-06-10 07:00] LABS: Bedside Glucose 250 mg/dL (70-110)
[2019-06-10] MEDS: Ipratropium/Albuterol Sulfate 3 ML AMPUL.NEB INHALATION ×4 (07:08→11:15)
[2019-06-10] MEDS: Pantoprazole Sodium 40 MG Tablet PO ×2 (09:16→22:15)
[2019-06-10] MEDS: Loratadine 10 MG Tablet 5 MG PO (09:16)
[2019-06-10] MEDS: Aspirin 81 MG TAB.CHEW PO (09:16)
[2019-06-10] MEDS: buPROPion (XL) 150 MG TABLET.XL PO (09:17)
[2019-06-10] MEDS: DULoxetine Hcl 60 MG Capsule PO ×2 (09:17→22:15)
[2019-06-10] MEDS: Fluticasone 0.05% 1 SPRAY NASAL.SRY 2 SPRAY NASAL ×2 (09:17→22:15)
[2019-06-10] MEDS: Montelukast 10 MG Tablet PO (09:17)
[2019-06-10] MEDS: Enoxaparin 40 MG/0.4 ML Syringe SC (09:18)
[2019-06-10] MEDS: Acetaminophen 325 MG Tablet 650 MG PO ×2 (09:24→15:31)
[2019-06-10] MEDS: Ceftriaxone 1 GM/50 ML BAG IV (09:24)
[2019-06-10] MEDS: guaiFENesin/Codeine 5 ML UDC PO (09:59)
[2019-06-10 11:30] LABS: Bedside Glucose 417 mg/dL (70-110)
--- NOTE | 2019-06-10 13:08 | CASEMGMT ---
RN CM Assessment Note Presentation: Influenza, CAP Intro role of CM and purpose of RN CM assessment to patient in room. Pt is awake, alert and able to participate. Demographics, PCP and Pharmacy verified. Pt states she is independent at home, no care needs and plans to return home on dc. PCP: Dr. Loving Specialists: Dr. Hernandez, pulmonology and Dr. Jones, endocrinology Preferred Pharmacy: [facility] Insurance: [facility] Prescription Benefit: yes LNOK: Sig Other, Ignacio Joseph Living Arrangements: Lives independently, states she does not use ambulatory DME; does not require assistance with care needs. Transportation: drives DME: Blood glucose monitoring equipment- functioning and has supplies per pt. Home oxygen through [employer]. Pt has concentrator. call to [employer]. Per Za- script is for 3L NC continuous, however pt returned her portable tanks. If portability is needed on dc- will need to require new Home Oxygen testing. HHC/SNF: no Patient DC goals: Home DC PLAN: Home on discharge. May need new Home O2 testing if portability is required. Caleb PEREAN RN ACM
--- NOTE | 2019-06-10 14:49 | CHAPLAIN ---
Type of Pastoral Visit _x__ Initial Visit ___ Follow-up Visit ___ On-call Visit ___ General Patient Visit ___ Spiritual Assessment ___ Family Conference ___ Bereavement ___ Rapid Response ___ Code Blue ___ Other (describe below) Pastoral Care Referral From _x__ Patient ___ Family ___ Nurse ___ Physician ___ Watch And Clock Repair Clerk ___ All Round Logger ___ Other (describe below) Sacrament/Intervention _x__ Active listening ___ Anointing ___ Gnosticist ___ Bereavement ___ Communion ___ Za exploration ___ _x__ Life review _x__ Prayer ___ Reconciliation ___ Sacrament of Sick ___ Supportive presence ___ Wedding ___ Other (describe below) Pastoral Comments
[2019-06-10] MEDS: 0.9% Saline Lock 10 ML Syringe IV ×2 (15:31→22:15)
--- NOTE | 2019-06-10 16:06 | PCM.CONS.PUL ---
Problem List (1) COPD exacerbation Status: Acute (2) Factor V Leiden Status: Chronic (3) Anxiety and depression Status: Chronic (4) Bronchiectasis Status: Chronic Qualifiers: Bronchiectasis type: with acute lower respiratory infection Qualified Code(s): J47.0 - Bronchiectasis with acute lower respiratory infection (5) RUFINA (obstructive sleep apnea) Status: Chronic Comment: DASCO (6) Venous insufficiency of both lower extremities Status: Chronic (7) Type 2 diabetes mellitus Status: Chronic Qualifiers: Diabetes mellitus correction insulin use: with correction use (8) Vision problems Status: Chronic (9) GERD (gastroesophageal reflux disease) Status: Chronic Qualifiers: Esophagitis presence: esophagitis presence not specified Qualified Code(s): K21.9 - Gastro-esophageal reflux disease without esophagitis (10) Fatty liver Status: Chronic (11) H/O emotional problems Status: Chronic (12) Diabetes Status: Chronic (13) Morbid obesity Status: Chronic Reason for Consult Date of Consultation: 06/10/19 Reason for Consultation: Shortness of breath History of Present Illness: The patient is a 48 year old F, with past medical history listed below and known to me from the outpatient office, who presented to [facility] on 06/09/2019 secondary to persistent cough. Patient stated the cough started 6 weeks ago and was seen in the ER on the and the . Patient has been treated with azithromycin, doxycycline and Augmentin secondary to H. influenzae growing in her sputum culture. Patient was recently switched to cefuroxime. Patient had denied any fever at home, but does admit that she does not check her temperature regularly. Patient has not reported any hemoptysis. Patient is not reporting any sinus congestion. In the ER, patient was noted to have coarse breath sounds. CTA showed scattered groundglass opacities, but no PE. Patient was placed on steroids and Levaquin and admitted to the floor for further evaluation. Patient reports that since her admission she feels subjectively improved compared to previous. Patient is not reporting any fevers at home, but has been running elevated temperatures while hospitalized. Patient does report a cough, but is not having any hemoptysis or production otherwise. Patient is still requiring 2 L nasal cannula to maintain saturations, but does not use oxygen at home. Patient does have a history of poor compliance at home despite well-controlled AHI when using appropriate settings of 17/13 centimeters of water. Review of systems otherwise negative from a constitutional, HEENT, respiratory, cardiovascular, GI, genitourinary, musculoskeletal, skin, neurologic, psychiatric and hematologic system unless stated above. Past Medical History Past Medical History (Chronic Problems): Chronic Problems (Last Reviewed 06/07/19 @ 11:24 by Camelia Morris) Factor V Leiden (Chronic) Anxiety and depression (Chronic) Bronchiectasis (Chronic) RUFINA (obstructive sleep apnea) (Chronic) DASCO Venous insufficiency of both lower extremities (Chronic) Type 2 diabetes mellitus (Chronic) Iatrogenic pneumothorax (Chronic) Sleep apnea (Chronic) Frequent sinus infections (Chronic) Anxiety (Chronic) Depression (Chronic) [facility] mental hospital from age [age] Vision problems (Chronic) GERD (gastroesophageal reflux disease) (Chronic) Fatty liver (Chronic) Hyperlipidemia (Chronic) COPD (chronic obstructive pulmonary disease) (Chronic) H/O emotional problems (Chronic) Diabetes (Chronic) Chronic bronchitis (Chronic) factor,sleiden (Chronic) Seasonal allergies (Chronic) COPD (chronic obstructive pulmonary disease) (Chronic) Chronic cough (Chronic) Bronchiectasis (Chronic) Diabetes mellitus type 2 in obese (Chronic) Hypertension (Chronic) Morbid obesity (Chronic) Medical History: Medical History (Last Reviewed 06/07/19 @ 11:24 by Camelia Morris) Iatrogenic pneumothorax (Chronic) J95.811 Sleep apnea (Chronic) G47.30 Frequent sinus infections (Chronic) J32.9 Anxiety (Chronic) F41.9 Depression (Chronic) F32.9 Hospitalized mental hospital from age [age] Vision problems (Chronic) H54.7 GERD (gastroesophageal reflux disease) (Chronic) K21.9 Pneumonia (Resolved) J18.9 Fatty liver (Chronic) K76.0 Hyperlipidemia (Chronic) E78.5 COPD (chronic obstructive pulmonary disease) (Chronic) J44.9 H/O emotional problems (Chronic) Z86.59 Diabetes (Chronic) E11.9 Chronic bronchitis (Chronic) J42 factor,sleiden (Chronic) Asthma (Acute) J45.909 Seasonal allergies (Chronic) J30.2 Diarrhea R19.7 Fatigue R53.83 Hay fever J30.1 Hx of viral pneumonia Z87.01 SOB (shortness of breath) R06.02 Severe headache R51 Allergies latex Adverse Reaction (Verified 06/09/19 18:56) Hives Home Medications: Ambulatory Orders Medication Instructions Recorded Aspirin 81 mg PO DAILY #0 09/27/15 Lisinopril [Zestril] 20 mg PO DAILY 09/27/15 Montelukast [Singulair] 10 mg PO DAILY 09/27/15 Multivitamins,Ther W-Minerals 1 tab PO DAILY 09/27/15 [Multivitamin With Minerals (BKC)] [place]-3 Fatty Acids/Fish Oil [Fish 2 ea PO BID 09/27/15 Oil 1,000 mg Softgel] Simvastatin [Zocor] 40 mg PO QHS 09/27/15 Hydrochlorothiazide [Hctz] 25 mg PO DAILY 01/30/16 Calcium Carbonate [Calcium] 600 mg PO DAILY 01/22/18 Potassium Gluconate 500 mg PO DAILY 01/22/18 Bupropion HCl [Wellbutrin Xl] 150 mg PO DAILY 06/22/18 cholecalciferol (vitamin D3) 125 10,000 unit PO DAILY 12/07/18 mcg (5,000 unit) capsule Naproxen [Naprosyn] 500 mg PO BID PRN PRN #20 tab 01/30/19 blood sugar diagnostic See Rx Instructions .ROUTE 05/09/19 .MEDSUPPLY #150 ea codeine 10 mg-guaifenesin 100 mg/5 5 ml PO Q6H PRN #120 ml 06/04/19 mL oral liquid Budesonide/Formoterol 160/4.5 2 puff INHALATION BID 06/09/19 [Symbicort 160/4.5 Mcg Inhaler (SP)] Cefuroxime Axetil [Cefuroxime] 500 mg PO Q12H 06/09/19 Duloxetine HCl 60 mg PO BID 06/09/19 Fluconazole 150 mg PO QWEEK 06/09/19 Fluticasone Propionate 2 spray INTRANASAL BID 06/09/19 Levocetirizine Dihydrochloride 5 mg PO DAILY 06/09/19 Metoprolol Succinate [Toprol Xl] 25 mg PO DAILY 06/09/19 Pantoprazole Sodium 40 mg PO BID 06/09/19 Prednisone See Rx Instructions PO QDAY 06/09/19 traZODone [Desyrel] 50 mg PO BID 06/09/19 Surgical History: Surgical History (Last Reviewed 06/07/19 @ 11:24 by Camelia Morris) No history of previous surgery Surgical History: no surgical history Psychiatric History: Anxiety, Depression AGENCY TRAINER History: No pertinent AGENCY TRAINER history Lives: Spouse/ Significant Other Smoking Status: Former smoker Tobacco Use: Non-smoker Alcohol: None Drugs: None - *Family History Maternal Family History: Family History (Last Reviewed 06/07/19 @ 11:24 by Camelia Morris) Mother Alcoholism Asthma Depression hormone problem Respiratory disease Suicide attempt Drug abuse Hepatitis C Brother Alcoholism Asthma Diabetes Respiratory disease Drug abuse Grandmother Depression Psychiatric care Father Diabetes Hypertension Respiratory disease Emphysema of lung Other Bronchitis Dementia Heart disease History Items: Pulmonary Disease, - - Additionally maternal family history of alcoholism, drug abuse, hepatitis C, anxiety and depression with suicide attempts. Paternal Family History: Family History (Last Reviewed 06/07/19 @ 11:24 by Camelia Morris) Mother Alcoholism Asthma Depression hormone problem Respiratory disease Suicide attempt Drug abuse Hepatitis C Brother Alcoholism Asthma Diabetes Respiratory disease Drug abuse Grandmother Depression Psychiatric care Father Diabetes Hypertension Respiratory disease Emphysema of lung Other Bronchitis Dementia Heart disease History Items: Diabetes, Heart Disease, Pulmonary Disease Review of Systems Comment: See HPI Patient Problems: Active and Suspected Problems (Last Reviewed 06/07/19 @ 11:24 by Camelia Morris) COPD exacerbation (Acute) Objective: CT of the chest was personally reviewed. This does show scattered groundglass opacities without hilar adenopathy were endobronchial mass. Patient does have bronchiectatic changes. Previous pulmonary function test was within normal limits. Patient is also had an echocardiogram last year that was within normal limits. - Physical Exam Vitals/I&O's: Vital Signs Temp Pulse Resp BP Pulse Ox 36.7 C 90 18 105/66 95 06/10/19 15:33 06/10/19 13:54 06/10/19 13:54 06/10/19 13:54 06/10/19 13:54 Oxygen Flow Rate (L/min) 2 Oxygen Delivery Method Nasal Cannula Weight: 107.8 kg Body Mass Index (BMI) 42.0 Finger Stick Blood Glucose 71 Intake and Output for Last 24 Hours 06/08/19 06/09/19 06/10/19 23:59 23:59 23:59 Intake Total 375 / 500 2425 / 2425 Balance 375 / 500 2425 / 2425 General: Alert, Oriented x3, Cooperative, No apparent distress, - - Morbidly obese. No conversational dyspnea. HEENT: Atraumatic, PERRLA, EOMI, Normocephalic, - - No scleral icterus or injection noted Oral: Moist Mucosa, No Gingival or Mucosal Lesions/ Ulcerations, - - Crowded posterior pharynx Neck: Supple, No Nodes, Trachea Midline Lungs: No rales, Diminished, Rhonchi - Improved with coughing, Wheezes - Sporadic Cardiovascular: Regular rate, Regular Rhythm, Normal S1, Normal S2, No murmurs, No rub noted, No Gallop Abdomen: Bowel Sounds Present, Soft, Non Tender, Non-Distended, Obese Extremities: No clubbing, No cyanosis, No edema, Capillary Refill Less than 3 Seconds Skin: No rashes, No breakdown Musculoskeletal: No Tenderness to Palpation of Joints or Extremities Lymphatic: No Cervical, Supraclavicular, or Inguinal Adenopathy Neurological: Cranial nerves II-XII grossly intact, Neuro grossly intact, Motor Exam 5/5 strength throughout Psych/Mental Status: Normal Affect, Appropriate Microbiology Past 72 Hours 06/10/19 00:30 Mucosa - Nasopharyngeal Respiratory Panel (PCR) - Final Laboratory Results 06/09/19 19:20: WBC 19.7 H, RBC 4.82, Hgb 14.8, Hct 44.4, MCV 92.1, MCH 30.7, MCHC 33.3, RDW Std Deviation 44.7 H, RDW Coeff of Roxanne 13.1, Plt Count 441, MPV 10.3, Immature Gran % (Auto) 0.600, Neut % (Auto) 56.8, Lymph % (Auto) 34.5, [place] % (Auto) 5.3, Eos % (Auto) 2.3, Baso % (Auto) 0.5, Absolute Neuts (auto) 11.2 H, Absolute Lymphs (auto) 6.79 H, Nucleated RBC % 0, Differential Comment SCANNED 06/09/19 19:20: Sodium 137, Potassium 4.3, Chloride 100, Carbon Dioxide 29.0, Anion Gap 8, BUN 10, Creatinine 0.70, Estim Creat Clear Calc 83.07, Est GFR (MDRD) Af Amer 114, Est GFR (MDRD) Non-Af 95, BUN/Creatinine Ratio 14.2, Glucose 90, Calcium 9.6 06/09/19 19:35: Lactic Acid Cancelled 06/09/19 20:44: Lactic Acid 1.8 06/10/19 06:08: WBC 12.1 H, RBC 4.48, Hgb 13.3, Hct 42.0, MCV 93.8, MCH 29.7, MCHC 31.7 L, RDW Std Deviation 45.4 H, RDW Coeff of Roxanne 13.2, Plt Count 373, MPV 10.0, Immature Gran % (Auto) 1.000 H, Neut % (Auto) 83.0 H, Lymph % (Auto) 14.2 L, [place] % (Auto) 1.4, Eos % (Auto) 0.2, Baso % (Auto) 0.2, Absolute Neuts (auto) 10.1 H, Absolute Lymphs (auto) 1.72, Nucleated RBC % 0 06/10/19 06:08: Sodium 135 L, Potassium 3.7, Chloride 99, Carbon Dioxide 29.0, Anion Gap 7, BUN 8, Creatinine 0.83, Estim Creat Clear Calc 70.06, Est GFR (MDRD) Af Amer 95, Est GFR (MDRD) Non-Af 78, BUN/Creatinine Ratio 9.7 L, Glucose 258 H, Calcium 8.7 06/10/19 06:47: POC Glucose 250 H 06/10/19 11:20: POC Glucose 417 H Current Medications Acetaminophen (Tylenol) 650 mg PO Q6H PRN PRN PRN Reason: Pain Score 1-10/Temp > 100.7 F Last Admin: 06/10/19 15:31 Dose: 650 mg Documented by: Al Hydroxide/Mg Hydroxide (Mylanta Ii) 30 ml PO Q6H PRN PRN PRN Reason: Gastric Burning Albuterol Sulfate (Ventolin Aerosols) 2.5 mg INHALATION Q2H PRN PRN PRN Reason: Shortness of Breath/Wheezing Albuterol/Ipratropium (Duoneb) 3 ml INHALATION Q6HWA.RT [facility] Last Admin: 06/10/19 11:15 Dose: 3 ml Documented by: [facility], Baby) [facility] Last Admin: 06/10/19 09:16 Dose: 81 mg Documented by: Atorvastatin Calcium (Lipitor) 20 mg PO QHS [facility] Bupropion HCl (Wellbutrin Xl) 150 mg PO DAILY [facility] Last Admin: 06/10/19 09:17 Dose: 150 mg Documented by: Duloxetine HCl (Cymbalta) 60 mg PO BID [facility] Last Admin: 06/10/19 09:17 Dose: 60 mg Documented by: Enoxaparin Sodium (Lovenox) 40 mg SC DAILY [facility] Last Admin: 06/10/19 09:18 Dose: 40 mg Documented by: Fluticasone Propionate (Flonase Nasal [place]) 2 spray NASAL BID [facility] Last Admin: 06/10/19 09:17 Dose: 2 spray Documented by: Glucagon () 1 mg IM .X1 PRN PRN Reason: Hypoglycemia Guaifenesin/Codeine Phosphate (Robitussin Ac) 5 ml PO Q6H PRN PRN PRN Reason: COUGH Last Admin: 06/10/19 09:59 Dose: 5 ml Documented by: Hydrochlorothiazide (Hctz) 25 mg PO DAILY [facility] Last Admin: 06/10/19 09:17 Dose: Not Given Documented by: Ceftriaxone Sodium (Rocephin) 1 gm in 50 mls @ 100 mls/hr IV Q24 [facility] Last Infusion: 06/10/19 09:54 Dose: Infused Documented by: Dextrose (Dextrose 10%-Water) 250 mls @ 999 mls/hr IV .Q16M PRN; Protocol PRN Reason: HYPOGLYCEMIA Sodium Chloride () 250 mls @ 15 mls/hr IV .[id number] PRN PRN Reason: Saline Flush Sodium Chloride () 250 mls @ 15 mls/hr IV .[id number] PRN PRN Reason: Additional IVPB Infusion Insulin Human Lispro (Humalog Kwikpen (Bkc)) 0 unit SC [facility]; Protocol Last Admin: 06/10/19 11:24 Dose: 7 u Documented by: Lisinopril (Zestril) 20 mg PO DAILY [facility] Last Admin: 06/10/19 09:18 Dose: Not Given Documented by: Loratadine (Claritin) 5 mg PO DAILY [facility] Last Admin: 06/10/19 09:16 Dose: 5 mg Documented by: Magnesium Hydroxide (Milk Of Magnesia) 30 ml PO DAILY PRN PRN PRN Reason: Constipation Melatonin (Melatonin) 3 mg PO QHS PRN PRN PRN Reason: INSOMNIA Last Admin: 06/10/19 00:05 Dose: 3 mg Documented by: Methylprednisolone (Solu-Medrol) 40 mg IV Q12 [facility] Metoprolol Succinate (Toprol Xl (Beta Jose)) 25 mg PO DAILY [facility] Last Admin: 06/10/19 09:18 Dose: Not Given Documented by: Montelukast Sodium (Singulair) 10 mg PO DAILY [facility] Last Admin: 06/10/19 09:17 Dose: 10 mg Documented by: Ondansetron HCl (Zofran) 4 mg IV Q8H PRN PRN PRN Reason: NAUSEA/VOMITING Oxycodone HCl (Oxyir) 5 mg PO Q4H PRN PRN PRN Reason: Pain Score 4-10/10 Last Admin: 06/10/19 00:04 Dose: 5 mg Documented by: Pantoprazole Sodium (Protonix) 40 mg PO BID [facility] Last Admin: 06/10/19 09:16 Dose: 40 mg Documented by: Prochlorperazine Edisylate (Compazine Iv) 5 mg IV Q4H PRN PRN PRN Reason: Breakthrough nausea/vomiting Psyllium Hydrophilic Mucilloid (Metamucil) 1 packet PO DAILY PRN PRN PRN Reason: Constipation Senna/Docusate Sodium (Senokot-S, Aurelia-Colace) 2 tablet PO BID PRN PRN PRN Reason: Constipation Sodium Chloride () 10 - 40 ml IV UD PRN PRN Reason: SALINE FLUSH Last Admin: 06/10/19 15:31 Dose: 10 ml Documented by: Throat Lozenges (Cepacol Sore Throat Lozenge) 1 lozenge MUCOUS MEM Q2H PRN PRN PRN Reason: SORE THROAT Trazodone HCl (Desyrel) 50 mg PO BID [facility] Last Admin: 06/10/19 09:17 Dose: Not Given Documented by: Clinical Impression(s) from Imaging Studies Chest X-Ray 06/09/19 19:20 IMPRESSION: Persistent left basilar atelectasis or infiltrate and nonspecific interstitial thickening at the right base Electronically Signed: Ignacio Mishra MD at 19:43 EST , Service support , Chest CTA 06/09/19 20:41 IMPRESSION: Multifocal patchy areas of groundglass opacity consistent with nonspecific alveolitis possibly due to inflammatory changes Bibasilar subsegmental atelectasis greater on the left No definitive evidence for pulmonary embolus however examination is less than optimal due to poor bolus technique and if strong clinical suspicion for pulmonary embolus Doppler scan of the deep venous system of lower extremities is recommended for further assessment. Electronically Signed: Ignacio Mishra MD at 21:31 EST , Service support , Assessment/Plan All Active Problems (Last Reviewed 06/07/19 @ 11:24 by Camelia Morris) COPD exacerbation (Acute) Bronchitis (Acute) Pneumonia (Resolved) Asthma (Acute) RECOMMENDATIONS: 1. Aggressive blood sugar control 2. Initiate telemetry 3. BiPAP with sleep 17/13 centimeters of water 4. Add BNP to morning labs 5. Reasonable to continue with antibiotics, steroids and bronchodilators IMPRESSIONS: 1. Bronchiectasis exacerbation Patient has had multiple rounds of antibiotics and steroids as an outpatient, but persistent symptoms. Recent pulmonary function tests were within normal limits, excluding COPD as an option. Differential diagnosis could include resistant organisms, cryptogenic organizing pneumonia or congestive heart failure. Patient was not reporting any fevers at home, but has had elevated blood sugars here. Would recommend continue telemetry as tachycardia has been noted as an outpatient. Viral panel was negative, but patient has had symptoms for a protracted period. Will obtain a BNP in the morning. Previous echocardiogram was not suggestive of congestive heart failure. Patient does have a history of factor V Leiden, but is not anticoagulated secondary to bleeding complications. Cannot exclude micro emboli. Could obtain lower extremity Dopplers for evaluation of DVT 2. Diabetes mellitus Patient with reasonable control at baseline with a hemoglobin A1c of 6.8 in March 2019. Patient's blood sugars have been elevated, but this would be expected given steroid therapy. Recommend progressive blood sugar control. Will check electrolytes in the morning for possible supplementation and renal function. 3. Hypertension/hyperlipidemia/morbid obesity/GERD/factor V deficiency/RUFINA Complicates care, management, recovery and prognosis. Okay to continue with baseline medications. Patient should be placed on BiPAP at night with sleep at recommended settings as these have controlled her AHI as an outpatient. Code Visit Inpatient E&M: 76227 Init Hosp L3
[2019-06-10] MEDS: LORazepam 1 MG Tablet PO (17:23)
[2019-06-10 18:25] LABS: Bedside Glucose 265 mg/dL (70-110)
--- NOTE | 2019-06-10 18:43 | PN_ITS ---
Patient Problems: Active and Suspected Problems (Last Reviewed 06/07/19 @ 11:24 by Camelia Morris) COPD exacerbation (Acute) Subjective: Patient was seen and examined today, she states she has been on multiple courses of antibiotics recently for an upper respiratory tract infection and for treatment of Haemophilus influenza. Patient complains of wheezing shortness of breath and dry cough. She was admitted yesterday for possible pneumonia and/or exacerbation of COPD. Late this afternoon, patient called nursing and stated that her dog had been run over by a car and she was an emotional support animal, patient was very distraught and nursing suggested that she be placed on Ativan if possible, I wrote for Ativan but the patient continued to be distraught and told the nurses that she wanted to , the nurses documented this and a sitter was placed with the patient. I have okayed nursing to write for mental health to see the patient. - Physical Exam Vitals/I&O's: Vital Signs Temp Pulse Resp BP Pulse Ox 98.0 F 90 18 105/66 95 06/10/19 15:33 06/10/19 13:54 06/10/19 13:54 06/10/19 13:54 06/10/19 13:54 Oxygen Flow Rate (L/min) 2 Oxygen Delivery Method Nasal Cannula Weight: 107.8 kg Body Mass Index (BMI) 42.0 Finger Stick Blood Glucose 71 Intake and Output for Last 24 Hours 06/08/19 06/09/19 06/10/19 23:59 23:59 23:59 Intake Total 375 / 500 2425 / 2425 Balance 375 / 500 2425 / 2425 General: Alert, Oriented x3, Cooperative, No apparent distress, Well developed, Well nourished HEENT: Atraumatic, PERRLA, EOMI, Normocephalic Oral: Moist Mucosa Neck: Supple, No JVD, No Nuchal Rigidity, Trachea Midline, Thyroid Normal Size and Texture Lungs: Normal air movement, No rales, Rhonchi - Expiratory rhonchi noted bilaterally, Wheezes - Scattered expiratory wheezes are noted bilaterally Cardiovascular: Regular rate, Regular Rhythm, Normal S1, Normal S2, No murmurs, No Ectopic Activity, PMI Normal, No rub noted, No Gallop Abdomen: Bowel Sounds Present, Soft, Non Tender, Non-Distended, Obese Extremities: No clubbing, No cyanosis, No edema, Capillary Refill Less than 3 Seconds Skin: No rashes, No breakdown Musculoskeletal: No Tenderness to Palpation of Joints or Extremities Neurological: Cranial nerves II-XII grossly intact, Neuro grossly intact, Sensory exam intact to light touch and pain, Coordination normal Psych/Mental Status: Normal Affect, Appropriate, Alert and oriented to time, place, person, mood and affect Microbiology Past 72 Hours 06/10/19 00:30 Mucosa - Nasopharyngeal Respiratory Panel (PCR) - Final Laboratory Results 06/09/19 19:20: WBC 19.7 H, RBC 4.82, Hgb 14.8, Hct 44.4, MCV 92.1, MCH 30.7, MCHC 33.3, RDW Std Deviation 44.7 H, RDW Coeff of Roxanne 13.1, Plt Count 441, MPV 10.3, Immature Gran % (Auto) 0.600, Neut % (Auto) 56.8, Lymph % (Auto) 34.5, [place] % (Auto) 5.3, Eos % (Auto) 2.3, Baso % (Auto) 0.5, Absolute Neuts (auto) 11.2 H, Absolute Lymphs (auto) 6.79 H, Nucleated RBC % 0, Differential Comment SCANNED 06/09/19 19:20: Sodium 137, Potassium 4.3, Chloride 100, Carbon Dioxide 29.0, Anion Gap 8, BUN 10, Creatinine 0.70, Estim Creat Clear Calc 83.07, Est GFR (MDRD) Af Amer 114, Est GFR (MDRD) Non-Af 95, BUN/Creatinine Ratio 14.2, Glucose 90, Calcium 9.6 06/09/19 19:35: Lactic Acid Cancelled 06/09/19 20:44: Lactic Acid 1.8 06/10/19 06:08: WBC 12.1 H, RBC 4.48, Hgb 13.3, Hct 42.0, MCV 93.8, MCH 29.7, MCHC 31.7 L, RDW Std Deviation 45.4 H, RDW Coeff of Roxanne 13.2, Plt Count 373, MPV 10.0, Immature Gran % (Auto) 1.000 H, Neut % (Auto) 83.0 H, Lymph % (Auto) 14.2 L, [place] % (Auto) 1.4, Eos % (Auto) 0.2, Baso % (Auto) 0.2, Absolute Neuts (auto) 10.1 H, Absolute Lymphs (auto) 1.72, Nucleated RBC % 0 06/10/19 06:08: Sodium 135 L, Potassium 3.7, Chloride 99, Carbon Dioxide 29.0, Anion Gap 7, BUN 8, Creatinine 0.83, Estim Creat Clear Calc 70.06, Est GFR (MDRD) Af Amer 95, Est GFR (MDRD) Non-Af 78, BUN/Creatinine Ratio 9.7 L, Glucose 258 H, Calcium 8.7 06/10/19 06:47: POC Glucose 250 H 06/10/19 11:20: POC Glucose 417 H 06/10/19 18:11: POC Glucose 265 H Current Medications Acetaminophen (Tylenol) 650 mg PO Q6H PRN PRN PRN Reason: Pain Score 1-10/Temp > 100.7 F Last Admin: 06/10/19 15:31 Dose: 650 mg Documented by: Al Hydroxide/Mg Hydroxide (Mylanta Ii) 30 ml PO Q6H PRN PRN PRN Reason: Gastric Burning Albuterol Sulfate (Ventolin Aerosols) 2.5 mg INHALATION Q2H PRN PRN PRN Reason: Shortness of Breath/Wheezing Albuterol/Ipratropium (Duoneb) 3 ml INHALATION Q6HWA.RT [facility] Last Admin: 06/10/19 11:15 Dose: 3 ml Documented by: Aspirin ([facility], Baby) [facility] Last Admin: 06/10/19 09:16 Dose: 81 mg Documented by: Atorvastatin Calcium (Lipitor) 20 mg PO QHS [facility] Bupropion HCl (Wellbutrin Xl) 150 mg PO DAILY [facility] Last Admin: 06/10/19 09:17 Dose: 150 mg Documented by: Duloxetine HCl (Cymbalta) 60 mg PO BID [facility] Last Admin: 06/10/19 09:17 Dose: 60 mg Documented by: Enoxaparin Sodium (Lovenox) 40 mg SC DAILY [facility] Last Admin: 06/10/19 09:18 Dose: 40 mg Documented by: Fluticasone Propionate (Flonase Nasal [place]) 2 spray NASAL BID [facility] Last Admin: 06/10/19 09:17 Dose: 2 spray Documented by: Glucagon () 1 mg IM .X1 PRN PRN Reason: Hypoglycemia Guaifenesin/Codeine Phosphate (Robitussin Ac) 5 ml PO Q6H PRN PRN PRN Reason: COUGH Last Admin: 06/10/19 09:59 Dose: 5 ml Documented by: Hydrochlorothiazide (Hctz) 25 mg PO DAILY [facility] Last Admin: 06/10/19 09:17 Dose: Not Given Documented by: Ceftriaxone Sodium (Rocephin) 1 gm in 50 mls @ 100 mls/hr IV Q24 [facility] Last Infusion: 06/10/19 09:54 Dose: Infused Documented by: Dextrose (Dextrose 10%-Water) 250 mls @ 999 mls/hr IV .Q16M PRN; Protocol PRN Reason: HYPOGLYCEMIA Sodium Chloride () 250 mls @ 15 mls/hr IV .[id number] PRN PRN Reason: Saline Flush Sodium Chloride () 250 mls @ 15 mls/hr IV .[id number] PRN PRN Reason: Additional IVPB Infusion Insulin Human Lispro (Humalog Kwikpen (Bkc)) 0 unit SC ACHS [facility]; Protocol Last Admin: 06/10/19 11:24 Dose: 7 u Documented by: Lisinopril (Zestril) 20 mg PO DAILY [facility] Last Admin: 06/10/19 09:18 Dose: Not Given Documented by: Loratadine (Claritin) 5 mg PO DAILY [facility] Last Admin: 06/10/19 09:16 Dose: 5 mg Documented by: Lorazepam (Ativan) 1 mg PO Q8H PRN PRN PRN Reason: ANXIETY Magnesium Hydroxide (Milk Of Magnesia) 30 ml PO DAILY PRN PRN PRN Reason: Constipation Melatonin (Melatonin) 3 mg PO QHS PRN PRN PRN Reason: INSOMNIA Last Admin: 06/10/19 00:05 Dose: 3 mg Documented by: Methylprednisolone (Solu-Medrol) 40 mg IV Q12 [facility] Metoprolol Succinate (Toprol Xl (Beta Jose)) 25 mg PO DAILY [facility] Last Admin: 06/10/19 09:18 Dose: Not Given Documented by: Montelukast Sodium (Singulair) 10 mg PO DAILY [facility] Last Admin: 06/10/19 09:17 Dose: 10 mg Documented by: Ondansetron HCl (Zofran) 4 mg IV Q8H PRN PRN PRN Reason: NAUSEA/VOMITING Oxycodone HCl (Oxyir) 5 mg PO Q4H PRN PRN PRN Reason: Pain Score 4-10/10 Last Admin: 06/10/19 00:04 Dose: 5 mg Documented by: Pantoprazole Sodium (Protonix) 40 mg PO BID [facility] Last Admin: 06/10/19 09:16 Dose: 40 mg Documented by: Prochlorperazine Edisylate (Compazine Iv) 5 mg IV Q4H PRN PRN PRN Reason: Breakthrough nausea/vomiting Psyllium Hydrophilic Mucilloid (Metamucil) 1 packet PO DAILY PRN PRN PRN Reason: Constipation Senna/Docusate Sodium (Senokot-S, Aurelia-Colace) 2 tablet PO BID PRN PRN PRN Reason: Constipation Sodium Chloride () 10 - 40 ml IV UD PRN PRN Reason: SALINE FLUSH Last Admin: 06/10/19 15:31 Dose: 10 ml Documented by: Throat Lozenges (Cepacol Sore Throat Lozenge) 1 lozenge MUCOUS MEM Q2H PRN PRN PRN Reason: SORE THROAT Trazodone HCl (Desyrel) 50 mg PO BID [facility] Last Admin: 06/10/19 09:17 Dose: Not Given Documented by: Medical Necessity - Tobacco Use Smoking Status: Former smoker Tobacco Use: Non-smoker Assessment/Plan All Active Problems (Last Reviewed 06/07/19 @ 11:24 by Camelia Morris) COPD exacerbation (Acute) Bronchitis (Acute) Pneumonia (Resolved) Asthma (Acute) #1 exacerbation of COPD-patient's IV Solu-Medrol was decreased by myself today due to elevated blood sugars, I have increased the patient's insulin coverage, breathing treatments were reduced to every 6 hours due to complaints of tremor. Pulmonary medicine is seeing the patient #2 acute bronchitis-etiology unclear, patient had a previous episode of Haemophilus influenza, she is no longer coughing up sputum and she has been treated with 3 courses of antibiotics (Zithromax, Augmentin, and doxycycline)-my opinion is to let pulmonary medicine decide whether she needs further antibiotic coverage for now I have left the patient on IV Rocephin. Chest x-ray will be repeated tomorrow again #3 type 2 diabetes-patient will be kept on sliding scale insulin, patient normally states that her blood sugars controlled with diet only, her blood sugar elevations probably secondary to steroid administration. #4 acute on chronic anxiety -patient is distraught over the of her dog at this time, mental health will need to see the patient tomorrow, I have placed the patient on p.o. Ativan 3 times a day as needed for anxiety. #5 class III obesity #6 bronchiectasis #7 asthma #8 obstructive sleep apnea-noncompliant Code Visit Inpatient E&M: 80809 Subs Hosp L2
--- NOTE | 2019-06-10 19:37 | NURSING ---
at 1730, pt significant other, Andrzej, came to [facility] to speak with this RN. he reported that the pt dog, who is pt emotional therapy dog, was hit by a car and would need to be put down. he stated we need to have a doctor here because she is going to flip out. sent message to Dr Ernandez asking for anxiety medication as the pt will be very distraught. entered room with Andrzej as he told the [place] about her dog. she immediately began screaming and in obvious emotional distress saying I can't do this. I won't survive. I want to . Why is everything being taken away from me? Why am I being punished? this RN stayed with patient as Andrzej made some phone calls. pt very tearful, hyperventilating. encouraged pt to slow breathing down and provided emotional support. ativan was given. pt had stopped crying, was breathing normally, O2 sats were 94% on room air, pt able to answer questions appropriately, and pt was alone with RN in room. asked pt if she felt like hurting herself and encouraged honesty, no matter what her response. after thinking for a moment, pt stated I don't want to live without my baby, I'm scared to say yes, but I need to be honest and say I don't want to be alive without her. followed up with if she had a plan to harm herself no, I don't know what I would do. explained to patient that because we want her to be safe, we would place a staff member in the room with her and remove some items from the room which could be potentially harmful to patient. pt agreed and expressed understanding. Dr Ernandez was notified of pt response and requested nursing place consult for mental health, he stated that pt did not need a crisis counselor, but to have mental health follow up with patient Monday. charge nurse and railroad car repair supervisor also notified. room was cleared of potential hazards and sitter at bedside. family brought dog collar and some of the fur from the dog. this remains at bedside with the patient.
[2019-06-10] MEDS: Atorvastatin Calcium 20 MG Tablet PO (22:15)
[2019-06-10] MEDS: traZODone 50 MG Tablet PO (22:15)
[2019-06-10 22:26] LABS: Bedside Glucose 165 mg/dL (70-110)
[2019-06-11] VITALS (13 sets, daily range): BP systolic 102–128; BP diastolic 68–77; PULSE 84–89; RESP 16–20; TEMP 36.7–36.8; O2SAT 90–96
[2019-06-11 05:49] LABS: Absolute Neutrophil Count 11.5 X10^3/uL (2.0-7.7); Basophil# 0.03 X10^3/uL; Basophil% 0.2 % (0-1); Hematocrit 39.6 % (37-47); Lymphocyte % 17.4 % (19-41); Mean Corp Hgb Conc 32.8 g/dL (32-36); Mean Corpuscular Hgb 30.8 pg (27.0-32.0); Mean Corpuscular Volume 93.8 fL (81-99); Mean Platelet Vol. 9.9 fl (6.2-12.0); Monocyte# 0.64 X10^3/uL; Monocyte% 4.3 % (0-10); NRBC Flagged by Analyzer 0 % (0-5); Neutrophil # 11.52 X10^3/uL (2.7-7.7); Neutrophil % 77.3 % (47-70); Platelet Count 386 K/mm3 (150-450); RBC Distribution Width SD 44.5 fl (35.1-43.9); Red Blood Count 4.22 M/mm3 (4.2-5.4); White Blood Count 14.9 K/mm3 (4.4-11.0)
[2019-06-11] MEDS: Ipratropium/Albuterol Sulfate 3 ML AMPUL.NEB INHALATION (05:50)
[2019-06-11 06:11] LABS: Anion Gap 6 (5-15); BUN 14 mg/dL (7-18); BUN/Creat Ratio 19.2 RATIO (10-20); Calcium,Total 8.8 mg/dL (8.5-10.1); Chloride 100 mmol/L (98-107); Creatinine, Serum 0.73 mg/dL (0.55-1.02); EST Glomerular Filtration Rate 91 mL/min (>60); Est Glom Filt Rate - Afr Amer 110 mL/min (>60); Estimated Creatinine Clearance 79.66 ml/min; Glucose 291 mg/dL (74-106); Potassium 4.4 mmol/L (3.5-5.1); Sodium Level 135 mmol/L (136-145)
[2019-06-11] MEDS: Insulin Lispro 100 UNIT/ML INSULN.PEN SC ×3 (06:49→17:17)
[2019-06-11 06:55] LABS: Bedside Glucose 306 mg/dL (70-110)
[2019-06-11 09:02] LABS: BNP,B-Type NATRIURETIC PEPTIDE 18.1 pg/mL (0-100)
--- NOTE | 2019-06-11 09:53 | PN_ITS ---
Reason for Visit: bronchitis Subjective: breathing better. coughing, but minimally productive. Vitals/I&O's: Vital Signs Temp Pulse Resp BP Pulse Ox 36.7 C 88 18 128/72 H 95 06/11/19 08:00 06/11/19 08:00 06/11/19 08:00 06/11/19 08:00 06/11/19 08:00 Oxygen Flow Rate (L/min) 2 Oxygen Delivery Method Nasal Cannula Weight: 107.8 kg Body Mass Index (BMI) 42.0 Finger Stick Blood Glucose 71 Intake and Output for Last 24 Hours 06/09/19 06/10/19 06/11/19 23:59 23:59 23:59 Intake Total 375 / 500 2425 / 2825 400 / 400 Balance 375 / 500 2425 / 2825 400 / 400 General: Alert, No apparent distress HEENT: Atraumatic, Normocephalic Oral: Moist Mucosa, No Gingival or Mucosal Lesions/ Ulcerations Neck: No Nodes, Trachea Midline Lungs: Diminished, Wheezes Cardiovascular: Regular rate, Regular Rhythm, Normal S1, Normal S2, No murmurs Abdomen: Bowel Sounds Present, Soft, Non Tender, Non-Distended, No Hepato- splenomegaly Extremities: No edema, No Calf Tenderness Skin: No rashes, No breakdown Musculoskeletal: No Tenderness to Palpation of Joints or Extremities, No Muscle Wasting Psych/Mental Status: Normal Affect, Appropriate Microbiology Past 72 Hours 06/10/19 00:30 Mucosa - Nasopharyngeal Respiratory Panel (PCR) - Final Laboratory Results 06/10/19 11:20: POC Glucose 417 H 06/10/19 18:11: POC Glucose 265 H 06/10/19 22:11: POC Glucose 165 H 06/11/19 05:32: WBC 14.9 H, RBC 4.22, Hgb 13.0, Hct 39.6, MCV 93.8, MCH 30.8, MCHC 32.8, RDW Std Deviation 44.5 H, RDW Coeff of Roxanne 13.0, Plt Count 386, MPV 9.9, Immature Gran % (Auto) 0.800, Neut % (Auto) 77.3 H, Lymph % (Auto) 17.4 L, [place] % (Auto) 4.3, Eos % (Auto) 0.0, Baso % (Auto) 0.2, Absolute Neuts (auto) 11.5 H, Absolute Lymphs (auto) 2.60, Nucleated RBC % 0 06/11/19 05:32: Sodium 135 L, Potassium 4.4, Chloride 100, Carbon Dioxide 29.0, Anion Gap 6, BUN 14, Creatinine 0.73, Estim Creat Clear Calc 79.66, Est GFR (MDRD) Af Amer 110, Est GFR (MDRD) Non-Af 91, BUN/Creatinine Ratio 19.2, Glucose 291 H, Calcium 8.8 06/11/19 05:32: B-Natriuretic Peptide 18.1 06/11/19 06:47: POC Glucose 306 H Current Medications Acetaminophen (Tylenol) 650 mg PO Q6H PRN PRN PRN Reason: Pain Score 1-10/Temp > 100.7 F Last Admin: 06/10/19 15:31 Dose: 650 mg Documented by: Al Hydroxide/Mg Hydroxide (Mylanta Ii) 30 ml PO Q6H PRN PRN PRN Reason: Gastric Burning Albuterol Sulfate (Ventolin Aerosols) 2.5 mg INHALATION Q2H PRN PRN PRN Reason: Shortness of Breath/Wheezing Albuterol/Ipratropium (Duoneb) 3 ml INHALATION Q6HWA.RT [facility] Last Admin: 06/11/19 05:50 Dose: 3 ml Documented by: [facility], [facility]) [facility] Last Admin: 06/10/19 09:16 Dose: 81 mg Documented by: Atorvastatin Calcium (Lipitor) 20 mg PO QHS [facility] Last Admin: 06/10/19 22:15 Dose: 20 mg Documented by: Bupropion HCl (Wellbutrin Xl) 150 mg PO DAILY [facility] Last Admin: 06/10/19 09:17 Dose: 150 mg Documented by: Duloxetine HCl (Cymbalta) 60 mg PO BID [facility] Last Admin: 06/10/19 22:15 Dose: 60 mg Documented by: Enoxaparin Sodium (Lovenox) 40 mg SC DAILY [facility] Last Admin: 06/10/19 09:18 Dose: 40 mg Documented by: Fluticasone Propionate (Flonase Nasal [place]) 2 spray NASAL BID [facility] Last Admin: 06/10/19 22:15 Dose: 2 spray Documented by: Glucagon () 1 mg IM .X1 PRN PRN Reason: Hypoglycemia Guaifenesin/Codeine Phosphate (Robitussin Ac) 5 ml PO Q6H PRN PRN PRN Reason: COUGH Last Admin: 06/10/19 09:59 Dose: 5 ml Documented by: Hydrochlorothiazide (Hctz) 25 mg PO DAILY [facility] Last Admin: 06/10/19 09:17 Dose: Not Given Documented by: Ceftriaxone Sodium (Rocephin) 1 gm in 50 mls @ 100 mls/hr IV Q24 [facility] Last Infusion: 06/10/19 09:54 Dose: Infused Documented by: Dextrose (Dextrose 10%-Water) 250 mls @ 999 mls/hr IV .Q16M PRN; Protocol PRN Reason: HYPOGLYCEMIA Sodium Chloride () 250 mls @ 15 mls/hr IV .[id number] PRN PRN Reason: Saline Flush Sodium Chloride () 250 mls @ 15 mls/hr IV .[id number] PRN PRN Reason: Additional IVPB Infusion Insulin Human Lispro (Humalog Kwikpen (Bkc)) 0 unit SC ACHS [facility]; Protocol Last Admin: 06/11/19 06:49 Dose: 9 u Documented by: Lisinopril (Zestril) 20 mg PO DAILY [facility] Last Admin: 06/10/19 09:18 Dose: Not Given Documented by: Loratadine (Claritin) 5 mg PO DAILY [facility] Last Admin: 06/10/19 09:16 Dose: 5 mg Documented by: Magnesium Hydroxide (Milk Of Magnesia) 30 ml PO DAILY PRN PRN PRN Reason: Constipation Melatonin (Melatonin) 3 mg PO QHS PRN PRN PRN Reason: INSOMNIA Last Admin: 06/10/19 22:15 Dose: 3 mg Documented by: Methylprednisolone (Solu-Medrol) 40 mg IV Q12 [facility] Last Admin: 06/10/19 22:15 Dose: 40 mg Documented by: Metoprolol Succinate (Toprol Xl (Beta Jose)) 25 mg PO DAILY [facility] Last Admin: 06/10/19 09:18 Dose: Not Given Documented by: Montelukast Sodium (Singulair) 10 mg PO DAILY [facility] Last Admin: 06/10/19 09:17 Dose: 10 mg Documented by: Ondansetron HCl (Zofran) 4 mg IV Q8H PRN PRN PRN Reason: NAUSEA/VOMITING Pantoprazole Sodium (Protonix) 40 mg PO BID [facility] Last Admin: 06/10/19 22:15 Dose: 40 mg Documented by: Prochlorperazine Edisylate (Compazine Iv) 5 mg IV Q4H PRN PRN PRN Reason: Breakthrough nausea/vomiting Psyllium Hydrophilic Mucilloid (Metamucil) 1 packet PO DAILY PRN PRN PRN Reason: Constipation Senna/Docusate Sodium (Senokot-S, Aurelia-Colace) 2 tablet PO BID PRN PRN PRN Reason: Constipation Sodium Chloride () 10 - 40 ml IV UD PRN PRN Reason: SALINE FLUSH Last Admin: 06/10/19 22:15 Dose: 10 ml Documented by: Throat Lozenges (Cepacol Sore Throat Lozenge) 1 lozenge MUCOUS MEM Q2H PRN PRN PRN Reason: SORE THROAT Trazodone HCl (Desyrel) 50 mg PO BID [facility] Last Admin: 06/10/19 22:15 Dose: 50 mg Documented by: STROKE Vital Signs/Narrative: Vital Signs Temp Pulse Resp BP Pulse Ox 06/11/19 08:00 36.7 C 88 18 128/72 H 95 06/11/19 07:52 94 06/11/19 07:46 36.7 C 88 18 128/72 H 95 Medical Necessity - Tobacco Use Smoking Status: Former smoker Tobacco Use: Non-smoker Assessment/Plan All Active Problems (Last Reviewed 06/07/19 @ 11:24 by Camelia Morris) COPD exacerbation (Ruled-out) Bronchitis (Acute) Pneumonia (Resolved) Asthma (Acute) 1. acute exacerbation of bronchiectasis * on CTX * continue pulm toilet * viral resp panel negative * CTA negative for large PE. check Duplex 2. acute exacerbation of asthma * normal PFTs on 03/11/19, therefore COPD ruled-out * continue BDs and methylpred 3. DM2 * uncontrolled * exacerbated by steroid * a1c 04/10/19 was 6.8 * diet controlled at home. * on SSI currently * start Basal for now, then could transition to metformin upon DC while on steroids 4. Anxiety * chronic * DC'd lorazepam given resp issues and concern for long-term dependence * mental health eval pending 5. VTE prophylaxis: enoxaparin. Code Visit Inpatient E&M: 35769 Subs Hosp L2
[2019-06-11] MEDS: Aspirin 81 MG TAB.CHEW PO (09:54)
[2019-06-11] MEDS: Loratadine 10 MG Tablet 5 MG PO (09:54)
[2019-06-11] MEDS: Fluticasone 0.05% 1 SPRAY NASAL.SRY 2 SPRAY NASAL ×2 (09:55→21:38)
[2019-06-11] MEDS: hydroCHLOROthiazide 25 MG Tablet PO (09:55)
[2019-06-11] MEDS: DULoxetine Hcl 60 MG Capsule PO ×2 (09:55→21:38)
[2019-06-11] MEDS: traZODone 50 MG Tablet PO ×2 (09:55→21:38)
[2019-06-11] MEDS: Enoxaparin 40 MG/0.4 ML Syringe SC (09:56)
[2019-06-11] MEDS: Montelukast 10 MG Tablet PO (09:56)
[2019-06-11] MEDS: Pantoprazole Sodium 40 MG Tablet PO ×2 (09:56→21:38)
[2019-06-11] MEDS: buPROPion (XL) 150 MG TABLET.XL PO (09:57)
[2019-06-11] MEDS: Metoprolol(XL)Succ 25 MG Tablet PO (09:57)
[2019-06-11] MEDS: Lisinopril 20 MG Tablet PO (09:58)
[2019-06-11] MEDS: Ceftriaxone 1 GM/50 ML BAG IV (10:02)
--- NOTE | 2019-06-11 10:11 | VDLE_ITS ---
Reason For Study: SOB RIGHT LEFT GSV is normal. GSV is normal. CFV is compressible, spontaneous, phasic, CFV is compressible, spontaneous, phasic, competent and demonstrates normal competent, and demonstrates normal augmentation. augmentation. FV is compressible, spontaneous, phasic, FV is compressible, spontaneous, phasic, competent and demonstrates normal competent and demonstrates normal augmentation. augmentation. POP V is compressible, spontaneous, phasic, POP V is compressible, spontaneous, phasic, competent and demonstrates normal competent and demonstrates normal augmentation. augmentation. T/P Trunk is compressible. T/P Trunk is compressible. PTV is compressible. PTV is compressible. RT PerV is compressible. LT PerV is compressible. Procedure Exam performed portable in patient room. The exam was diagnostic. A preliminary report was called and/or faxed to [facility]. Interpretation Summary No evidence for acute deep venous thrombosis bilateral lower extremities with patent and compressible bilateral great saphenous veins. Ordering Physician: Kirill Ace Performed By: Miguel Morton RVT
--- NOTE | 2019-06-11 10:29 | PCM.PN.PUL ---
Subjective: Patient feels subjectively improved compared to yesterday. Still having a cough that is relatively nonproductive. Patient has had normalization of temperature after initiation of antibiotics. Still requiring low-dose nasal cannula oxygen to maintain saturations. - Physical Exam Vitals/I&O's: Vital Signs Temp Pulse Resp BP Pulse Ox 36.7 C 88 18 128/72 H 95 06/11/19 08:00 06/11/19 09:57 06/11/19 08:00 06/11/19 09:57 06/11/19 08:00 Oxygen Flow Rate (L/min) 2 Oxygen Delivery Method Nasal Cannula Weight: 107.8 kg Body Mass Index (BMI) 42.0 Finger Stick Blood Glucose 71 Intake and Output for Last 24 Hours 06/09/19 06/10/19 06/11/19 23:59 23:59 23:59 Intake Total 375 / 500 2425 / 2825 400 / 400 Balance 375 / 500 2425 / 2825 400 / 400 General: Alert, Cooperative, - - Anxious. Morbidly obese. No conversational dyspnea. HEENT: Atraumatic, PERRLA, EOMI, Normocephalic, - - No scleral icterus or injection noted Oral: Moist Mucosa, No Gingival or Mucosal Lesions/ Ulcerations, - - Crowded posterior pharynx Neck: Supple, No JVD, No Nodes, Trachea Midline Lungs: No rhonchi, No rales, Diminished, Wheezes, - - Symmetric expansion. No dullness to percussion. Cardiovascular: Normal S1, Normal S2, No murmurs, No rub noted, No Gallop, Tachycardic Abdomen: Bowel Sounds Present, Soft, Non Tender, Non-Distended Extremities: No clubbing, No cyanosis, Edema Skin: No rashes, No breakdown Musculoskeletal: No Tenderness to Palpation of Joints or Extremities Lymphatic: No Cervical, Supraclavicular, or Inguinal Adenopathy Neurological: Cranial nerves II-XII grossly intact, Neuro grossly intact, Motor Exam 5/5 strength throughout Psych/Mental Status: Anxious, Restless Microbiology Past 72 Hours 06/10/19 00:30 Mucosa - Nasopharyngeal Respiratory Panel (PCR) - Final Laboratory Results 06/10/19 11:20: POC Glucose 417 H 06/10/19 18:11: POC Glucose 265 H 06/10/19 22:11: POC Glucose 165 H 06/11/19 05:32: WBC 14.9 H, RBC 4.22, Hgb 13.0, Hct 39.6, MCV 93.8, MCH 30.8, MCHC 32.8, RDW Std Deviation 44.5 H, RDW Coeff of Roxanne 13.0, Plt Count 386, MPV 9.9, Immature Gran % (Auto) 0.800, Neut % (Auto) 77.3 H, Lymph % (Auto) 17.4 L, Stephens % (Auto) 4.3, Eos % (Auto) 0.0, Baso % (Auto) 0.2, Absolute Neuts (auto) 11.5 H, Absolute Lymphs (auto) 2.60, Nucleated RBC % 0 06/11/19 05:32: Sodium 135 L, Potassium 4.4, Chloride 100, Carbon Dioxide 29.0, Anion Gap 6, BUN 14, Creatinine 0.73, Estim Creat Clear Calc 79.66, Est GFR (MDRD) Af Amer 110, Est GFR (MDRD) Non-Af 91, BUN/Creatinine Ratio 19.2, Glucose 291 H, Calcium 8.8 06/11/19 05:32: B-Natriuretic Peptide 18.1 06/11/19 06:47: POC Glucose 306 H Current Medications Acetaminophen (Tylenol) 650 mg PO Q6H PRN PRN PRN Reason: Pain Score 1-10/Temp > 100.7 F Last Admin: 06/10/19 15:31 Dose: 650 mg Documented by: Al Hydroxide/Mg Hydroxide (Mylanta Ii) 30 ml PO Q6H PRN PRN PRN Reason: Gastric Burning Albuterol Sulfate (Ventolin Aerosols) 2.5 mg INHALATION Q2H PRN PRN PRN Reason: Shortness of Breath/Wheezing Albuterol/Ipratropium (Duoneb) 3 ml INHALATION Q6HWA.RT COUNTS INCLUDE 234 BEDS AT [facility] Last Admin: 06/11/19 05:50 Dose: 3 ml Documented by: [facility], [facility] Admin: 06/11/19 09:54 Dose: 81 mg Documented by: Atorvastatin Calcium (Lipitor) 20 mg PO QHS COUNTS INCLUDE 234 BEDS AT THE [facility] Last Admin: 06/10/19 22:15 Dose: 20 mg Documented by: Bupropion HCl (Wellbutrin Xl) 150 mg PO DAILY COUNTS INCLUDE 234 BEDS AT THE [facility] Last Admin: 06/11/19 09:57 Dose: 150 mg Documented by: Duloxetine HCl (Cymbalta) 60 mg PO BID COUNTS INCLUDE 234 BEDS AT THE [facility] Last Admin: 06/11/19 09:55 Dose: 60 mg Documented by: Enoxaparin Sodium (Lovenox) 40 mg SC DAILY COUNTS INCLUDE 234 BEDS AT THE [facility] Last Admin: 06/11/19 09:56 Dose: 40 mg Documented by: Fluticasone Propionate (Flonase Nasal [place]) 2 spray NASAL BID COUNTS INCLUDE 234 BEDS AT THE [facility] Last Admin: 06/11/19 09:55 Dose: 2 spray Documented by: Glucagon () 1 mg IM .X1 PRN PRN Reason: Hypoglycemia Guaifenesin/Codeine Phosphate (Robitussin Ac) 5 ml PO Q6H PRN PRN PRN Reason: COUGH Last Admin: 06/10/19 09:59 Dose: 5 ml Documented by: Hydrochlorothiazide (Hctz) 25 mg PO DAILY COUNTS INCLUDE 234 BEDS AT THE [facility] Last Admin: 06/11/19 09:55 Dose: 25 mg Documented by: Ceftriaxone Sodium (Rocephin) 1 gm in 50 mls @ 100 mls/hr IV Q24 COUNTS INCLUDE 234 BEDS AT THE [facility] Last Admin: 06/11/19 10:02 Dose: 100 mls/hr Documented by: Dextrose (Dextrose 10%-Water) 250 mls @ 999 mls/hr IV .Q16M PRN; Protocol PRN Reason: HYPOGLYCEMIA Sodium Chloride () 250 mls @ 15 mls/hr IV .[id number] PRN PRN Reason: Saline Flush Sodium Chloride () 250 mls @ 15 mls/hr IV .[id number] PRN PRN Reason: Additional IVPB Infusion Insulin Glargine (Lantus (Bk)) 8 units SC BREAKFAST COUNTS INCLUDE 234 BEDS AT THE [facility] Insulin Human Lispro (Humalog Kwikpen (Bk)) 0 unit SC ACHS COUNTS INCLUDE 234 BEDS AT THE [facility]; Protocol Last Admin: 06/11/19 06:49 Dose: 9 u Documented by: Lisinopril (Zestril) 20 mg PO DAILY COUNTS INCLUDE 234 BEDS AT THE [facility] Last Admin: 06/11/19 09:58 Dose: 20 mg Documented by: Loratadine (Claritin) 5 mg PO DAILY COUNTS INCLUDE 234 BEDS AT THE [facility] Last Admin: 06/11/19 09:54 Dose: 5 mg Documented by: Magnesium Hydroxide (Milk Of Magnesia) 30 ml PO DAILY PRN PRN PRN Reason: Constipation Melatonin (Melatonin) 3 mg PO QHS PRN PRN PRN Reason: INSOMNIA Last Admin: 06/10/19 22:15 Dose: 3 mg Documented by: Methylprednisolone (Solu-Medrol) 40 mg IV Q12 COUNTS INCLUDE 234 BEDS AT [facility] Last Admin: 06/11/19 09:58 Dose: 40 mg Documented by: Metoprolol Succinate (Toprol Xl (Beta Jose)) 25 mg PO DAILY COUNTS INCLUDE 234 BEDS AT [facility] Last Admin: 06/11/19 09:57 Dose: 25 mg Documented by: Montelukast Sodium (Singulair) 10 mg PO DAILY COUNTS INCLUDE 234 BEDS AT THE [facility] Last Admin: 06/11/19 09:56 Dose: 10 mg Documented by: Ondansetron HCl (Zofran) 4 mg IV Q8H PRN PRN PRN Reason: NAUSEA/VOMITING Pantoprazole Sodium (Protonix) 40 mg PO BID COUNTS INCLUDE 234 BEDS AT THE [facility] Last Admin: 06/11/19 09:56 Dose: 40 mg Documented by: Prochlorperazine Edisylate (Compazine Iv) 5 mg IV Q4H PRN PRN PRN Reason: Breakthrough nausea/vomiting Psyllium Hydrophilic Mucilloid (Metamucil) 1 packet PO DAILY PRN PRN PRN Reason: Constipation Senna/Docusate Sodium (Senokot-S, Aurelia-Colace) 2 tablet PO BID PRN PRN PRN Reason: Constipation Sodium Chloride () 10 - 40 ml IV UD PRN PRN Reason: SALINE FLUSH Last Admin: 06/10/19 22:15 Dose: 10 ml Documented by: Throat Lozenges (Cepacol Sore Throat Lozenge) 1 lozenge MUCOUS MEM Q2H PRN PRN PRN Reason: SORE THROAT Trazodone HCl (Desyrel) 50 mg PO BID COUNTS INCLUDE 234 BEDS AT THE [facility] Last Admin: 06/11/19 09:55 Dose: 50 mg Documented by: Medical Necessity - Tobacco Use Smoking Status: Former smoker Tobacco Use: Non-smoker Assessment/Plan All Active Problems (Last Reviewed 06/07/19 @ 11:24 by Camelia Morris) COPD exacerbation (Ruled-out) Bronchitis (Acute) Pneumonia (Resolved) Asthma (Acute) RECOMMENDATIONS: 1. Aggressive blood sugar control 2. Initiate telemetry 3. BiPAP with sleep 17/13 centimeters of water 4. Wean oxygen as tolerated 5. Reasonable to continue with antibiotics, steroids and bronchodilators IMPRESSIONS: 1. Bronchiectasis exacerbation Patient has had multiple rounds of antibiotics and steroids as an outpatient, but persistent symptoms. Recent pulmonary function tests were within normal limits, excluding COPD as an option. Patient does appear to be responding well to current antibiotic therapy with improvement in fevers and subjective improvement in overall condition. Cultures are negative to this point. BNP was within normal limits, so pulmonary edema from congestive heart failure is unlikely. 2. Diabetes mellitus Patient with reasonable control at baseline with a hemoglobin A1c of 6.8 in March 2019. Patient's blood sugars have been elevated, but this would be expected given steroid therapy. Recommend progressive blood sugar control. Will check electrolytes in the morning for possible supplementation and renal function. 3. Hypertension/hyperlipidemia/morbid obesity/GERD/factor V deficiency/RUFINA/anxiety Complicates care, management, recovery and prognosis. Okay to continue with baseline medications. Patient should be placed on BiPAP at night with sleep at recommended settings as these have controlled her AHI as an outpatient. Patient reportedly had the loss of a therapy dog while hospitalized. Patient is being evaluated by social work at this time. Sitter at the bedside. Code Visit Inpatient E&M: 67345 Subs Hosp L2
[2019-06-11 11:30] LABS: Bedside Glucose 242 mg/dL (70-110)
[2019-06-11] MEDS: guaiFENesin/Codeine 5 ML UDC PO ×2 (12:27→21:50)
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
--- NOTE | 2019-06-11 14:06 | NURSING ---
Student documentation reviewed.
[2019-06-11 17:06] LABS: Bedside Glucose 259 mg/dL (70-110)
[2019-06-11] MEDS: MELATONIN 3 MG TABLET PO (21:37)
[2019-06-11] MEDS: 0.9% Saline Lock 10 ML Syringe IV (21:38)
[2019-06-11] MEDS: Atorvastatin Calcium 20 MG Tablet PO (21:38)
[2019-06-11] MEDS: Albuterol 2.5 MG/3 ML VIAL.NEB. INHALATION (22:21)
[2019-06-11 22:26] LABS: Bedside Glucose 144 mg/dL (70-110)
[2019-06-12] VITALS (9 sets, daily range): BP systolic 101–126; BP diastolic 65–86; PULSE 75–97; RESP 16–22; TEMP 36.6–37.3; O2SAT 90–95
[2019-06-12] MEDS: guaiFENesin/Codeine 5 ML UDC PO ×2 (05:17→20:01)
[2019-06-12 06:02] LABS: Absolute Lymphocyte Count 3.54 X10^3/uL (0.83-4.51); Absolute Neutrophil Count 10.3 X10^3/uL (2.0-7.7); Basophil# 0.03 X10^3/uL; Basophil% 0.2 % (0-1); Hematocrit 41.9 % (37-47); Hemoglobin 13.7 g/dL (12.0-15.0); Lymphocyte # 3.54 X10^3/ul (4.0); Lymphocyte % 23.9 % (19-41); Mean Corp Hgb Conc 32.7 g/dL (32-36); Mean Corpuscular Hgb 30.8 pg (27.0-32.0); Mean Corpuscular Volume 94.2 fL (81-99); Mean Platelet Vol. 9.9 fl (6.2-12.0); Monocyte# 0.75 X10^3/uL; Monocyte% 5.1 % (0-10); NRBC Flagged by Analyzer 0 % (0-5); Neutrophil % 69.6 % (47-70); Platelet Count 408 K/mm3 (150-450); RBC Distribution Width SD 45.1 fl (35.1-43.9); Red Blood Count 4.45 M/mm3 (4.2-5.4); White Blood Count 14.8 K/mm3 (4.4-11.0)
[2019-06-12 06:29] LABS: Anion Gap 9 (5-15); BUN 16 mg/dL (7-18); Calcium,Total 9.1 mg/dL (8.5-10.1); Chloride 98 mmol/L (98-107); Creatinine, Serum 0.89 mg/dL (0.55-1.02); EST Glomerular Filtration Rate 72 mL/min (>60); Est Glom Filt Rate - Afr Amer 87 mL/min (>60); Estimated Creatinine Clearance 65.34 ml/min; Glucose 347 mg/dL (74-106); Potassium 4.1 mmol/L (3.5-5.1); Sodium Level 135 mmol/L (136-145)
[2019-06-12] MEDS: Ipratropium/Albuterol Sulfate 3 ML AMPUL.NEB INHALATION ×3 (06:43→20:05)
[2019-06-12 07:50] LABS: Bedside Glucose 288 mg/dL (70-110)
[2019-06-12] MEDS: Insulin Lispro 100 UNIT/ML INSULN.PEN SC ×4 (08:59→21:13)
[2019-06-12] MEDS: Aspirin 81 MG TAB.CHEW PO (09:03)
[2019-06-12] MEDS: DULoxetine Hcl 60 MG Capsule PO ×2 (09:08→21:06)
[2019-06-12] MEDS: Fluticasone 0.05% 1 SPRAY NASAL.SRY 2 SPRAY NASAL ×2 (09:09→21:06)
[2019-06-12] MEDS: traZODone 50 MG Tablet PO ×2 (09:09→21:06)
[2019-06-12] MEDS: hydroCHLOROthiazide 25 MG Tablet PO (09:11)
[2019-06-12] MEDS: Enoxaparin 40 MG/0.4 ML Syringe SC (09:12)
[2019-06-12] MEDS: Pantoprazole Sodium 40 MG Tablet PO ×2 (09:13→21:06)
[2019-06-12] MEDS: Montelukast 10 MG Tablet PO (09:14)
[2019-06-12] MEDS: buPROPion (XL) 150 MG TABLET.XL PO (09:15)
[2019-06-12] MEDS: Metoprolol(XL)Succ 25 MG Tablet PO (09:15)
[2019-06-12] MEDS: Loratadine 10 MG Tablet 5 MG PO (09:21)
--- NOTE | 2019-06-12 09:31 | PN_ITS ---
Reason for Visit: pneumonia Subjective: breathing better. coughing up some phlegm. Vitals/I&O's: Vital Signs Temp Pulse Resp BP Pulse Ox 36.6 C 81 16 101/65 90 06/12/19 08:00 06/12/19 09:15 06/12/19 08:00 06/12/19 09:15 06/12/19 08:00 Oxygen Flow Rate (L/min) 1 Oxygen Delivery Method Room Air Weight: 107.8 kg Body Mass Index (BMI) 42.0 Finger Stick Blood Glucose 71 Intake and Output for Last 24 Hours 06/10/19 06/11/19 06/12/19 23:59 23:59 23:59 Intake Total 2425 / 2825 1550 / 1550 Balance 2425 / 2825 1550 / 1550 General: Alert, Cooperative, No apparent distress HEENT: Atraumatic, Normocephalic Oral: Moist Mucosa, No Gingival or Mucosal Lesions/ Ulcerations Neck: No Nodes, Trachea Midline Lungs: Normal air movement, Wheezes Cardiovascular: Regular rate, Regular Rhythm, Normal S1, Normal S2 Abdomen: Non Tender, Non-Distended Extremities: No edema, No Calf Tenderness Psych/Mental Status: Normal Affect, Appropriate Microbiology Past 72 Hours 06/09/19 20:10 Blood Culture (Wb) - No Site/Description Given Blood Culture - Preliminary No growth in 48 hours. 06/09/19 19:35 Blood Culture (Wb) - Right Hand Blood Culture - Preliminary No growth in 48 hours. 06/10/19 00:30 Mucosa - Nasopharyngeal Respiratory Panel (PCR) - Final Laboratory Results 06/11/19 11:20: POC Glucose 242 H 06/11/19 16:22: POC Glucose 259 H 06/11/19 21:34: POC Glucose 144 H 06/12/19 05:35: WBC 14.8 H, RBC 4.45, Hgb 13.7, Hct 41.9, MCV 94.2, MCH 30.8, MCHC 32.7, RDW Std Deviation 45.1 H, RDW Coeff of Roxanne 13.0, Plt Count 408, MPV 9.9, Immature Gran % (Auto) 1.200 H, Neut % (Auto) 69.6, Lymph % (Auto) 23.9, [place] % (Auto) 5.1, Eos % (Auto) 0.0, Baso % (Auto) 0.2, Absolute Neuts (auto) 10.3 H, Absolute Lymphs (auto) 3.54, Nucleated RBC % 0 06/12/19 05:35: Sodium 135 L, Potassium 4.1, Chloride 98, Carbon Dioxide 28.0, Anion Gap 9, BUN 16, Creatinine 0.89, Estim Creat Clear Calc 65.34, Est GFR (MDRD) Af Amer 87, Est GFR (MDRD) Non-Af 72, BUN/Creatinine Ratio 18.0, Glucose 347 H, Calcium 9.1 06/12/19 07:44: POC Glucose 288 H Current Medications Acetaminophen (Tylenol) 650 mg PO Q6H PRN PRN PRN Reason: Pain Score 1-10/Temp > 100.7 F Last Admin: 06/10/19 15:31 Dose: 650 mg Documented by: Al Hydroxide/Mg Hydroxide (Mylanta Ii) 30 ml PO Q6H PRN PRN PRN Reason: Gastric Burning Albuterol Sulfate (Ventolin Aerosols) 2.5 mg INHALATION Q2H PRN PRN PRN Reason: Shortness of Breath/Wheezing Last Admin: 06/11/19 22:21 Dose: 2.5 mg Documented by: Albuterol/Ipratropium (Duoneb) 3 ml INHALATION Q6HWA.RT [facility] Last Admin: 06/12/19 06:43 Dose: 3 ml Documented by: [facility] Last Admin: 06/12/19 09:03 Dose: 81 mg Documented by: Atorvastatin Calcium (Lipitor) 20 mg PO QHS [facility] Last Admin: 06/11/19 21:38 Dose: 20 mg Documented by: Bupropion HCl (Wellbutrin Xl) 150 mg PO DAILY [facility] Last Admin: 06/12/19 09:15 Dose: 150 mg Documented by: Duloxetine HCl (Cymbalta) 60 mg PO BID [facility] Last Admin: 06/12/19 09:08 Dose: 60 mg Documented by: Enoxaparin Sodium (Lovenox) 40 mg SC DAILY [facility] Last Admin: 06/12/19 09:12 Dose: 40 mg Documented by: Fluticasone Propionate (Flonase Nasal [place]) 2 spray NASAL BID [facility] Last Admin: 06/12/19 09:09 Dose: 2 spray Documented by: Glucagon () 1 mg IM .X1 PRN PRN Reason: Hypoglycemia Guaifenesin/Codeine Phosphate (Robitussin Ac) 5 ml PO Q6H PRN PRN PRN Reason: COUGH Last Admin: 06/12/19 05:17 Dose: 5 ml Documented by: Hydrochlorothiazide (Hctz) 25 mg PO DAILY [facility] Last Admin: 06/12/19 09:11 Dose: 25 mg Documented by: Ceftriaxone Sodium (Rocephin) 1 gm in 50 mls @ 100 mls/hr IV Q24 [facility] Last Infusion: 06/11/19 10:32 Dose: Infused Documented by: Dextrose (Dextrose 10%-Water) 250 mls @ 999 mls/hr IV .Q16M PRN; Protocol PRN Reason: HYPOGLYCEMIA Sodium Chloride () 250 mls @ 15 mls/hr IV .[id number] PRN PRN Reason: Saline Flush Sodium Chloride () 250 mls @ 15 mls/hr IV .[id number] PRN PRN Reason: Additional IVPB Infusion Insulin Glargine (Lantus ([facility])) 8 units SC BREAKFAST [facility] Last Admin: 06/12/19 09:04 Dose: 8 units Documented by: Insulin Human Lispro (Humalog Kwikpen ([facility])) 0 unit SC ACHS [facility]; Protocol Last Admin: 06/12/19 08:59 Dose: 9 u Documented by: Lisinopril (Zestril) 20 mg PO DAILY [facility] Last Admin: 06/11/19 09:58 Dose: 20 mg Documented by: Loratadine (Claritin) 5 mg PO DAILY [facility] Last Admin: 06/12/19 09:21 Dose: 5 mg Documented by: Magnesium Hydroxide (Milk Of Magnesia) 30 ml PO DAILY PRN PRN PRN Reason: Constipation Melatonin (Melatonin) 3 mg PO QHS PRN PRN PRN Reason: INSOMNIA Last Admin: 06/11/19 21:37 Dose: 3 mg Documented by: Methylprednisolone (Solu-Medrol) 40 mg IV Q12 [facility] Last Admin: 06/11/19 21:38 Dose: 40 mg Documented by: Metoprolol Succinate (Toprol Xl (Beta Jose)) 25 mg PO DAILY [facility] Last Admin: 06/12/19 09:15 Dose: 25 mg Documented by: Montelukast Sodium (Singulair) 10 mg PO DAILY [facility] Last Admin: 06/12/19 09:14 Dose: 10 mg Documented by: Ondansetron HCl (Zofran) 4 mg IV Q8H PRN PRN PRN Reason: NAUSEA/VOMITING Pantoprazole Sodium (Protonix) 40 mg PO BID [facility] Last Admin: 06/12/19 09:13 Dose: 40 mg Documented by: Prochlorperazine Edisylate (Compazine Iv) 5 mg IV Q4H PRN PRN PRN Reason: Breakthrough nausea/vomiting Psyllium Hydrophilic Mucilloid (Metamucil) 1 packet PO DAILY PRN PRN PRN Reason: Constipation Senna/Docusate Sodium (Senokot-S, Aurelia-Colace) 2 tablet PO BID PRN PRN PRN Reason: Constipation Sodium Chloride () 10 - 40 ml IV UD PRN PRN Reason: SALINE FLUSH Last Admin: 06/11/19 21:38 Dose: 10 ml Documented by: Throat Lozenges (Cepacol Sore Throat Lozenge) 1 lozenge MUCOUS MEM Q2H PRN PRN PRN Reason: SORE THROAT Trazodone HCl (Desyrel) 50 mg PO BID [facility] Last Admin: 06/12/19 09:09 Dose: 50 mg Documented by: STROKE Vital Signs/Narrative: Vital Signs Temp Pulse Resp BP Pulse Ox 06/12/19 09:15 81 101/65 06/12/19 08:00 36.6 C 81 16 101/65 90 06/12/19 06:43 88 18 93 Medical Necessity - Tobacco Use Smoking Status: Former smoker Tobacco Use: Non-smoker Assessment/Plan All Active Problems (Last Reviewed 06/07/19 @ 11:24 by Camelia Morris) COPD exacerbation (Ruled-out) Bronchitis (Acute) Pneumonia (Resolved) Asthma (Acute) 1. acute exacerbation of bronchiectasis * on CTX * continue pulm toilet * viral resp panel negative * CTA negative for large PE. Duplex negative. * SCx performed on 06/11, results still pending. 2. acute exacerbation of asthma * normal PFTs on 03/11/19, therefore COPD ruled-out * continue BDs * transition steroid to prednisone 3. DM2 * uncontrolled * exacerbated by steroid * a1c 04/10/19 was 6.8 * diet controlled at home. * on SSI currently * start Basal for now, then could transition to metformin upon DC while on steroids 4. Anxiety * chronic * DC'd lorazepam given resp issues and concern for long-term dependence * mental health eval pending 5. VTE prophylaxis: enoxaparin. Code Visit Inpatient E&M: 68692 Subs Hosp L2
[2019-06-12] MEDS: predniSONE 20 MG Tablet 40 MG PO (10:54)
[2019-06-12] MEDS: 0.9% Saline Lock 10 ML Syringe IV ×3 (10:55→11:35)
[2019-06-12] MEDS: Lisinopril 20 MG Tablet PO (11:09)
[2019-06-12] MEDS: Ceftriaxone 1 GM/50 ML BAG IV (11:31)
--- NOTE | 2019-06-12 12:41 | NURSING ---
Student documentation reviewed.
--- NOTE | 2019-06-12 14:54 | PCM.PN.PUL ---
Subjective: Patient continues to improve. Patient is now on room air. Patient does report some paroxysmal type coughing, but no production is noted. Patient feels that her exercise tolerance is improving, but she has not walked much outside of her room. - Physical Exam Vitals/I&O's: Vital Signs Temp Pulse Resp BP Pulse Ox 36.6 C 75 18 121/86 H 93 06/12/19 13:48 06/12/19 13:48 06/12/19 13:48 06/12/19 13:48 06/12/19 13:48 Oxygen Flow Rate (L/min) 1 Oxygen Delivery Method Room Air Weight: 107.8 kg Body Mass Index (BMI) 42.0 Finger Stick Blood Glucose 71 Intake and Output for Last 24 Hours 06/10/19 06/11/19 06/12/19 23:59 23:59 23:59 Intake Total 2425 / 2825 1550 / 1550 1077.25 / 1077.25 Balance 2425 / 2825 1550 / 1550 1077.25 / 1077.25 General: Alert, Cooperative, No apparent distress, - - Morbidly obese. Speaking in full sentences. HEENT: Atraumatic, PERRLA, EOMI, Normocephalic, - - No scleral icterus or injection noted Oral: Moist Mucosa, No Gingival or Mucosal Lesions/ Ulcerations Neck: Supple, No JVD, No Nodes, Trachea Midline Lungs: No rhonchi, No wheeze, No rales, Diminished, - - Still coughs with forced exhalation Cardiovascular: Regular rate, Regular Rhythm, Normal S1, Normal S2, No murmurs, No rub noted, No Gallop Abdomen: Bowel Sounds Present, Soft, Non Tender, Non-Distended Extremities: No clubbing, No cyanosis, Edema Skin: - - No significant change compared to previous Musculoskeletal: No Tenderness to Palpation of Joints or Extremities Lymphatic: No Cervical, Supraclavicular, or Inguinal Adenopathy Neurological: Cranial nerves II-XII grossly intact, Neuro grossly intact, Motor Exam 5/5 strength throughout Psych/Mental Status: Normal Affect, Appropriate Microbiology Past 72 Hours 06/11/19 11:43 Sputum, Expectorated/Coughed Gram Stain - Final 06/11/19 11:43 Sputum, Expectorated/Coughed Respiratory Culture - Preliminary Appears to be normal respiratory sarah. Further studies to follow. 06/09/19 20:10 Blood Culture (Wb) - No Site/Description Given Blood Culture - Preliminary No growth in 48 hours. 06/09/19 19:35 Blood Culture (Wb) - Right Hand Blood Culture - Preliminary No growth in 48 hours. 06/10/19 00:30 Mucosa - Nasopharyngeal Respiratory Panel (PCR) - Final Laboratory Results 06/11/19 16:22: POC Glucose 259 H 06/11/19 21:34: POC Glucose 144 H 06/12/19 05:35: WBC 14.8 H, RBC 4.45, Hgb 13.7, Hct 41.9, MCV 94.2, MCH 30.8, MCHC 32.7, RDW Std Deviation 45.1 H, RDW Coeff of Roxanne 13.0, Plt Count 408, MPV 9.9, Immature Gran % (Auto) 1.200 H, Neut % (Auto) 69.6, Lymph % (Auto) 23.9, [place] % (Auto) 5.1, Eos % (Auto) 0.0, Baso % (Auto) 0.2, Absolute Neuts (auto) 10.3 H, Absolute Lymphs (auto) 3.54, Nucleated RBC % 0 06/12/19 05:35: Sodium 135 L, Potassium 4.1, Chloride 98, Carbon Dioxide 28.0, Anion Gap 9, BUN 16, Creatinine 0.89, Estim Creat Clear Calc 65.34, Est GFR (MDRD) Af Amer 87, Est GFR (MDRD) Non-Af 72, BUN/Creatinine Ratio 18.0, Glucose 347 H, Calcium 9.1 06/12/19 07:44: POC Glucose 288 H Current Medications Acetaminophen (Tylenol) 650 mg PO Q6H PRN PRN PRN Reason: Pain Score 1-10/Temp > 100.7 F Last Admin: 06/10/19 15:31 Dose: 650 mg Documented by: Al Hydroxide/Mg Hydroxide (Mylanta Ii) 30 ml PO Q6H PRN PRN PRN Reason: Gastric Burning Albuterol Sulfate (Ventolin Aerosols) 2.5 mg INHALATION Q2H PRN PRN PRN Reason: Shortness of Breath/Wheezing Last Admin: 06/11/19 22:21 Dose: 2.5 mg Documented by: Albuterol/Ipratropium (Duoneb) 3 ml INHALATION Q6HWA.RT [facility] Last Admin: 06/12/19 13:44 Dose: 3 ml Documented by: Aspirin (Aspirin, Baby) 81 mg PO DAILYCM [facility] Last Admin: 06/12/19 09:03 Dose: 81 mg Documented by: Atorvastatin Calcium (Lipitor) 20 mg PO QHS [facility] Last Admin: 06/11/19 21:38 Dose: 20 mg Documented by: Bupropion HCl (Wellbutrin Xl) 150 mg PO DAILY [facility] Last Admin: 06/12/19 09:15 Dose: 150 mg Documented by: Duloxetine HCl (Cymbalta) 60 mg PO BID [facility] Last Admin: 06/12/19 09:08 Dose: 60 mg Documented by: Enoxaparin Sodium (Lovenox) 40 mg SC DAILY [facility] Last Admin: 06/12/19 09:12 Dose: 40 mg Documented by: Fluticasone Propionate (Flonase Nasal [place]) 2 spray NASAL BID [facility] Last Admin: 06/12/19 09:09 Dose: 2 spray Documented by: Glucagon () 1 mg IM .X1 PRN PRN Reason: Hypoglycemia Guaifenesin/Codeine Phosphate (Robitussin Ac) 5 ml PO Q6H PRN PRN PRN Reason: COUGH Last Admin: 06/12/19 05:17 Dose: 5 ml Documented by: Hydrochlorothiazide (Hctz) 25 mg PO DAILY [facility] Last Admin: 06/12/19 09:11 Dose: 25 mg Documented by: Ceftriaxone Sodium (Rocephin) 1 gm in 50 mls @ 100 mls/hr IV Q24 [facility] Last Infusion: 06/12/19 12:01 Dose: Infused Documented by: Dextrose (Dextrose 10%-Water) 250 mls @ 999 mls/hr IV .Q16M PRN; Protocol PRN Reason: HYPOGLYCEMIA Sodium Chloride () 250 mls @ 15 mls/hr IV .[id number] PRN PRN Reason: Saline Flush Last Infusion: 06/12/19 13:46 Dose: 0 mls/hr Documented by: Sodium Chloride () 250 mls @ 15 mls/hr IV .[id number] PRN PRN Reason: Additional IVPB Infusion Insulin Glargine (Lantus ([facility])) 8 units SC BREAKFAST [facility] Last Admin: 06/12/19 09:04 Dose: 8 units Documented by: Insulin Human Lispro (Humalog Kwikpen ([facility])) 0 unit SC ACHS [facility]; Protocol Last Admin: 06/12/19 11:08 Dose: 9 u Documented by: Lisinopril (Zestril) 20 mg PO DAILY [facility] Last Admin: 06/12/19 11:09 Dose: 20 mg Documented by: Loratadine (Claritin) 5 mg PO DAILY [facility] Last Admin: 06/12/19 09:21 Dose: 5 mg Documented by: Magnesium Hydroxide (Milk Of Magnesia) 30 ml PO DAILY PRN PRN PRN Reason: Constipation Melatonin (Melatonin) 3 mg PO QHS PRN PRN PRN Reason: INSOMNIA Last Admin: 06/11/19 21:37 Dose: 3 mg Documented by: Metoprolol Succinate (Toprol Xl (Beta Jose)) 25 mg PO DAILY [facility] Last Admin: 06/12/19 09:15 Dose: 25 mg Documented by: Montelukast Sodium (Singulair) 10 mg PO DAILY [facility] Last Admin: 06/12/19 09:14 Dose: 10 mg Documented by: Ondansetron HCl (Zofran) 4 mg IV Q8H PRN PRN PRN Reason: NAUSEA/VOMITING Pantoprazole Sodium (Protonix) 40 mg PO BID [facility] Last Admin: 06/12/19 09:13 Dose: 40 mg Documented by: Prednisone () 40 mg PO DAILY@0800 [facility] Prochlorperazine Edisylate (Compazine Iv) 5 mg IV Q4H PRN PRN PRN Reason: Breakthrough nausea/vomiting Psyllium Hydrophilic Mucilloid (Metamucil) 1 packet PO DAILY PRN PRN PRN Reason: Constipation Senna/Docusate Sodium (Senokot-S, Aurelia-Colace) 2 tablet PO BID PRN PRN PRN Reason: Constipation Sodium Chloride () 10 - 40 ml IV UD PRN PRN Reason: SALINE FLUSH Last Admin: 06/12/19 11:35 Dose: 10 ml Documented by: Throat Lozenges (Cepacol Sore Throat Lozenge) 1 lozenge MUCOUS MEM Q2H PRN PRN PRN Reason: SORE THROAT Trazodone HCl (Desyrel) 50 mg PO BID [facility] Last Admin: 06/12/19 09:09 Dose: 50 mg Documented by: Medical Necessity - Tobacco Use Smoking Status: Former smoker Tobacco Use: Non-smoker Assessment/Plan All Active Problems (Last Reviewed 06/07/19 @ 11:24 by Camelia Morris) COPD exacerbation (Ruled-out) Bronchitis (Acute) Pneumonia (Resolved) Asthma (Acute) RECOMMENDATIONS: 1. Aggressive blood sugar control 2. Increase activity as tolerated 3. BiPAP with sleep 17/13 centimeters of water 4. Wean steroids over the next 12 to 14 days 5. Reasonable to continue with antibiotics and bronchodilators IMPRESSIONS: 1. Bronchiectasis exacerbation Patient has had multiple rounds of antibiotics and steroids as an outpatient, but persistent symptoms. Recent pulmonary function tests were within normal limits, excluding COPD as an option. Patient does appear to be responding well to current antibiotic therapy with improvement in fevers and subjective improvement in overall condition. Cultures are all negative. BNP was within normal limits, so pulmonary edema from congestive heart failure is unlikely. If patient were to have a repeat deterioration after steroids and antibiotics are discontinued, bronchoscopy with BAL would likely be indicated 2. Diabetes mellitus Patient with reasonable control at baseline with a hemoglobin A1c of 6.8 in March 2019. Patient's blood sugars have been elevated, but this would be expected given steroid therapy. Recommend progressive blood sugar control. 3. Hypertension/hyperlipidemia/morbid obesity/GERD/factor V deficiency/RUFINA/anxiety Complicates care, management, recovery and prognosis. Okay to continue with baseline medications. Patient should be placed on BiPAP at night with sleep at recommended settings as these have controlled her AHI as an outpatient. Patient reportedly had the loss of a therapy dog while hospitalized. Patient evaluated by social work. Code Visit Inpatient E&M: 47179 Subs Hosp L2
[2019-06-12 16:55] LABS: Bedside Glucose 345 mg/dL (70-110)
[2019-06-12] MEDS: Atorvastatin Calcium 20 MG Tablet PO (21:06)
[2019-06-13] VITALS (9 sets, daily range): BP systolic 85–118; BP diastolic 51–82; PULSE 91–94; RESP 18; TEMP 36.4–36.6; O2SAT 90–98
[2019-06-13 00:11] LABS: Bedside Glucose 277 mg/dL (70-110)
[2019-06-13 00:11] LABS: Bedside Glucose 304 mg/dL (70-110)
[2019-06-13] MEDS: Insulin Lispro 100 UNIT/ML INSULN.PEN SC ×2 (06:29→12:25)
[2019-06-13 06:50] LABS: Bedside Glucose 159 mg/dL (70-110)
[2019-06-13] MEDS: Ipratropium/Albuterol Sulfate 3 ML AMPUL.NEB INHALATION (07:00)
[2019-06-13] MEDS: Aspirin 81 MG TAB.CHEW PO (09:05)
[2019-06-13] MEDS: predniSONE 20 MG Tablet 40 MG PO (09:06)
[2019-06-13] MEDS: Loratadine 10 MG Tablet 5 MG PO (09:06)
[2019-06-13] MEDS: DULoxetine Hcl 60 MG Capsule PO (09:07)
[2019-06-13] MEDS: Fluticasone 0.05% 1 SPRAY NASAL.SRY 2 SPRAY NASAL (09:08)
[2019-06-13] MEDS: traZODone 50 MG Tablet PO (09:08)
[2019-06-13] MEDS: hydroCHLOROthiazide 25 MG Tablet PO (09:09)
[2019-06-13] MEDS: Ceftriaxone 1 GM/50 ML BAG IV (09:09)
[2019-06-13] MEDS: Enoxaparin 40 MG/0.4 ML Syringe SC (09:09)
[2019-06-13] MEDS: 0.9% Saline Lock 10 ML Syringe IV (09:09)
[2019-06-13] MEDS: Pantoprazole Sodium 40 MG Tablet PO (09:09)
[2019-06-13] MEDS: Montelukast 10 MG Tablet PO (09:10)
[2019-06-13] MEDS: buPROPion (XL) 150 MG TABLET.XL PO (09:11)
[2019-06-13] MEDS: Senna/Docusate Sodium 1 Tablet 2 TABLET PO (09:12)
[2019-06-13] MEDS: guaiFENesin/Codeine 5 ML UDC PO (09:12)
[2019-06-13] MEDS: Metoprolol(XL)Succ 25 MG Tablet PO (09:17)
[2019-06-13] MEDS: Lisinopril 20 MG Tablet PO (09:17)
--- NOTE | 2019-06-13 10:44 | NURSING ---
PT AMBULATED IN REYES ON RA. O2 SAT 94%, BUT PT C/O SOB & VERY HARSH BARKY COUGH. ASKED TO RETURN TO ROOM.
--- NOTE | 2019-06-13 11:31 | PCM.DC ---
You will use the following diet at home:: Calorie/Carbohydrate Controlled (specify 1200, 1400, etc) - 1800 Discharge Activity: Return to Normal Activity Call your doctor if you observe: Fever of 101 or Higher, Shortness of breath Allergies/Adverse Reactions: Allergies latex Adverse Reaction (Verified 06/09/19 18:56) Hives Medications to take at Discharge Aspirin 81 mg PO DAILY #0 09/27/15 Lisinopril [Zestril] 20 mg PO DAILY 09/27/15 Montelukast [Singulair] 10 mg PO DAILY 09/27/15 Multivitamins,Ther W-Minerals [Multivitamin With Minerals ([facility])] 1 tab PO DAILY 09/27/15 [place]-3 Fatty Acids/Fish Oil [Fish Oil 1,000 mg Softgel] 2 ea PO BID 09/27/15 Simvastatin [Zocor] 40 mg PO QHS 09/27/15 Hydrochlorothiazide [Hctz] 25 mg PO DAILY 01/30/16 Calcium Carbonate [Calcium] 600 mg PO DAILY 01/22/18 Potassium Gluconate 500 mg PO DAILY 01/22/18 Bupropion HCl [Wellbutrin Xl] 150 mg PO DAILY 06/22/18 cholecalciferol (vitamin D3) 125 mcg (5,000 unit) capsule 10,000 unit PO DAILY 12/07/18 Naproxen [Naprosyn] 500 mg PO BID PRN PRN #20 tab 01/30/19 blood sugar diagnostic See Rx Instructions .ROUTE .MEDSUPPLY #150 ea 05/09/19 codeine 10 mg-guaifenesin 100 mg/5 mL oral liquid 5 ml PO Q6H PRN #120 ml 06/04/19 Budesonide/Formoterol 160/4.5 [Symbicort 160/4.5 Mcg Inhaler (SP)] 2 puff INHALATION BID 06/09/19 Duloxetine HCl 60 mg PO BID 06/09/19 Fluconazole 150 mg PO QWEEK 06/09/19 Fluticasone Propionate 2 spray INTRANASAL BID 06/09/19 Levocetirizine Dihydrochloride 5 mg PO DAILY 06/09/19 Metoprolol Succinate [Toprol Xl] 25 mg PO DAILY 06/09/19 Pantoprazole Sodium 40 mg PO BID 06/09/19 traZODone [Desyrel] 50 mg PO BID 06/09/19 Albuterol Aerosols [Ventolin Aerosols] 2.5 mg INHALATION Q2H PRN PRN #30 vial.neb. 06/13/19 Albuterol Inhaler [Ventolin Hfa] 1 - 2 puff INHALATION Q4H PRN PRN #1 inhaler 06/13/19 Amoxicillin [Amoxil] 1,000 mg PO Q8H #18 cap 06/13/19 Nebulizer [Compact Compressor Nebulizer] 1 ea MC Q2H PRN #1 ea 06/13/19 Prednisone See Rx Instructions PO QDAY #30 tab 06/13/19 The following prescriptions were given: Amoxicillin [Amoxil] 1,000 mg PO Q8H #18 cap Transmission Status: Pending to [id number] Nebulizer [Compact Compressor Nebulizer] 1 ea MC Q2H PRN #1 ea PRN Reason: Shortness Of Breath Transmission Status: Pending to [id number] Prednisone See Rx Instructions PO QDAY #30 tab Transmission Status: Pending to [id number] Albuterol Aerosols [Ventolin Aerosols] 2.5 mg INHALATION Q2H PRN PRN #30 vial.neb. PRN Reason: Shortness of Breath/Wheezing Transmission Status: Pending to [id number] Albuterol Inhaler [Ventolin Hfa] 1 - 2 puff INHALATION Q4H PRN PRN #1 inhaler PRN Reason: Shortness Of Breath Transmission Status: Pending to [id number] Primary Care Physician: Jose Loving MD [Primary Care Provider] - 06/21/19 Please follow up with your Primary Care Physician in: previously scheduled Test Results: Test results from this visit will be discussed in further detail at your follow-up appointment, if applicable. Please Follow Up With: Oneyda Brown NP-C When: 07/08/2019, previously scheduled Please Follow Up With: jose coronado When: 08/20/2019, previously scheduled Proposed Discharge Date: 06/13/19
--- NOTE | 2019-06-13 11:34 | DS.PCM_ITS ---
Discharge Date and Diagnosis Date of Admission: 06/09/19 Date of Discharge: 06/13/19 - Primary Discharge Diagnosis 1. acute exacerbation of bronchiectasis * on CTX * continue pulm toilet * viral resp panel negative * CTA negative for large PE. Duplex negative. * SCx performed on 06/11, results still pending. 2. acute exacerbation of asthma * normal PFTs on 03/11/19, therefore COPD ruled-out * continue BDs * transition steroid to prednisone 3. DM2 * uncontrolled * exacerbated by steroid * a1c 04/10/19 was 6.8 * diet controlled at home. * on SSI currently * start Basal for now, then could transition to metformin upon DC while on steroids - Secondary Discharge Diagnosis Chronic Problems (Last Reviewed 06/07/19 @ 11:24 by Camelia Morris) Factor V Leiden (Chronic) Anxiety and depression (Chronic) Bronchiectasis (Chronic) RUFINA (obstructive sleep apnea) (Chronic) DASCO Venous insufficiency of both lower extremities (Chronic) Type 2 diabetes mellitus (Chronic) Iatrogenic pneumothorax (Chronic) Sleep apnea (Chronic) Frequent sinus infections (Chronic) Anxiety (Chronic) Depression (Chronic) Hospitalized [facility] from age [age] Vision problems (Chronic) GERD (gastroesophageal reflux disease) (Chronic) Fatty liver (Chronic) Hyperlipidemia (Chronic) COPD (chronic obstructive pulmonary disease) (Chronic) H/O emotional problems (Chronic) Diabetes (Chronic) Chronic bronchitis (Chronic) factor,sleiden (Chronic) Seasonal allergies (Chronic) COPD (chronic obstructive pulmonary disease) (Chronic) Chronic cough (Chronic) Bronchiectasis (Chronic) Diabetes mellitus type 2 in obese (Chronic) Hypertension (Chronic) Morbid obesity (Chronic) Hospital Course and Treatment Imaging Results: Clinical Impression(s) from Imaging Studies Chest X-Ray 06/09/19 19:20 IMPRESSION: Persistent left basilar atelectasis or infiltrate and nonspecific interstitial thickening at the right base Electronically Signed: Ignacio Mishra MD at 19:43 EST , Service support , Chest CTA 06/09/19 20:41 IMPRESSION: Multifocal patchy areas of groundglass opacity consistent with nonspecific alveolitis possibly due to inflammatory changes Bibasilar subsegmental atelectasis greater on the left No definitive evidence for pulmonary embolus however examination is less than optimal due to poor bolus technique and if strong clinical suspicion for pulmonary embolus Doppler scan of the deep venous system of lower extremities is recommended for further assessment. Electronically Signed: Ignacio Mishra MD at 21:31 EST , Service support , Consultations 06/11/19 08:45 Consult: Mental Health/Crisis Routine Reason for consult?: PT STATED SUICIDAL IDEATIONS Date Notified:: 06/11/19 Time notified:: 08:46 pulm: dr. Hernandez Operations: None Procedures: None Summary of Care Provided: The patient is a 48 year old F presents with cough. Patient had been on antibiotics previously and was not getting better presented to the emergency room. The patient had a chest x-ray that showed a persistent left basilar atelectasis. On the , patient had sputum culture that was positive for Haemophilus influenza. Patient was started on ceftriaxone while she was here. CT angiogram of the chest showed multifocal patchy areas of groundglass opacity consistent with nonspecific alveolitis possibly due to inflammatory changes. Bibasilar subsegmental atelectasis greater than the left. Patient was seen in consultation by pulmonology who diagnosed patient with acute exacerbation of bronchiectasis and recommended antibiotics as well as steroids. Patient was monitored and overall has done well. Patient will be transitioned over to amoxicillin complete a 10-day course of antibiotics and patient be on a taper of steroids over the next 14 days. Patient's blood sugar has been uncontrolled and has required insulin here. Patient's previous hemoglobin A1c back in March was 6.8. Patient will be put on metformin while she is on steroids. Overall patient is doing well and will be discharged. Patient already has follow appointments with pulmonology for next month. Additionally, patient will receive a nebulizer as well as albuterol aerosols. [] - Physical Exam Vitals/I&O's: Vital Signs Temp Pulse Resp BP Pulse Ox 36.4 C L 91 18 117/82 H 94 06/13/19 07:31 06/13/19 09:18 06/13/19 07:31 06/13/19 09:18 06/13/19 10:44 Oxygen Flow Rate (L/min) 1 Oxygen Delivery Method Room Air Weight: 107.8 kg Body Mass Index (BMI) 42.0 Finger Stick Blood Glucose 71 Intake and Output for Last 24 Hours 06/11/19 06/12/19 06/13/19 23:59 23:59 23:59 Intake Total 1550 / 1550 1877.25 / 2377.25 790 / 790 Balance 1550 / 1550 1877.25 / 2377.25 790 / 790 General: Alert, No apparent distress HEENT: Atraumatic, Normocephalic Oral: Moist Mucosa Lungs: Normal air movement, Wheezes Cardiovascular: Regular rate, Regular Rhythm, Normal S1, Normal S2, No murmurs Abdomen: Bowel Sounds Present, Soft, Non Tender, Non-Distended, No Hepato- splenomegaly Psych/Mental Status: Normal Affect, Appropriate Microbiology Past 72 Hours 06/11/19 11:43 Sputum, Expectorated/Coughed Gram Stain - Final 06/11/19 11:43 Sputum, Expectorated/Coughed Respiratory Culture - Final 06/09/19 20:10 Blood Culture (Wb) - No Site/Description Given Blood Culture - Preliminary No growth in 48 hours. 06/09/19 19:35 Blood Culture (Wb) - Right Hand Blood Culture - Preliminary No growth in 48 hours. 06/10/19 00:30 Mucosa - Nasopharyngeal Respiratory Panel (PCR) - Final Laboratory Results 06/12/19 11:02: POC Glucose 304 H 06/12/19 16:49: POC Glucose 345 H 06/12/19 21:12: POC Glucose 277 H 06/13/19 06:28: POC Glucose 159 H Current Medications Acetaminophen (Tylenol) 650 mg PO Q6H PRN PRN PRN Reason: Pain Score 1-10/Temp > 100.7 F Last Admin: 06/10/19 15:31 Dose: 650 mg Documented by: Al Hydroxide/Mg Hydroxide (Mylanta Ii) 30 ml PO Q6H PRN PRN PRN Reason: Gastric Burning Albuterol Sulfate (Ventolin Aerosols) 2.5 mg INHALATION Q2H PRN PRN PRN Reason: Shortness of Breath/Wheezing Last Admin: 06/11/19 22:21 Dose: 2.5 mg Documented by: Albuterol/Ipratropium (Duoneb) 3 ml INHALATION Q6HWA.RT PRAMOD Last Admin: 06/13/19 07:00 Dose: 3 ml Documented by: Aspirin (Aspirin, Baby) 81 mg PO DAILYCM [facility] Last Admin: 06/13/19 09:05 Dose: 81 mg Documented by: Atorvastatin Calcium (Lipitor) 20 mg PO QHS [facility] Last Admin: 06/12/19 21:06 Dose: 20 mg Documented by: Bupropion HCl (Wellbutrin Xl) 150 mg PO DAILY [facility] Last Admin: 06/13/19 09:11 Dose: 150 mg Documented by: Duloxetine HCl (Cymbalta) 60 mg PO BID [facility] Last Admin: 06/13/19 09:07 Dose: 60 mg Documented by: Enoxaparin Sodium (Lovenox) 40 mg SC DAILY [facility] Last Admin: 06/13/19 09:09 Dose: 40 mg Documented by: Fluticasone Propionate (Flonase Nasal [place]) 2 spray NASAL BID [facility] Last Admin: 06/13/19 09:08 Dose: 2 spray Documented by: Glucagon () 1 mg IM .X1 PRN PRN Reason: Hypoglycemia Guaifenesin/Codeine Phosphate (Robitussin Ac) 5 ml PO Q6H PRN PRN PRN Reason: COUGH Last Admin: 06/13/19 09:12 Dose: 5 ml Documented by: Hydrochlorothiazide (Hctz) 25 mg PO DAILY [facility] Last Admin: 06/13/19 09:09 Dose: 25 mg Documented by: Ceftriaxone Sodium (Rocephin) 1 gm in 50 mls @ 100 mls/hr IV Q24 [facility] Last Infusion: 06/13/19 09:39 Dose: Infused Documented by: Dextrose (Dextrose 10%-Water) 250 mls @ 999 mls/hr IV .Q16M PRN; Protocol PRN Reason: HYPOGLYCEMIA Sodium Chloride () 250 mls @ 15 mls/hr IV .[id number] PRN PRN Reason: Saline Flush Last Infusion: 06/12/19 13:46 Dose: 0 mls/hr Documented by: Sodium Chloride () 250 mls @ 15 mls/hr IV .[id number] PRN PRN Reason: Additional IVPB Infusion Insulin Glargine (Lantus (Bk)) 8 units SC BREAKFAST [facility] Last Admin: 06/13/19 09:05 Dose: 8 units Documented by: Insulin Human Lispro (Humalog Kwikpen (Bk)) 0 unit SC ACHS [facility]; Protocol Last Admin: 06/13/19 06:29 Dose: 3 u Documented by: Lisinopril (Zestril) 20 mg PO DAILY [facility] Last Admin: 06/13/19 09:17 Dose: 20 mg Documented by: Loratadine (Claritin) 5 mg PO DAILY [facility] Last Admin: 06/13/19 09:06 Dose: 5 mg Documented by: Magnesium Hydroxide (Milk Of Magnesia) 30 ml PO DAILY PRN PRN PRN Reason: Constipation Melatonin (Melatonin) 3 mg PO QHS PRN PRN PRN Reason: INSOMNIA Last Admin: 06/11/19 21:37 Dose: 3 mg Documented by: Metoprolol Succinate (Toprol Xl (Beta Jose)) 25 mg PO DAILY [facility] Last Admin: 06/13/19 09:17 Dose: 25 mg Documented by: Montelukast Sodium (Singulair) 10 mg PO DAILY [facility] Last Admin: 06/13/19 09:10 Dose: 10 mg Documented by: Ondansetron HCl (Zofran) 4 mg IV Q8H PRN PRN PRN Reason: NAUSEA/VOMITING Pantoprazole Sodium (Protonix) 40 mg PO BID [facility] Last Admin: 06/13/19 09:09 Dose: 40 mg Documented by: Prednisone () 40 mg PO DAILY@0800 [facility] Last Admin: 06/13/19 09:06 Dose: 40 mg Documented by: Prochlorperazine Edisylate (Compazine Iv) 5 mg IV Q4H PRN PRN PRN Reason: Breakthrough nausea/vomiting Psyllium Hydrophilic Mucilloid (Metamucil) 1 packet PO DAILY PRN PRN PRN Reason: Constipation Senna/Docusate Sodium (Senokot-S, Aurelia-Colace) 2 tablet PO BID PRN PRN PRN Reason: Constipation Last Admin: 06/13/19 09:12 Dose: 2 tablet Documented by: Sodium Chloride () 10 - 40 ml IV UD PRN PRN Reason: SALINE FLUSH Last Admin: 06/13/19 09:09 Dose: 10 ml Documented by: Throat Lozenges (Cepacol Sore Throat Lozenge) 1 lozenge MUCOUS MEM Q2H PRN PRN PRN Reason: SORE THROAT Trazodone HCl (Desyrel) 50 mg PO BID [facility] Last Admin: 06/13/19 09:08 Dose: 50 mg Documented by: Discharge Diet: 1800 Calorie Control Diet Discharge Activity: Return to Normal Activity Call your doctor if you observe: Fever of 101 or Higher, Shortness of breath Home Medications: Medications to take at Discharge Aspirin 81 mg PO DAILY #0 09/27/15 Lisinopril [Zestril] 20 mg PO DAILY 09/27/15 Montelukast [Singulair] 10 mg PO DAILY 09/27/15 Multivitamins,Ther W-Minerals [Multivitamin With Minerals (BKC)] 1 tab PO DAILY 09/27/15 [place]-3 Fatty Acids/Fish Oil [Fish Oil 1,000 mg Softgel] 2 ea PO BID 09/27/15 Simvastatin [Zocor] 40 mg PO QHS 09/27/15 Hydrochlorothiazide [Hctz] 25 mg PO DAILY 01/30/16 Calcium Carbonate [Calcium] 600 mg PO DAILY 01/22/18 Potassium Gluconate 500 mg PO DAILY 01/22/18 Bupropion HCl [Wellbutrin Xl] 150 mg PO DAILY 06/22/18 cholecalciferol (vitamin D3) 125 mcg (5,000 unit) capsule 10,000 unit PO DAILY 12/07/18 Naproxen [Naprosyn] 500 mg PO BID PRN PRN #20 tab 01/30/19 blood sugar diagnostic See Rx Instructions .ROUTE .MEDSUPPLY #150 ea 05/09/19 codeine 10 mg-guaifenesin 100 mg/5 mL oral liquid 5 ml PO Q6H PRN #120 ml 06/04/19 Budesonide/Formoterol 160/4.5 [Symbicort 160/4.5 Mcg Inhaler (SP)] 2 puff INHALATION BID 06/09/19 Duloxetine HCl 60 mg PO BID 06/09/19 Fluconazole 150 mg PO QWEEK 06/09/19 Fluticasone Propionate 2 spray INTRANASAL BID 06/09/19 Levocetirizine Dihydrochloride 5 mg PO DAILY 06/09/19 Metoprolol Succinate [Toprol Xl] 25 mg PO DAILY 06/09/19 Pantoprazole Sodium 40 mg PO BID 06/09/19 traZODone [Desyrel] 50 mg PO BID 06/09/19 Albuterol Aerosols [Ventolin Aerosols] 2.5 mg INHALATION Q2H PRN PRN #30 vial.neb. 06/13/19 Albuterol Inhaler [Ventolin Hfa] 1 - 2 puff INHALATION Q4H PRN PRN #1 inhaler 06/13/19 Amoxicillin [Amoxil] 1,000 mg PO Q8H #18 cap 06/13/19 Metformin HCl 500 mg PO DAILY #14 solution 06/13/19 Nebulizer [Compact Compressor Nebulizer] 1 ea MC Q2H PRN #1 ea 06/13/19 Prednisone See Rx Instructions PO QDAY #30 tab 06/13/19 Following Prescrptions Were Given to Patient: Amoxicillin [Amoxil] 1,000 mg PO Q8H #18 cap Transmission Status: Pending to [id number] Nebulizer [Compact Compressor Nebulizer] 1 ea MC Q2H PRN #1 ea PRN Reason: Shortness Of Breath Transmission Status: Pending to [id number] Metformin HCl 500 mg PO DAILY #14 solution Transmission Status: Received by [id number] Prednisone See Rx Instructions PO QDAY #30 tab Transmission Status: Pending to [id number] Albuterol Aerosols [Ventolin Aerosols] 2.5 mg INHALATION Q2H PRN PRN #30 vial.neb. PRN Reason: Shortness of Breath/Wheezing Transmission Status: Pending to [id number] Albuterol Inhaler [Ventolin Hfa] 1 - 2 puff INHALATION Q4H PRN PRN #1 inhaler PRN Reason: Shortness Of Breath Transmission Status: Pending to [id number] Primary Care Physician: Jose Loving MD [Primary Care Provider] - 06/21/19 Please follow up with your Primary Care Physician in: previously scheduled Please Follow Up With: Oneyda Brown NP-C When: 07/08/2019, previously scheduled Please Follow Up With: jose coronado When: 08/20/2019, previously scheduled Disposition: Home Minutes spent on discharge:: 32 Patient Condition:: Good Medical Necessity - Tobacco Use Smoking Status: Former smoker Tobacco Use: Non-smoker Meaningful Use Info Meaningful Use Diagnoses (Choose all that apply): None applicable Code Visit Inpatient E&M: 15719 Disch Hosp
[2019-06-13 11:46] LABS: Bedside Glucose 335 mg/dL (70-110)
--- NOTE | 2019-06-13 11:54 | CASEMGMT ---
Social Work Note Pt is discharging home today. SW in to speak with pt to check in with pt. Pt states that it is going to be difficult to go home and not see her dog. SW offered support to pt. Pt states that she has had many visitors while at [facility] and states that there will be someone at home with her when she discharges. Pt confirms that she has an appointment with her counselor tomorrow at [facility] at 10:00am. Pt states that she will be sharing her safety plan that she created with her counselor. SW asked pt about any suicidal plan or intent at this time and pt denied any suicidal plan or intent. Pt states that she feels supported. SW encouraged pt to review safety plan at any time she feels she needs to and to use her coping skills. SW reminded pt of crisis numbers. Pt thanked this worker, denied additional needs or concerns a this time. Sandy Soto [employer]USSIAN RUBBER, FOOD SERVICE AMBASSADOR
--- NOTE | 2019-06-14 14:13 | CASEMGMT ---
[facility] PHONE CALL DC DATE: 06.13.2019 DC Disposition: Home Diagnosis on Discharge: acute exacerbation of COPD LACE/STRATA: 07/08 Attempted call to pt's phone. No answer, and no message machine with name identifier. Caleb FREY RN ACM
== END 2019-06-13 13:59 | disposition home or self-care (01) | DRG 140 ==
LOC: ED 22:14 → MS3 22:38
PROVIDERS: Internal Medicine; Internal Medicine Critical Care Medicine; Admitting Provider Family Medicine; Emergency Provider Emergency Medicine; PCP Internal Medicine
DX: J47.1 Bronchiectasis with (acute) exacerbation (principal); I10 Essential (primary) hypertension; J45.41 Moderate persistent asthma with (acute) exacerbation; E78.5 Hyperlipidemia, unspecified; E66.01 Morbid (severe) obesity due to excess calories; K21.9 Gastro-esophageal reflux disease without esophagitis; Z86.711 Personal history of pulmonary embolism; D68.51 Activated protein C resistance; G47.33 Obstructive sleep apnea (adult) (pediatric); Z87.891 Personal history of nicotine dependence; Z68.41 Body mass index [BMI] 40.0-44.9, adult; E11.65 Type 2 diabetes mellitus with hyperglycemia; F41.9 Anxiety disorder, unspecified; F32.9 Major depressive disorder, single episode, unspecified; I87.2 Venous insufficiency (chronic) (peripheral)
CPT/HCPCS: 36415; 71045; 71275; 80048; 82962; 83605; 83880; 85025; 87040; 87070; 87205; 87633; 93005; 93970; 94640; 99251; 99285; 99406; J7030; J7040; J7050; Q9967; A4216; G0463

== ENCOUNTER 2019-07-22 13:42 | Emergency (ER) | payer MEDICAID, SELFPAY ==
[2019-07-19 11:14] VITALS: BMI 41.6
[2019-07-22 13:43] VITALS: BP 135/79; PULSE 98; RESP 18; TEMP 35.6; O2SAT 98; BMI 41.6
--- NOTE | 2019-07-22 14:03 | ED.DCSUM_ITS ---
History of Present Illness Chief Complaint: Cough Informant: Patient Onset: Today Narrative: 49-year-old female with a pulmonary history of bronchiectasis reports continued shortness of breath and cough for 2 weeks. Patient was admitted into the hospital in mid May with similar symptoms and apparently grew out Haemophilus influenza in her sputum. She states that she recovered but then developed some sinus drainage and now continuous shortness of breath and cough. She did visit with her primary care physician and was prescribed Augmentin and burst dose prednisone last . She did a virtual visit with pulmonology on Monday. Patient notes no improvement. She has no confirmed fever at home but states that she is often hot and cold. She notes continued nasal drainage. She now states that it hurts when she takes a deep breath. Also hurts when she coughs. She has been using her nebulizer multiple times a day which provides temporary improvement. Past Medical History - Allergies and Home Meds Allergies/Adverse Reactions: Allergies latex Adverse Reaction (Verified 07/22/19 13:46) Hives Primary Care Physician: Jose Loving MD [Primary Care Provider] - Surgical History: no surgical history Smoking Status: Former smoker - Family History Maternal Family History: Family History (Last Reviewed 07/19/19 @ 14:37 by NAOMY PaniaguaC) Mother Alcoholism Asthma Depression hormone problem Respiratory disease Suicide attempt Drug abuse Hepatitis C Brother Alcoholism Asthma Diabetes Respiratory disease Drug abuse Grandmother Depression Psychiatric care Father Diabetes Hypertension Respiratory disease Emphysema of lung Other Bronchitis Dementia Heart disease Family History: Reports: Pulmonary Disease, - - Additionally maternal family history of alcoholism, drug abuse, hepatitis C, anxiety and depression with suicide attempts. Paternal Family History: Family History (Last Reviewed 07/19/19 @ 14:37 by NAOMY PaniaguaC) Mother Alcoholism Asthma Depression hormone problem Respiratory disease Suicide attempt Drug abuse Hepatitis C Brother Alcoholism Asthma Diabetes Respiratory disease Drug abuse Grandmother Depression Psychiatric care Father Diabetes Hypertension Respiratory disease Emphysema of lung Other Bronchitis Dementia Heart disease Family History: Reports: Diabetes, Heart Disease, Pulmonary Disease Review of Systems General: Reports: Chills, Subjective. Denies: Fever, Sweats Eyes: Denies: Visual changes - bilaterally, Diplopia ENT: Reports: Rhinorrhea. Denies: Sore throat Cardiovascular: Reports: Chest pain. Denies: Palpitations Respiratory: Reports: Dyspnea, Cough. Denies: Dyspnea on exertion Gastrointestinal: Denies: Abdominal pain, Nausea, Vomiting, Diarrhea, Melena, Hematochezia Genitourinary: Denies: Dysuria, Hematuria, Frequency Musculoskeletal: Denies: Back pain, Extremity Pain Skin: Denies: Rash, Wounds Neurological: Denies: Headache, Weakness, Numbness Physical Exam Vital Signs/Narrative: Vital Signs Temp Pulse Resp BP Pulse Ox 07/22/19 13:43 96.1 F L 98 18 135/79 H 98 Inital Vital Signs reviewed: Yes General: Well nourished, Well developed, No Acute Distress Head: Normocephalic, Atraumatic Eyes: Perrl, EOMI ENT: Moist mucous membranes, Nasal congestion, - - There is evidence of postnasal drip Neck: Supple, Nontender Cardiovascular: Regular rate, Regular rhythm, No murmurs Respiratory: No distress, CTA bilaterally, Chest nontender Abdomen: Soft, Nontender, Nondistended, Normal bowel sounds Back: Nontender, Normal Inspection Extremities: Nontender, No edema Skin: Normal color, No rash Neurological: Alert, Oriented x3, Cranial nerves II-XII grossly intact, Normal Strength, Normal Sensation Psychological: Normal affect, Normal Mood Diagnostic/Tx/Re-eval - EKG Initial EKG Interpretation: Sinus Rhythm - EKG shows a normal sinus rhythm at a rate of 84 without ectopy. - Medical Decision Making Patient blood work was normal. Troponin negative. CTA of the chest was negative for infiltrate effusion opacities or pulmonary embolism. No obvious dissection. I believe the patient's pain is due to her coughing. I think that her cough is due to postnasal drip and her sinusitis. 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 ED Disposition - Plan for ED Patient: Diagnosis: Sinusitis, Dyspnea, Chest pain Instructions: ED Sinusitis Antibiotic Treatment Referrals: Jose Loving MD [Primary Care Provider] - As Needed
--- NOTE | 2019-07-22 14:18 | EKG12_ITS ---
Test Reason : CP/SOB Blood Pressure : / mmHG Vent. Rate : 084 BPM Atrial Rate : 084 BPM P-R Int : 158 ms QRS Dur : 086 ms QT Int : 382 ms P-R-T Axes : 013 054 022 degrees QTc Int : 451 ms Normal sinus rhythm Normal ECG Confirmed by ORLIN GARZA, WAYNE ([id number]), food expeditor DOREEN MATHEW ([id number]) on 07/24/2019 9:36:26 AM Referred By: JACK Confirmed By:WAYNE ORDAZ MD
[2019-07-22 14:28] VITALS: BP 118/74; PULSE 89; RESP 18; TEMP 35.6; O2SAT 98
[2019-07-22 14:31] VITALS: O2SAT 98
[2019-07-22 14:51] LABS: Absolute Lymphocyte Count 2.39 X10^3/uL (0.83-4.51); Absolute Neutrophil Count 9.6 X10^3/uL (2.0-7.7); Basophil# 0.05 X10^3/uL; Basophil% 0.4 % (0-1); Eosinophil# 0.01 X10^3/uL; Eosinophils% 0.1 % (0-5); Hematocrit 42.6 % (37-47); Lymphocyte # 2.39 X10^3/ul (4.0); Lymphocyte % 19.1 % (19-41); Mean Corp Hgb Conc 32.9 g/dL (32-36); Mean Corpuscular Hgb 30.4 pg (27.0-32.0); Mean Corpuscular Volume 92.4 fL (81-99); Mean Platelet Vol. 10.6 fl (6.2-12.0); Monocyte# 0.38 X10^3/uL; NRBC Flagged by Analyzer 0 % (0-5); Neutrophil # 9.55 X10^3/uL (2.7-7.7); Neutrophil % 76.5 % (47-70); Platelet Count 335 K/mm3 (150-450); RBC Distribution Width CV 13.6 % (11.6-14.6); RBC Distribution Width SD 46.3 fl (35.1-43.9); Red Blood Count 4.61 M/mm3 (4.2-5.4); White Blood Count 12.5 K/mm3 (4.4-11.0)
[2019-07-22 15:05] LABS: ALB/GLOB Ratio 0.9 RATIO (0.9-2.4); AST(SGOT) 16 U/L (15-37); Alanine Aminotransfer ALT/SGPT 27 U/L (13-56); Albumin, Serum 3.6 g/dL (3.2-5.0); Alkaline Phosphatase 65 U/L (45-117); Anion Gap 8 (5-15); BUN 7 mg/dL (7-18); Chloride 103 mmol/L (98-107); Creatinine, Serum 0.78 mg/dL (0.55-1.02); EST Glomerular Filtration Rate 84 mL/min (>60); Est Glom Filt Rate - Afr Amer 102 mL/min (>60); Estimated Creatinine Clearance 73.76 ml/min; Globulin 4.2 g/dL (2.2-4.2); Glucose 199 mg/dL (74-106); Potassium 3.7 mmol/L (3.5-5.1); Protein, Total 7.8 g/dL (6.4-8.2); Sodium Level 138 mmol/L (136-145)
--- NOTE | 2019-07-22 15:09 | CT_ITS ---
STUDY: CTA CHEST REASON FOR EXAM: Female, 49 years old. DYSPNEA X 2 WKS, COUGH, COPD, ASTHMA, HTN, DB, FACTOR 5 RADIATION DOSAGE (If Supplied By Facility): CTDIvol = ( 12.66 ) mGy, DLP = ( 507.8 ) mGycm TECHNIQUE: The examination was performed with the intravenous administration of IV 100mL Optiray 350. Post-processing of the angiographic images was performed, with multiplanar reformation and 3D reconstruction. Individualized dose optimization techniques were used for this CT. COMPARISON: 06/09/2019 FINDINGS: Normal enhancement of the main pulmonary artery and right and left pulmonary arteries. Normal enhancement of the bilateral peripheral pulmonary arteries. There is no demonstrated pulmonary embolism. Normal thoracic aorta and visualized great vessels. There is no demonstrated aortic dissection. Normal heart and pericardium. Normal mediastinum. Normal hilar regions. Normal visualized trachea and bronchi. The lungs are well expanded. Normal pulmonary parenchyma. Normal pleura. Normal chest wall structures. Normal osseous structures. Normal visualized upper abdomen. CT/CTA Chest W/WO Contrast IMPRESSION: Normal CTA chest examination, without a demonstrated pulmonary embolism or arterial dissection. Electronically Signed: Oliver Barr MD at 15:50 EDT Tel , Service support ,
[2019-07-22 15:43] VITALS: BP 109/53; PULSE 86; RESP 19; O2SAT 96
[2019-07-22 16:00] VITALS: O2SAT 98
[2019-07-22 16:44] VITALS: BP 124/79; PULSE 83; RESP 20; O2SAT 98
--- NOTE | 2019-07-22 16:45 | ED.RN ---
THIS NURSE REVIEWED D/C INSTRUCTIONS WITH PT. PT VERBALIZED UNDERSTANDING OF INSTRUCTIONS. IV D/C. IV CATHETER INTACT. PT TOLERATED WELL. PT DENIES FURTHER NEEDS OR QUESTIONS AT THIS TIME. PT AMBULATES FROM ROOM ON OWN WITHOUT ASSISTANCE FROM STAFF
== END 2019-07-22 16:48 | disposition home or self-care (01) ==
PROVIDERS: Emergency Provider Emergency Medicine; PCP Internal Medicine
DX: J32.9 Chronic sinusitis, unspecified (principal); R06.00 Dyspnea, unspecified; R07.9 Chest pain, unspecified; Z87.891 Personal history of nicotine dependence
CPT/HCPCS: 71275; 80053; 84484; 85025; 93005; 99284; Q9967; A4216

== ENCOUNTER → 2019-08-12 09:56 | Outpatient (CLI) | payer MEDICAID, SELFPAY ==
[2019-08-07 08:06] VITALS: BMI 42.0
[2019-08-12 10:36] LABS: Absolute Lymphocyte Count 4.37 X10^3/uL (0.83-4.51); Absolute Neutrophil Count 7.4 X10^3/uL (2.0-7.7); Basophil# 0.08 X10^3/uL; Basophil% 0.6 % (0-1); Eosinophil# 0.49 X10^3/uL; Eosinophils% 3.6 % (0-5); Hemoglobin 15.2 g/dL (12.0-15.0); Lymphocyte # 4.37 X10^3/ul (4.0); Lymphocyte % 32.4 % (19-41); Mean Corpuscular Hgb 31.1 pg (27.0-32.0); Mean Corpuscular Volume 94.1 fL (81-99); Mean Platelet Vol. 11.1 fl (6.2-12.0); Monocyte# 1.07 X10^3/uL; Monocyte% 7.9 % (0-10); NRBC Flagged by Analyzer 0 % (0-5); Neutrophil # 7.38 X10^3/uL (2.7-7.7); Neutrophil % 54.9 % (47-70); Platelet Count 379 K/mm3 (150-450); RBC Distribution Width SD 48.5 fl (35.1-43.9); Red Blood Count 4.89 M/mm3 (4.2-5.4); White Blood Count 13.5 K/mm3 (4.4-11.0)
[2019-08-14 16:07] LABS: Alternaria alternata <0.10 kU/L (Class 0); Bermuda Grass <0.10 kU/L (Class 0); Bluegrass, Kentucky <0.10 kU/L (Class 0); Cat Hair/Dander, Standard <0.10 kU/L (Class 0); D farinae Mite <0.10 kU/L (Class 0); D pteronyssinus <0.10 kU/L (Class 0); Dog Epithelia <0.10 kU/L (Class 0); Elm, American White <0.10 kU/L (Class 0); Oak, White <0.10 kU/L (Class 0); Plantain, English <0.10 kU/L (Class 0); Ragweed, Short/Common <0.10 kU/L (Class 0)
[2019-08-14 17:44] LABS: Mouse Urine <0.10 kU/L (Class 0)
[2019-08-15 20:07] LABS: Aspirgillus flavus Negative (Neg:<1:1); Aspirgillus fumigatus Negative (Neg:<1:1); Aspirgillus niger Negative (Neg:<1:1)
[2019-08-16 05:18] LABS: Immunoglobulin E 308 IU/mL (6-495)
== END ==
PROVIDERS: PCP Internal Medicine; Referring Provider Nurse Practitioner Acute Care; Visit Provider Nurse Practitioner Acute Care
DX: J45.909 Unspecified asthma, uncomplicated (principal)
CPT/HCPCS: 36415; 82785; 85025; 86003; 86606

== ENCOUNTER → 2019-08-20 10:30 | Outpatient (CLI) | payer MEDICAID, SELFPAY ==
[2019-08-20 10:30] VITALS: BMI 42.0
[2019-08-22 16:07] LABS: Alternaria tenuis <0.10 kU/L (Class 0); Ash, White <0.10 kU/L (Class 0); Aspergillus fumigatus <0.10 kU/L (Class 0); Bermuda Grass <0.10 kU/L (Class 0); Birch <0.10 kU/L (Class 0); Black Walnut <0.10 kU/L (Class 0); Cat Hair / Dander,Stand <0.10 kU/L (Class 0); Cedar, Mountain <0.10 kU/L (Class 0); Cladosporium herbarum <0.10 kU/L (Class 0); Cockroach, American <0.10 kU/L (Class 0); Cottonwood <0.10 kU/L (Class 0); D farinae Mite <0.10 kU/L (Class 0); D pteronyssinus <0.10 kU/L (Class 0); Dog Epithelia <0.10 kU/L (Class 0); Elm, American White <0.10 kU/L (Class 0); Immunoglobulin E 258 IU/mL (6-495); Maple/Box Elder <0.10 kU/L (Class 0); Mulberry, White <0.10 kU/L (Class 0); Oak, White <0.10 kU/L (Class 0); Pecan <0.10 kU/L (Class 0); Penicillium Notatum <0.10 kU/L (Class 0); Pigweed, Rough <0.10 kU/L (Class 0); Ragweed, Short/Common <0.10 kU/L (Class 0); Russian Thistle <0.10 kU/L (Class 0); Sheep Sorrel <0.10 kU/L (Class 0); Sycamore, American <0.10 kU/L (Class 0); Timothy Grass <0.10 kU/L (Class 0)
[2019-08-22 17:23] LABS: Mouse Urine <0.10 kU/L (Class 0)
== END ==
PROVIDERS: PCP Internal Medicine; Referring Provider Otolaryngology; Visit Provider Otolaryngology
DX: T78.40XA Allergy, unspecified, initial encounter (principal)
CPT/HCPCS: 36415; 82785; 86003

== ENCOUNTER → 2019-08-27 10:05 | Outpatient (CLI) | payer MEDICAID, SELFPAY ==
[2019-08-27 07:52] VITALS: BMI 42.1
[2019-08-28 16:07] LABS: Cytoplasmic Ab (C-ANCA) <1:20 titer (Neg:<1:20)
[2019-08-28 16:30] LABS: Perinuclear Ab (P-ANCA) <1:20 titer (Neg:<1:20)
== END ==
PROVIDERS: PCP Internal Medicine; Referring Provider Nurse Practitioner Acute Care; Visit Provider Nurse Practitioner Acute Care
DX: M30.1 Polyarteritis with lung involvement [Churg-Strauss] (principal)
CPT/HCPCS: 36415; 86256

== ENCOUNTER 2019-09-01 17:16 | Inpatient (IN) | payer MEDICAID, SELFPAY ==
[2019-08-27 07:52] VITALS: BMI 42.1
[2019-09-01 17:18] VITALS: BP 153/92; PULSE 109; RESP 17; TEMP 36; O2SAT 98; BMI 41.7
--- NOTE | 2019-09-01 17:29 | CT_ITS ---
STUDY: CT ABDOMEN AND PELVIS WITH CONTRAST REASON FOR EXAM: Female, 49 years old. RLQ PAIN THAT RADIATES INTO BACK AND NAUSEA TODAY -- HX:DIABETES,HTN,GERD,ASTHMA,COPD,FACTOR V LEIDEN RADIATION DOSAGE (If Supplied By Facility): CTDIvol = ( 23.65 ) mGy, DLP = ( 1290.35 ) mGycm TECHNIQUE: Transaxial images were obtained from the dome of the diaphragm to the symphysis pubis without oral contrast. 100ML ISOVUE 370 was administered. Sagittal and coronal images were reconstructed. Individualized dose optimization techniques were used for this CT. COMPARISON: None. FINDINGS: There are mild groundglass pulmonary infiltrates within the right Mid lobe, lingula and lower lobes. The visualized portions of the heart are within normal limits. Normal liver. The mild hyperdensities within the base of the gallbladder.. Normal spleen. Normal pancreas. Normal bilateral adrenal glands. There is bilateral enhancement of the renal pelvis and both ureters. The stranding in the retroperitoneum surrounding the uterus. There is mild thickening of the wall of the bladder. There is mild wall thickening of the stomach. Normal small intestine. Normal colon. The appendix is visualized and appears normal. Normal abdominal aorta. Normal inferior vena cava. Normal retroperitoneum. There is a 2 x 1.6 cm right adnexal likely ovarian cyst.. Normal abdominal wall. There is multilevel spondylosis of the lumbar spine, posterior bulging annulus at L5-S1 with moderate facet degenerative changes and mild bilateral foraminal stenosis CT/Abdomen/Pelvis WITH Contrast IMPRESSION: Findings highly suspicious for bilateral pyelitis and ureteritis, possible cystitis. Delayed imaging should be considered to exclude ureteral obstruction Mild groundglass pulmonary infiltrates suspicious for infectious alveolitis versus hypoventilatory changes. Atypical viral pneumonia cannot be excluded. Possible gallbladder sludge and/or small stones versus artifact Mild wall thickening of the stomach most likely due to incomplete distention 2 x 1.6 cm right adnexal cyst likely ovarian cyst multilevel spondylosis of the lumbar spine, posterior bulging annulus at L5-S1 with moderate facet degenerative changes and mild bilateral foraminal stenosis Electronically Signed: Efren Smalls, at 19:59 EDT Tel , Service support ,
--- NOTE | 2019-09-01 17:31 | ED.DCSUM_ITS ---
- ER Visit Summary Date of Service: 09/01/19 Chief Complaint: Abdominal pain History of Present Illness: The patient is a 49 F presenting with abdominal pain. She states this started this morning. She has had decreased appetite and nausea. She denies vomiting or diarrhea. She complains of dysuria. Pain is in the right lower quadrant. Denies fever. She has a chronic dry cough. She saw her photographic equipment mechanic last week and was started on prednisone. She denies other complaints. Physical Examination: Vitals are stable. Patient is afebrile. Alert no acute distress. HEENT exam is unremarkable. Neck is supple. Lungs are clear and equal bilaterally. Heart is regular rate and rhythm. Abdomen is soft obese, right lower quadrant tenderness, no guarding or rebound Extremities are unremarkable. Skin is warm and dry. Remainder of exam is unremarkable. Emergency Department Course and Treatment: Patient was given Morphine, Zofran IV. CBC shows white count 20.7. Chemistries show sodium 133, potassium 3.3, glucose 289. Lipase is normal. CT abdomen pelvis shows findings highly suspicious for bilateral pyelitis and ureteritis, possible cystitis. Delayed imaging should be considered to exclude ureteral obstruction. Mild groundglass pulmonary infiltrates suspicious for infectious alveolitis versus hypoventilatory changes. Atypical viral pneumonia cannot be excluded. Possible gallbladder sludge and/or small stones versus artifact. Mild wall thickening of the stomach most likely due to incomplete distention. 2 x 1.6 cm right adnexal cyst likely ovarian cyst multilevel spondylosis of the lumbar spine, posterior bulging annulus at L5-S1 with moderate facet degenerative changes and mild bilateral foraminal stenosis. Patient continues to have pain but has some improvement. Blood and urine cultures were sent. She was given Rocephin IV. Delayed CT images were obtained and show mild bilateral perirenal and periureteral wall thickening and stranding within the retroperitoneum. The right ureter seen throughout course to the distal right ureterovesical junction. The proximal left ureter is visualized. There is no left renal hydronephrosis. The distal left ureter is not classified with contrast. Findings likely represent pyelitis, ureteritis. Correlation with urinalysis recommended. There is no hydronephrosis to suggest ureteral obstruction. The distal left ureter not visualized is most likely is secondary to peristalsis. Lactic acid 1.7. Discussed with the hospitalist for admission. Disposition: Admission Impression: Bilateral pyelitis, sepsis This note was generated with inDplay dictation software. It may contain incorrect words, spelling, and punctuation that were not noted in review of the chart prior to signing ED Disposition - Plan for ED Patient: Referrals: Jose Loving MD [Primary Care Provider] -
[2019-09-01 17:43] LABS: Absolute Neutrophil Count 12.8 X10^3/uL (2.0-7.7); Basophil% 0.5 % (0-1); Eosinophils% 1.5 % (0-5); Hematocrit 44.1 % (37-47); Lymphocyte % 29.5 % (19-41); Mean Corpuscular Hgb 31.2 pg (27.0-32.0); Mean Corpuscular Volume 91.7 fL (81-99); Monocyte# 1.27 X10^3/uL; Monocyte% 6.1 % (0-10); NRBC Flagged by Analyzer 0 % (0-5); Neutrophil # 12.76 X10^3/uL (2.7-7.7); Neutrophil % 61.7 % (47-70); POSITIVE DIFFERENTIAL YES; POSITIVE MORPHOLOGY YES; Platelet Count 368 K/mm3 (150-450); RBC Distribution Width CV 13.2 % (11.6-14.6); RBC Distribution Width SD 45.1 fl (35.1-43.9); Red Blood Count 4.81 M/mm3 (4.2-5.4); White Blood Count 20.7 K/mm3 (4.4-11.0)
[2019-09-01] MEDS: Ondansetron 4 MG/2 ML Vial IV (17:45)
[2019-09-01] MEDS: Morphine 4 MG/ML Syringe IV (17:45)
[2019-09-01 17:59] LABS: ALB/GLOB Ratio 0.7 RATIO (0.9-2.4); AST(SGOT) 12 U/L (15-37); Alanine Aminotransfer ALT/SGPT 20 U/L (13-56); Albumin, Serum 3.4 g/dL (3.2-5.0); Alkaline Phosphatase 83 U/L (45-117); Anion Gap 9 (5-15); BUN 13 mg/dL (7-18); BUN/Creat Ratio 16.5 RATIO (10-20); Calcium,Total 9.4 mg/dL (8.5-10.1); Chloride 97 mmol/L (98-107); Creatinine, Serum 0.79 mg/dL (0.55-1.02); EST Glomerular Filtration Rate 83 mL/min (>60); Est Glom Filt Rate - Afr Amer 101 mL/min (>60); Estimated Creatinine Clearance 72.82 ml/min; Globulin 4.8 g/dL (2.2-4.2); Glucose 286 mg/dL (74-106); Lipase 97 U/L (73-393); Potassium 3.3 mmol/L (3.5-5.1); Protein, Total 8.2 g/dL (6.4-8.2); Sodium Level 133 mmol/L (136-145)
[2019-09-01 18:00] LABS: Differential Indicated SCAN CRITERIA MET
[2019-09-01 18:13] LABS: Differential Comment SCANNED
--- NOTE | 2019-09-01 18:20 | RAD_ITS ---
STUDY: X-RAY CHEST REASON FOR EXAM: Female, 49 years old. Pain TECHNIQUE: Frontal view of the chest COMPARISON: 06/09/2019 FINDINGS: The lungs are clear. There are no pleural effusions. There is no pneumothorax. The heart is normal in size. The visualized osseous structures are within normal limits. RAD/Chest 1 View (Portable) IMPRESSION: No acute thoracic pathology. Electronically Signed: Jeremiah Sweet, at 18:31 EDT Tel , Service support ,
[2019-09-01 19:51] LABS: Mucous, Urine 0 SEEN /hpf (<or=2+)
[2019-09-01 19:56] LABS: Color, Urine Yellow (Yellow); Glucose, Dipstick 250 mg/dl (Normal); Ketone-Dipstick 5 mg/dl (Negative); Leukocyte Esterase-Dipstick 500 /ul (Negative); Nitrite-Dipstick Positive (Negative); Occult Blood-Urine 150 /ul (Negative); Protein-Dipstick 100 mg/dl (Negative); Urine Bilirubin Dipstick Negative (Negative); Urine Clarity Cloudy (Clear); Urine Urobilinogen Normal (Normal)
[2019-09-01 20:18] LABS: White Blood Cells >100 SEEN /hpf (0-5)
[2019-09-01 20:19] LABS: Bacteria 2+ /hpf (None Seen); Squamous Epithelial Cells - UA 0-5 SEEN /hpf (5-10)
[2019-09-01 20:20] LABS: Amorphous Sediment R; Red Blood Cells-Urine 0-5 SEEN /hpf (0-5)
[2019-09-01 20:26] LABS: Trichomonas 0-5 SEEN /hpf (None Seen)
--- NOTE | 2019-09-01 20:46 | CT_ITS ---
STUDY: CT ABDOMEN AND PELVIS WITHOUT CONTRAST REASON FOR EXAM: Female, 49 years old. F/U DELAYED SCAN TO R/O URETERAL OBSTRUCTION RADIATION DOSAGE (If Supplied By Facility): CTDIvol = ( 24.17 ) mGy, DLP = ( 1104.76 ) mGycm TECHNIQUE: Transaxial images were obtained from the dome of the diaphragm to the symphysis pubis without oral contrast, and without intravenous contrast. Sagittal and coronal images were reconstructed. Individualized dose optimization techniques were used for this CT. COMPARISON: CT exam same day. FINDINGS: There are mild groundglass pulmonary opacities within the lower lobes. The visualized portions of the heart are within normal limits. Normal liver. Normal gallbladder and extrahepatic biliary system. Normal spleen. Normal pancreas. Normal bilateral adrenal glands. There is mild bilateral perirenal and periureteral wall thickening and stranding within the retroperitoneum. The right ureter seen throughout course to the distal right ureterovesical junction. The proximal left ureter is visualized. There is no left renal hydronephrosis. The distal left ureter is not classified with contrast. There is wall thickening of the stomach.. Normal small intestine. Normal colon. The appendix is visualized and appears normal. There is mild to moderate atheromatous narrowing of the distal abdominal aorta. Normal inferior vena cava. Normal retroperitoneum. Mild bladder wall thickening. There is a fatty right inguinal hernia. Normal abdominal wall. There is mild posterior bulging annulus at L5-S1. There is a 2 cm right adnexal likely ovarian cyst. CT/Limited or Localized F/U CT IMPRESSION: mild bilateral perirenal and periureteral wall thickening and stranding within the retroperitoneum. The right ureter seen throughout course to the distal right ureterovesical junction. The proximal left ureter is visualized. There is no left renal hydronephrosis. The distal left ureter is not classified with contrast. Findings likely represent pyelitis, ureteritis. Correlation with urinalysis recommended. There is no hydronephrosis to suggest ureteral obstruction. The distal left ureter not visualized is most likely is secondary to peristalsis. Mild lower lobe groundglass pulmonary opacities hypoventilatory changes versus infectious alveolitis, atypical pneumonia cannot be excluded Mild to moderate atheromatous narrowing of the distal abdominal aorta Mild bladder wall thickening, possible cystitis Small fatty right inguinal hernia Posterior bulging annulus at L5-S1 2 cm right adnexal likely ovarian cyst Wall thickening of the stomach most likely due to incomplete distention, gastritis cannot be excluded. Electronically Signed: Efren Smalls, at 21:52 EDT Tel , Service support ,
[2019-09-01 20:53] VITALS: BP 130/64; PULSE 88; RESP 15
[2019-09-01] MEDS: Ceftriaxone 1 GM/50 ML BAG IV (21:31)
[2019-09-01 21:54] LABS: Lactic Acid 1.7 mmol/L (0.4-1.9)
--- NOTE | 2019-09-01 22:08 | HP.PCM_ITS ---
Problem List (1) Right flank pain Status: Acute (2) Right sided abdominal pain Status: Acute History of Present Illness Date of Admission: 09/01/19 Chief Complaint: Right flank pain, right groin pain, right-sided abdominal pain The patient is a 49 year old F was seen in the emergency room at [facility] with a chief complaint of right mid abdominal pain radiating into the right flank area that started this morning. She also complains of right groin discomfort and dysuria. Patient denies any fevers or chills, she denies any shortness of breath, she denies any sore throat or upper respiratory tract infection. Work-up in the emergency room included labs which showed an elevated white blood cell count at 20.7, potassium was 3.3, glucose was 286, urinalysis indicated a urinary tract infection. Lactic acid was 1.7. Patient had a CT of her abdomen and pelvis performed, it showed findings consistent with bilateral pyelitis and ureteritis along with possible cystitis- however patient has no symptoms on the left side noted when percussing the left flank area.. No evidence of any hydronephrosis was noted or ureteral dilatation. There is some mild groundglass pulmonary infiltrates present-I am not sure of the significance of this, patient has absolutely no respiratory complaints and no fever or chills. There was noted to be possible gallbladder sludge and/or small stones, a small cyst in the right adnexal region was noted most likely an ovarian cyst. There is also degenerative joint disease of the lumbar spine noted. Patient will be admitted to PCU under MedSurg for pyelonephritis, she was given IV Rocephin, IV fluids will be administered, oral potassium will be administered. I do not feel the patient has COVID and I am not going to test the patient for COVID. Past Medical History Past Medical History (Chronic Problems): Chronic Problems (Last Updated 08/27/19 @ 16:42 by Angélica Felder) Essential hypertension (Chronic) Factor V Leiden (Chronic) Anxiety and depression (Chronic) Bronchiectasis (Chronic) RUFINA (obstructive sleep apnea) (Chronic) DASCO Venous insufficiency of both lower extremities (Chronic) Type 2 diabetes mellitus (Chronic) Iatrogenic pneumothorax (Chronic) Sleep apnea (Chronic) Frequent sinus infections (Chronic) Anxiety (Chronic) Depression (Chronic) Hospitalized [facility] from age [age] Vision problems (Chronic) GERD (gastroesophageal reflux disease) (Chronic) Fatty liver (Chronic) Hyperlipidemia (Chronic) COPD (chronic obstructive pulmonary disease) (Chronic) H/O emotional problems (Chronic) Chronic bronchitis (Chronic) Seasonal allergies (Chronic) COPD (chronic obstructive pulmonary disease) (Chronic) Chronic cough (Chronic) Diabetes mellitus type 2 in obese (Chronic) Morbid obesity (Chronic) Medical History: Medical History (Last Updated 08/27/19 @ 16:42 by Angélica Felder) Essential hypertension (Chronic) I10 SOB (shortness of breath) (Acute) R06.02 Fatigue (Acute) R53.83 Hay fever (Acute) J30.1 Severe headache (Acute) R51 Diarrhea (Acute) R19.7 Hx of viral pneumonia (Acute) Z87.01 COPD exacerbation (Ruled-out) J44.1 Bronchitis (Acute) J40 Factor V Leiden (Chronic) D68.51 Anxiety and depression (Chronic) F41.9, F32.9 Bronchiectasis (Chronic) J47.9 RUFINA (obstructive sleep apnea) (Chronic) G47.33 DASCO Venous insufficiency of both lower extremities (Chronic) I87.2 Type 2 diabetes mellitus (Chronic) E11.9 Iatrogenic pneumothorax (Chronic) J95.811 Sleep apnea (Chronic) G47.30 Frequent sinus infections (Chronic) J32.9 Anxiety (Chronic) F41.9 Depression (Chronic) F32.9 Hospitalized [facility] from age [age] Vision problems (Chronic) H54.7 GERD (gastroesophageal reflux disease) (Chronic) K21.9 Pneumonia (Resolved) J18.9 Fatty liver (Chronic) K76.0 Hyperlipidemia (Chronic) E78.5 COPD (chronic obstructive pulmonary disease) (Chronic) J44.9 H/O emotional problems (Chronic) Z86.59 Chronic bronchitis (Chronic) J42 Asthma (Acute) J45.909 Seasonal allergies (Chronic) J30.2 COPD (chronic obstructive pulmonary disease) (Chronic) J44.9 Chronic cough (Chronic) R05 Diabetes mellitus type 2 in obese (Chronic) E11.69, E66.9 Morbid obesity (Chronic) E66.01 Allergies latex Adverse Reaction (Verified 09/01/19 17:17) Hives Home Medications: Ambulatory Orders Medication Instructions Recorded Aspirin 81 mg PO DAILY #0 09/27/15 Lisinopril [Zestril] 20 mg PO DAILY 09/27/15 Multivitamins,Ther W-Minerals 1 tab PO DAILY 09/27/15 [Multivitamin With Minerals ([facility])] [place]-3 Fatty Acids/Fish Oil [Fish 2 ea PO BID 09/27/15 Oil 1,000 mg Softgel] Calcium Carbonate [Calcium] 600 mg PO DAILY 01/22/18 Potassium Gluconate 500 mg PO DAILY 01/22/18 cholecalciferol (vitamin D3) 125 10,000 unit PO DAILY 12/07/18 mcg (5,000 unit) capsule Naproxen [Naprosyn] 500 mg PO BID PRN PRN #20 tab 01/30/19 blood sugar diagnostic See Rx Instructions .ROUTE 05/09/19 .MEDSUPPLY #150 ea Budesonide/Formoterol 160/4.5 2 puff INHALATION BID 06/09/19 [Symbicort 160/4.5 Mcg Inhaler (SP)] Duloxetine HCl 60 mg PO BID 06/09/19 Fluticasone Propionate 2 spray INTRANASAL BID 06/09/19 Metoprolol Succinate [Toprol Xl] 25 mg PO DAILY 06/09/19 Pantoprazole Sodium 40 mg PO BID 06/09/19 Albuterol Aerosols [Ventolin 2.5 mg INHALATION Q2H PRN PRN #30 06/13/19 Aerosols] vial.neb. Albuterol Inhaler [Ventolin Hfa] 1 - 2 puff INHALATION Q4H PRN PRN 06/13/19 #1 inhaler simvastatin 40 mg tablet 40 mg PO QHS #90 tab 07/11/19 ondansetron HCl 4 mg tablet 4 mg PO Q8H PRN #60 tab 07/19/19 metformin 500 mg tablet 1,000 mg PO BID #1 tab 07/30/19 sitagliptin 100 mg tablet 100 mg PO DAILY #30 tab 07/30/19 Nebulizer See Rx Instructions .ROUTE 08/07/19 .MEDSUPPLY #1 ea azelastine 0.15 % (205.5 mcg) 1 spray INTRANASAL BID #30 ml 08/07/19 nasal spray fexofenadine 180 mg tablet 180 mg PO DAILY #30 tab 08/07/19 guaifenesin 1,200 mg tablet, 1,200 mg PO Q12H #60 tab 08/07/19 extended release 12 hr hydrochlorothiazide 25 mg tablet 25 mg PO DAILY #90 tab 08/08/19 montelukast 10 mg tablet 10 mg PO DAILY #90 tab 08/08/19 benralizumab 30 mg/mL subcutaneous 30 mg SC Q4W 0 Days #1 ml 08/27/19 syringe prednisone 10 mg tablet 10 mg PO QDAY #90 tab 08/27/19 Mirtazapine [Remeron] 15 mg PO QHS 09/01/19 Surgical History: Surgical History (Last Updated 08/27/19 @ 16:42 by Angélica Felder) No history of previous surgery Surgical History: noncontributory Psychiatric History: Anxiety, Depression 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 OF 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: No pertinent DIRECTOR OF STUDENT [employer] history Lives: With Family Smoking Status: Current every day smoker Tobacco Use: Cigarettes Alcohol: Occasional Drugs: None - *Family History Maternal Family History: Family History (Last Reviewed 08/27/19 @ 11:34 by NICHOLAS Paniagua) Mother Alcoholism Asthma Depression hormone problem Respiratory disease Suicide attempt Drug abuse Hepatitis C Brother Alcoholism Asthma Diabetes Respiratory disease Drug abuse Grandmother Depression Psychiatric care Father Diabetes Hypertension Respiratory disease Emphysema of lung Other Bronchitis Dementia Heart disease History Items: Pulmonary Disease, - - Additionally maternal family history of alcoholism, drug abuse, hepatitis C, anxiety and depression with suicide attempts. Paternal Family History: Family History (Last Reviewed 08/27/19 @ 11:34 by NICHOLAS Paniagua) Mother Alcoholism Asthma Depression hormone problem Respiratory disease Suicide attempt Drug abuse Hepatitis C Brother Alcoholism Asthma Diabetes Respiratory disease Drug abuse Grandmother Depression Psychiatric care Father Diabetes Hypertension Respiratory disease Emphysema of lung Other Bronchitis Dementia Heart disease History Items: Diabetes, Heart Disease, Pulmonary Disease Review of Systems Constitutional: Denies: Anorexia, Chills, Fever, Night Sweats, Malaise, Weakness, Weight Change, Fatigue Eyes: Denies: Cataracts, Conjunctivae Inflammation, Double vision, Drainage HEENT: Denies: Difficulty Swallowing, Dysphasia, Ear Pain, Eye Pain, Hearing Changes, Nasal bleeding, Nasal Congestion, Post Nasal Drip Cardiovascular: Denies: Chest Pain, Claudication, Chest Pressure, Chest Tightness, Edema, Heaviness, Palpitations, Paroxysmal Noc. Dyspnea Respiratory: Denies: Cough, Hemoptysis, Pleuritic Pain, Shortness of Breath, Shortness of breath at rest, Shortness of breath upon exertion, Sputum production, Wheezing Gastrointestinal: Reports: Abdominal Pain - Patient complains of right-sided abdominal pain in the mid abdominal area. Denies: Constipation, Diarrhea, Dyspepsia, Hematemesis, Hematochezia, Nausea, Melena, Vomiting Genitourinary: Denies: Dysuria, Frequency, Hematuria, Hesitancy, Urgency Gynecological: Denies: Breast symptoms Musculoskeletal: Denies: Back Pain, Foot Pain, Hand Pain, Joint Pain, Joint stiffness, Joint swelling, Joint Tenderness, Leg Pain Skin: Denies: Dryness, Jaundice, Pruritis, Rash, Wounds Neurological: Denies: Balance problems, Blurred vision, Double vision, Slurred speech, Difficulty swallowing, Focal weakness, Headaches, Incoordination, Numbness, Tingling Psychiatric: Reports: Anxiety - Chronic anxiety. Denies: Depression, Homicidal Ideations, Suicidal Ideations Endocrine: Denies: Change in Body Habitus, Heat/ Cold Intolerance, Polydipsia, Polyuria Hematologic/ Lymphatic: Denies: Adenopathy, Anemia, Easy Bruising, Easy Bleeding, Petechiae, Purpura VTE Information - Inpt Only VTE Present on Admission: No VTE Mechan Device Prophylaxis: None VTE Pharm Prophylaxis ordered?: Yes Patient Problems: Active and Suspected Problems (Last Updated 08/27/19 @ 16:42 by Angélica Felder) Right flank pain (Acute) Right sided abdominal pain (Acute) - Physical Exam Vitals/I&O's: Vital Signs Temp Pulse Resp BP Pulse Ox 96.8 F L 88 15 130/64 H 98 09/01/19 17:18 09/01/19 20:53 09/01/19 20:53 09/01/19 20:53 09/01/19 17:18 Oxygen Delivery Method Room Air Weight: 106.8 kg Body Mass Index (BMI) 41.7 Finger Stick Blood Glucose 71 Intake and Output for Last 24 Hours 08/30/19 08/31/19 09/01/19 23:59 23:59 23:59 Intake Total 50 / 50 Balance 50 / 50 General: Alert, Oriented x3, Cooperative, No apparent distress, Well developed, Well nourished HEENT: Atraumatic, PERRLA, EOMI, Normocephalic Oral: Moist Mucosa Neck: Supple, No JVD, Negative Carotid Bruits, No Nuchal Rigidity, Trachea Midline, Thyroid Normal Size and Texture Lungs: Clear to auscultation, Normal air movement, No rhonchi, No wheeze, No rales Cardiovascular: Regular rate, Regular Rhythm, Normal S1, Normal S2, No murmurs, PMI Normal, No rub noted, No Gallop Abdomen: Bowel Sounds Present, Soft, Non-Distended, Tender - Patient has right mid abdominal tenderness to palpation, no rebound abdominal tenderness are noted, percussion of the right flank area elicits pain Extremities: No clubbing, No cyanosis, No edema, Capillary Refill Less than 3 Seconds Skin: No rashes, No breakdown Musculoskeletal: No Tenderness to Palpation of Joints or Extremities Neurological: Cranial nerves II-XII grossly intact, Neuro grossly intact, Muscle tone normal, Sensory exam intact to light touch and pain, Coordination normal Psych/Mental Status: Normal Affect, Appropriate, Alert and oriented to time, place, person, mood and affect Laboratory Results 09/01/19 17:36: WBC 20.7 H, RBC 4.81, Hgb 15.0, Hct 44.1, MCV 91.7, MCH 31.2, MCHC 34.0, RDW Std Deviation 45.1 H, RDW Coeff of Roxanne 13.2, Plt Count 368, MPV 11.0, Immature Gran % (Auto) 0.700, Neut % (Auto) 61.7, Lymph % (Auto) 29.5, [place] % (Auto) 6.1, Eos % (Auto) 1.5, Baso % (Auto) 0.5, Absolute Neuts (auto) 12.8 H, Absolute Lymphs (auto) 6.10 H, Nucleated RBC % 0, Differential Comment SCANNED 09/01/19 17:36: Sodium 133 L, Potassium 3.3 L, Chloride 97 L, Carbon Dioxide 27.0, Anion Gap 9, BUN 13, Creatinine 0.79, Estim Creat Clear Calc 72.82, Est GFR (MDRD) Af Amer 101, Est GFR (MDRD) Non-Af 83, BUN/Creatinine Ratio 16.5, Glucose 286 H, Calcium 9.4, Total Bilirubin 0.60, AST 12 L, ALT 20, Alkaline Phosphatase 83, Total Protein 8.2, Albumin 3.4, Globulin 4.8 H, Albumin/Globulin Ratio 0.7 L, Lipase 97 09/01/19 19:45: Urine Color Yellow, Urine Clarity Cloudy, Urine pH 5.0, Ur Specific Foster 1.020, Urine Protein 100 H, Urine Glucose (UA) 250 H, Urine Ketones 5 H, Urine Occult Blood 150 H, Urine Nitrite Positive H, Urine Bilirubin Negative, Urine Urobilinogen Normal, Ur Leukocyte Esterase 500 H, Urine RBC 0-5 SEEN, Urine WBC >100 SEEN, Ur Squamous Epith Cells 0-5 SEEN, Amorphous Sediment R, Urine Bacteria 2+, Urine Mucus 0 SEEN, Urine Trichomonas 0-5 SEEN 09/01/19 21:20: Lactic Acid 1.7 Current Medications Sodium Chloride () 250 mls @ 15 mls/hr IV .[id number] PRN PRN Reason: Saline Flush Last Infusion: 09/01/19 22:05 Dose: 15 mls/hr Documented by: Assessment/Plan All Active Problems (Last Updated 08/27/19 @ 16:42 by Angélica Felder) Right flank pain (Acute) Right sided abdominal pain (Acute) SOB (shortness of breath) (Acute) Fatigue (Acute) Hay fever (Acute) Severe headache (Acute) Diarrhea (Acute) Hx of viral pneumonia (Acute) COPD exacerbation (Ruled-out) Bronchitis (Acute) Pneumonia (Resolved) Asthma (Acute) #1 pyelonephritis-patient will be admitted to [facility], IV Rocephin was administered, labs will be monitored. #2 type 2 diabetes-blood sugars will be monitored, sliding scale insulin will be administered as needed #3 hypokalemia-patient will be given oral potassium #4 chronic anxiety disorder #5 essential hypertension #6 hyperlipidemia #7 chronic depression #8 right-sided abdominal pain-etiology unclear, this will need further work-up if the patient continues to have symptoms. #9 abnormal areas in the base of the lungs bilaterally-etiology of this is unknown, again patient has no signs or symptoms of any upper respiratory tract infection or symptoms that would suggest COVID. Inpatient E&M: 13047 Init Hosp L3
[2019-09-01 22:13] VITALS: BP 130/60; PULSE 86; RESP 15; TEMP 36.9; O2SAT 96
[2019-09-01 22:31] VITALS: BMI 41.5; BMI 41.6
[2019-09-01 22:36] VITALS: BP 145/78; PULSE 98; RESP 16; TEMP 37.2; O2SAT 95
[2019-09-02] VITALS (7 sets, daily range): BP systolic 102–136; BP diastolic 58–80; PULSE 88–103; RESP 14–16; TEMP 36.1–36.9; O2SAT 93–100
[2019-09-02] MEDS: DULoxetine Hcl 60 MG Capsule PO ×3 (00:05→22:03)
[2019-09-02] MEDS: Mirtazapine 15 MG Tablet PO ×2 (00:09→22:02)
[2019-09-02] MEDS: Atorvastatin Calcium 20 MG Tablet PO ×2 (00:09→22:03)
[2019-09-02] MEDS: Insulin Lispro 100 UNIT/ML INSULN.PEN SC ×5 (00:14→22:10)
[2019-09-02 00:21] LABS: Bedside Glucose 368 mg/dL (70-110)
[2019-09-02 05:25] LABS: Absolute Lymphocyte Count 5.06 X10^3/uL (0.83-4.51); Absolute Neutrophil Count 9.1 X10^3/uL (2.0-7.7); Basophil# 0.08 X10^3/uL; Basophil% 0.5 % (0-1); Eosinophil# 0.36 X10^3/uL; Eosinophils% 2.3 % (0-5); Hematocrit 40.8 % (37-47); Hemoglobin 13.7 g/dL (12.0-15.0); Lymphocyte # 5.06 X10^3/ul (4.0); Lymphocyte % 32.1 % (19-41); Mean Corp Hgb Conc 33.6 g/dL (32-36); Mean Corpuscular Hgb 30.9 pg (27.0-32.0); Mean Corpuscular Volume 91.9 fL (81-99); Mean Platelet Vol. 11.2 fl (6.2-12.0); Monocyte# 1.09 X10^3/uL; Monocyte% 6.9 % (0-10); NRBC Flagged by Analyzer 0 % (0-5); Neutrophil # 9.08 X10^3/uL (2.7-7.7); Neutrophil % 57.6 % (47-70); POSITIVE DIFFERENTIAL YES; Platelet Count 317 K/mm3 (150-450); RBC Distribution Width CV 13.3 % (11.6-14.6); RBC Distribution Width SD 44.9 fl (35.1-43.9); Red Blood Count 4.44 M/mm3 (4.2-5.4); White Blood Count 15.8 K/mm3 (4.4-11.0)
[2019-09-02 05:28] LABS: Differential Indicated SCAN CRITERIA MET
[2019-09-02 05:36] LABS: Anion Gap 10 (5-15); BUN 13 mg/dL (7-18); BUN/Creat Ratio 21.3 RATIO (10-20); Calcium,Total 9.2 mg/dL (8.5-10.1); Chloride 98 mmol/L (98-107); Creatinine, Serum 0.61 mg/dL (0.55-1.02); EST Glomerular Filtration Rate 112 mL/min (>60); Est Glom Filt Rate - Afr Amer 135 mL/min (>60); Estimated Creatinine Clearance 94.31 ml/min; Glucose 287 mg/dL (74-106); Potassium 3.7 mmol/L (3.5-5.1); Sodium Level 133 mmol/L (136-145)
[2019-09-02 05:53] LABS: Differential Comment SCANNED; Reactive Lymphocyte RARE
[2019-09-02 07:00] LABS: Bedside Glucose 280 mg/dL (70-110)
[2019-09-02] MEDS: Budesonide Respules 0.5 MG/2 ML AMPUL.NEB. INHALATION ×2 (07:10→19:08)
[2019-09-02] MEDS: Aspirin 81 MG TAB.CHEW PO (08:49)
[2019-09-02] MEDS: Fluticasone 0.05% 1 SPRAY NASAL.SRY 2 SPRAY NASAL (08:50)
[2019-09-02] MEDS: hydroCHLOROthiazide 25 MG Tablet PO (08:51)
[2019-09-02] MEDS: Montelukast 10 MG Tablet PO (08:51)
[2019-09-02] MEDS: Metoprolol(XL)Succ 25 MG Tablet PO (08:51)
[2019-09-02] MEDS: Pantoprazole Sodium 40 MG Tablet PO ×2 (08:51→22:03)
[2019-09-02] MEDS: Lisinopril 20 MG Tablet PO (08:52)
[2019-09-02] MEDS: LINAGLIPTIN 5 MG TABLET PO (08:52)
[2019-09-02] MEDS: Heparin Injection (Vial) 5,000 UNIT/ML VIAL 5000 UNIT SC ×2 (08:52→22:12)
[2019-09-02] MEDS: Glucerna Shake 120 ML LIQUID PO ×3 (08:56→16:36)
--- NOTE | 2019-09-02 09:10 | PCM.PN.HOSP ---
Patient Problems: Active and Suspected Problems (Last Updated 08/27/19 @ 16:42 by Angélica Felder) Right flank pain (Acute) Right sided abdominal pain (Acute) Subjective: Patient seen and examined. She has been managed for pyelonephritis. She has no complaints this morning. Pain with urination is getting better and lower abdominal pain is also improving. She denies any fever or chills. Review of systems is otherwise negative. Labs and vitals reviewed. White cell count has trended down to 15.8 from 20.7. Vitals/I&O's: Vital Signs Temp Pulse Resp BP Pulse Ox 97.0 F L 97 14 136/80 H 94 09/02/19 08:47 09/02/19 08:51 09/02/19 08:47 09/02/19 08:47 09/02/19 08:47 Oxygen Delivery Method Room Air Weight: 234 lb 12.677 oz Body Mass Index (BMI) 41.5 Finger Stick Blood Glucose 71 Intake and Output for Last 24 Hours 08/31/19 09/01/19 09/02/19 23:59 23:59 23:59 Intake Total 66.25 / 66.25 0 / 0 Balance 66.25 / 66.25 0 / 0 General: Alert, Oriented x3, Cooperative, No apparent distress HEENT: Atraumatic, PERRLA, EOMI, Normocephalic Oral: Moist Mucosa Neck: Supple, No JVD, Negative Carotid Bruits Lungs: Clear to auscultation, Normal air movement, No rhonchi, No wheeze Cardiovascular: Regular rate, Regular Rhythm, Normal S1, Normal S2, No murmurs Abdomen: Bowel Sounds Present, Soft, Non-Distended, No Hepato-splenomegaly, - - mild suprapubic and right lower quadrant tenderness, no guarding or rebound tenderness. No CVA tenderness bilaterally. Extremities: No clubbing, No cyanosis, No edema, Capillary Refill Less than 3 Seconds Skin: No rashes, No breakdown Musculoskeletal: No Tenderness to Palpation of Joints or Extremities Lymphatic: No Cervical, Supraclavicular, or Inguinal Adenopathy Neurological: Cranial nerves II-XII grossly intact, Neuro grossly intact, Motor Exam 5/5 strength throughout Psych/Mental Status: Normal Affect, Appropriate, Alert and oriented to time, place, person, mood and affect Laboratory Results 09/01/19 17:36: WBC 20.7 H, RBC 4.81, Hgb 15.0, Hct 44.1, MCV 91.7, MCH 31.2, MCHC 34.0, RDW Std Deviation 45.1 H, RDW Coeff of Roxanne 13.2, Plt Count 368, MPV 11.0, Immature Gran % (Auto) 0.700, Neut % (Auto) 61.7, Lymph % (Auto) 29.5, [place] % (Auto) 6.1, Eos % (Auto) 1.5, Baso % (Auto) 0.5, Absolute Neuts (auto) 12.8 H, Absolute Lymphs (auto) 6.10 H, Nucleated RBC % 0, Differential Comment SCANNED 09/01/19 17:36: Sodium 133 L, Potassium 3.3 L, Chloride 97 L, Carbon Dioxide 27.0, Anion Gap 9, BUN 13, Creatinine 0.79, Estim Creat Clear Calc 72.82, Est GFR (MDRD) Af Amer 101, Est GFR (MDRD) Non-Af 83, BUN/Creatinine Ratio 16.5, Glucose 286 H, Calcium 9.4, Total Bilirubin 0.60, AST 12 L, ALT 20, Alkaline Phosphatase 83, Total Protein 8.2, Albumin 3.4, Globulin 4.8 H, Albumin/Globulin Ratio 0.7 L, Lipase 97 09/01/19 19:45: Urine Color Yellow, Urine Clarity Cloudy, Urine pH 5.0, Ur Specific [place] 1.020, Urine Protein 100 H, Urine Glucose (UA) 250 H, Urine Ketones 5 H, Urine Occult Blood 150 H, Urine Nitrite Positive H, Urine Bilirubin Negative, Urine Urobilinogen Normal, Ur Leukocyte Esterase 500 H, Urine RBC 0-5 SEEN, Urine WBC >100 SEEN, Ur Squamous Epith Cells 0-5 SEEN, Amorphous Sediment R, Urine Bacteria 2+, Urine Mucus 0 SEEN, Urine Trichomonas 0-5 SEEN 09/01/19 21:20: Lactic Acid 1.7 09/02/19 00:11: POC Glucose 368 H 09/02/19 05:00: WBC 15.8 H, RBC 4.44, Hgb 13.7, Hct 40.8, MCV 91.9, MCH 30.9, MCHC 33.6, RDW Std Deviation 44.9 H, RDW Coeff of Roxanne 13.3, Plt Count 317, MPV 11.2, Immature Gran % (Auto) 0.600, Neut % (Auto) 57.6, Lymph % (Auto) 32.1, [place] % (Auto) 6.9, Eos % (Auto) 2.3, Baso % (Auto) 0.5, Absolute Neuts (auto) 9.1 H, Absolute Lymphs (auto) 5.06 H, Nucleated RBC % 0, Differential Comment SCANNED, Reactive Lymphocytes RARE 09/02/19 05:00: Sodium 133 L, Potassium 3.7, Chloride 98, Carbon Dioxide 25.0, Anion Gap 10, BUN 13, Creatinine 0.61, Estim Creat Clear Calc 94.31, Est GFR (MDRD) Af Amer 135, Est GFR (MDRD) Non-Af 112, BUN/Creatinine Ratio 21.3 H, Glucose 287 H, Calcium 9.2 09/02/19 06:47: POC Glucose 280 H Diagnostic Data Abdomen/Pelvis CT 09/01/19 17:29 IMPRESSION: Findings highly suspicious for bilateral pyelitis and ureteritis, possible cystitis. Delayed imaging should be considered to exclude ureteral obstruction Mild groundglass pulmonary infiltrates suspicious for infectious alveolitis versus hypoventilatory changes. Atypical viral pneumonia cannot be excluded. Possible gallbladder sludge and/or small stones versus artifact Mild wall thickening of the stomach most likely due to incomplete distention 2 x 1.6 cm right adnexal cyst likely ovarian cyst multilevel spondylosis of the lumbar spine, posterior bulging annulus at L5-S1 with moderate facet degenerative changes and mild bilateral foraminal stenosis Electronically Signed: Efren Smalls, at 19:59 EDT Tel , Service support , Chest X-Ray 09/01/19 18:20 IMPRESSION: No acute thoracic pathology. Electronically Signed: Jeremiah Sweet, at 18:31 EDT Tel , Service support , Limited or Localized CT 09/01/19 20:46 IMPRESSION: mild bilateral perirenal and periureteral wall thickening and stranding within the retroperitoneum. The right ureter seen throughout course to the distal right ureterovesical junction. The proximal left ureter is visualized. There is no left renal hydronephrosis. The distal left ureter is not classified with contrast. Findings likely represent pyelitis, ureteritis. Correlation with urinalysis recommended. There is no hydronephrosis to suggest ureteral obstruction. The distal left ureter not visualized is most likely is secondary to peristalsis. Mild lower lobe groundglass pulmonary opacities hypoventilatory changes versus infectious alveolitis, atypical pneumonia cannot be excluded Mild to moderate atheromatous narrowing of the distal abdominal aorta Mild bladder wall thickening, possible cystitis Small fatty right inguinal hernia Posterior bulging annulus at L5-S1 2 cm right adnexal likely ovarian cyst Wall thickening of the stomach most likely due to incomplete distention, gastritis cannot be excluded. Electronically Signed: Efren Slim, at 21:52 EDT Tel , Service support , Current Medications Acetaminophen (Tylenol) 650 mg PO Q6H PRN PRN PRN Reason: Pain Score 1-10/Temp > 100.7 F Albuterol Sulfate (Ventolin Aerosols) 2.5 mg INHALATION Q2H PRN PRN PRN Reason: DYSPNEA Aspirin (Aspirin, Baby) 81 mg PO DAILYCM [facility] Last Admin: 09/02/19 08:49 Dose: 81 mg Documented by: Atorvastatin Calcium (Lipitor) 20 mg PO QHS [facility] Last Admin: 09/02/19 00:09 Dose: 20 mg Documented by: Budesonide (Pulmicort Aerosol) 0.5 mg INHALATION BID.RT [facility] Last Admin: 09/02/19 07:10 Dose: 0.5 mg Documented by: Dextrose (D50w Syringe) 0 gm IV X1 PRN; Protocol PRN Reason: Hypoglycemia Duloxetine HCl (Cymbalta) 60 mg PO BID [facility] Last Admin: 09/02/19 00:05 Dose: 60 mg Documented by: Fluticasone Propionate (Flonase Nasal [place]) 2 spray NASAL BID [facility] Last Admin: 09/02/19 08:50 Dose: 2 spray Documented by: Glucagon () 1 mg IM .X1 PRN PRN Reason: Hypoglycemia Heparin Sodium (Porcine) (Heparin Na) 5,000 unit SC Q12 [facility] Last Admin: 09/02/19 08:52 Dose: 5,000 unit Documented by: Hydrochlorothiazide (Hctz) 25 mg PO DAILY [facility] Last Admin: 09/02/19 08:51 Dose: 25 mg Documented by: Ceftriaxone Sodium (Rocephin) 1 gm in 50 mls @ 100 mls/hr IV Q24H [facility] Sodium Chloride () 250 mls @ 15 mls/hr IV .[id number] PRN PRN Reason: Saline Flush Sodium Chloride () 250 mls @ 15 mls/hr IV .[id number] PRN PRN Reason: Additional IVPB Infusion Insulin Human Lispro (Humalog Kwikpen (Bkc)) 0 unit SC ACHS [facility]; Protocol Last Admin: 09/02/19 06:48 Dose: 6 units Documented by: Linagliptin (Tradjenta) 5 mg PO DAILY [facility] Last Admin: 09/02/19 08:52 Dose: 5 mg Documented by: Lisinopril (Zestril) 20 mg PO DAILY [facility] Last Admin: 09/02/19 08:52 Dose: 20 mg Documented by: Metformin HCl (Glucophage) 1,000 mg PO BIDCM [facility] Last Admin: 09/01/19 23:24 Dose: Not Given Documented by: Metoprolol Succinate (Toprol Xl (Beta Jose)) 25 mg PO DAILY [facility] Last Admin: 09/02/19 08:51 Dose: 25 mg Documented by: Mirtazapine (Remeron) 15 mg PO QHS [facility] Last Admin: 09/02/19 00:09 Dose: 15 mg Documented by: Montelukast Sodium (Singulair) 10 mg PO DAILY [facility] Last Admin: 09/02/19 08:51 Dose: 10 mg Documented by: Morphine Sulfate () 4 mg IV Q3H PRN PRN PRN Reason: Pain Score 6-10/10 Naproxen (Naprosyn) 500 mg PO BID PRN PRN PRN Reason: Pain Score 4-10/10 Nutritional Formula (Lactose Free) (Glucerna Shake) 120 ml PO TIDCM [facility] Last Admin: 09/02/19 08:56 Dose: 120 ml Documented by: Ondansetron HCl (Zofran) 4 mg IV Q8H PRN PRN PRN Reason: NAUSEA/VOMITING Pantoprazole Sodium (Protonix) 40 mg PO BID [facility] Last Admin: 09/02/19 08:51 Dose: 40 mg Documented by: Sodium Chloride () 10 - 40 ml IV UD PRN PRN Reason: SALINE FLUSH STROKE Vital Signs/Narrative: Vital Signs Temp Pulse Resp BP Pulse Ox 09/02/19 08:51 97 09/02/19 08:47 97.0 F L 97 14 136/80 H 94 09/02/19 07:10 103 H 16 93 Medical Necessity - Tobacco Use Smoking Status: Former smoker Tobacco Use: Cigarettes Assessment/Plan All Active Problems (Last Updated 08/27/19 @ 16:42 by Angélica Felder) Right flank pain (Acute) Right sided abdominal pain (Acute) SOB (shortness of breath) (Acute) Fatigue (Acute) Hay fever (Acute) Severe headache (Acute) Diarrhea (Acute) Hx of viral pneumonia (Acute) COPD exacerbation (Ruled-out) Bronchitis (Acute) Pneumonia (Resolved) Asthma (Acute) 1. Pyelonephritis Is better today. White cell count is trended down to 15 from 20 on admission. Urine culture and blood culture pending. on IV rocephin 2. Hypokalemia; resolved. 3. Type 2 diabetes mellitus On Tradjenta 5 mg daily. Insulin sliding scale. Accu-Cheks AC at bedtime. 4. Hypertension: Controlled. On Lisinopril and metoprolol as well as HCTZ 5. Hyperlipidemia: On statin. 6. Chronic depression: On duloxetine and mirtazapine. 7. GERD: Pantoprazole DVT prophylaxis: heparin Inpatient E&M: 11611 [facility] Hosp L2
--- NOTE | 2019-09-02 10:44 | CASEMGMT ---
Patient has a Healthcare Power of Manager Operational and Healthcare Living Will on file at [facility]. Her significant other, Ignacio Joseph is her POA. Cristina RICCI MSW
[2019-09-02 11:20] LABS: Bedside Glucose 356 mg/dL (70-110)
--- NOTE | 2019-09-02 14:28 | CASEMGMT ---
YRN PALACIOS assessment: Face to Face with patient for initial transition planning/care coordination assessment. YRN PALACIOS introduced self and role at [facility], pt voices understanding and consents to assessment at this time. Pt is lying in bed in no distress at this time. Pt is A/Ox4 at this time and answers all questions appropriately at this time. Care providers, pharmacy, and demographics verified at this time. Presentation: Nausea, generalized abd pain that radiates into back Admitting dx: Pyelonephritis PCP: Fabienne Specialists: claus Hernandez; moy Jones; will be referred to [facility] cardiology Preferred Pharmacy: [facility] Insurance: [employer] Prescription Benefit: [employer] Living Will/HPOA: Pt has LW/HPOA and is aware that they are on file at [facility] at this time. Pt's fiance, Ignacio Jake, is HPOA. LNOK: Ignacio Joseph, sig other/HPOA Living Arrangements: Pt states lives with friend in apartment and states no concerns at home at this time. Pt states is independent with ADL's. Transportation: Pt states drives self and states no transportation concerns at this time. DME/HHC: Pt states has no current DME or need for at this time. Pt states has had HHC in the past and states has not been to SNF. Pt states no concerns with going home at time of discharge. Pt states is disabled. Pt states quit smoking in May but has been intermittently and states drinks ETOH occasionally. Pt states no further concerns/needs at this time. CM to follow for any further discharge planning/needs. Advised pt to ask for CM if any further questions/concerns/needs arise, voices understanding. Pt Goal: Home Plan[place] YRN PALACIOS
--- NOTE | 2019-09-02 15:29 | CHAPLAIN ---
Type of Pastoral Visit _x__ Initial Visit ___ Follow-up Visit ___ On-call Visit ___ General Patient Visit ___ Spiritual Assessment ___ Family Conference ___ Bereavement ___ Rapid Response ___ Code Blue ___ Other (describe below) Pastoral Care Referral From _x__ Patient ___ Family ___ Nurse ___ Physician ___ J2Ee Developer ___ Quality Head ___ Other (describe below) Sacrament/Intervention _x__ Active listening ___ Anointing ___ Jew ___ Bereavement ___ Communion ___ Za exploration ___ _x__ Life review _x__ Prayer ___ Reconciliation ___ Sacrament of Sick ___ Supportive presence ___ Wedding ___ Other (describe below) Pastoral Comments patient has been seen by this tubing tester in previous admissions and pt gave updates on life and situation; pt states she is in need of housing but working on it; pt housing status was also an issue for her in May at last admission
[2019-09-02 16:45] LABS: Bedside Glucose 298 mg/dL (70-110)
--- NOTE | 2019-09-02 16:53 | NURSING ---
Update provided to patient's Ignacio rivas, with patient's permission.
[2019-09-02] MEDS: Morphine 4 MG/ML Syringe IV (17:24)
[2019-09-02] MEDS: Ceftriaxone 1 GM/50 ML BAG IV (22:02)
[2019-09-02] MEDS: 0.9% Saline Lock 10 ML Syringe IV (22:07)
[2019-09-02] MEDS: Acetaminophen 325 MG Tablet 650 MG PO (22:17)
[2019-09-02 23:46] LABS: Bedside Glucose 332 mg/dL (70-110)
[2019-09-03 02:40] VITALS: BP 107/67; PULSE 76; RESP 16; TEMP 36.7; O2SAT 95
[2019-09-03] MEDS: Insulin Lispro 100 UNIT/ML INSULN.PEN SC (06:44)
[2019-09-03 07:03] LABS: Absolute Lymphocyte Count 3.23 X10^3/uL (0.83-4.51); Absolute Neutrophil Count 5.1 X10^3/uL (2.0-7.7); Eosinophil# 0.37 X10^3/uL; Eosinophils% 3.9 % (0-5); Hematocrit 41.2 % (37-47); Hemoglobin 13.9 g/dL (12.0-15.0); Lymphocyte # 3.23 X10^3/ul (4.0); Lymphocyte % 33.6 % (19-41); Mean Corp Hgb Conc 33.7 g/dL (32-36); Mean Corpuscular Hgb 31.2 pg (27.0-32.0); Mean Corpuscular Volume 92.6 fL (81-99); Mean Platelet Vol. 11.1 fl (6.2-12.0); Monocyte# 0.71 X10^3/uL; Monocyte% 7.4 % (0-10); NRBC Flagged by Analyzer 0 % (0-5); Neutrophil # 5.13 X10^3/uL (2.7-7.7); Neutrophil % 53.5 % (47-70); Platelet Count 288 K/mm3 (150-450); RBC Distribution Width CV 13.2 % (11.6-14.6); RBC Distribution Width SD 44.9 fl (35.1-43.9); Red Blood Count 4.45 M/mm3 (4.2-5.4); White Blood Count 9.6 K/mm3 (4.4-11.0)
[2019-09-03 07:06] LABS: Bedside Glucose 272 mg/dL (70-110)
[2019-09-03 07:26] LABS: Anion Gap 7 (5-15); BUN 14 mg/dL (7-18); BUN/Creat Ratio 23.6 RATIO (10-20); Chloride 98 mmol/L (98-107); Creatinine, Serum 0.59 mg/dL (0.55-1.02); EST Glomerular Filtration Rate 115 mL/min (>60); Est Glom Filt Rate - Afr Amer 139 mL/min (>60); Estimated Creatinine Clearance 97.51 ml/min; Glucose 298 mg/dL (74-106); Potassium 3.7 mmol/L (3.5-5.1); Sodium Level 132 mmol/L (136-145)
[2019-09-03 07:45] VITALS: PULSE 87; RESP 16; O2SAT 93
[2019-09-03] MEDS: Budesonide Respules 0.5 MG/2 ML AMPUL.NEB. INHALATION (07:45)
[2019-09-03] MEDS: Aspirin 81 MG TAB.CHEW PO (08:27)
[2019-09-03] MEDS: Fluticasone 0.05% 1 SPRAY NASAL.SRY 2 SPRAY NASAL (08:28)
[2019-09-03] MEDS: DULoxetine Hcl 60 MG Capsule PO (08:28)
[2019-09-03 08:29] VITALS: PULSE 91
[2019-09-03] MEDS: Metoprolol(XL)Succ 25 MG Tablet PO (08:29)
[2019-09-03] MEDS: Montelukast 10 MG Tablet PO (08:29)
[2019-09-03] MEDS: hydroCHLOROthiazide 25 MG Tablet PO (08:29)
[2019-09-03] MEDS: Pantoprazole Sodium 40 MG Tablet PO (08:29)
[2019-09-03] MEDS: Lisinopril 20 MG Tablet PO (08:30)
[2019-09-03] MEDS: LINAGLIPTIN 5 MG TABLET PO (08:30)
[2019-09-03 08:40] VITALS: BP 106/61; PULSE 74; RESP 16; TEMP 36.6; O2SAT 97
--- NOTE | 2019-09-03 10:03 | PCM.DC ---
- Discharge Diagnoses Current Active Problems: Current Active and Chronic Problems (Last Updated 08/27/19 @ 16:42 by Angélica Felder) Right flank pain (Acute) Right sided abdominal pain (Acute) You will use the following diet at home:: Cardiac Your food should be the consistency of: Regular Your liquids should be the consistency of: Regular/Thin Discharge Activity: Return to Normal Activity Weight Bearing Status: Weight bearing as tolerated Call your doctor if you observe: Fever of 101 or Higher, Inability to urinate, - - pain with urination Instructions: Pyelonephritis, ED Pyelonephritis Female Adult Allergies/Adverse Reactions: Allergies latex Adverse Reaction (Verified 09/01/19 17:17) Hives Medications to take at Discharge Aspirin 81 mg PO DAILY #0 09/27/15 Lisinopril [Zestril] 20 mg PO DAILY 09/27/15 Multivitamins,Ther W-Minerals [Multivitamin With Minerals (BKC)] 1 tab PO DAILY 09/27/15 [place]-3 Fatty Acids/Fish Oil [Fish Oil 1,000 mg Softgel] 2 ea PO BID 09/27/15 Calcium Carbonate [Calcium] 600 mg PO DAILY 01/22/18 Potassium Gluconate 500 mg PO DAILY 01/22/18 cholecalciferol (vitamin D3) 125 mcg (5,000 unit) capsule 10,000 unit PO DAILY 12/07/18 Naproxen [Naprosyn] 500 mg PO BID PRN PRN #20 tab 01/30/19 blood sugar diagnostic See Rx Instructions .ROUTE .MEDSUPPLY #150 ea 05/09/19 Budesonide/Formoterol 160/4.5 [Symbicort 160/4.5 Mcg Inhaler (SP)] 2 puff INHALATION BID 06/09/19 Duloxetine HCl 60 mg PO BID 06/09/19 Fluticasone Propionate 2 spray INTRANASAL BID 06/09/19 Metoprolol Succinate [Toprol Xl] 25 mg PO DAILY 06/09/19 Pantoprazole Sodium 40 mg PO BID 06/09/19 Albuterol Aerosols [Ventolin Aerosols] 2.5 mg INHALATION Q2H PRN PRN #30 vial.neb. 06/13/19 Albuterol Inhaler [Ventolin Hfa] 1 - 2 puff INHALATION Q4H PRN PRN #1 inhaler 06/13/19 simvastatin 40 mg tablet 40 mg PO QHS #90 tab 03/19/20 ondansetron HCl 4 mg tablet 4 mg PO Q8H PRN #60 tab 07/19/19 metformin 500 mg tablet 1,000 mg PO BID #1 tab 07/30/19 sitagliptin 100 mg tablet 100 mg PO DAILY #30 tab 07/30/19 Nebulizer See Rx Instructions .ROUTE .MEDSUPPLY #1 ea 08/07/19 azelastine 0.15 % (205.5 mcg) nasal spray 1 spray INTRANASAL BID #30 ml 08/07/19 fexofenadine 180 mg tablet 180 mg PO DAILY #30 tab 08/07/19 guaifenesin 1,200 mg tablet, extended release 12 hr 1,200 mg PO Q12H #60 tab 08/07/19 hydrochlorothiazide 25 mg tablet 25 mg PO DAILY #90 tab 08/08/19 montelukast 10 mg tablet 10 mg PO DAILY #90 tab 08/08/19 benralizumab 30 mg/mL subcutaneous syringe 30 mg SC Q4W 0 Days #1 ml 08/27/19 prednisone 10 mg tablet 10 mg PO QDAY #90 tab 08/27/19 Mirtazapine [Remeron] 15 mg PO QHS 09/01/19 Cefdinir 300 mg PO BID #14 cap 09/03/19 The following prescriptions were given: Cefdinir 300 mg PO BID #14 cap Transmission Status: Pending to [id number] Primary Care Physician: Jose Loving MD [Primary Care Provider] - Please follow up with your Primary Care Physician in: 1-2 weeks Test Results: Test results from this visit will be discussed in further detail at your follow-up appointment, if applicable. Proposed Discharge Date: 09/03/19
--- NOTE | 2019-09-03 10:05 | PCM.DC.SUM ---
Discharge Date and Diagnosis Date of Admission: 09/01/19 Date of Discharge: 09/03/19 - Primary Discharge Diagnosis Active and Suspected Problems (Last Updated 08/27/19 @ 16:42 by Angélica Felder) Right flank pain (Acute) Right sided abdominal pain (Acute) acute pyelonephritis - Secondary Discharge Diagnosis Chronic Problems (Last Updated 08/27/19 @ 16:42 by Angélica Felder) Essential hypertension (Chronic) Factor V Leiden (Chronic) Anxiety and depression (Chronic) Bronchiectasis (Chronic) RUFINA (obstructive sleep apnea) (Chronic) DASCO Venous insufficiency of both lower extremities (Chronic) Type 2 diabetes mellitus (Chronic) Iatrogenic pneumothorax (Chronic) Sleep apnea (Chronic) Frequent sinus infections (Chronic) Anxiety (Chronic) Depression (Chronic) Hospitalized [facility] from age [age] Vision problems (Chronic) GERD (gastroesophageal reflux disease) (Chronic) Fatty liver (Chronic) Hyperlipidemia (Chronic) COPD (chronic obstructive pulmonary disease) (Chronic) H/O emotional problems (Chronic) Chronic bronchitis (Chronic) Seasonal allergies (Chronic) COPD (chronic obstructive pulmonary disease) (Chronic) Chronic cough (Chronic) Diabetes mellitus type 2 in obese (Chronic) Morbid obesity (Chronic) Hospital Course and Treatment Imaging Results: Diagnostic Data Abdomen/Pelvis CT 09/01/19 17:29 IMPRESSION: Findings highly suspicious for bilateral pyelitis and ureteritis, possible cystitis. Delayed imaging should be considered to exclude ureteral obstruction Mild groundglass pulmonary infiltrates suspicious for infectious alveolitis versus hypoventilatory changes. Atypical viral pneumonia cannot be excluded. Possible gallbladder sludge and/or small stones versus artifact Mild wall thickening of the stomach most likely due to incomplete distention 2 x 1.6 cm right adnexal cyst likely ovarian cyst multilevel spondylosis of the lumbar spine, posterior bulging annulus at L5-S1 with moderate facet degenerative changes and mild bilateral foraminal stenosis Electronically Signed: Efren Smalls, at 19:59 EDT Tel , Service support , Chest X-Ray 09/01/19 18:20 IMPRESSION: No acute thoracic pathology. Electronically Signed: Jeremiah Sweet, at 18:31 EDT Tel , Service support , Limited or Localized CT 09/01/19 20:46 IMPRESSION: mild bilateral perirenal and periureteral wall thickening and stranding within the retroperitoneum. The right ureter seen throughout course to the distal right ureterovesical junction. The proximal left ureter is visualized. There is no left renal hydronephrosis. The distal left ureter is not classified with contrast. Findings likely represent pyelitis, ureteritis. Correlation with urinalysis recommended. There is no hydronephrosis to suggest ureteral obstruction. The distal left ureter not visualized is most likely is secondary to peristalsis. Mild lower lobe groundglass pulmonary opacities hypoventilatory changes versus infectious alveolitis, atypical pneumonia cannot be excluded Mild to moderate atheromatous narrowing of the distal abdominal aorta Mild bladder wall thickening, possible cystitis Small fatty right inguinal hernia Posterior bulging annulus at L5-S1 2 cm right adnexal likely ovarian cyst Wall thickening of the stomach most likely due to incomplete distention, gastritis cannot be excluded. Electronically Signed: Efren Smalls, at 21:52 EDT Tel , Service support , none Operations: None Procedures: None Summary of Care Provided: The patient is a 49 year old F with a past medical history as outlined. She was admitted through the ED on 09/01/2019 with a complaint of right mid upper abdominal pain radiating to the right flank was started on the morning of admission. She also had right groin discomfort and dysuria. She denied any fever or chills or any shortness of breath and denied any respiratory symptoms. Evaluation in the ED, white cell count was 20.7 and potassium was 3.3. Urinalysis showed evidence of UTI. Lactic acid was 1.7. She had CT of the abdomen and pelvis which showed bilateral pyelitis and ureteritis and possible cystitis with mild groundglass pulmonary infiltrates suspicious fo infectious alveolitis versus hypoventilatory changes. She also had a tube by 1.6 cm right adrenal cyst likely ovarian cyst. Patient was admitted and managed for pyelonephritis. She was started on IV ceftriaxone and hydrated with IV fluids. She responded to treatment and white cell counts trended down. Urine cultured Klebsiella but blood cultures were negative. Patient's white cell count trended down and was 9.6 on day of discharge. Pain with urination resolved and right flank pain also resolved. She was discharged home on 09/03/2019 with a prescription for p.o. cefdinir 300 mg twice daily for 7 days. She is follow-up with her primary care doctor for further work-up of the right adnexal cyst as needed. Seen and examined prior to discharge. She felt better and had no complaints and wanted to be discharged home. Review of symptoms otherwise negative. Labs and vitals reviewed. Home medication reviewed and reconciled. o/e: Vital Signs Temp Pulse Resp BP Pulse Ox 97.8 F 74 16 106/61 97 09/03/19 08:40 09/03/19 08:40 09/03/19 08:40 09/03/19 08:40 09/03/19 08:40 [] General: Alert, Oriented x3, Cooperative, No apparent distress HEENT: Atraumatic, PERRLA, EOMI, Normocephalic Oral: Moist Mucosa Neck: Supple, No JVD, Negative Carotid Bruits Lungs: Clear to auscultation, Normal air movement, No rhonchi, No wheeze Cardiovascular: Regular rate, Regular Rhythm, Normal S1, Normal S2, No murmurs Abdomen: Bowel Sounds Present, Soft, Non-Distended, No Hepato-splenomegaly, nontender. Extremities: No clubbing, No cyanosis, No edema, Capillary Refill Less than 3 Seconds Skin: No rashes, No breakdown Musculoskeletal: No Tenderness to Palpation of Joints or Extremities Lymphatic: No Cervical, Supraclavicular, or Inguinal Adenopathy Neurological: Cranial nerves II-XII grossly intact, Neuro grossly intact, Motor Exam 5/5 strength throughout Psych/Mental Status: Normal Affect, Appropriate, Alert and oriented to time, place, person, mood and affect Plan is for DC home today, as above. - Physical Exam Vitals/I&O's: Vital Signs Temp Pulse Resp BP Pulse Ox 97.8 F 74 16 106/61 97 09/03/19 08:40 09/03/19 08:40 09/03/19 08:40 09/03/19 08:40 09/03/19 08:40 Oxygen Delivery Method Room Air Weight: 234 lb 12.677 oz Body Mass Index (BMI) 41.5 Finger Stick Blood Glucose 71 Intake and Output for Last 24 Hours 09/01/19 09/02/19 09/03/19 23:59 23:59 23:59 Intake Total 66.25 / 66.25 1072 / 1072 0 / 0 Output Total 0 / 0 Balance 66.25 / 66.25 1072 / 1072 0 / 0 Microbiology Past 72 Hours 09/01/19 19:45 Urine, Clean Catch Urine Culture - Final Klebsiella pneumoniae sp pneum Laboratory Results 09/02/19 11:11: POC Glucose 356 H 09/02/19 16:35: POC Glucose 298 H 09/02/19 22:10: POC Glucose 332 H 09/03/19 06:44: POC Glucose 272 H 09/03/19 06:55: WBC 9.6, RBC 4.45, Hgb 13.9, Hct 41.2, MCV 92.6, MCH 31.2, MCHC 33.7, RDW Std Deviation 44.9 H, RDW Coeff of Roxanne 13.2, Plt Count 288, MPV 11.1, Immature Gran % (Auto) 0.600, Neut % (Auto) 53.5, Lymph % (Auto) 33.6, Simpson % (Auto) 7.4, Eos % (Auto) 3.9, Baso % (Auto) 1.0, Absolute Neuts (auto) 5.1, Absolute Lymphs (auto) 3.23, Nucleated RBC % 0 09/03/19 06:55: Sodium 132 L, Potassium 3.7, Chloride 98, Carbon Dioxide 27.0, Anion Gap 7, BUN 14, Creatinine 0.59, Estim Creat Clear Calc 97.51, Est GFR (MDRD) Af Amer 139, Est GFR (MDRD) Non-Af 115, BUN/Creatinine Ratio 23.6 H, Glucose 298 H, Calcium 9.0 Current Medications Acetaminophen (Tylenol) 650 mg PO Q6H PRN PRN PRN Reason: Pain Score 1-10/Temp > 100.7 F Last Admin: 09/02/19 22:17 Dose: 650 mg Documented by: Albuterol Sulfate (Ventolin Aerosols) 2.5 mg INHALATION Q2H PRN PRN PRN Reason: DYSPNEA Aspirin (Aspirin, Baby) 81 mg PO DAILYCM PRAMOD Last Admin: 09/03/19 08:27 Dose: 81 mg Documented by: Atorvastatin Calcium (Lipitor) 20 mg PO QHS [facility] Last Admin: 09/02/19 22:03 Dose: 20 mg Documented by: Budesonide (Pulmicort Aerosol) 0.5 mg INHALATION BID.RT [facility] Last Admin: 09/03/19 07:45 Dose: 0.5 mg Documented by: Dextrose (D50w Syringe) 0 gm IV X1 PRN; Protocol PRN Reason: Hypoglycemia Duloxetine HCl (Cymbalta) 60 mg PO BID [facility] Last Admin: 09/03/19 08:28 Dose: 60 mg Documented by: Fluticasone Propionate (Flonase Nasal [place]) 2 spray NASAL BID [facility] Last Admin: 09/03/19 08:28 Dose: 2 spray Documented by: Glucagon () 1 mg IM .X1 PRN PRN Reason: Hypoglycemia Heparin Sodium (Porcine) (Heparin Na) 5,000 unit SC Q12 [facility] Last Admin: 09/03/19 08:29 Dose: Not Given Documented by: Hydrochlorothiazide (Hctz) 25 mg PO DAILY [facility] Last Admin: 09/03/19 08:29 Dose: 25 mg Documented by: Ceftriaxone Sodium (Rocephin) 1 gm in 50 mls @ 100 mls/hr IV Q24H [facility] Last Infusion: 09/02/19 22:35 Dose: Infused Documented by: Sodium Chloride () 250 mls @ 15 mls/hr IV .[id number] PRN PRN Reason: Saline Flush Sodium Chloride () 250 mls @ 15 mls/hr IV .[id number] PRN PRN Reason: Additional IVPB Infusion Insulin Human Lispro (Humalog Kwikpen (Bkc)) 0 unit SC ACHS [facility]; Protocol Last Admin: 09/03/19 06:44 Dose: 6 units Documented by: Linagliptin (Tradjenta) 5 mg PO DAILY [facility] Last Admin: 09/03/19 08:30 Dose: 5 mg Documented by: Lisinopril (Zestril) 20 mg PO DAILY [facility] Last Admin: 09/03/19 08:30 Dose: 20 mg Documented by: Metformin HCl (Glucophage) 1,000 mg PO BIDCM [facility] Last Admin: 09/01/19 23:24 Dose: Not Given Documented by: Metoprolol Succinate (Toprol Xl (Beta Jose)) 25 mg PO DAILY [facility] Last Admin: 09/03/19 08:29 Dose: 25 mg Documented by: Mirtazapine (Remeron) 15 mg PO QHS [facility] Last Admin: 09/02/19 22:02 Dose: 15 mg Documented by: Montelukast Sodium (Singulair) 10 mg PO DAILY [facility] Last Admin: 09/03/19 08:29 Dose: 10 mg Documented by: Morphine Sulfate () 4 mg IV Q3H PRN PRN PRN Reason: Pain Score 6-10/10 Last Admin: 09/02/19 17:24 Dose: 4 mg Documented by: Naproxen (Naprosyn) 500 mg PO BID PRN PRN PRN Reason: Pain Score 4-10/10 Nutritional Formula (Lactose Free) (Glucerna Shake) 120 ml PO TIDCM [facility] Last Admin: 09/03/19 08:27 Dose: Not Given Documented by: Ondansetron HCl (Zofran) 4 mg IV Q8H PRN PRN PRN Reason: NAUSEA/VOMITING Pantoprazole Sodium (Protonix) 40 mg PO BID [facility] Last Admin: 09/03/19 08:29 Dose: 40 mg Documented by: Sodium Chloride () 10 - 40 ml IV UD PRN PRN Reason: SALINE FLUSH Last Admin: 09/02/19 22:07 Dose: 10 ml Documented by: Discharge Diet: Low fat/ Low Cholesterol Discharge Activity: Return to Normal Activity Weight Bearing Status: Weight bearing as tolerated Call your doctor if you observe: Fever of 101 or Higher, Inability to urinate, - - pain with urination Home Medications: Medications to take at Discharge Aspirin 81 mg PO DAILY #0 09/27/15 Lisinopril [Zestril] 20 mg PO DAILY 09/27/15 Multivitamins,Ther W-Minerals [Multivitamin With Minerals (BKC)] 1 tab PO DAILY 09/27/15 [place]-3 Fatty Acids/Fish Oil [Fish Oil 1,000 mg Softgel] 2 ea PO BID 09/27/15 Calcium Carbonate [Calcium] 600 mg PO DAILY 01/22/18 Potassium Gluconate 500 mg PO DAILY 01/22/18 cholecalciferol (vitamin D3) 125 mcg (5,000 unit) capsule 10,000 unit PO DAILY 12/07/18 Naproxen [Naprosyn] 500 mg PO BID PRN PRN #20 tab 01/30/19 blood sugar diagnostic See Rx Instructions .ROUTE .MEDSUPPLY #150 ea 05/09/19 Budesonide/Formoterol 160/4.5 [Symbicort 160/4.5 Mcg Inhaler (SP)] 2 puff INHALATION BID 06/09/19 Duloxetine HCl 60 mg PO BID 06/09/19 Fluticasone Propionate 2 spray INTRANASAL BID 06/09/19 Metoprolol Succinate [Toprol Xl] 25 mg PO DAILY 06/09/19 Pantoprazole Sodium 40 mg PO BID 06/09/19 Albuterol Aerosols [Ventolin Aerosols] 2.5 mg INHALATION Q2H PRN PRN #30 vial.neb. 06/13/19 Albuterol Inhaler [Ventolin Hfa] 1 - 2 puff INHALATION Q4H PRN PRN #1 inhaler 06/13/19 simvastatin 40 mg tablet 40 mg PO QHS #90 tab 07/11/19 ondansetron HCl 4 mg tablet 4 mg PO Q8H PRN #60 tab 07/19/19 metformin 500 mg tablet 1,000 mg PO BID #1 tab 07/30/19 sitagliptin 100 mg tablet 100 mg PO DAILY #30 tab 07/30/19 Nebulizer See Rx Instructions .ROUTE .MEDSUPPLY #1 ea 08/07/19 azelastine 0.15 % (205.5 mcg) nasal spray 1 spray INTRANASAL BID #30 ml 08/07/19 fexofenadine 180 mg tablet 180 mg PO DAILY #30 tab 08/07/19 guaifenesin 1,200 mg tablet, extended release 12 hr 1,200 mg PO Q12H #60 tab 08/07/19 hydrochlorothiazide 25 mg tablet 25 mg PO DAILY #90 tab 08/08/19 montelukast 10 mg tablet 10 mg PO DAILY #90 tab 08/08/19 benralizumab 30 mg/mL subcutaneous syringe 30 mg SC Q4W 0 Days #1 ml 08/27/19 prednisone 10 mg tablet 10 mg PO QDAY #90 tab 08/27/19 Mirtazapine [Remeron] 15 mg PO QHS 09/01/19 Cefdinir 300 mg PO BID #14 cap 09/03/19 Following Prescrptions Were Given to Patient: Cefdinir 300 mg PO BID #14 cap Transmission Status: Received by [id number] Primary Care Physician: Jose Loving MD [Primary Care Provider] - Please follow up with your Primary Care Physician in: 1-2 weeks Patient Instructions: Pyelonephritis, ED Pyelonephritis Female Adult Disposition: Home Minutes spent on discharge:: 40 Patient Condition:: Stable Medical Necessity - Tobacco Use Smoking Status: Former smoker Tobacco Use: Cigarettes Meaningful Use Info Meaningful Use Diagnoses (Choose all that apply): None applicable Inpatient E&M: 57096 [facility]
--- NOTE | 2019-09-03 10:07 | PCA ---
Patient states that she will schedule her own appts.
--- NOTE | 2019-09-03 10:52 | PHA.DC.MC ---
Pharmacy Service has performed discharge medication reconciliation and counseling for this patient. 1. CEFDINIR 300MG PO BID X 7 DAYS The patient's discharge medication list was reviewed for discrepancies and discrepancies were resolved. Home Medications Aspirin 81 mg PO DAILY #0 09/27/15 Lisinopril [Zestril] 20 mg PO DAILY 09/27/15 Multivitamins,Ther W-Minerals [Multivitamin With Minerals (BKC)] 1 tab PO DAILY 09/27/15 [place]-3 Fatty Acids/Fish Oil [Fish Oil 1,000 mg Softgel] 2 ea PO BID 09/27/15 Calcium Carbonate [Calcium] 600 mg PO DAILY 01/22/18 Potassium Gluconate 500 mg PO DAILY 01/22/18 cholecalciferol (vitamin D3) 125 mcg (5,000 unit) capsule 10,000 unit PO DAILY 12/07/18 Naproxen [Naprosyn] 500 mg PO BID PRN PRN #20 tab 01/30/19 blood sugar diagnostic See Rx Instructions .ROUTE .MEDSUPPLY #150 ea 05/09/19 Budesonide/Formoterol 160/4.5 [Symbicort 160/4.5 Mcg Inhaler (SP)] 2 puff INHALATION BID 06/09/19 Duloxetine HCl 60 mg PO BID 06/09/19 Fluticasone Propionate 2 spray INTRANASAL BID 06/09/19 Metoprolol Succinate [Toprol Xl] 25 mg PO DAILY 06/09/19 Pantoprazole Sodium 40 mg PO BID 06/09/19 Albuterol Aerosols [Ventolin Aerosols] 2.5 mg INHALATION Q2H PRN PRN #30 vial.neb. 06/13/19 Albuterol Inhaler [Ventolin Hfa] 1 - 2 puff INHALATION Q4H PRN PRN #1 inhaler 06/13/19 simvastatin 40 mg tablet 40 mg PO QHS #90 tab 07/11/19 ondansetron HCl 4 mg tablet 4 mg PO Q8H PRN #60 tab 07/19/19 metformin 500 mg tablet 1,000 mg PO BID #1 tab 07/30/19 sitagliptin 100 mg tablet 100 mg PO DAILY #30 tab 07/30/19 Nebulizer See Rx Instructions .ROUTE .MEDSUPPLY #1 ea 08/07/19 azelastine 0.15 % (205.5 mcg) nasal spray 1 spray INTRANASAL BID #30 ml 04/15/20 fexofenadine 180 mg tablet 180 mg PO DAILY #30 tab 08/07/19 guaifenesin 1,200 mg tablet, extended release 12 hr 1,200 mg PO Q12H #60 tab 08/07/19 hydrochlorothiazide 25 mg tablet 25 mg PO DAILY #90 tab 08/08/19 montelukast 10 mg tablet 10 mg PO DAILY #90 tab 08/08/19 benralizumab 30 mg/mL subcutaneous syringe 30 mg SC Q4W 0 Days #1 ml 08/27/19 prednisone 10 mg tablet 10 mg PO QDAY #90 tab 08/27/19 Mirtazapine [Remeron] 15 mg PO QHS 09/01/19 Cefdinir 300 mg PO BID #14 cap 09/03/19 The patient was counseled on the following discharge medications and changes in medications for homegoing were reviewed. The Reason for Use, instructions for use, and potential side effects were reviewed for all new medications. The patient's questions regarding all of their medications were answered. The patient was able to verbally demonstrate an understanding of their discharge medications.
--- NOTE | 2019-09-04 15:10 | CASEMGMT ---
RN CM Discharge F/U Phone CAll LACE: 14 Strata: 4 Discharge date: 09/03/2019 Call date: 09/04/2019 Call time: [id number] Atttempted to reach pt without success at this time, message left for pt to call this RN CM back if/when able. SStaten RN CM Admission dx: Pyelonephritis
== END 2019-09-03 10:30 | disposition home or self-care (01) | DRG 463 ==
LOC: ED 18:11 → PCU 09-02 01:28
PROVIDERS: Admitting Provider Internal Medicine; Emergency Provider Emergency Medicine; PCP Internal Medicine; Visit Provider Student in an Organized Health Care Education/Training Program
DX: N10 Acute pyelonephritis (principal); B96.1 Klebsiella pneumoniae [K. pneumoniae] as the cause of diseases classified elsewhere; N83.291 Other ovarian cyst, right side; E87.6 Hypokalemia; R91.8 Other nonspecific abnormal finding of lung field; I10 Essential (primary) hypertension; D68.51 Activated protein C resistance; F32.9 Major depressive disorder, single episode, unspecified; F41.9 Anxiety disorder, unspecified; E11.9 Type 2 diabetes mellitus without complications; K21.9 Gastro-esophageal reflux disease without esophagitis; K76.0 Fatty (change of) liver, not elsewhere classified; J44.9 Chronic obstructive pulmonary disease, unspecified; E78.5 Hyperlipidemia, unspecified; G47.33 Obstructive sleep apnea (adult) (pediatric); I87.2 Venous insufficiency (chronic) (peripheral); E66.01 Morbid (severe) obesity due to excess calories; Z68.41 Body mass index [BMI] 40.0-44.9, adult; Z79.82 Long term (current) use of aspirin; Z79.84 Long term (current) use of oral hypoglycemic drugs; Z79.51 Long term (current) use of inhaled steroids; Z79.899 Other long term (current) drug therapy; Z87.891 Personal history of nicotine dependence
CPT/HCPCS: 36415; 71045; 74177; 76380; 80048; 80053; 81001; 82962; 83605; 83690; 85025; 87040; 87077; 87086; 87088; 87186; 94640; 96365; 96375; 97802; 99284; 99406; J7050; Q9967; A4216; J2405

== ENCOUNTER → 2019-09-17 07:08 | Outpatient (CLI) | payer MEDICAID, SELFPAY ==
[2019-09-11 09:06] VITALS: BMI 41.5
--- NOTE | 2019-09-17 07:10 | MRI_ITS ---
STUDY: MRI LUMBAR SPINE WITHOUT CONTRAST REASON FOR EXAM: Female, 49 years old. radiculopathy, right leg pain TECHNIQUE: Standardized fat and water weighted pulse sequences were obtained in the sagittal and axial planes. COMPARISON: Abdominal CT scan dated September 01, 2019 FINDINGS: Slightly exaggerated lumbar lordosis. No significant scoliosis. Conus medullaris terminates normally at the L2 level. Transitional lumbosacral anatomy with rudimentary disc at S1-2. No acute fracture. No acute dislocation. No acute bone destruction. Normal paraspinal muscles. Normal aorta. Normal retroperitoneum. Nonspecific mildly distended urinary bladder. T12-L1: Normal endplates. Normal disc height, hydration and morphology. Normal bilateral facet joints. Normal central canal and bilateral lateral recesses. Normal bilateral intervertebral neural foramina. L1-2: Normal endplates. Minimal disc desiccation. Normal bilateral facet joints. Normal central canal and bilateral lateral recesses. Normal bilateral intervertebral neural foramina. L2-3: Normal endplates. Normal disc height, hydration and morphology. Normal bilateral facet joints. Normal central canal and bilateral lateral recesses. Normal bilateral intervertebral neural foramina. L3-4: Minimal endplate spondylosis. Shallow disc bulge. Normal bilateral facet joints. Normal central canal and bilateral lateral recesses. Normal bilateral intervertebral neural foramina. L4-5: Normal endplates. Shallow disc bulge with mild central canal narrowing. Facet joint arthrosis with trace joint effusions. Normal bilateral lateral recesses. Mild neural foraminal narrowing without impingement, left greater than right. L5-S1: Minimal endplate spondylosis. Disc bulge, annular fissure, with mild central canal narrowing. Facet joint arthrosis with joint effusions. Bilateral lateral recess narrowing without impingement. Bilateral neural foraminal narrowing with early contact of the left exiting nerve root. MRI/Spine Lumbar (Routine) IMPRESSION: Multilevel intervertebral disc disease with mild central canal narrowing at L4-5 and L5-S1 Multilevel neural foraminal narrowing with early contact of the left exiting L5 nerve root Bilateral lateral recess narrowing without impingement at L5-S1 Slightly exaggerated lordosis with lower lumbar facet joint arthrosis Transitional lumbosacral anatomy with rudimentary S1-2 disc Electronically Signed: Kirill Vazquez DO at 8:46 EDT Tel , Service support ,
== END ==
PROVIDERS: PCP Internal Medicine; Referring Provider Internal Medicine; Visit Provider Internal Medicine
DX: M54.16 Radiculopathy, lumbar region (principal); R93.89 Abnormal findings on diagnostic imaging of other specified body structures; R93.5 Abnormal findings on diagnostic imaging of other abdominal regions, including retroperitoneum
CPT/HCPCS: 72148

== ENCOUNTER 2019-09-18 09:37 | Outpatient (RCR) | payer MEDICAID, SELFPAY ==
[2019-09-11 09:06] VITALS: BMI 41.5
== END 2019-09-18 23:59 | disposition home or self-care (01) ==
LOC: DC 09:37
PROVIDERS: PCP Internal Medicine; Visit Provider Internal Medicine
DX: Z71.3 Dietary counseling and surveillance (principal); E11.9 Type 2 diabetes mellitus without complications
CPT/HCPCS: 97803

== ENCOUNTER → 2019-09-27 11:41 | Outpatient (CLI) | payer MEDICAID, SELFPAY ==
[2019-09-27 10:59] VITALS: BMI 41.5
[2019-09-27 17:04] LABS: Amphetamine Urine VISTA NEGATIVE (<1000 ng/mL); Barbiturate Urine VISTA NEGATIVE (< 200 ng/mL); Benzodiazepine Urine VISTA NEGATIVE (< 200 ng/mL); Cocaine Urine VISTA NEGATIVE (< 300 ng/mL); Ecstacy Urine VISTA NEGATIVE (< 500 ng/mL); Methadone Urine VISTA NEGATIVE (< 300 ng/mL); PCP Urine VISTA NEGATIVE (< 25 ng/mL); THC Urine VISTA NEGATIVE (< 50 ng/mL); Vista UDS pH Range 5
== END ==
PROVIDERS: PCP Internal Medicine; Referring Provider Internal Medicine; Visit Provider Internal Medicine
DX: M54.9 Dorsalgia, unspecified (principal); G89.29 Other chronic pain
CPT/HCPCS: 80307

== ENCOUNTER 2019-10-08 12:19 | Outpatient (RCR) | payer MEDICAID, SELFPAY ==
[2019-09-27 10:59] VITALS: BMI 41.5
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
--- NOTE | 2020-02-24 17:53 | HP.PT.NRP ---
CARREI VIVEROS was seen in my office for initial evaluation on 10/08/19. The following Plan of Care was established for this patient: Initial Frequency: 2-3x /Week Initial Duration: 4-6 Weeks Patient/Client Instruction: Educate patient on: Condition, Plan of Care, Risk Factors, Benefits of Fitness Program For the Purpose of:: To improve self management Therapeutic Exercise to Include: Strength training, Body mechanics, Postural training, Neuromotor development, In an aquatic setting, Dynamic Lumbar Stabilization For the Purpose of:: To decrease pain, To increase ROM, To improve muscle performance and motor function, To increase tolerance to activity/condition/position, To improve ability of physical actions for home/community/work/leisure This patient was last seen in our office 10/08/19. Pertinent comments regarding their Physical therapy will appear below: This patient has not returned to Physical Therapy and is appropriate to return to MD for further follow-up as needed. At this point I will be discontinuing this patient from physical therapy. I would be happy to see this patient again in the future if found appropriate by the physician. Thank you! Shweta Melvin, PT, Cert MDT
== END 2019-10-08 19:00 | disposition home or self-care (01) ==
LOC: PT 12:19
PROVIDERS: PCP Internal Medicine; Referring Provider Anesthesiology Pain Medicine; Visit Provider Anesthesiology Pain Medicine
DX: M54.9 Dorsalgia, unspecified (principal); M79.606 Pain in leg, unspecified
CPT/HCPCS: 97112; 97162

== ENCOUNTER 2020-03-24 18:23 | Emergency (ER) | payer SELFPAY ==
[2019-10-09 09:23] VITALS: BMI 41.5
[2020-03-24 18:24] VITALS: BP 164/93; PULSE 95; RESP 17; TEMP 36.1; O2SAT 99; BMI 38.8
--- NOTE | 2020-03-24 18:42 | ED.DCSUM_ITS ---
History of Present Illness Chief Complaint: Cough Informant: Patient Onset: Today Narrative: 49-year-old female with history of hypertension, COPD, factor V Leiden, RUFINA, diabetes type 2, GERD, hyperlipidemia presenting with painful cough, shortness of breath. She states the onset was today. She has not had a fever but does admit to loss of taste and smell. She states she drove from [place] with her to spend Thanksgiving with her family. She states that her [id number] recently had Covid and had not had symptoms for the last week and her mother recently had an illness and tested negative for Covid. Patient also has history of PE and was previously on Coumadin but she had trouble with GI bleeding so they took her off and placed her on aspirin. Prior similar symptoms: Yes Past Medical History - Allergies and Home Meds Allergies/Adverse Reactions: Allergies latex Adverse Reaction (Verified 03/24/20 18:23) Cecy Primary Care Physician: Jose Loving MD [STAFF PHYSICIAN] - Prior records reviewed: Yes Past Medical History: - - Hypertension, COPD, factor V Leiden, RUFINA, diabetes type 2, GERD, HPL Surgical History: noncontributory Lives: Spouse/ Significant Other Smoking Status: Unknown if ever smoked Alcohol: None Drugs: None - Family History Maternal Family History: Family History (Last Reviewed 09/27/19 @ 10:59 by Manuela Wilks) Mother Alcoholism Asthma Depression hormone problem Respiratory disease Suicide attempt Drug abuse Hepatitis C Brother Alcoholism Asthma Diabetes Respiratory disease Drug abuse Grandmother Depression Psychiatric care Father Diabetes Hypertension Respiratory disease Emphysema of lung Other Bronchitis Dementia Heart disease Family History: Reports: Pulmonary Disease, - - Additionally maternal family history of alcoholism, drug abuse, hepatitis C, anxiety and depression with suicide attempts. Paternal Family History: Family History (Last Reviewed 09/27/19 @ 10:59 by Manuela Wilks) Mother Alcoholism Asthma Depression hormone problem Respiratory disease Suicide attempt Drug abuse Hepatitis C Brother Alcoholism Asthma Diabetes Respiratory disease Drug abuse Grandmother Depression Psychiatric care Father Diabetes Hypertension Respiratory disease Emphysema of lung Other Bronchitis Dementia Heart disease Family History: Reports: Diabetes, Heart Disease, Pulmonary Disease Review of Systems General: Reports: Chills. Denies: Fever Eyes: Reports: -. Denies: Visual changes - bilaterally, Diplopia ENT: Reports: - - Loss of taste and smell. Denies: Rhinorrhea, Sore throat Cardiovascular: Reports: Chest pain Respiratory: Reports: Dyspnea, Cough, Dyspnea on exertion Gastrointestinal: Denies: Abdominal pain, Nausea, Vomiting Genitourinary: Denies: Dysuria, Hematuria Musculoskeletal: Reports: Myalgias. Denies: Arthralgias Skin: Denies: Rash, Abscess Neurological: Reports: Headache. Denies: Weakness, Parasthesia, Numbness, -, - Physical Exam Vital Signs/Narrative: Vital Signs Temp Pulse Resp BP Pulse Ox 03/24/20 18:24 97.0 F L 95 17 164/93 H 99 Inital Vital Signs reviewed: Yes General: Obese, No Acute Distress Head: Normocephalic, Atraumatic Eyes: Perrl, EOMI. Negative for: Pale conjunctiva ENT: Moist mucous membranes. Negative for: Nasal congestion Cardiovascular: Regular rate, Regular rhythm Respiratory: No distress, CTA bilaterally Extremities: Nontender, No edema Skin: Normal color, No rash. Negative for: Cyanosis Neurological: Alert, Oriented x3 Psychological: Normal affect, Normal Mood Diagnostic/Tx/Re-eval Clinical Impression(s) from Imaging Studies Chest CTA 03/24/20 19:09 IMPRESSION: Evaluation for pulmonary embolus significantly limited due to poor contrast bolus. No central pulmonary embolus. The remainder of the examination is nondiagnostic. No evidence of thoracic aortic aneurysm or dissection. Minimal patchy ground glass opacities in the lungs, most pronounced in the left lower lobe. This is consistent with a very mild infectious or inflammatory etiology. Coronary artery disease. Electronically Signed: Jeremiah Micki, at 20:43 EST Tel , Service support , Laboratory Data 03/24/20 03/24/20 03/24/20 19:15 19:15 19:15 WBC 13.6 H RBC 5.33 Hgb 16.8 H Hct 49.3 H MCV 92.5 MCH 31.5 MCHC 34.1 RDW Std Deviation 43.6 RDW Coeff of Roxanne 13.0 Plt Count 342 MPV 10.9 Immature Gran % (Auto) 0.300 Neut % (Auto) 48.5 Lymph % (Auto) 39.7 Benzie % (Auto) 6.3 Eos % (Auto) 4.6 Baso % (Auto) 0.6 Absolute Neuts (auto) 6.6 Absolute Lymphs (auto) 5.39 H Nucleated RBC % 0 Differential Comment SCANNED Sodium 137 Potassium 3.7 Chloride 106 Carbon Dioxide 25.0 Anion Gap 6 BUN 6 L Creatinine 0.63 Estim Creat Clear Calc 91.32 Est GFR (MDRD) Af Amer 131 Est GFR (MDRD) Non-Af 108 BUN/Creatinine Ratio 9.6 L Glucose 188 H Lactic Acid 2.1 H* Calcium 9.1 Total Bilirubin 0.20 AST 7 L ALT 19 Alkaline Phosphatase 96 Troponin I < 0.015 Total Protein 7.9 Albumin 3.5 Globulin 4.4 H Albumin/Globulin Ratio 0.8 L - Rhythm Strip Rhythm Strip: Sinus Rhythm Rate: 81 - EKG Initial EKG Interpretation: Sinus Rhythm, No Acute Injury Pattern - Medical Decision Making 49-year-old female presenting with shortness of breath, cough is painful. She is concerned because she lost taste and smell. She has not had a fever. Her vital signs are stable and she is not hypoxic. I ambulated her personally in the room for 30 seconds and although she got a little short of breath she was never hypoxic and maintain sats 98%. Since her cough was painful I did check an EKG which is sinus rhythm at 81 bpm without any signs of ischemia. Her troponin was negative. She had a slight leukocytosis 13. Lactic acid was 2.1 and she was given a liter of fluids. Since the patient has recent travel, and a clotting disorder I decided to do just a CTA which did show groundglass opacities. After discussion with her I counseled her that she does not meet admission criteria but that she would need to quarantine. She is going to leave back for [place] with her fianc? who is already been exposed to her. He does not have symptoms currently. Given that she is not hypoxic I do not believe she needs steroids at this time however since she is driving back to [employer] I will provide her a [id number] prescription for dexamethasone in case she starts to have wheezing with her COPD or she becomes hypoxic and she will monitor her oxygen with her pulse oximeter that she has at home. ED Disposition - Plan for ED Patient: Disposition: Home or Assisted Living Instructions: Coronavirus Disease 2019 (COVID-19): Caring for Yourself or Others, Preventing the Spread of Infection Understanding Isolation Procedures Prescriptions: Azithromycin 250 mg PO DAILY #5 tab Prescription Printed Dexamethasone [Decadron] 7 mg PO DAILY 5 Days #7 tab Prescription Printed Referrals: Jose Loving MD [STAFF PHYSICIAN] -
--- NOTE | 2020-03-24 18:59 | EKG12_ITS ---
Test Reason : COUGH Blood Pressure : / mmHG Vent. Rate : 081 BPM Atrial Rate : 081 BPM P-R Int : 148 ms QRS Dur : 084 ms QT Int : 376 ms P-R-T Axes : 015 059 038 degrees QTc Int : 436 ms Normal sinus rhythm Normal ECG Confirmed by LINDA GARZA, USMAN ([id number]), news videotape editor KENNEDY BOWENS ([id number]) on 03/25/2020 1:45:36 PM Referred By: EDILIA Confirmed By:PETER MCKEON MD
--- NOTE | 2020-03-24 19:09 | CT_ITS ---
STUDY: CTA CHEST REASON FOR EXAM: Female, 49 years old. COUGH, SOB, CP, LOSS OF TASTE/SMELL. FACTOR 5 NO THINNERS -- HX:GERD,HTN,FACTOR V LEIDEN,DIABETES,ASTHMA,COPD,PE,PNEUMO RADIATION DOSAGE (If Supplied By Facility): CTDIvol = ( 13.62 ) mGy, DLP = ( 497.35 ) mGycm TECHNIQUE: The examination was performed with the intravenous administration of IV 100mL Isovue-370. Post-processing of the angiographic images was performed, with multiplanar reformation and 3D reconstruction. Individualized dose optimization techniques were used for this CT. COMPARISON: 07/22/19 FINDINGS: There is minimal patchy groundglass opacities noted in the lungs, most pronounced in the left lower lobe. There are no focal infiltrates. There are no pleural effusions. The central airways are patent. There is no pneumothorax. Evaluation for pulmonary embolus is significantly limited due to poor contrast bolus. The contrast is primarily within the thoracic aorta. There is no central pulmonary embolus. The remainder the examination is nondiagnostic. There is no thoracic aortic aneurysm or dissection. The heart and pericardium are within normal limits. There are coronary artery calcifications noted There is no thoracic lymphadenopathy. Images through the upper abdomen demonstrate no significant abnormality. There are no destructive osseous lesions. CT/CTA Chest W/WO Contrast IMPRESSION: Evaluation for pulmonary embolus significantly limited due to poor contrast bolus. No central pulmonary embolus. The remainder of the examination is nondiagnostic. No evidence of thoracic aortic aneurysm or dissection. Minimal patchy ground glass opacities in the lungs, most pronounced in the left lower lobe. This is consistent with a very mild infectious or inflammatory etiology. Coronary artery disease. Electronically Signed: Jeremiah Sweet, at 20:43 EST Tel , Service support ,
[2020-03-24 19:19] VITALS: O2SAT 98
[2020-03-24] MEDS: Morphine 4 MG/ML Syringe IV (19:25)
[2020-03-24] MEDS: Ondansetron 4 MG/2 ML Vial IV (19:25)
[2020-03-24 19:27] LABS: Absolute Lymphocyte Count 5.39 X10^3/uL (0.83-4.51); Absolute Neutrophil Count 6.6 X10^3/uL (2.0-7.7); Basophil# 0.08 X10^3/uL; Basophil% 0.6 % (0-1); Differential Indicated SCAN CRITERIA MET; Eosinophil# 0.62 X10^3/uL; Eosinophils% 4.6 % (0-5); Hematocrit 49.3 % (37-47); Hemoglobin 16.8 g/dL (12.0-15.0); Lymphocyte # 5.39 X10^3/ul (4.0); Lymphocyte % 39.7 % (19-41); Mean Corp Hgb Conc 34.1 g/dL (32-36); Mean Corpuscular Hgb 31.5 pg (27.0-32.0); Mean Corpuscular Volume 92.5 fL (81-99); Mean Platelet Vol. 10.9 fl (6.2-12.0); Monocyte# 0.86 X10^3/uL; Monocyte% 6.3 % (0-10); NRBC Flagged by Analyzer 0 % (0-5); Neutrophil % 48.5 % (47-70); POSITIVE DIFFERENTIAL YES; Platelet Count 342 K/mm3 (150-450); RBC Distribution Width SD 43.6 fl (35.1-43.9); Red Blood Count 5.33 M/mm3 (4.2-5.4); White Blood Count 13.6 K/mm3 (4.4-11.0)
[2020-03-24 19:54] LABS: Differential Comment SCANNED
[2020-03-24 20:07] VITALS: BP 156/100; PULSE 89; RESP 14; TEMP 36.7; O2SAT 93
[2020-03-24 20:08] LABS: ALB/GLOB Ratio 0.8 RATIO (0.9-2.4); AST(SGOT) 7 U/L (15-37); Alanine Aminotransfer ALT/SGPT 19 U/L (13-56); Albumin, Serum 3.5 g/dL (3.2-5.0); Alkaline Phosphatase 96 U/L (45-117); Anion Gap 6 (5-15); BUN 6 mg/dL (7-18); BUN/Creat Ratio 9.6 RATIO (10-20); Calcium,Total 9.1 mg/dL (8.5-10.1); Chloride 106 mmol/L (98-107); Creatinine, Serum 0.63 mg/dL (0.55-1.02); EST Glomerular Filtration Rate 108 mL/min (>60); Est Glom Filt Rate - Afr Amer 131 mL/min (>60); Estimated Creatinine Clearance 91.32 ml/min; Globulin 4.4 g/dL (2.2-4.2); Glucose 188 mg/dL (74-106); Potassium 3.7 mmol/L (3.5-5.1); Protein, Total 7.9 g/dL (6.4-8.2); Sodium Level 137 mmol/L (136-145)
[2020-03-24 20:31] LABS: Lactic Acid 2.1 mmol/L (0.4-1.9)
[2020-03-24 20:46] VITALS: BP 117/55; PULSE 90; RESP 14; O2SAT 97
[2020-03-24] MEDS: 0.9% Normal Saline 1,000 ML 999 ML IV (21:44)
[2020-03-24 22:00] VITALS: BP 144/94; PULSE 88; RESP 21; O2SAT 99
[2020-03-24 22:09] LABS: Procalcitonin < 0.01 ng/mL (0.00-0.09)
[2020-03-24] MEDS: Azithromycin 250 MG Tablet 500 MG PO (22:16)
[2020-03-24 22:43] VITALS: BP 139/75; PULSE 83; RESP 16; O2SAT 95
[2020-03-24 23:24] LABS: Reflex Lactate? Y
== END 2020-03-24 23:03 | disposition home or self-care (01) ==
PROVIDERS: Emergency Provider Student in an Organized Health Care Education/Training Program
DX: U07.1 COVID-19 (principal); J44.0 Chronic obstructive pulmonary disease with (acute) lower respiratory infection; J12.89 Other viral pneumonia; D72.829 Elevated white blood cell count, unspecified; D68.51 Activated protein C resistance; I10 Essential (primary) hypertension; E11.9 Type 2 diabetes mellitus without complications; K21.9 Gastro-esophageal reflux disease without esophagitis; E78.5 Hyperlipidemia, unspecified; G47.33 Obstructive sleep apnea (adult) (pediatric); Z86.711 Personal history of pulmonary embolism; Z79.82 Long term (current) use of aspirin; Z79.84 Long term (current) use of oral hypoglycemic drugs; Z79.899 Other long term (current) drug therapy
CPT/HCPCS: 36415; 71275; 80053; 83605; 84145; 84484; 85025; 87040; 87426; 93005; 96361; 96374; 96375; 99284; J7030; Q9967; A4216; J2405

== ENCOUNTER 2021-07-26 15:15 | Emergency (ER) | payer SELFPAY ==
[2021-07-26 15:16] VITALS: BP 169/80; PULSE 102; RESP 19; TEMP 36.8; O2SAT 96; BMI 33.1
--- NOTE | 2021-07-26 15:27 | RAD_ITS ---
STUDY: X-RAY CHEST REASON FOR EXAM: Female, 51 years old. Cough and chest congestion for 2 weeks. TECHNIQUE: Single AP portable view of the chest. COMPARISON: Comparison is made with prior study of 09/01/2019. FINDINGS: Increased markings at the lung bases suggestive of either bibasilar atelectasis and/or early bibasilar infiltrates. There is no demonstrated pleural abnormality. Normal size heart. Normal mediastinum and biju. Normal visualized pulmonary arteries. Normal visualized aortic arch and descending thoracic aorta. There are degenerative changes of the visualized thoracic spine. Normal visualized ribs, clavicles, and shoulders. There is no demonstrated abnormality of the visualized soft tissue structures of the upper abdomen. RAD/Chest 1 View IMPRESSION: Increased markings at both lung bases suggestive of either bibasilar atelectasis and/or early infiltrates. Follow-up recommended. Electronically Signed: Aldair Su MD at 15:35 EDT ,
[2021-07-26 16:00] VITALS: BP 169/80; PULSE 102; RESP 19; TEMP 36.8; O2SAT 96
--- NOTE | 2021-07-26 16:01 | EDS_ITS ---
HPI HPI - URI History of Present Illness Chief Complaint: Cough Detail of Chief Complaint: Cough, wheezing and dyspnea Informant: patient and spouse/S.O. Onset/Context/Timing Onset: Days (Onset approximately 5 days ago) Timing: Continuous (Shortness of breath) Quality: Upper respiratory symptoms Location: Pulmonary Current Severity: Mild Maximum Severity: Moderate Worsened by: Not Worsened By Swallowing, Eating Solids and Drinking Liquids Relieved by: Not Relieved By Tylenol and NSAIDs Associated Symptoms Associated Symptoms: Positive for Nasal Congestion, Shortness of Breath and Productive Cough; Negative for Headache, Sinus Pressure, Myalgias, Nausea, Vomiting, Diarrhea, Chest Pain, Nonproductive cough and Hemoptysis Narrative Narrative: Patient is a 51-year-old woman with 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 She has present aspirin because the anticoagulant caused her to have pain in the menorrhea. She denies leg pain, swelling discoloration. She denies pleuritic pain. She does endorse rhinorrhea, congestion and sore throat. She also endorses headache. She denies visual, ocular auditory symptoms. Her cough is productive of colored sputum. She denies blood in her sputum. She does admit shortness of breath and dyspnea on exertion. She also endorses wheezing. Patient denies nausea, vomiting diarrhea. Patient denies abdominal pain. Prior similar symptoms: No Recent Illness/Hospitalization: No ROS ROS ED Constitutional Constitutional ED: Denies chills, fever(s), subjective, sweats or weight loss Eyes Eyes: Denies blurry vision, change in vision or diplopia ENT ENT ED: Reports rhinorrhea and sore throat; Denies ear pain Cardiovascular Cardiovascular: Denies chest pain, orthopnea, palpitations, paroxysmal nocturnal dyspnea or racing heartbeat Respiratory/Chest Respiratory/Chest: Reports cough, dyspnea, dyspnea on exertion and sputum; Denies orthopnea or paroxysmal nocturnal dyspnea Gastrointestinal Gastrointestinal: Denies abdominal pain, constipation, diarrhea, melena, nausea or vomiting Genitourinary Genitourinary ED: Denies dysuria, hematuria or urinary frequency Musculoskeletal Musculoskeletal: Denies arthralgias, back pain, myalgias or neck pain Integumentary Denies abscess or rash Neurologic Neurologic: Denies headache(s), paresthesias or weakness Endocrine Endocrinology: Denies polydipsia, polyphagia or polyuria Hematologic/Lymphatic Hematologic/Lymphatic: Denies easy bleeding or easy bruising Allergic/Immunologic Allergic/Immunologic ED: Denies mouth swelling, tongue swelling or urticaria [facility] Medical History (Updated 07/26/21 @ 16:[address] Shree Alva MD) Anxiety Asthma Bronchiectasis Bronchitis Chronic bronchitis Chronic cough COPD (chronic obstructive pulmonary disease) COPD exacerbation Depression Diarrhea Essential hypertension Factor V Leiden Fatigue Fatty liver Frequent sinus infections GERD (gastroesophageal reflux disease) H/O emotional problems Hay fever Hx of viral pneumonia Hyperlipidemia Iatrogenic pneumothorax Morbid obesity RUFINA (obstructive sleep apnea) Pneumonia Seasonal allergies Severe headache SOB (shortness of breath) Type 2 diabetes mellitus Venous insufficiency of both lower extremities Vision problems Home Medications aspirin 81 mg PO DAILY #0 09/27/15 [History Last Taken 06/09/19 08:00 81 mg] multivitamin,[id number]-[id number] 1 tab PO DAILY 09/27/15 [History Last Taken 06/09/19 08:00 1 tab] omega-3 fatty acids-fish oil 2 ea PO BID 09/27/15 [History Last Taken 06/09/19 08:00 2 cap] calcium carbonate 600 mg PO DAILY 01/22/18 [History Last Taken 06/09/19 08:00 600 mg] potassium gluconate 500 mg PO DAILY 01/22/18 [History Last Taken 06/09/19 08:00 500 mg] cholecalciferol (vitamin D3) 125 mcg (5,000 unit) capsule 10,000 unit PO DAILY 12/07/18 [History Last Taken 06/09/19 08:00 5000 units] blood sugar diagnostic #150 ea 05/09/19 [Rx Last Taken Unknown] budesonide-formoterol 2 puff INHALATION BID 06/09/19 [History Last Taken 06/09/19 08:00 2 puffs] duloxetine 60 mg PO BID 06/09/19 [History Last Taken 06/09/19 08:00 60 mg] fluticasone propionate 2 spray INTRANASAL BID 06/09/19 [History Last Taken 06/09/19 08:00 2 sparys] albuterol sulfate 1 - 2 puff INHALATION Q4H PRN PRN #1 inhaler 06/13/19 [Rx Last Taken Unknown] albuterol sulfate 2.5 mg INHALATION Q2H PRN PRN #30 vial.neb. 06/13/19 [Rx Last Taken Unknown] simvastatin 40 mg tablet 40 mg PO QHS #90 tab 07/11/19 [Rx Last Taken Unknown] ondansetron HCl 4 mg tablet 4 mg PO Q8H PRN #60 tab 07/19/19 [Rx Last Taken Unknown] metformin 500 mg tablet 1,000 mg PO BID #1 tab 07/30/19 [Rx Last Taken Unknown] sitagliptin 100 mg tablet 100 mg PO DAILY #30 tab 07/30/19 [Rx Last Taken Unknown] azelastine 205.5 mcg (0.15 %) nasal spray 1 spray INTRANASAL BID #30 ml 08/07/19 [Rx Last Taken Unknown] fexofenadine 180 mg tablet 180 mg PO DAILY #30 tab 08/07/19 [Rx Last Taken Unknown] hydrochlorothiazide 25 mg tablet 25 mg PO DAILY #90 tab 08/08/19 [Rx Last Taken Unknown] montelukast 10 mg tablet 10 mg PO DAILY #90 tab 08/08/19 [Rx Last Taken Unknown] benralizumab 30 mg/mL subcutaneous syringe 30 mg SC Q4W 0 Days #1 ml 08/27/19 [Rx Last Taken Unknown] prednisone 10 mg tablet 10 mg PO QDAY #90 tab 08/27/19 [Rx Last Taken Unknown] mirtazapine 15 mg PO QHS 09/01/19 [History Last Taken Unknown] guaifenesin 1,200 mg tablet, extended release 12 hr 1,200 mg PO Q12H tab 09/09/19 [History Last Taken Unknown] lisinopril 10 mg tablet 10 mg PO DAILY #30 tab 09/09/19 [Rx Last Taken Unknown] metoprolol succinate 100 mg tablet,extended release 24 hr 100 mg PO DAILY #30 tab 09/09/19 [Rx Last Taken Unknown] glimepiride 4 mg tablet 4 mg PO DAILY #30 tab 09/23/19 [Rx Last Taken Unknown] gabapentin 300 mg capsule 300 mg PO QHS #60 cap 09/27/19 [Rx Last Taken Unknown] oxycodone-acetaminophen 5 mg-325 mg tablet 1 tab PO TID PRN #14 tab 09/27/19 [Rx Last Taken Unknown] pantoprazole 40 mg tablet,delayed release 40 mg PO BID #180 tab 09/27/19 [Rx Last Taken Unknown] azithromycin 250 mg PO DAILY #5 tab 03/24/20 [Rx Last Taken Unknown] dexamethasone 7 mg PO DAILY 5 Days #7 tab 03/24/20 [Rx Last Taken Unknown] albuterol sulfate [Ventolin HFA] 2 puff INHALATION Q4H PRN PRN #1 inhaler 07/26/21 [Rx Last Taken Unknown] doxycycline monohydrate 100 mg PO BID #14 capsule 07/26/21 [Rx Last Taken Unknown] prednisone 60 mg PO DAILY #15 tablet 07/26/21 [Rx Last Taken Unknown] Allergy/AdvReac Type Severity Reaction Status Date / Time latex AdvReac Hives Verified 07/26/21 15:58 Family History Mother Alcoholism Asthma Depression hormone problem Respiratory disease Suicide attempt Drug abuse Hepatitis C Brother Alcoholism Asthma Diabetes Respiratory disease Drug abuse Grandmother Depression Psychiatric care Father Diabetes Hypertension Respiratory disease Emphysema of lung Other Bronchitis Dementia Heart disease Surgical History No history of previous surgery Social History (Updated 07/26/21 @ 16:[address] Shree Alva MD) household members: spouse Smoking Status: Current every day smoker tobacco type: cigarettes Tobacco: How many years used: 25 Smokeless tobacco user: other alcohol intake: never substance use type: does not use caffeine: Yes Type: tea Number of servings: 2 what type of physical activity do you participate in: none EXAM Physical Exam Const Vital Signs: 07/26/21 15:16 07/26/21 16:00 Temperature 98.2 F 98.2 F Temperature Source Temporal Temporal Pulse Rate 102 H 102 H Respiratory Rate 19 H 19 H Respiratory Effort Short of Breath Respiratory Depth Normal Respiratory Pattern Normal Blood Pressure 169/80 H 169/80 H Blood Pressure Mean 109 109 Pulse Ox 96 96 Oxygen Delivery Method Room Air Room Air Positive well nourished and well developed General Appearance ED: well developed; Negative for cyanotic, diaphoretic, NAD or pallor HEENT Reports TM's clear and moist mucous membranes normocephalic and atraumatic Face and Sinus: Negative for sinus tenderness External Ear: external ears normal and no preauricular adenopathy External Auditory Canal: EAC's normal Tympanic Membrane ED: Yes TM's clear Throat: posterior oropharynx normal Eyes PERRL and EOMs intact bilaterally General Eye ED: Negative for pale conjunctiva or scleral icterus Neck no lymphadenopathy, supple, no meningeal signs and no JVD Neck Narrative: Trachea is midline. There is no in-store expiratory stridor. General: Negative for anterior neck swelling Resp No normal respiratory effort and No clear to auscultation bilaterally Effort and Inspection: Negative for retractions Auscultation: rales bilateral base, wheezes expiratory wheezes, inspiratory wheezes and scattered wheezes and diminished lung sounds Cardio S1 normal heart sound, S2 normal heart sound and no murmurs Rate: tachycardic Rhythm: regular rhythm GI non-tender, non-distended and no masses Auscultation: normoactive bowel sounds Palpation: soft Back/Spine no CVA tenderness Cervical Spine: Negative for cervical spine tenderness Lumbar Spine / Lower Back: Negative for lumbar spinal tenderness Sacrum: Negative for tenderness Extremity normal to inspection and full ROM General Extremety ED: Negative for cyanosis or tenderness General Extremity: Negative for cyanosis Neuro oriented x3, CN's II-XII intact bilaterally and no sensory deficits noted Sensorium / Orientation: alert Motor Exam: strength 5/5 throughout Psych mental status grossly normal Skin General Skin Exam: Negative for jaundice or pallor Lesions: no lesions Rashes: no rashes MDM MDM MDM Narrative Medical decision making narrative: Patient with exacerbation COPD versus pneumonia versus upper respiratory infection that is exacerbating his COPD. Plan is chest x-ray, blood work aerosols. Will also treat with prednisone. Patient was reassessed at 1641. She has minimal wheezing noted on expiration only. Plan is discharged prescription for prednisone, doxycycline and albuterol inhaler Lab Data Labs: Covid test negative. Radiography Diagnostic Testing: Single view chest x-ray reveals chronic changes. Cardiac silhouette and size normal. There is discoid atelectasis left lower lobe. Osseous structures are unremarkable. Mediastinum and perihilar region is normal. Discharge Plan Triage Chief Complaint: Cough ED Provider: Shree Alva Dx/Rx/DC Orders Clinical Impression: Acute exacerbation of chronic obstructive pulmonary disease (COPD), Acute bronchospasm, Bronchitis, purulent, chronic Instructions: ED COPD Flare Prescriptions: New prednisone 20 MG tablet 60 mg PO DAILY Qty: 15 RF: 0 doxycycline monohydrate 100 MG capsule 100 mg PO BID Qty: 14 RF: 0 albuterol sulfate [Ventolin HFA] 1 INHALER inhaler 2 puff inhalation Q4H PRN PRN (Reason: Wheezing) Qty: 1 RF: 0 No Action cholecalciferol (vitamin D3) 5,000 unit capsule 10,000 unit PO DAILY RF: 0 ondansetron HCl [Zofran] 4 mg tablet 4 mg PO Q8H PRN (Reason: nausea and vomiting) Qty: 60 RF: 2 metformin 500 mg tablet 1,000 mg PO BID Qty: 1 RF: 0 sitagliptin 100 mg tablet 100 mg PO DAILY Qty: 30 RF: 6 fexofenadine 180 mg tablet 180 mg PO DAILY Qty: 30 RF: 6 azelastine 0.15 % (205.5 mcg) spray,non-aerosol 1 spray INTRANASAL BID Qty: 30 RF: 11 Fasenra 30 mg/mL syringe 30 mg SC Q4W 0 Days Qty: 1 RF: 0 prednisone 10 mg tablet 10 mg PO QDAY Qty: 90 RF: 0 guaifenesin 1,200 mg tablet extended release 12hr 1,200 mg PO Q12H RF: 0 lisinopril 10 mg tablet 10 mg PO DAILY Qty: 30 RF: 11 metoprolol succinate 100 mg tablet extended release 24 hr 100 mg PO DAILY Qty: 30 RF: 11 glimepiride 4 mg tablet 4 mg PO DAILY Qty: 30 RF: 6 oxycodone-acetaminophen [Percocet] 5-325 mg tablet 1 tab PO TID PRN (Reason: pain) Qty: 14 RF: 0 gabapentin 300 mg capsule 300 mg PO QHS Qty: 60 RF: 1 pantoprazole 40 mg tablet,delayed release (DR/EC) 40 mg PO BID Qty: 180 RF: 2 aspirin 81 MG tablet,chewable 81 mg PO DAILY Qty: 0 RF: 0 multivitamin,ow-lerj-yugsgfrt 1 TABLET tablet 1 tab PO DAILY RF: 0 omega-3 fatty acids-fish oil 1 EACH capsule 2 ea PO BID RF: 0 calcium carbonate 600 MG tablet 600 mg PO DAILY RF: 0 potassium gluconate 500 MG tablet 500 mg PO DAILY RF: 0 fluticasone propionate 16 GM spray,suspension 2 spray intranasal BID RF: 0 duloxetine 60 MG capsule,delayed release(DR/EC) 60 mg PO BID RF: 0 budesonide-formoterol 1 INHALER inhaler 2 puff inhalation BID RF: 0 albuterol sulfate 1 INHALER inhaler 1 - 2 puff inhalation Q4H PRN PRN (Reason: Shortness Of Breath) Qty: 1 RF: 0 albuterol sulfate 2.5 MG/3 ML solution for nebulization 2.5 mg inhalation Q2H PRN PRN (Reason: Shortness of Breath/Wheezing) Qty: 30 RF: 0 mirtazapine 15 MG tablet 15 mg PO QHS RF: 0 dexamethasone 6 MG tablet 7 mg PO DAILY 5 Days Qty: 7 RF: 0 azithromycin 250 MG tablet 250 mg PO DAILY Qty: 5 RF: 0 (DME) True Metrix Glucose Test Strip Strip See Rx Instructions .ROUTE .MEDSUPPLY Qty: 150 RF: 11 simvastatin 40 mg tablet 40 mg PO QHS Qty: 90 RF: 3 montelukast 10 mg tablet 10 mg PO DAILY Qty: 90 RF: 3 hydrochlorothiazide 25 mg tablet 25 mg PO DAILY Qty: 90 RF: 3 Primary Care Provider: Care Physician,No Primary Referrals: Mayra Cordova [NON-STAFF] - 3-5 Days Care Physician,No Primary [Primary Care Provider] - Activity Restrictions/Additional Instructions: It is in your best interest to quit smoking Disposition Disposition: Home, Self Care
[2021-07-26] MEDS: predniSONE 20 MG Tablet 60 MG PO (16:28)
[2021-07-26 16:35] VITALS: PULSE 92; RESP 20
[2021-07-26] MEDS: Ipratropium/Albuterol Sulfate 3 ML AMPUL.NEB INHALATION (16:35)
[2021-07-26] MEDS: Albuterol 2.5 MG/3 ML VIAL.NEB. INHALATION ×2 (16:53→17:16)
[2021-07-26 17:34] VITALS: BP 130/74; PULSE 89; RESP 20; O2SAT 96
== END 2021-07-26 17:35 | disposition home or self-care (01) ==
PROVIDERS: Emergency Provider Emergency Medicine; Visit Provider Emergency Medicine
DX: J44.1 Chronic obstructive pulmonary disease with (acute) exacerbation (principal); E66.01 Morbid (severe) obesity due to excess calories; D68.51 Activated protein C resistance; E11.9 Type 2 diabetes mellitus without complications; J98.01 Acute bronchospasm; I10 Essential (primary) hypertension; E78.5 Hyperlipidemia, unspecified; K21.9 Gastro-esophageal reflux disease without esophagitis; F32.A Depression, unspecified; F41.9 Anxiety disorder, unspecified; F17.210 Nicotine dependence, cigarettes, uncomplicated; Z79.82 Long term (current) use of aspirin; Z79.84 Long term (current) use of oral hypoglycemic drugs; Z79.899 Other long term (current) drug therapy
CPT/HCPCS: 71045; 87811; 94640; 99283

== ENCOUNTER 2021-08-04 13:01 | Emergency (ER) | payer SELFPAY ==
[2021-08-04 13:02] VITALS: BP 178/86; PULSE 110; RESP 20; TEMP 36.6; O2SAT 96; BMI 34.5
--- NOTE | 2021-08-04 13:35 | EKG12_ITS ---
Test Reason : SOB Blood Pressure : / mmHG Vent. Rate : 090 BPM Atrial Rate : 090 BPM P-R Int : 168 ms QRS Dur : 088 ms QT Int : 372 ms P-R-T Axes : 052 058 054 degrees QTc Int : 455 ms Normal sinus rhythm Normal ECG Confirmed by LINDA GARZA, USMAN ([id number]), film or videotape editor KENNEDY BOWENS ([id number]) on 08/06/2021 12:57:46 P M Referred By: SALTY/EDER Confirmed By:PETER MCKEON MD
--- NOTE | 2021-08-04 13:37 | ED.VIS.DYS ---
HPI History of Present Illness Chief Complaint: Cough Narrative Narrative: Patient with past medical history of COPD, down to 2 cigarettes every 3 days, presents with shortness of breath and cough. She was seen in the emergency department last week and diagnosed with bronchitis and COPD flare. She is taking antibiotics currently along with prednisone and using her inhaler. She states that she continues to have cough and shortness of breath. She denies any chest pain. She states that she used to see Dr. Hernandez here before she moved to [place] but recently moved back. She was told to come back to the emergency department if she was not any better after a week. She denies any fevers or chills. No other symptoms except for the fact that she is not better since her visit on 07/26/2021. [facility] Medical History (Updated 08/04/21 @ 15:05 by Modesto Wyatt MD) Anxiety Asthma Bronchiectasis Bronchitis Chronic bronchitis Chronic cough COPD (chronic obstructive pulmonary disease) COPD exacerbation Depression Diarrhea Essential hypertension Factor V Leiden Fatigue Fatty liver Frequent sinus infections GERD (gastroesophageal reflux disease) H/O emotional problems Hay fever Hx of viral pneumonia Hyperlipidemia Iatrogenic pneumothorax Morbid obesity RUFINA (obstructive sleep apnea) Pneumonia Seasonal allergies Severe headache SOB (shortness of breath) Type 2 diabetes mellitus Venous insufficiency of both lower extremities Vision problems Home Medications aspirin 81 mg PO DAILY #0 09/27/15 [History Last Taken 06/09/19 08:00 81 mg] multivitamin,[id number]-nbbqsoor 1 tab PO DAILY 09/27/15 [History Last Taken 06/09/19 08:00 1 tab] omega-3 fatty acids-fish oil 2 ea PO BID 09/27/15 [History Last Taken 06/09/19 08:00 2 cap] calcium carbonate 600 mg PO DAILY 01/22/18 [History Last Taken 06/09/19 08:00 600 mg] potassium gluconate 500 mg PO DAILY 01/22/18 [History Last Taken 06/09/19 08:00 500 mg] cholecalciferol (vitamin D3) 125 mcg (5,000 unit) capsule 10,000 unit PO DAILY 12/07/18 [History Last Taken 06/09/19 08:00 5000 units] blood sugar diagnostic #150 ea 05/09/19 [Rx Last Taken Unknown] budesonide-formoterol 2 puff INHALATION BID 06/09/19 [History Last Taken 06/09/19 08:00 2 puffs] duloxetine 60 mg PO BID 06/09/19 [History Last Taken 06/09/19 08:00 60 mg] fluticasone propionate 2 spray INTRANASAL BID 06/09/19 [History Last Taken 06/09/19 08:00 2 sparys] albuterol sulfate 1 - 2 puff INHALATION Q4H PRN PRN #1 inhaler 06/13/19 [Rx Last Taken Unknown] albuterol sulfate 2.5 mg INHALATION Q2H PRN PRN #30 vial.neb. 06/13/19 [Rx Last Taken Unknown] simvastatin 40 mg tablet 40 mg PO QHS #90 tab 07/11/19 [Rx Last Taken Unknown] ondansetron HCl 4 mg tablet 4 mg PO Q8H PRN #60 tab 07/19/19 [Rx Last Taken Unknown] metformin 500 mg tablet 1,000 mg PO BID #1 tab 07/30/19 [Rx Last Taken Unknown] sitagliptin 100 mg tablet 100 mg PO DAILY #30 tab 07/30/19 [Rx Last Taken Unknown] azelastine 205.5 mcg (0.15 %) nasal spray 1 spray INTRANASAL BID #30 ml 08/07/19 [Rx Last Taken Unknown] fexofenadine 180 mg tablet 180 mg PO DAILY #30 tab 08/07/19 [Rx Last Taken Unknown] hydrochlorothiazide 25 mg tablet 25 mg PO DAILY #90 tab 08/08/19 [Rx Last Taken Unknown] montelukast 10 mg tablet 10 mg PO DAILY #90 tab 08/08/19 [Rx Last Taken Unknown] benralizumab 30 mg/mL subcutaneous syringe 30 mg SC Q4W 0 Days #1 ml 08/27/19 [Rx Last Taken Unknown] prednisone 10 mg tablet 10 mg PO QDAY #90 tab 08/27/19 [Rx Last Taken Unknown] mirtazapine 15 mg PO QHS 09/01/19 [History Last Taken Unknown] guaifenesin 1,200 mg tablet, extended release 12 hr 1,200 mg PO Q12H tab 09/09/19 [History Last Taken Unknown] lisinopril 10 mg tablet 10 mg PO DAILY #30 tab 09/09/19 [Rx Last Taken Unknown] metoprolol succinate 100 mg tablet,extended release 24 hr 100 mg PO DAILY #30 tab 09/09/19 [Rx Last Taken Unknown] glimepiride 4 mg tablet 4 mg PO DAILY #30 tab 09/23/19 [Rx Last Taken Unknown] gabapentin 300 mg capsule 300 mg PO QHS #60 cap 09/27/19 [Rx Last Taken Unknown] oxycodone-acetaminophen 5 mg-325 mg tablet 1 tab PO TID PRN #14 tab 09/27/19 [Rx Last Taken Unknown] pantoprazole 40 mg tablet,delayed release 40 mg PO BID #180 tab 09/27/19 [Rx Last Taken Unknown] azithromycin 250 mg PO DAILY #5 tab 03/24/20 [Rx Last Taken Unknown] dexamethasone 7 mg PO DAILY 5 Days #7 tab 03/24/20 [Rx Last Taken Unknown] albuterol sulfate [Ventolin HFA] 2 puff INHALATION Q4H PRN PRN #1 inhaler 07/26/21 [Rx Last Taken Unknown] doxycycline monohydrate 100 mg PO BID #14 capsule 07/26/21 [Rx Last Taken Unknown] prednisone 60 mg PO DAILY #15 tablet 07/26/21 [Rx Last Taken Unknown] prednisone 40 mg PO DAILY 3 Days #6 tab 08/04/21 [Rx Last Taken Unknown] Allergy/AdvReac Type Severity Reaction Status Date / Time latex AdvReac Hives Verified 08/04/21 13:06 Family History Mother Alcoholism Asthma Depression hormone problem Respiratory disease Suicide attempt Drug abuse Hepatitis C Brother Alcoholism Asthma Diabetes Respiratory disease Drug abuse Grandmother Depression Psychiatric care Father Diabetes Hypertension Respiratory disease Emphysema of lung Other Bronchitis Dementia Heart disease Surgical History No history of previous surgery Social History household members: spouse Smoking Status: Current some day smoker tobacco type: cigarettes Tobacco: How many years used: 25 Smokeless tobacco user: other alcohol intake: never substance use type: does not use caffeine: Yes Type: tea Number of servings: 2 what type of physical activity do you participate in: none ROS ROS ED ROS Narrative Constitutional: No fever, no chills. HEENT: No sore throat. No neck pain. No loss of vision. No rhinorrhea. Cardiovascular: No chest pain. No palpitations. No pedal edema. Respiratory: Positive cough, positive shortness of breath. Abdominal: No abdominal pain. No nausea. No vomiting. Genitourinary: No dysuria. No hematuria. Musculoskeletal: No myalgias. No arthralgias. Neurologic: No headaches. No dizziness. No lightheadedness. Skin: No rash. No change in color. Psychiatric: No depression. No anxiety. EXAM Physical Exam Narrative Exam Narrative: Afebrile. Vital signs noted. HEENT: Normocephalic. Atraumatic. PERRL, EOMI. Neck soft and supple. No point tenderness or step off. Cardiovascular: Regular rate and rhythm. No murmurs, rubs, or gallops appreciated. Respiratory: No tachypnea. Lungs clear to auscultation bilaterally. Slightly prolonged expiratory phase, no wheezing or stridor. No retractions. Gastrointestinal: Abdomen soft, nontender, with normoactive bowel sounds. No rebound or guarding. Neurological: Awake. Alert. Nonfocal, nonlateralizing. Skin: No rash. Normal color. No pallor. Musculoskeletal: No pedal edema. Full range of motion extremities. Const Vital Signs: 08/04/21 13:02 08/04/21 13:16 08/04/21 13:47 Temperature 98 F Temperature Source Temporal Pulse Rate 110 H 95 Respiratory Rate 20 H 24 H Respiratory Depth Normal Respiratory Pattern Normal Blood Pressure 178/86 H Blood Pressure Mean 116 Pulse Ox 96 Oxygen Delivery Method Room Air Room Air MDM MDM MDM Narrative Medical decision making narrative: I reviewed her prior work-up. I will repeat a chest x-ray and laboratory work. She was given an albuterol/ipratropium aerosol. She is already on steroids. Smoking cessation was rediscussed with her. EKG demonstrates normal sinus rhythm at 90 bpm without ectopy or acute ST changes. WBC count slightly elevated 11.1, hemoglobin normal at 14.5 with hematocrit 41.6. Normal platelet count of 328. Her electrolyte panel is grossly unremarkable except for potassium of 3.2 which was replaced orally. She has normal creatinine. BNP normal at 7.5. Chest x-ray as interpreted by myself shows no acute process, no pneumothorax. Radiology confirms this and they say that there may be mild residual increased markings at the lung bases but improvement compared to prior study. At this point in time, I do not feel that she requires more antibiotics as she states that she is currently taking them. Her prednisone burst of 7 days ran out today. I will extend this by 3 days with a prescription for prednisone. She will continue her albuterol inhaler. She is to use this every 4-6 hours. Her pulse ox is normal on room air. I feel she be discharged safely home with follow-up. I stressed the importance of smoking cessation. 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 Disposition is discharged home in stable condition. Return instructions were reviewed. Lab Data Attestation: I reviewed the patient's lab results. Labs: Laboratory Results - last 24 hr 08/04/21 08/04/21 08/04/21 14:15 14:15 14:15 WBC 11.1 H RBC 4.56 Hgb 14.5 Hct 41.6 MCV 91.2 MCH 31.8 MCHC 34.9 RDW Std Deviation 42.5 RDW Coeff of Roxanne 12.8 Plt Count 328 MPV 10.4 Immature Gran % (Auto) 0.500 Neut % (Auto) 44.4 L Lymph % (Auto) 41.9 H Morris % (Auto) 8.4 Eos % (Auto) 4.2 Baso % (Auto) 0.6 Absolute Neuts (auto) 4.9 Absolute Lymphs (auto) 4.64 H Nucleated RBC % 0 Sodium 140 Potassium 3.2 L Chloride 107 Carbon Dioxide 26.0 Anion Gap 7 BUN 8 Creatinine 0.73 Estim Creat Clear Calc 77.11 Est GFR (MDRD) Af Amer 109 Est GFR (MDRD) Non-Af 90 BUN/Creatinine Ratio 11.0 Glucose 201 H Calcium 8.7 B-Natriuretic Peptide 7.5 Radiography Diagnostic Testing: Clinical Impression(s) from Imaging Studies Chest X-Ray 08/04/21 14:33 IMPRESSION: Mild residual increased markings at the lung bases although there has been improvement as compared to prior study. Electronically Signed: Aldair Su MD at 14:57 EDT , Discharge Plan Triage Chief Complaint: Cough ED Provider: Modesto Wyatt Dx/Rx/DC Orders Clinical Impression: COPD exacerbation, Cough, Smoking history Instructions: ED Bronchitis, No Antibiotic (Adult), ED COPD Flare, ED How to Quit Smoking Prescriptions: New prednisone 20 mg tablet 40 mg PO DAILY 3 Days Qty: 6 RF: 0 No Action cholecalciferol (vitamin D3) 5,000 unit capsule 10,000 unit PO DAILY RF: 0 ondansetron HCl [Zofran] 4 mg tablet 4 mg PO Q8H PRN (Reason: nausea and vomiting) Qty: 60 RF: 2 metformin 500 mg tablet 1,000 mg PO BID Qty: 1 RF: 0 sitagliptin 100 mg tablet 100 mg PO DAILY Qty: 30 RF: 6 fexofenadine 180 mg tablet 180 mg PO DAILY Qty: 30 RF: 6 azelastine 0.15 % (205.5 mcg) spray,non-aerosol 1 spray INTRANASAL BID Qty: 30 RF: 11 Fasenra 30 mg/mL syringe 30 mg SC Q4W 0 Days Qty: 1 RF: 0 prednisone 10 mg tablet 10 mg PO QDAY Qty: 90 RF: 0 guaifenesin 1,200 mg tablet extended release 12hr 1,200 mg PO Q12H RF: 0 lisinopril 10 mg tablet 10 mg PO DAILY Qty: 30 RF: 11 metoprolol succinate 100 mg tablet extended release 24 hr 100 mg PO DAILY Qty: 30 RF: 11 glimepiride 4 mg tablet 4 mg PO DAILY Qty: 30 RF: 6 oxycodone-acetaminophen [Percocet] 5-325 mg tablet 1 tab PO TID PRN (Reason: pain) Qty: 14 RF: 0 gabapentin 300 mg capsule 300 mg PO QHS Qty: 60 RF: 1 pantoprazole 40 mg tablet,delayed release (DR/EC) 40 mg PO BID Qty: 180 RF: 2 aspirin 81 MG tablet,chewable 81 mg PO DAILY Qty: 0 RF: 0 multivitamin,hg-pylw-bjashbjb 1 TABLET tablet 1 tab PO DAILY RF: 0 omega-3 fatty acids-fish oil 1 EACH capsule 2 ea PO BID RF: 0 calcium carbonate 600 MG tablet 600 mg PO DAILY RF: 0 potassium gluconate 500 MG tablet 500 mg PO DAILY RF: 0 fluticasone propionate 16 GM spray,suspension 2 spray intranasal BID RF: 0 duloxetine 60 MG capsule,delayed release(DR/EC) 60 mg PO BID RF: 0 budesonide-formoterol 1 INHALER inhaler 2 puff inhalation BID RF: 0 albuterol sulfate 1 INHALER inhaler 1 - 2 puff inhalation Q4H PRN PRN (Reason: Shortness Of Breath) Qty: 1 RF: 0 albuterol sulfate 2.5 MG/3 ML solution for nebulization 2.5 mg inhalation Q2H PRN PRN (Reason: Shortness of Breath/Wheezing) Qty: 30 RF: 0 mirtazapine 15 MG tablet 15 mg PO QHS RF: 0 dexamethasone 6 MG tablet 7 mg PO DAILY 5 Days Qty: 7 RF: 0 azithromycin 250 MG tablet 250 mg PO DAILY Qty: 5 RF: 0 prednisone 20 MG tablet 60 mg PO DAILY Qty: 15 RF: 0 doxycycline monohydrate 100 MG capsule 100 mg PO BID Qty: 14 RF: 0 albuterol sulfate [Ventolin HFA] 1 INHALER inhaler 2 puff inhalation Q4H PRN PRN (Reason: Wheezing) Qty: 1 RF: 0 (DME) True Metrix Glucose Test Strip Strip See Rx Instructions .ROUTE .MEDSUPPLY Qty: 150 RF: 11 simvastatin 40 mg tablet 40 mg PO QHS Qty: 90 RF: 3 montelukast 10 mg tablet 10 mg PO DAILY Qty: 90 RF: 3 hydrochlorothiazide 25 mg tablet 25 mg PO DAILY Qty: 90 RF: 3 Primary Care Provider: Care Physician,No Primary Referrals: Jadon Hernandez MD [STAFF PHYSICIAN] - As soon as possible Care Physician,No Primary [Primary Care Provider] - Disposition Disposition: Home, Self Care
[2021-08-04] MEDS: Ipratropium/Albuterol Sulfate 3 ML AMPUL.NEB INHALATION (13:45)
[2021-08-04 13:47] VITALS: PULSE 95; RESP 24
[2021-08-04 14:26] LABS: Absolute Lymphocyte Count 4.64 X10^3/uL (0.83-4.51); Absolute Neutrophil Count 4.9 X10^3/uL (2.0-7.7); Basophil# 0.07 X10^3/uL; Basophil% 0.6 % (0-1); Eosinophil# 0.47 X10^3/uL; Eosinophils% 4.2 % (0-5); Hematocrit 41.6 % (37-47); Hemoglobin 14.5 g/dL (12.0-15.0); Lymphocyte # 4.64 X10^3/ul (0.83-4.51); Lymphocyte % 41.9 % (19-41); Mean Corp Hgb Conc 34.9 g/dL (32-36); Mean Corpuscular Hgb 31.8 pg (27.0-32.0); Mean Corpuscular Volume 91.2 fL (81-99); Mean Platelet Vol. 10.4 fl (6.2-12.0); Monocyte# 0.93 X10^3/uL; Monocyte% 8.4 % (0-10); NRBC Flagged by Analyzer 0 % (0-5); Neutrophil # 4.92 X10^3/uL (2.7-7.7); Neutrophil % 44.4 % (47-70); Platelet Count 328 K/mm3 (150-450); RBC Distribution Width CV 12.8 % (11.6-14.6); RBC Distribution Width SD 42.5 fl (35.1-43.9); Red Blood Count 4.56 M/mm3 (4.2-5.4); White Blood Count 11.1 K/mm3 (4.4-11.0)
--- NOTE | 2021-08-04 14:33 | RAD_ITS ---
STUDY: X-RAY CHEST REASON FOR EXAM: Female, 51 years old. Shortness of Breath TECHNIQUE: Single AP portable view of the chest. COMPARISON: Comparison is made with prior study 07/26/2021. FINDINGS: EKG electrodes are seen. Mild residual markings at the lung bases likely more prominent on the left side. This has improved. There is no demonstrated pleural abnormality. Normal size heart. Normal mediastinum and biju. Normal visualized pulmonary arteries. Normal visualized aortic arch and descending thoracic aorta. Normal visualized thoracic spine. Normal visualized ribs, clavicles, and shoulders. There is no demonstrated abnormality of the visualized soft tissue structures of the upper abdomen. RAD/Chest 1 View (Portable) IMPRESSION: Mild residual increased markings at the lung bases although there has been improvement as compared to prior study. Electronically Signed: Aldair Su MD at 14:57 EDT ,
[2021-08-04 14:38] LABS: Anion Gap 7 (5-15); BUN 8 mg/dL (7-18); Calcium,Total 8.7 mg/dL (8.5-10.1); Chloride 107 mmol/L (98-107); Creatinine, Serum 0.73 mg/dL (0.55-1.02); EST Glomerular Filtration Rate 90 mL/min (>60); Est Glom Filt Rate - Afr Amer 109 mL/min (>60); Estimated Creatinine Clearance 77.11 ml/min; Glucose 201 mg/dL (74-106); Potassium 3.2 mmol/L (3.5-5.1); Sodium Level 140 mmol/L (136-145)
[2021-08-04 14:45] LABS: BNP,B-Type NATRIURETIC PEPTIDE 7.5 pg/mL (0-100)
[2021-08-04] MEDS: Potassium Chloride Oral Tablet 20 MEQ 40 MEQ PO (15:15)
== END 2021-08-04 15:18 | disposition home or self-care (01) ==
PROVIDERS: Emergency Provider Emergency Medicine; Visit Provider Emergency Medicine
DX: J44.1 Chronic obstructive pulmonary disease with (acute) exacerbation (principal); E66.01 Morbid (severe) obesity due to excess calories; E11.9 Type 2 diabetes mellitus without complications; E87.6 Hypokalemia; I10 Essential (primary) hypertension; E78.5 Hyperlipidemia, unspecified; K21.9 Gastro-esophageal reflux disease without esophagitis; F32.A Depression, unspecified; F41.9 Anxiety disorder, unspecified; F17.210 Nicotine dependence, cigarettes, uncomplicated; Z68.34 Body mass index [BMI] 34.0-34.9, adult; Z79.82 Long term (current) use of aspirin; Z79.84 Long term (current) use of oral hypoglycemic drugs; Z79.899 Other long term (current) drug therapy
CPT/HCPCS: 71045; 80048; 83880; 85025; 93005; 94640; 99284

== ENCOUNTER 2021-11-06 08:39 | Emergency (ER) | payer SELFPAY ==
[2021-11-06 08:41] VITALS: BP 157/91; PULSE 87; RESP 16; TEMP 36.5; O2SAT 95; BMI 31.8
[2021-11-06 08:47] VITALS: BP 158/110; PULSE 94; RESP 30; O2SAT 96; O2SAT 97
--- NOTE | 2021-11-06 08:49 | RAD_ITS ---
STUDY: X-RAY - LEFT KNEE REASON FOR EXAM: Female, 51 years old. Pain TECHNIQUE: 2 view(s) of the knee. COMPARISON: None. FINDINGS: Normal visualized distal femur. Normal visualized proximal tibia and fibula. Normal proximal tibiofibular articulation. Normal medial femorotibial compartment. Normal lateral femorotibial compartment. Normal patellofemoral articulation. The soft tissue structures are unremarkable. RAD/Knee 1 or 2 Views IMPRESSION: Normal x-ray examination of the knee. Electronically Signed: Sebastian Jaquez MD at 10:05 EDT ,
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
[2021-11-06] MEDS: fentaNYL 100 MCG/2 ML Ampul 25 MCG IV (09:02)
[2021-11-06] MEDS: Ondansetron 4 MG/2 ML Vial IV (09:03)
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
[2021-11-06] MEDS: 0.9% Normal Saline 1,000 ML 999 ML IV (09:07)
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
[2021-11-06 09:11] LABS: Absolute Neutrophil Count 5.7 X10^3/uL (2.0-7.7); Basophil# 0.08 X10^3/uL; Basophil% 0.7 % (0-1); Eosinophil# 0.43 X10^3/uL; Eosinophils% 3.9 % (0-5); Hematocrit 45.6 % (37-47); Hemoglobin 15.5 g/dL (12.0-15.0); Lymphocyte % 35.6 % (19-41); Mean Corpuscular Hgb 31.6 pg (27.0-32.0); Mean Corpuscular Volume 93.1 fL (81-99); Mean Platelet Vol. 10.3 fl (6.2-12.0); Monocyte# 0.76 X10^3/uL; Monocyte% 6.9 % (0-10); NRBC Flagged by Analyzer 0 % (0-5); Neutrophil # 5.74 X10^3/uL (2.7-7.7); Neutrophil % 52.6 % (47-70); Platelet Count 331 K/mm3 (150-450); RBC Distribution Width CV 12.8 % (11.6-14.6); RBC Distribution Width SD 43.7 fl (35.1-43.9); White Blood Count 10.9 K/mm3 (4.4-11.0)
--- NOTE | 2021-11-06 09:13 | ED.RN ---
THIS RN CALLED FATHER AT PT REQUEST. MOTHER REPORTS SHE WILL ON WAY TO DEPARTMENT.
[2021-11-06 09:17] LABS: International Normalized Ratio 0.9; Prothrombin Time (Protime)PT. 12.3 SECONDS (11.7-14.9)
[2021-11-06 09:24] LABS: Anion Gap 6 (5-15); BUN 8 mg/dL (7-18); BUN/Creat Ratio 15.4 RATIO (10-20); Calcium,Total 8.8 mg/dL (8.5-10.1); Chloride 102 mmol/L (98-107); Creatinine, Serum 0.52 mg/dL (0.55-1.02); EST Glomerular Filtration Rate 133 mL/min (>60); Est Glom Filt Rate - Afr Amer 161 mL/min (>60); Estimated Creatinine Clearance 108.26 ml/min; Glucose 216 mg/dL (74-106); Potassium 3.2 mmol/L (3.5-5.1); Sodium Level 138 mmol/L (136-145)
[2021-11-06 10:10] VITALS: BP 137/72; PULSE 91; RESP 16; O2SAT 96
[2021-11-06 11:01] VITALS: BP 158/82; PULSE 88; RESP 16; O2SAT 96
== END 2021-11-06 12:31 | disposition home or self-care (01) ==
PROVIDERS: Emergency Provider Student in an Organized Health Care Education/Training Program; Visit Provider Student in an Organized Health Care Education/Training Program
DX: S09.90XA Unspecified injury of head, initial encounter (principal); J44.9 Chronic obstructive pulmonary disease, unspecified; E66.01 Morbid (severe) obesity due to excess calories; E11.9 Type 2 diabetes mellitus without complications; S16.1XXA Strain of muscle, fascia and tendon at neck level, initial encounter; S29.012A Strain of muscle and tendon of back wall of thorax, initial encounter; S39.012A Strain of muscle, fascia and tendon of lower back, initial encounter; S80.02XA Contusion of left knee, initial encounter; V47.0XXA Car driver injured in collision with fixed or stationary object in nontraffic accident, initial encounter; Y93.89 Activity, other specified; I10 Essential (primary) hypertension; E78.5 Hyperlipidemia, unspecified; K21.9 Gastro-esophageal reflux disease without esophagitis; F32.A Depression, unspecified; F41.9 Anxiety disorder, unspecified; F17.210 Nicotine dependence, cigarettes, uncomplicated; Z79.82 Long term (current) use of aspirin; Z79.84 Long term (current) use of oral hypoglycemic drugs; Z79.899 Other long term (current) drug therapy
CPT/HCPCS: 70450; 70486; 71260; 72125; 73560; 74177; 80048; 82077; 85025; 85610; 93005; 96361; 96374; 96375; 99285; J7030; Q9967; A4216; J2405

== ENCOUNTER 2022-03-13 18:39 | Emergency (ER) | payer SELFPAY ==
[2022-03-13] VITALS (7 sets, daily range): BP systolic 114–145; BP diastolic 72–103; PULSE 94–114; RESP 18–31; TEMP 36.6–37.3; O2SAT 94–100; BMI 32.9
--- NOTE | 2022-03-13 19:09 | EKG12_ITS ---
Test Reason : SOB Blood Pressure : / mmHG Vent. Rate : 096 BPM Atrial Rate : 096 BPM P-R Int : 158 ms QRS Dur : 082 ms QT Int : 362 ms P-R-T Axes : 048 061 044 degrees QTc Int : 457 ms Normal sinus rhythm Normal ECG Confirmed by FABRICE GARZA, MACRINA ([id number]), editor producer KENNEDY BOWENS ([id number]) on 03/15/2022 8:16:49 AM Referred By: Confirmed By:MACRINA AVINA MD
--- NOTE | 2022-03-13 19:14 | ED.VIS.DYS ---
HPI History of Present Illness Chief Complaint: Shortness of Breath Narrative Narrative: 51-year-old female past medical history of COPD presents with increasing shortness of breath, and occasionally productive cough of yellow sputum for the last 3 days. She states that she recently moved back to the area but she used to see Dr. Hernandez. She has not had steroids for her COPD recently. She is trying to quit smoking and is down to 5 to 10 cigarettes a day from 1.5 packs a day. She is around secondhand smoke also. She presents because of the increased difficulty breathing and the coughing jags. She also feels short of breath with exertion but denies any chest pain. No nausea or vomiting. No diaphoresis. She denies any leg swelling. [facility] Medical History (Updated 03/13/22 @ 20:33 by Modesto Wyatt MD) Anxiety Asthma Bronchiectasis Bronchitis Chronic bronchitis Chronic cough COPD (chronic obstructive pulmonary disease) COPD exacerbation Depression Diarrhea Essential hypertension Factor V Leiden Fatigue Fatty liver Frequent sinus infections GERD (gastroesophageal reflux disease) H/O emotional problems Hay fever Hx of viral pneumonia Hyperlipidemia Iatrogenic pneumothorax Morbid obesity RUFINA (obstructive sleep apnea) Pneumonia Seasonal allergies Severe headache SOB (shortness of breath) Type 2 diabetes mellitus Venous insufficiency of both lower extremities Vision problems Home Medications aspirin 81 mg chewable tablet 81 mg PO DAILY Heart HiWired ##0 09/27/15 [History Last Taken 06/09/19 08:00 81 mg] multivitamin,[id number] 27 mg-0.4 mg tablet 1 tab PO DAILY supplement 09/27/15 [History Last Taken 06/09/19 08:00 1 tab] omega-3 fatty acids-fish oil 300 mg-1,000 mg capsule 2 ea PO BID supplement 09/27/15 [History Last Taken 06/09/19 08:00 2 cap] calcium carbonate 600 mg calcium (1,500 mg) tablet 600 mg PO DAILY supplement 01/22/18 [History Last Taken 06/09/19 08:00 600 mg] potassium gluconate 500 mg (83 mg) tablet 500 mg PO DAILY supplement 01/22/18 [History Last Taken 06/09/19 08:00 500 mg] cholecalciferol (vitamin D3) 125 mcg (5,000 unit) capsule 10,000 unit PO DAILY supplement 12/07/18 [History Last Taken 06/09/19 08:00 5000 units] blood sugar diagnostic (True Metrix Glucose Test Strip) #150 ea 05/09/19 [Rx Last Taken Unknown] budesonide-formoterol HFA 160 mcg-4.5 mcg/actuation aerosol inhaler 2 puff inhalation BID COPD 06/09/19 [History Last Taken 06/09/19 08:00 2 puffs] duloxetine 60 mg capsule,delayed release 60 mg PO BID Anxiety/depression 06/09/19 [History Last Taken 06/09/19 08:00 60 mg] fluticasone propionate 50 mcg/actuation nasal spray,suspension 2 spray intranasal BID allergies 06/09/19 [History Last Taken 06/09/19 08:00 2 sparys] albuterol sulfate 2.5 mg/3 mL (0.083 %) solution for nebulization 2.5 mg (3 mL) inhalation Q2H PRN PRN Shortness of Breath/Wheezing ##30 06/13/19 [Rx Last Taken Unknown] albuterol sulfate 90 mcg/actuation aerosol inhaler 1 - 2 puff inhalation Q4H PRN PRN Shortness Of Breath ##1 06/13/19 [Rx Last Taken Unknown] simvastatin 40 mg tablet 40 mg PO QHS cholesterol #90 tabs 07/11/19 [Rx Last Taken Unknown] ondansetron HCl 4 mg tablet (Zofran) 4 mg PO Q8H PRN nausea and vomiting #60 tabs 07/19/19 [Rx Last Taken Unknown] metformin 500 mg tablet 1,000 mg PO BID #1 TAB 07/30/19 [Rx Last Taken Unknown] sitagliptin phosphate 100 mg tablet 100 mg PO DAILY #30 tabs 07/30/19 [Rx Last Taken Unknown] azelastine 205.5 mcg (0.15 %) nasal spray 1 spray intranasal BID #30 mL 08/07/19 [Rx Last Taken Unknown] fexofenadine 180 mg tablet 180 mg PO DAILY #30 tabs 08/07/19 [Rx Last Taken Unknown] hydrochlorothiazide 25 mg tablet 25 mg PO DAILY bp #90 tabs 08/08/19 [Rx Last Taken Unknown] montelukast 10 mg tablet 10 mg PO DAILY allergies #90 tabs 08/08/19 [Rx Last Taken Unknown] benralizumab 30 mg/mL subcutaneous syringe (Fasenra) 30 mg subcut Q4W 3 doses #1 mL 08/27/19 [Rx Last Taken Unknown] prednisone 10 mg tablet 10 mg PO QDAY #90 tabs 08/27/19 [Rx Last Taken Unknown] mirtazapine 15 mg tablet 15 mg PO QHS 09/01/19 [History Last Taken Unknown] guaifenesin 1,200 mg tablet, extended release 12 hr 1,200 mg PO Q12H 09/09/19 [History Last Taken Unknown] lisinopril 10 mg tablet 10 mg PO DAILY #30 tabs 09/09/19 [Rx Last Taken Unknown] metoprolol succinate 100 mg tablet,extended release 24 hr 100 mg PO DAILY #30 tabs 09/09/19 [Rx Last Taken Unknown] glimepiride 4 mg tablet 4 mg PO DAILY #30 tabs 09/23/19 [Rx Last Taken Unknown] gabapentin 300 mg capsule 300 mg PO QHS #60 caps 09/27/19 [Rx Last Taken Unknown] oxycodone-acetaminophen 5 mg-325 mg tablet (Percocet) 1 tab PO TID PRN pain #14 tabs 09/27/19 [Rx Last Taken Unknown] pantoprazole 40 mg tablet,delayed release 40 mg PO BID Gerd #180 tabs 09/27/19 [Rx Last Taken Unknown] azithromycin 250 mg tablet 250 mg PO DAILY #5 tabs 03/24/20 [Rx Last Taken Unknown] dexamethasone 6 mg tablet 7 mg PO DAILY 5 days #7 tabs 03/24/20 [Rx Last Taken Unknown] albuterol sulfate 90 mcg/actuation aerosol inhaler (Ventolin HFA) 2 puff inhalation Q4H PRN PRN Wheezing ##1 07/26/21 [Rx Last Taken Unknown] doxycycline monohydrate 100 mg capsule 100 mg PO BID #14 CAPSULES 07/26/21 [Rx Last Taken Unknown] prednisone 20 mg tablet 60 mg PO DAILY #15 TABLETS 07/26/21 [Rx Last Taken Unknown] prednisone 20 mg tablet 40 mg PO DAILY 3 days #6 tabs 08/04/21 [Rx Last Taken Unknown] oxycodone-acetaminophen 5 mg-325 mg tablet (Percocet) 1 tab PO Q6H PRN pain 3 days #12 tabs 11/06/21 [Rx Last Taken Unknown] albuterol sulfate 90 mcg/actuation aerosol inhaler (Ventolin HFA) 1 - 2 puff inhalation Q4H PRN PRN Wheezing #1 ea 03/13/22 [Rx Last Taken Unknown] prednisone 20 mg tablet 40 mg PO DAILY #14 tabs 03/13/22 [Rx Last Taken Unknown] Allergy/AdvReac Type Severity Reaction Status Date / Time latex AdvReac Hives Verified 03/13/22 18:50 Family History Mother Alcoholism Asthma Depression hormone problem Respiratory disease Suicide attempt Drug abuse Hepatitis C Brother Alcoholism Asthma Diabetes Respiratory disease Drug abuse Grandmother Depression Psychiatric care Father Diabetes Hypertension Respiratory disease Emphysema of lung Other Bronchitis Dementia Heart disease Surgical History No history of previous surgery Social History household members: spouse Smoking Status: Current some day smoker tobacco type: cigarettes Tobacco: How many years used: 25 Smokeless tobacco user: other alcohol intake: never substance use type: does not use caffeine: Yes Type: tea Number of servings: 2 what type of physical activity do you participate in: none ROS ROS ED ROS Narrative Constitutional: No fever, no chills. HEENT: No sore throat. No neck pain. No loss of vision. No rhinorrhea. Cardiovascular: No chest pain. No palpitations. No pedal edema. Respiratory: Positive cough, positive shortness of breath. Abdominal: No abdominal pain. No nausea. No vomiting. Genitourinary: No dysuria. No hematuria. Musculoskeletal: No myalgias. No arthralgias. Neurologic: No headaches. No dizziness. No lightheadedness. Skin: No rash. No change in color. Psychiatric: No depression. No anxiety. EXAM Physical Exam Narrative Exam Narrative: Afebrile. Vital signs noted. HEENT: Normocephalic. Atraumatic. PERRL, EOMI. Neck soft and supple. No point tenderness or step off. Cardiovascular: Mild tachycardia at 105. No murmurs, rubs, or gallops appreciated. Respiratory: No tachypnea. Moving a fair amount of air, cough on examination, dry. Occasional expiratory wheeze. Gastrointestinal: Abdomen soft, nontender, with normoactive bowel sounds. No rebound or guarding. Neurological: Awake. Alert. Nonfocal, nonlateralizing. Skin: No rash. Normal color. No pallor. Musculoskeletal: No pedal edema. Full range of motion extremities. Const Vital Signs: 03/13/22 18:40 03/13/22 18:49 03/13/22 18:49 Temperature 98 F 99.1 F 99.1 F Temperature Source Temporal Oral Oral Pulse Rate 114 H 105 H 105 H Respiratory Rate 26 H 31 H 25 H Respiratory Effort Respiratory Depth Respiratory Pattern Blood Pressure 145/103 H 123/93 H 123/93 H Blood Pressure Mean 117 103 103 Pulse Ox 100 95 94 Oxygen Delivery Method Room Air Room Air Room Air 03/13/22 18:50 03/13/22 19:17 03/13/22 20:25 Temperature 98.1 F Temperature Source Temporal Pulse Rate 98 94 Respiratory Rate 20 H 22 H Respiratory Effort Short of Breath Labored Respiratory Depth Shallow Respiratory Pattern Tachypnea Blood Pressure 114/72 Blood Pressure Mean 86 Pulse Ox 97 Oxygen Delivery Method Room Air Room Air MDM MDM MDM Narrative Medical decision making narrative: I do feel she is having a COPD exacerbation. She has been out of her medications for quite some time. She was administered prednisone 60 mg orally here in ipratropium/albuterol nebulizer treatment. Chest x-ray in 1 view was also obtained. Chest x-ray interpreted by myself shows no acute process, no pneumonia or pneumothorax. After her steroids and nebulizer treatment, she feels markedly improved. She is not coughing as much. EKG interpreted by myself demonstrates normal sinus rhythm at 96 bpm without ectopy or acute ST changes. No STEMI. No significant change from previous. She is no longer tachycardic. I feel she can be discharged safely home with follow-up. 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 Hernandez. She was written a prescription for steroid burst and for an albuterol inhaler. At this time in the evening, I am unsure as to the pharmacies being open, so she was given an albuterol inhaler treatment prior to discharge and the remainder dispensed to her. Smoking cessation was discussed. Disposition is discharged home in improved and stable condition. Return instructions were reviewed. Radiography Diagnostic Testing: Clinical Impression(s) from Imaging Studies Chest X-Ray 03/13/22 19:48 IMPRESSION: No acute cardiopulmonary disease. Electronically Signed: Tito Amaral DO at 20:15 EST Reading Location ID and State: [address] [place] [address] Tel [phone], Service support , Discharge Plan Triage Chief Complaint: Shortness of Breath ED Provider: Modesto Wyatt Dx/Rx/DC Orders Clinical Impression: COPD (chronic obstructive pulmonary disease), Chronic bronchitis, SOB (shortness of breath), Smoker Prescriptions: New albuterol sulfate [Ventolin HFA] 90 mcg/actuation HFA aerosol inhaler 1 - 2 puff inhalation Q4H PRN PRN (Reason: Wheezing) Qty: 1 0RF prednisone 20 mg tablet 40 mg PO DAILY Qty: 14 0RF No Action cholecalciferol (vitamin D3) 5,000 unit capsule 10,000 unit PO DAILY ondansetron HCl [Zofran] 4 mg tablet 4 mg PO Q8H PRN (Reason: nausea and vomiting) Qty: 60 2RF metformin 500 mg tablet 1,000 mg PO BID Qty: 1 0RF sitagliptin phosphate 100 mg tablet 100 mg PO DAILY Qty: 30 6RF fexofenadine 180 mg tablet 180 mg PO DAILY Qty: 30 6RF azelastine 0.15 % (205.5 mcg) spray,non-aerosol 1 spray INTRANASAL BID Qty: 30 11RF Rx Instructions: administer into each nostril Fasenra 30 mg/mL syringe 30 mg SC Q4W 0 Days Qty: 1 0RF prednisone 10 mg tablet 10 mg PO QDAY Qty: 90 0RF guaifenesin 1,200 mg tablet extended release 12hr 1,200 mg PO Q12H lisinopril 10 mg tablet 10 mg PO DAILY Qty: 30 11RF metoprolol succinate 100 mg tablet extended release 24 hr 100 mg PO DAILY Qty: 30 11RF glimepiride 4 mg tablet 4 mg PO DAILY Qty: 30 6RF oxycodone-acetaminophen [Percocet] 5-325 mg tablet 1 tab PO TID PRN (Reason: pain) Qty: 14 0RF gabapentin 300 mg capsule 300 mg PO QHS Qty: 60 1RF Rx Instructions: May increase to BID pantoprazole 40 mg tablet,delayed release (DR/EC) 40 mg PO BID Qty: 180 2RF aspirin 81 MG tablet,chewable 81 mg PO DAILY Qty: 0 multivitamin,[id number] 1 TABLET tablet 1 tab PO DAILY omega-3 fatty acids-fish oil 1 EACH capsule 2 ea PO BID calcium carbonate 600 MG tablet 600 mg PO DAILY potassium gluconate 500 MG tablet 500 mg PO DAILY fluticasone propionate 16 GM spray,suspension 2 spray intranasal BID duloxetine 60 MG capsule,delayed release(DR/EC) 60 mg PO BID budesonide-formoterol 1 INHALER inhaler 2 puff inhalation BID albuterol sulfate 1 INHALER inhaler 1 - 2 puff inhalation Q4H PRN PRN (Reason: Shortness Of Breath) Qty: 1 0RF albuterol sulfate 2.5 MG/3 ML solution for nebulization 2.5 mg inhalation Q2H PRN PRN (Reason: Shortness of Breath/Wheezing) Qty: 30 0RF mirtazapine 15 MG tablet 15 mg PO QHS dexamethasone 6 MG tablet 7 mg PO DAILY 5 Days Qty: 7 0RF azithromycin 250 MG tablet 250 mg PO DAILY Qty: 5 0RF prednisone 20 MG tablet 60 mg PO DAILY Qty: 15 0RF doxycycline monohydrate 100 MG capsule 100 mg PO BID Qty: 14 0RF albuterol sulfate [Ventolin HFA] 1 INHALER inhaler 2 puff inhalation Q4H PRN PRN (Reason: Wheezing) Qty: 1 0RF prednisone 20 mg tablet 40 mg PO DAILY 3 Days Qty: 6 0RF oxycodone-acetaminophen [Percocet] 5-325 mg tablet 1 tab PO Q6H PRN (Reason: pain) 3 Days Qty: 12 0RF (DME) True Metrix Glucose Test Strip Strip See Rx Instructions .ROUTE .MEDSUPPLY Qty: 150 11RF Rx Instructions: As directed TID for Diabetes Type 2 (E11.65) simvastatin 40 mg tablet 40 mg PO QHS Qty: 90 3RF montelukast 10 mg tablet 10 mg PO DAILY Qty: 90 3RF hydrochlorothiazide 25 mg tablet 25 mg PO DAILY Qty: 90 3RF Primary Care Provider: Care Physician,No Primary Referrals: Care Physician,No Primary [Primary Care Provider] - Disposition Disposition: Home, Self Care
[2022-03-13] MEDS: Ipratropium/Albuterol Sulfate 3 ML AMPUL.NEB INHALATION (19:17)
[2022-03-13] MEDS: predniSONE 20 MG Tablet 60 MG PO (19:35)
--- NOTE | 2022-03-13 19:48 | RAD_ITS ---
STUDY: X-RAY CHEST REASON FOR EXAM: Female, 51 years old. Shortness of Breath. TECHNIQUE: Single AP portable view of the chest. COMPARISON: August 04, 2021 FINDINGS: Limited inspiratory effort. There is no acute infiltrate or mass. There is no demonstrated pleural abnormality. Normal size heart. Normal mediastinum and biju. Normal visualized pulmonary arteries. Normal visualized aortic arch and descending thoracic aorta. No osseous changes. There is no demonstrated abnormality of the visualized soft tissue structures of the upper abdomen. RAD/Chest 1 View (Portable) IMPRESSION: No acute cardiopulmonary disease. Electronically Signed: Tito Amaral DO at 20:15 [facility] ,
[2022-03-13] MEDS: Albuterol Sulfate 8 gm Inhaler (60 puffs) 2 PUFF INHALATION (21:15)
== END 2022-03-13 21:16 | disposition home or self-care (01) ==
PROVIDERS: Emergency Provider Emergency Medicine; Visit Provider Emergency Medicine
DX: E11.9 Type 2 diabetes mellitus without complications (principal); J44.9 Chronic obstructive pulmonary disease, unspecified; I10 Essential (primary) hypertension; F17.210 Nicotine dependence, cigarettes, uncomplicated; E78.5 Hyperlipidemia, unspecified; R06.02 Shortness of breath
CPT/HCPCS: 71045; 93005; 94640; 99285; A4216

== ENCOUNTER 2022-10-26 10:17 | Emergency (ER) | payer MEDICAID, SELFPAY ==
[2022-10-26 10:18] VITALS: BP 138/103; PULSE 89; RESP 16; TEMP 36.4; O2SAT 97; BMI 35.4
[2022-10-26 10:22] VITALS: O2SAT 97
--- NOTE | 2022-10-26 10:27 | EX.ED.VIS.UR ---
HPI HPI - URI History of Present Illness Chief Complaint: Cough Onset/Context/Timing Onset: Weeks (2) Context: Gradual Onset Timing: Continuous Quality: Tightness Location: Chest Associated Symptoms Associated Symptoms: Positive for Sinus Pressure, Myalgias, Nausea, Vomiting, Diarrhea, Shortness of Breath, Chest Pain (With coughing only) and Productive Cough; Negative for Nasal Congestion or Headache Narrative Narrative: Patient presents with cough that has been getting progressively worse over the past 2 weeks. Patient states that it is gradually getting worse. Patient states she feels some tightness in her chest. Patient states her breathing is worse with walking. Patient admits to some sinus pressure. Patient states she is coughing up some green and yellow sputum. Patient admits to some nausea, vomiting, and diarrhea recently. Patient admits to some pain in her chest with coughing but denies any other chest pain. ROS ROS ED Constitutional Constitutional ED: Denies chills or fever(s) Eyes Eyes: Denies blurry vision or change in vision ENT ENT ED: Reports rhinorrhea; Denies sore throat Cardiovascular Cardiovascular: Reports chest pain; Denies palpitations Respiratory/Chest Respiratory/Chest: Reports cough and dyspnea Gastrointestinal Gastrointestinal: Reports diarrhea, nausea and vomiting Genitourinary Genitourinary ED: Denies dysuria or hematuria Musculoskeletal Musculoskeletal: Reports back pain; Denies neck pain Integumentary Denies abscess or rash Neurologic Neurologic: Denies headache(s) or weakness Allergic/Immunologic Allergic/Immunologic ED: Denies mouth swelling or urticaria [facility] Medical History (Updated 10/26/22 @ 13:[address] Kirill Kumar, DO) Anxiety Asthma Bronchiectasis Bronchitis Chronic bronchitis Chronic cough COPD (chronic obstructive pulmonary disease) COPD exacerbation Depression Diarrhea Essential hypertension Factor V Leiden Fatigue Fatty liver Frequent sinus infections GERD (gastroesophageal reflux disease) H/O emotional problems Hay fever Hx of viral pneumonia Hyperlipidemia Iatrogenic pneumothorax Morbid obesity RUFINA (obstructive sleep apnea) Pneumonia Seasonal allergies Severe headache SOB (shortness of breath) Type 2 diabetes mellitus Venous insufficiency of both lower extremities Vision problems Home Medications aspirin 81 mg chewable tablet 81 mg PO DAILY Echolocation ##0 09/27/15 [History Last Taken 06/09/19 08:00 81 mg] multivitamin,[id number] 27 mg-0.4 mg tablet 1 tab PO DAILY supplement 09/27/15 [History Last Taken 06/09/19 08:00 1 tab] omega-3 fatty acids-fish oil 300 mg-1,000 mg capsule 2 ea PO BID supplement 09/27/15 [History Last Taken 06/09/19 08:00 2 cap] calcium carbonate 600 mg calcium (1,500 mg) tablet 600 mg PO DAILY supplement 01/22/18 [History Last Taken 06/09/19 08:00 600 mg] potassium gluconate 500 mg (83 mg) tablet 500 mg PO DAILY supplement 01/22/18 [History Last Taken 06/09/19 08:00 500 mg] cholecalciferol (vitamin D3) 125 mcg (5,000 unit) capsule 10,000 unit PO DAILY supplement 12/07/18 [History Last Taken 06/09/19 08:00 5000 units] blood sugar diagnostic (True Metrix Glucose Test Strip) #150 ea 05/09/19 [Rx Last Taken Unknown] budesonide-formoterol HFA 160 mcg-4.5 mcg/actuation aerosol inhaler 2 puff inhalation BID COPD 06/09/19 [History Last Taken 06/09/19 08:00 2 puffs] duloxetine 60 mg capsule,delayed release 60 mg PO BID Anxiety/depression 06/09/19 [History Last Taken 06/09/19 08:00 60 mg] fluticasone propionate 50 mcg/actuation nasal spray,suspension 2 spray intranasal BID allergies 06/09/19 [History Last Taken 06/09/19 08:00 2 sparys] albuterol sulfate 2.5 mg/3 mL (0.083 %) solution for nebulization 2.5 mg (3 mL) inhalation Q2H PRN PRN Shortness of Breath/Wheezing ##30 06/13/19 [Rx Last Taken Unknown] simvastatin 40 mg tablet 40 mg PO QHS cholesterol #90 tabs 07/11/19 [Rx Last Taken Unknown] ondansetron HCl 4 mg tablet (Zofran) 4 mg PO Q8H PRN nausea and vomiting #60 tabs 07/19/19 [Rx Last Taken Unknown] metformin 500 mg tablet 1,000 mg (2 x 500 mg) PO BID #1 TAB 07/30/19 [Rx Last Taken Unknown] sitagliptin phosphate 100 mg tablet 100 mg PO DAILY #30 tabs 07/30/19 [Rx Last Taken Unknown] azelastine 205.5 mcg (0.15 %) nasal spray 1 spray intranasal BID #30 mL 08/07/19 [Rx Last Taken Unknown] fexofenadine 180 mg tablet 180 mg PO DAILY #30 tabs 08/07/19 [Rx Last Taken Unknown] hydrochlorothiazide 25 mg tablet 25 mg PO DAILY bp #90 tabs 08/08/19 [Rx Last Taken Unknown] montelukast 10 mg tablet 10 mg PO DAILY allergies #90 tabs 08/08/19 [Rx Last Taken Unknown] benralizumab 30 mg/mL subcutaneous syringe (Fasenra) 30 mg subcut Q4W 3 doses #1 mL 08/27/19 [Rx Last Taken Unknown] prednisone 10 mg tablet 10 mg PO QDAY #90 tabs 08/27/19 [Rx Last Taken Unknown] mirtazapine 15 mg tablet 15 mg PO QHS 09/01/19 [History Last Taken Unknown] guaifenesin 1,200 mg tablet, extended release 12 hr 1,200 mg PO Q12H 09/09/19 [History Last Taken Unknown] lisinopril 10 mg tablet 10 mg PO DAILY #30 tabs 09/09/19 [Rx Last Taken Unknown] metoprolol succinate 100 mg tablet,extended release 24 hr 100 mg PO DAILY #30 tabs 09/09/19 [Rx Last Taken Unknown] glimepiride 4 mg tablet 4 mg PO DAILY #30 tabs 09/23/19 [Rx Last Taken Unknown] gabapentin 300 mg capsule 300 mg PO QHS #60 caps 09/27/19 [Rx Last Taken Unknown] oxycodone-acetaminophen 5 mg-325 mg tablet (Percocet) 1 tab PO TID PRN pain #14 tabs 09/27/19 [Rx Last Taken Unknown] pantoprazole 40 mg tablet,delayed release 40 mg PO BID Gerd #180 tabs 09/27/19 [Rx Last Taken Unknown] azithromycin 250 mg tablet 250 mg PO DAILY #5 tabs 03/24/20 [Rx Last Taken Unknown] dexamethasone 6 mg tablet 7 mg (1.1667 x 6 mg) PO DAILY 5 days #7 tabs 03/24/20 [Rx Last Taken Unknown] albuterol sulfate 90 mcg/actuation aerosol inhaler (Ventolin HFA) 2 puff inhalation Q4H PRN PRN Wheezing ##1 07/26/21 [Rx Last Taken Unknown] doxycycline monohydrate 100 mg capsule 100 mg PO BID #14 CAPSULES 07/26/21 [Rx Last Taken Unknown] prednisone 20 mg tablet 60 mg (3 x 20 mg) PO DAILY #15 TABLETS 07/26/21 [Rx Last Taken Unknown] prednisone 20 mg tablet 40 mg (2 x 20 mg) PO DAILY 3 days #6 tabs 08/04/21 [Rx Last Taken Unknown] oxycodone-acetaminophen 5 mg-325 mg tablet (Percocet) 1 tab PO Q6H PRN pain 3 days #12 tabs 11/06/21 [Rx Last Taken Unknown] albuterol sulfate 90 mcg/actuation aerosol inhaler (Ventolin HFA) 1 - 2 puff inhalation Q4H PRN PRN Wheezing #1 ea 03/13/22 [Rx Last Taken Unknown] prednisone 20 mg tablet 40 mg (2 x 20 mg) PO DAILY #14 tabs 03/13/22 [Rx Last Taken Unknown] albuterol sulfate 90 mcg/actuation aerosol inhaler 1 - 2 puff inhalation Q4H PRN PRN Shortness Of Breath ##1 10/26/22 [Rx Last Taken Unknown] Allergy/AdvReac Type Severity Reaction Status Date / Time latex AdvReac Hives Verified 10/26/22 10:19 Family History Mother Alcoholism Asthma Depression hormone problem Respiratory disease Suicide attempt Drug abuse Hepatitis C Brother Alcoholism Asthma Diabetes Respiratory disease Drug abuse Grandmother Depression Psychiatric care Father Diabetes Hypertension Respiratory disease Emphysema of lung Other Bronchitis Dementia Heart disease Surgical History No history of previous surgery Surgical History no surgical history no surgical history Social History household members: spouse Smoking Status: Current some day smoker tobacco type: cigarettes Tobacco: How many years used: 25 Smokeless tobacco user: other alcohol intake: never substance use type: does not use caffeine: Yes Type: tea Number of servings: 2 what type of physical activity do you participate in: none EXAM Physical Exam Const Vital Signs: 10/26/22 10:18 10/26/22 10:22 10/26/22 10:39 Temperature 97.5 F L Temperature Source Temporal Pulse Rate 89 92 Respiratory Rate 16 18 Respiratory Effort Short of Breath Respiratory Pattern Tachypnea Normal Blood Pressure 138/103 H Blood Pressure Mean 114 Pulse Ox 97 Oxygen Delivery Method Room Air Room Air Positive well nourished and well developed General Appearance ED: well developed and NAD HEENT Reports moist mucous membranes Neck supple and no JVD Resp normal respiratory effort Auscultation: wheezes expiratory wheezes and throughout Cardio regular rate and regular rhythm GI normal to inspection, nondistended, normoactive bowel sounds and non-tender Palpation: soft Extremity normal to inspection General Extremety ED: Negative for edema or tenderness General Extremity: Negative for edema Neuro oriented x3, CN's II-XII intact bilaterally and no sensory deficits noted Sensorium / Orientation: alert Motor Exam: strength 5/5 throughout Psych mental status grossly normal Skin no rashes or lesions noted MDM MDM MDM Narrative Medical decision making narrative: Differential diagnosis includes viral upper respiratory infection, pneumonia, COPD exacerbation, and bronchitis. Chest x-ray will be obtained to assess for pneumonia. Radiography Diagnostic Testing: Clinical Impression(s) from Imaging Studies Chest X-Ray 10/26/22 10:33 IMPRESSION: Increased markings at the lung bases worse on the left side with areas of confluence. Follow-up recommended. Electronically Signed: Aldair Su MD at 11:29 EDT , PA and lateral chest x-ray was obtained. There are 2 views. On my independent interpretation, there is no acute infiltrate noted. There is no pneumothorax noted. Radiologist also interpreted the x-ray. He noted some increased markings in the lung bases. It could be atelectasis. Treatment and Re-Evaluation Narrative: Patient was given a DuoNeb aerosol here. Patient was feeling better on reevaluation. Patient was advised of her findings. Patient was instructed to follow-up with her primary care physician in 5 to 7 days. Patient was given a refill for her albuterol aerosol. Patient was instructed to return if worse in any way. Patient understood and was agreeable with the plan. All questions were answered. Discharge Plan Triage Chief Complaint: Cough ED Provider: Kirill Kumar Dx/Rx/DC Orders Clinical Impression: Viral upper respiratory tract infection with cough, COPD (chronic obstructive pulmonary disease) Instructions: ED URI, Viral, No Abx (Adult) Prescriptions: Continued albuterol sulfate 1 INHALER inhaler 1 - 2 puff inhalation Q4H PRN PRN (Reason: Shortness Of Breath) Qty: 1 0RF No Action cholecalciferol (vitamin D3) 5,000 unit capsule 10,000 unit PO DAILY ondansetron HCl [Zofran] 4 mg tablet 4 mg PO Q8H PRN (Reason: nausea and vomiting) Qty: 60 2RF metformin 500 mg tablet 1,000 mg PO BID Qty: 1 0RF sitagliptin phosphate 100 mg tablet 100 mg PO DAILY Qty: 30 6RF fexofenadine 180 mg tablet 180 mg PO DAILY Qty: 30 6RF azelastine 0.15 % (205.5 mcg) spray,non-aerosol 1 spray INTRANASAL BID Qty: 30 11RF Rx Instructions: administer into each nostril Fasenra 30 mg/mL syringe 30 mg SC Q4W 0 Days Qty: 1 0RF prednisone 10 mg tablet 10 mg PO QDAY Qty: 90 0RF guaifenesin 1,200 mg tablet extended release 12hr 1,200 mg PO Q12H lisinopril 10 mg tablet 10 mg PO DAILY Qty: 30 11RF metoprolol succinate 100 mg tablet extended release 24 hr 100 mg PO DAILY Qty: 30 11RF glimepiride 4 mg tablet 4 mg PO DAILY Qty: 30 6RF oxycodone-acetaminophen [Percocet] 5-325 mg tablet 1 tab PO TID PRN (Reason: pain) Qty: 14 0RF gabapentin 300 mg capsule 300 mg PO QHS Qty: 60 1RF Rx Instructions: May increase to BID pantoprazole 40 mg tablet,delayed release (DR/EC) 40 mg PO BID Qty: 180 2RF aspirin 81 MG tablet,chewable 81 mg PO DAILY Qty: 0 multivitamin,[id number]-jkvn-isfgbebr 1 TABLET tablet 1 tab PO DAILY omega-3 fatty acids-fish oil 1 EACH capsule 2 ea PO BID calcium carbonate 600 MG tablet 600 mg PO DAILY potassium gluconate 500 MG tablet 500 mg PO DAILY fluticasone propionate 16 GM spray,suspension 2 spray intranasal BID duloxetine 60 MG capsule,delayed release(DR/EC) 60 mg PO BID budesonide-formoterol 1 INHALER inhaler 2 puff inhalation BID albuterol sulfate 2.5 MG/3 ML solution for nebulization 2.5 mg inhalation Q2H PRN PRN (Reason: Shortness of Breath/Wheezing) Qty: 30 0RF mirtazapine 15 MG tablet 15 mg PO QHS dexamethasone 6 MG tablet 7 mg PO DAILY 5 Days Qty: 7 0RF azithromycin 250 MG tablet 250 mg PO DAILY Qty: 5 0RF prednisone 20 MG tablet 60 mg PO DAILY Qty: 15 0RF doxycycline monohydrate 100 MG capsule 100 mg PO BID Qty: 14 0RF albuterol sulfate [Ventolin HFA] 1 INHALER inhaler 2 puff inhalation Q4H PRN PRN (Reason: Wheezing) Qty: 1 0RF prednisone 20 mg tablet 40 mg PO DAILY 3 Days Qty: 6 0RF oxycodone-acetaminophen [Percocet] 5-325 mg tablet 1 tab PO Q6H PRN (Reason: pain) 3 Days Qty: 12 0RF albuterol sulfate [Ventolin HFA] 90 mcg/actuation HFA aerosol inhaler 1 - 2 puff inhalation Q4H PRN PRN (Reason: Wheezing) Qty: 1 0RF prednisone 20 mg tablet 40 mg PO DAILY Qty: 14 0RF (DME) True Metrix Glucose Test Strip Strip See Rx Instructions .ROUTE .MEDSUPPLY Qty: 150 11RF Rx Instructions: As directed TID for Diabetes Type 2 (E11.65) simvastatin 40 mg tablet 40 mg PO QHS Qty: 90 3RF montelukast 10 mg tablet 10 mg PO DAILY Qty: 90 3RF hydrochlorothiazide 25 mg tablet 25 mg PO DAILY Qty: 90 3RF Primary Care Provider: Sandro Morrell Referrals: Sandro Morrell MD [Primary Care Provider] - 3-5 Days Care Physician,No Primary [Non-Staff] - Disposition Disposition: Home, Self Care
--- NOTE | 2022-10-26 10:33 | RAD_ITS ---
STUDY: X-RAY CHEST REASON FOR EXAM: Female, 52 years old. Cough TECHNIQUE: PA and lateral views of the chest. COMPARISON: Comparison is made with prior study dated March 13, 2022. FINDINGS: Increased markings are seen at the lung bases slightly more prominent on the left side. Follow-up is recommended. There is no demonstrated pleural abnormality. Normal size heart. Normal mediastinum and biju. Normal visualized pulmonary arteries. Normal visualized aortic arch and descending thoracic aorta. There are degenerative changes of the visualized thoracic spine. Normal visualized ribs, clavicles, and shoulders. There is no demonstrated abnormality of the visualized soft tissue structures of the upper abdomen. RAD/Chest PA and Lateral IMPRESSION: Increased markings at the lung bases worse on the left side with areas of confluence. Follow-up recommended. Electronically Signed: Adlair Su MD at 11:29 EDT ,
[2022-10-26] MEDS: Ipratropium/Albuterol Sulfate 3 ML AMPUL.NEB INHALATION (10:36)
[2022-10-26 10:39] VITALS: PULSE 92; RESP 18
[2022-10-26 13:51] VITALS: BP 133/82; PULSE 79; RESP 16; O2SAT 98
== END 2022-10-26 13:52 | disposition home or self-care (01) ==
PROVIDERS: Emergency Provider Emergency Medicine; PCP Internal Medicine; Visit Provider Emergency Medicine
DX: J06.9 Acute upper respiratory infection, unspecified (principal); J44.9 Chronic obstructive pulmonary disease, unspecified; E11.9 Type 2 diabetes mellitus without complications; E78.5 Hyperlipidemia, unspecified; I10 Essential (primary) hypertension; F17.210 Nicotine dependence, cigarettes, uncomplicated; Z79.82 Long term (current) use of aspirin; Z79.84 Long term (current) use of oral hypoglycemic drugs; Z79.899 Other long term (current) drug therapy
CPT/HCPCS: 71046; 94640; 99282

== ENCOUNTER 2023-01-22 13:44 | Emergency (ER) | payer MEDICAID, SELFPAY ==
[2023-01-22 13:45] VITALS: BP 183/99; PULSE 126; RESP 20; TEMP 36.1; O2SAT 95; BMI 33.5
[2023-01-22 13:57] VITALS: O2SAT 97
--- NOTE | 2023-01-22 13:57 | EKG12_ITS ---
Test Reason : SOB Blood Pressure : / mmHG Vent. Rate : 107 BPM Atrial Rate : 107 BPM P-R Int : 144 ms QRS Dur : 078 ms QT Int : 340 ms P-R-T Axes : 065 049 002 degrees QTc Int : 453 ms Sinus tachycardia Possible Left atrial enlargement Borderline ECG Confirmed by FABRICE GARZA, MACRINA ([id number]), managing editor VICTORIA AGUAYO ([id number]) on 01/24/2023 2:35:09 PM Referred By: Confirmed By:MACRINA AVINA MD
[2023-01-22 14:04] VITALS: PULSE 110; RESP 20
--- NOTE | 2023-01-22 14:06 | EDS_ITS ---
HPI <REMY Castellanos - Last Filed: 01/22/23 19:39> History of Present Illness Chief Complaint: Shortness of Breath Narrative Narrative: Patient presenting today due to shortness of breath on exertion, cough, and wheezing that started last night. She reports that about 3 weeks ago she had a respiratory infection and was seen at urgent care where she was prescribed 10 days of Augmentin, a prednisone taper, and Mucinex. She reports that this did seem to help her symptoms until she worsened last night. She does have a history of COPD and smokes about 5 cigarettes a day which is down from almost 2 packs/day. She also reports a history of factor V Leiden, type 2 diabetes mellitus, hypertension, and hyperlipidemia. She felt like she had sweats and chills last night but does not think that she had a fever. She reports that she has a little bit of chest pain with coughing but no chest pain at rest. [facility] <REMY Castellanos - Last Filed: 01/22/23 19:39> [facility] Medical History (Updated 01/22/23 @ 17:12 by REMY Castellanos) Anxiety Asthma Bronchiectasis Bronchitis Chronic bronchitis Chronic cough COPD (chronic obstructive pulmonary disease) COPD exacerbation Depression Diarrhea Essential hypertension Factor V Leiden Fatigue Fatty liver Frequent sinus infections GERD (gastroesophageal reflux disease) H/O emotional problems Hay fever Hx of viral pneumonia Hyperlipidemia Iatrogenic pneumothorax Morbid obesity RUFINA (obstructive sleep apnea) Pneumonia Seasonal allergies Severe headache SOB (shortness of breath) Type 2 diabetes mellitus Venous insufficiency of both lower extremities Vision problems Home Medications aspirin 81 mg chewable tablet 81 mg PO DAILY Heart [facility] ##0 09/27/15 [History Last Taken 06/09/19 08:00 81 mg] multivitamin,[id number] 27 mg-0.4 mg tablet 1 tab PO DAILY supplement 09/27/15 [History Last Taken 06/09/19 08:00 1 tab] omega-3 fatty acids-fish oil 300 mg-1,000 mg capsule 2 ea PO BID supplement 09/27/15 [History Last Taken 06/09/19 08:00 2 cap] calcium carbonate 600 mg calcium (1,500 mg) tablet 600 mg PO DAILY supplement 01/22/18 [History Last Taken 06/09/19 08:00 600 mg] potassium gluconate 500 mg (83 mg) tablet 500 mg PO DAILY supplement 01/22/18 [History Last Taken 06/09/19 08:00 500 mg] cholecalciferol (vitamin D3) 125 mcg (5,000 unit) capsule 10,000 unit PO DAILY supplement 12/07/18 [History Last Taken 06/09/19 08:00 5000 units] blood sugar diagnostic (True Metrix Glucose Test Strip) #150 ea 05/09/19 [Rx Last Taken Unknown] budesonide-formoterol HFA 160 mcg-4.5 mcg/actuation aerosol inhaler 2 puff inhalation BID COPD 06/09/19 [History Last Taken 06/09/19 08:00 2 puffs] duloxetine 60 mg capsule,delayed release 60 mg PO BID Anxiety/depression 06/09/19 [History Last Taken 06/09/19 08:00 60 mg] fluticasone propionate 50 mcg/actuation nasal spray,suspension 2 spray intranasal BID allergies 06/09/19 [History Last Taken 06/09/19 08:00 2 sparys] albuterol sulfate 2.5 mg/3 mL (0.083 %) solution for nebulization 2.5 mg (3 mL) inhalation Q2H PRN PRN Shortness of Breath/Wheezing ##30 06/13/19 [Rx Last Taken Unknown] simvastatin 40 mg tablet 40 mg PO QHS cholesterol #90 tabs 07/11/19 [Rx Last Taken Unknown] ondansetron HCl 4 mg tablet (Zofran) 4 mg PO Q8H PRN nausea and vomiting #60 tabs 07/19/19 [Rx Last Taken Unknown] metformin 500 mg tablet 1,000 mg (2 x 500 mg) PO BID #1 TAB 07/30/19 [Rx Last Taken Unknown] sitagliptin phosphate 100 mg tablet 100 mg PO DAILY #30 tabs 07/30/19 [Rx Last Taken Unknown] azelastine 205.5 mcg (0.15 %) nasal spray 1 spray intranasal BID #30 mL 08/07/19 [Rx Last Taken Unknown] fexofenadine 180 mg tablet 180 mg PO DAILY #30 tabs 08/07/19 [Rx Last Taken Unknown] hydrochlorothiazide 25 mg tablet 25 mg PO DAILY bp #90 tabs 08/08/19 [Rx Last Taken Unknown] montelukast 10 mg tablet 10 mg PO DAILY allergies #90 tabs 08/08/19 [Rx Last Taken Unknown] benralizumab 30 mg/mL subcutaneous syringe (Fasenra) 30 mg subcut Q4W 3 doses #1 mL 08/27/19 [Rx Last Taken Unknown] prednisone 10 mg tablet 10 mg PO QDAY #90 tabs 08/27/19 [Rx Last Taken Unknown] mirtazapine 15 mg tablet 15 mg PO QHS 09/01/19 [History Last Taken Unknown] guaifenesin 1,200 mg tablet, extended release 12 hr 1,200 mg PO Q12H 09/09/19 [History Last Taken Unknown] lisinopril 10 mg tablet 10 mg PO DAILY #30 tabs 09/09/19 [Rx Last Taken Unknown] metoprolol succinate 100 mg tablet,extended release 24 hr 100 mg PO DAILY #30 tabs 09/09/19 [Rx Last Taken Unknown] glimepiride 4 mg tablet 4 mg PO DAILY #30 tabs 09/23/19 [Rx Last Taken Unknown] gabapentin 300 mg capsule 300 mg PO QHS #60 caps 09/27/19 [Rx Last Taken Unknown] oxycodone-acetaminophen 5 mg-325 mg tablet (Percocet) 1 tab PO TID PRN pain #14 tabs 09/27/19 [Rx Last Taken Unknown] pantoprazole 40 mg tablet,delayed release 40 mg PO BID Gerd #180 tabs 09/27/19 [Rx Last Taken Unknown] azithromycin 250 mg tablet 250 mg PO DAILY #5 tabs 03/24/20 [Rx Last Taken Un known] dexamethasone 6 mg tablet 7 mg (1.1667 x 6 mg) PO DAILY 5 days #7 tabs 03/24/20 [Rx Last Taken Unknown] albuterol sulfate 90 mcg/actuation aerosol inhaler (Ventolin HFA) 2 puff inhalation Q4H PRN PRN Wheezing ##1 07/26/21 [Rx Last Taken Unknown] doxycycline monohydrate 100 mg capsule 100 mg PO BID #14 CAPSULES 07/26/21 [Rx Last Taken Unknown] prednisone 20 mg tablet 60 mg (3 x 20 mg) PO DAILY #15 TABLETS 07/26/21 [Rx Last Taken Unknown] prednisone 20 mg tablet 40 mg (2 x 20 mg) PO DAILY 3 days #6 tabs 08/04/21 [Rx Last Taken Unknown] oxycodone-acetaminophen 5 mg-325 mg tablet (Percocet) 1 tab PO Q6H PRN pain 3 days #12 tabs 11/06/21 [Rx Last Taken Unknown] albuterol sulfate 90 mcg/actuation aerosol inhaler (Ventolin HFA) 1 - 2 puff inhalation Q4H PRN PRN Wheezing #1 ea 03/13/22 [Rx Last Taken Unknown] prednisone 20 mg tablet 40 mg (2 x 20 mg) PO DAILY #14 tabs 03/13/22 [Rx Last Taken Unknown] albuterol sulfate 90 mcg/actuation aerosol inhaler 1 - 2 puff inhalation Q4H PRN PRN Shortness Of Breath ##1 10/26/22 [Rx Last Taken Unknown] doxycycline monohydrate 100 mg capsule 100 mg PO BID #9 CAPSULES 01/22/23 [Rx Last Taken Unknown] prednisone 20 mg tablet 60 mg (3 x 20 mg) PO DAILY 4 days #12 TABLETS 01/22/23 [Rx Last Taken Unknown] Allergy/AdvReac Type Severity Reaction Status Date / Time latex AdvReac Hives Verified 01/22/23 13:47 Family History Mother Alcoholism Asthma Depression hormone problem Respiratory disease Suicide attempt Drug abuse Hepatitis C Brother Alcoholism Asthma Diabetes Respiratory disease Drug abuse Grandmother Depression Psychiatric care Father Diabetes Hypertension Respiratory disease Emphysema of lung Other Bronchitis Dementia Heart disease Surgical History No history of previous surgery Social History household members: spouse Smoking Status: Current some day smoker tobacco type: cigarettes Tobacco: How many years used: 25 Smokeless tobacco user: other alcohol intake: never substance use type: does not use caffeine: Yes Type: tea Number of servings: 2 what type of physical activity do you participate in: none ROS <REMY Castellanos - Last Filed: 01/22/23 19:39> ROS ED Constitutional Constitutional ED: Reports chills and sweats; Denies fever(s) Cardiovascular Cardiovascular: Denies chest pain or palpitations Respiratory/Chest Respiratory/Chest: Reports cough, dyspnea on exertion and wheezing Gastrointestinal Gastrointestinal: Denies abdominal pain, constipation, diarrhea, nausea or vomiting Musculoskeletal Musculoskeletal: Denies arthralgias or myalgias Integumentary Denies rash Neurologic Neurologic: Denies weakness EXAM <REMY Castellanos - Last Filed: 01/22/23 19:39> Physical Exam Const Vital Signs: 01/22/23 13:45 01/22/23 13:57 01/22/23 14:09 Temperature 97 F L Temperature Source Temporal Pulse Rate 126 H Respiratory Rate 20 H Respiratory Depth Normal Respiratory Pattern Normal Blood Pressure 183/99 H Blood Pressure Mean 127 Pulse Ox 95 97 Oxygen Delivery Method Room Air Room Air Room Air 01/22/23 14:04 01/22/23 15:33 Temperature Temperature Source Pulse Rate 110 H 107 H Respiratory Rate 20 H 28 H Respiratory Depth Respiratory Pattern Blood Pressure 146/96 H Blood Pressure Mean 112 Pulse Ox 100 Oxygen Delivery Method Room Air Positive well nourished, well developed and no apparent distress General Appearance ED: well developed HEENT Reports normocephalic and head/scalp atraumatic Mouth ED: Yes moist mucous membranes normal Eyes PERRL and EOMs intact bilaterally Neck full ROM and supple Chest Wall inspection of chest normal Resp normal respiratory effort and clear to auscultation bilaterally Auscultation: rhonchi throughout and wheezes expiratory wheezes Cardio regular rate and regular rhythm GI soft to palpation, non-tender, non-distended and no masses Back/Spine normal ROM and normal to inspection Extremity normal to inspection and full ROM Neuro oriented x3, CN's II-XII intact bilaterally, moves all extremities, no focal motor deficits and no sensory deficits noted Sensorium / Orientation: awake and alert Psych mental status grossly normal and thought process normal Skin no rashes or lesions noted and no wounds <Dr. Sonido Cherry DO - Last Filed: 01/23/23 07:25> Physical Exam Const Vital Signs: 01/22/23 13:45 01/22/23 13:57 01/22/23 14:09 Temperature 97 F L Temperature Source Temporal Pulse Rate 126 H Respiratory Rate 20 H Respiratory Depth Normal Respiratory Pattern Normal Blood Pressure 183/99 H Blood Pressure Mean 127 Pulse Ox 95 97 Oxygen Delivery Method Room Air Room Air Room Air 01/22/23 14:04 01/22/23 15:33 Temperature Temperature Source Pulse Rate 110 H 107 H Respiratory Rate 20 H 28 H Respiratory Depth Respiratory Pattern Blood Pressure 146/96 H Blood Pressure Mean 112 Pulse Ox 100 Oxygen Delivery Method Room Air MDM <REMY Castellanos - Last Filed: 01/22/23 19:39> MDM MDM Narrative Medical decision making narrative: Patient presenting due to a cough and shortness of breath on exertion that started last night. She was seen at the end of November for respiratory infection and was given prednisone taper, Mucinex, and Augmentin which seemed to help her symptoms. She does have a history of PE and factor V Leiden, she is not on any blood thinners due to not tolerating the warfarin she was on. She does have some chest pain with coughing and is tachycardic here. Labs obtained to rule out leukocytosis, anemia, electrolyte abnormality, and ACS. EKG is sinus tachycardia. Chest x-ray obtained to rule out infiltrate and cardiopulmonary abnormality and is unremarkable. Given we cannot rule out PE with her history of prior PE and patient is tachycardic, CTA obtained to rule out PE and is negative for any acute findings. Patient was ambulated and remained above 98% on room air. She will be treated for COPD exacerbation with doxycycline and prednisone. She is to follow-up with her PCP, I have also given her referral for pulmonology. She will be discharged home in stable condition and is comfortable with plan. Lab Data Attestation: I reviewed the patient's lab results. Lab results narrative: WBC 14.4, potassium 3.2 Labs: Laboratory Results - last 24 hr 01/22/23 14:25 WBC 14.4 H RBC 5.00 Hgb 15.6 H Hct 45.5 MCV 91.0 MCH 31.2 MCHC 34.3 RDW Std Deviation 42.4 RDW Coeff of Roxanne 12.7 Plt Count 376 MPV 10.0 Immature Gran % (Auto) 0.300 Neut % (Auto) 45.8 L Lymph % (Auto) 42.8 H Crane % (Auto) 8.5 Eos % (Auto) 2.0 Baso % (Auto) 0.6 Absolute Neuts (auto) 6.6 Absolute Lymphs (auto) 6.16 H Nucleated RBC % 0 Sodium 138 Potassium 3.2 L Chloride 104 Carbon Dioxide 28.0 Anion Gap 6 BUN 16 Creatinine 0.75 Estim Creat Clear Calc 74.23 Est GFR (MDRD) Af Amer 105 Est GFR (MDRD) Non-Af 86 BUN/Creatinine Ratio 21.2 H Glucose 208 H Calcium 9.3 Troponin I High Sens 5 Radiography X-Ray: Read by ED Physician and Read by Radiologist Diagnostic Testing: Clinical Impression(s) from Imaging Studies Chest X-Ray 01/22/23 14:33 IMPRESSION: There are no acute findings. Electronically Signed: Miguel Hairston MD at 14:51 EDT , Chest CTA 01/22/23 15:06 IMPRESSION: No demonstrated pulmonary embolism or arterial dissection. There are no acute findings. Electronically Signed: Miguel Hairston MD at 16:23 EDT , EKG Initial EKG: Comments: 107 bpm, sinus tachycardia, no ST elevation, reviewed and interpreted by attending ED physician <Dr. Sonido Cherry, DO - Last Filed: 01/23/23 07:25> [facility] MDM Narrative Medical decision making narrative: Patient presenting due to a cough and shortness of breath on exertion that started last night. She was seen at the end of November for respiratory infection and was given prednisone taper, Mucinex, and Augmentin which seemed to help her symptoms. She does have a history of PE and factor V Leiden, she is not on any blood thinners due to not tolerating the warfarin she was on. She does have some chest pain with coughing and is tachycardic here. Labs obtained to rule out leukocytosis, anemia, electrolyte abnormality, and ACS. EKG is sinus tachycardia. Chest x-ray obtained to rule out infiltrate and cardiopulmonary abnormality and is unremarkable. Given we cannot rule out PE with her history of prior PE and patient is tachycardic, CTA obtained to rule out PE and is negative for any acute findings. Patient was ambulated and remained above 98% on room air. She will be treated for COPD exacerbation with doxycycline and prednisone. She is to follow-up with her PCP, I have also given her referral for pulmonology. She will be discharged home in stable condition and is comfortable with plan. I have personally performed a face to face assessment of the patient and have reviewed the MOISES Note. I performed a substantive portion of the visit including all aspects of the following. My roper findings include: History is 52-year-old female with a history of COPD not on home oxygen. Patient was seen pulmonology before he moved to [place] but she has been back in town for 1 year. She was started on prednisone and Augmentin on 10 February. S he was on tapering dose of prednisone beginning at 40 mg daily x3 days and tapering downward. She has missed some doses of the Augmentin. She notes continued shortness of breath despite use of inhaler at home. Exam is post aerosol treatment. Reportedly had oscillatory wheezing on my examination is clear. Work-up is negative. She is not hypoxic. We will burst her again with steroids. I do not believe that at this point she is requiring hospitalization. She has enough albuterol currently and will be speaking with her doctor regarding getting a nebulizer which may be beneficial for her.. Lab Data Labs: Laboratory Results - last 24 hr 01/22/23 14:25 WBC 14.4 H RBC 5.00 Hgb 15.6 H Hct 45.5 MCV 91.0 MCH 31.2 MCHC 34.3 RDW Std Deviation 42.4 RDW Coeff of Roxanne 12.7 Plt Count 376 MPV 10.0 Immature Gran % (Auto) 0.300 Neut % (Auto) 45.8 L Lymph % (Auto) 42.8 H Crane % (Auto) 8.5 Eos % (Auto) 2.0 Baso % (Auto) 0.6 Absolute Neuts (auto) 6.6 Absolute Lymphs (auto) 6.16 H Nucleated RBC % 0 Sodium 138 Potassium 3.2 L Chloride 104 Carbon Dioxide 28.0 Anion Gap 6 BUN 16 Creatinine 0.75 Estim Creat Clear Calc 74.23 Est GFR (MDRD) Af Amer 105 Est GFR (MDRD) Non-Af 86 BUN/Creatinine Ratio 21.2 H Glucose 208 H Calcium 9.3 Troponin I High Sens 5 Radiography Diagnostic Testing: Clinical Impression(s) from Imaging Studies Chest X-Ray 01/22/23 14:33 IMPRESSION: There are no acute findings. Electronically Signed: Miguel Hairston MD at 14:51 EDT , Chest CTA 01/22/23 15:06 IMPRESSION: No demonstrated pulmonary embolism or arterial dissection. There are no acute findings. Electronically Signed: Miguel Hairston MD at 16:23 EDT , EKG Initial EKG: Attestation: I personally reviewed and interpreted this EKG as follows: Discharge Plan Triage Chief Complaint: Shortness of Breath ED Midlevel Provider: Krystin Lopez ED Provider: Sonido Cherry Dx/Rx/DC Orders Clinical Impression: Tachycardia, COPD exacerbation Instructions: ED COPD Flare Prescriptions: New prednisone 20 mg tablet 60 mg PO DAILY 4 Days Qty: 12 0RF doxycycline monohydrate 100 mg capsule 100 mg PO BID Qty: 9 0RF No Action cholecalciferol (vitamin D3) 5,000 unit capsule 10,000 unit PO DAILY ondansetron HCl [Zofran] 4 mg tablet 4 mg PO Q8H PRN (Reason: nausea and vomiting) Qty: 60 2RF metformin 500 mg tablet 1,000 mg PO BID Qty: 1 0RF sitagliptin phosphate 100 mg tablet 100 mg PO DAILY Qty: 30 6RF fexofenadine 180 mg tablet 180 mg PO DAILY Qty: 30 6RF azelastine 0.15 % (205.5 mcg) spray,non-aerosol 1 spray INTRANASAL BID Qty: 30 11RF Rx Instructions: administer into each nostril Fasenra 30 mg/mL syringe 30 mg SC Q4W 0 Days Qty: 1 0RF prednisone 10 mg tablet 10 mg PO QDAY Qty: 90 0RF guaifenesin 1,200 mg tablet extended release 12hr 1,200 mg PO Q12H lisinopril 10 mg tablet 10 mg PO DAILY Qty: 30 11RF metoprolol succinate 100 mg tablet extended release 24 hr 100 mg PO DAILY Qty: 30 11RF glimepiride 4 mg tablet 4 mg PO DAILY Qty: 30 6RF oxycodone-acetaminophen [Percocet] 5-325 mg tablet 1 tab PO TID PRN (Reason: pain) Qty: 14 0RF gabapentin 300 mg capsule 300 mg PO QHS Qty: 60 1RF Rx Instructions: May increase to BID pantoprazole 40 mg tablet,delayed release (DR/EC) 40 mg PO BID Qty: 180 2RF aspirin 81 MG tablet,chewable 81 mg PO DAILY Qty: 0 multivitamin,fw-zadc-[id number] 1 TABLET tablet 1 tab PO DAILY omega-3 fatty acids-fish oil 1 EACH capsule 2 ea PO BID calcium carbonate 600 MG tablet 600 mg PO DAILY potassium gluconate 500 MG tablet 500 mg PO DAILY fluticasone propionate 16 GM spray,suspension 2 spray intranasal BID duloxetine 60 MG capsule,delayed release(DR/EC) 60 mg PO BID budesonide-formoterol 1 INHALER inhaler 2 puff inhalation BID albuterol sulfate 2.5 MG/3 ML solution for nebulization 2.5 mg inhalation Q2H PRN PRN (Reason: Shortness of Breath/Wheezing) Qty: 30 0RF mirtazapine 15 MG tablet 15 mg PO QHS dexamethasone 6 MG tablet 7 mg PO DAILY 5 Days Qty: 7 0RF azithromycin 250 MG tablet 250 mg PO DAILY Qty: 5 0RF prednisone 20 MG tablet 60 mg PO DAILY Qty: 15 0RF doxycycline monohydrate 100 MG capsule 100 mg PO BID Qty: 14 0RF albuterol sulfate [Ventolin HFA] 1 INHALER inhaler 2 puff inhalation Q4H PRN PRN (Reason: Wheezing) Qty: 1 0RF prednisone 20 mg tablet 40 mg PO DAILY 3 Days Qty: 6 0RF oxycodone-acetaminophen [Percocet] 5-325 mg tablet 1 tab PO Q6H PRN (Reason: pain) 3 Days Qty: 12 0RF albuterol sulfate [Ventolin HFA] 90 mcg/actuation HFA aerosol inhaler 1 - 2 puff inhalation Q4H PRN PRN (Reason: Wheezing) Qty: 1 0RF prednisone 20 mg tablet 40 mg PO DAILY Qty: 14 0RF albuterol sulfate 1 INHALER inhaler 1 - 2 puff inhalation Q4H PRN PRN (Reason: Shortness Of Breath) Qty: 1 0RF (DME) True Metrix Glucose Test Strip Strip See Rx Instructions .ROUTE .MEDSUPPLY Qty: 150 11RF Rx Instructions: As directed TID for Diabetes Type 2 (E11.65) simvastatin 40 mg tablet 40 mg PO QHS Qty: 90 3RF montelukast 10 mg tablet 10 mg PO DAILY Qty: 90 3RF hydrochlorothiazide 25 mg tablet 25 mg PO DAILY Qty: 90 3RF Primary Care Provider: [facility],Mayra Cordova Referrals: Jadon Hernandez MD [Med Staff - Active Staff] - 1 Week [facility],Mayra Cordova [Primary Care Provider] - 3-5 Days Activity Restrictions/Additional Instructions: Please follow-up with your PCP and try to get in with pulmonology. Return for any worsening of symptoms. Disposition Disposition: Home, Self Care Discharge Date/Time: 01/22/23 17:27
[2023-01-22 14:09] VITALS: O2SAT 97
[2023-01-22] MEDS: Ipratropium/Albuterol Sulfate 3 ML AMPUL.NEB INHALATION (14:11)
[2023-01-22] MEDS: Albuterol 2.5 MG/3 ML VIAL.NEB. INHALATION (14:11)
[2023-01-22] MEDS: MethylPREDNISolone 125 MG/2 ML Vial IV (14:23)
[2023-01-22 14:30] LABS: Absolute Lymphocyte Count 6.16 X10^3/uL (0.83-4.51); Absolute Neutrophil Count 6.6 X10^3/uL (2.0-7.7); Basophil# 0.08 X10^3/uL; Basophil% 0.6 % (0-1); Eosinophil# 0.29 X10^3/uL; Hematocrit 45.5 % (37-47); Hemoglobin 15.6 g/dL (12.0-15.0); Lymphocyte # 6.16 X10^3/ul (0.83-4.51); Lymphocyte % 42.8 % (19-41); Mean Corp Hgb Conc 34.3 g/dL (32-36); Mean Corpuscular Hgb 31.2 pg (27.0-32.0); Monocyte# 1.22 X10^3/uL; Monocyte% 8.5 % (0-10); NRBC Flagged by Analyzer 0 % (0-5); Neutrophil # 6.61 X10^3/uL (2.7-7.7); Neutrophil % 45.8 % (47-70); POSITIVE DIFFERENTIAL YES; POSITIVE MORPHOLOGY YES; Platelet Count 376 K/mm3 (150-450); RBC Distribution Width CV 12.7 % (11.6-14.6); RBC Distribution Width SD 42.4 fl (35.1-43.9); White Blood Count 14.4 K/mm3 (4.4-11.0)
[2023-01-22 14:31] LABS: Differential Indicated SCAN CRITERIA MET
--- NOTE | 2023-01-22 14:33 | RAD_ITS ---
STUDY: X-RAY CHEST REASON FOR EXAM: Female, 52 years old. CHEST PAIN shortness of breath TECHNIQUE: XR Chest 2 Views COMPARISON: 10/26/2022 FINDINGS: There is no demonstrated pleural abnormality. Normal size heart. Normal mediastinum and biju. Normal visualized pulmonary arteries. Normal visualized aortic arch and descending thoracic aorta. Normal visualized thoracic spine. Normal visualized ribs, clavicles, and shoulders. There are no acute findings of the upper abdomen. RAD/Chest PA and Lateral IMPRESSION: There are no acute findings. Electronically Signed: Miguel Hairston MD at 14:51 EDT ,
[2023-01-22 14:48] LABS: Anion Gap 6 (5-15); BUN 16 mg/dL (7-18); BUN/Creat Ratio 21.2 RATIO (10-20); Calcium,Total 9.3 mg/dL (8.5-10.1); Chloride 104 mmol/L (98-107); Creatinine, Serum 0.75 mg/dL (0.55-1.02); EST Glomerular Filtration Rate 86 mL/min (>60); Est Glom Filt Rate - Afr Amer 105 mL/min (>60); Estimated Creatinine Clearance 74.23 ml/min; Glucose 208 mg/dL (74-106); Potassium 3.2 mmol/L (3.5-5.1); Sodium Level 138 mmol/L (136-145); Troponin-I HS 5 pg/mL (3.0-54.0)
--- NOTE | 2023-01-22 15:06 | CT_ITS ---
STUDY: CTA Chest WO/W Contrast Injection 01/22/2023 4:21 PM REASON FOR EXAM: Female, 52 years old. pulmonary embolism, SOB x 2 weeks, hx COPD TECHNIQUE: The examination was performed with the intravenous administration of IV 100mL Isovue-370 contrast material. Post-processing of the angiographic images was performed, with axial imaging and 3D reconstruction. MIPS images were obtained. Individualized dose optimization techniques were used for this CT. COMPARISON: None. FINDINGS: There are degenerative changes of the shoulders. There is no pneumothorax. There is no demonstrated pleural abnormality. There are calcifications of the coronary arteries. Normal mediastinum. Normal hilar regions. Normal pulmonary arteries. There is atherosclerotic calcification of the aortic arch with tortuosity and elongation of the aortic arch and descending thoracic aorta. There are multi-level degenerative changes of the thoracic spine. There are no acute findings of the upper abdomen. CT/CTA Chest W/WO Contrast IMPRESSION: No demonstrated pulmonary embolism or arterial dissection. There are no acute findings. Electronically Signed: Miguel Hairston MD at 16:23 EDT ,
[2023-01-22 15:33] VITALS: BP 146/96; PULSE 107; RESP 28; O2SAT 100
[2023-01-22] MEDS: Doxycycline 100 MG CAPSULE PO (16:52)
[2023-01-22 17:06] VITALS: O2SAT 99
== END 2023-01-22 17:27 | disposition home or self-care (01) ==
PROVIDERS: Physician Assistant; Emergency Provider Emergency Medicine; Visit Provider Emergency Medicine
DX: R00.0 Tachycardia, unspecified (principal); J44.1 Chronic obstructive pulmonary disease with (acute) exacerbation; F17.210 Nicotine dependence, cigarettes, uncomplicated; G47.33 Obstructive sleep apnea (adult) (pediatric)
CPT/HCPCS: 71046; 71275; 80048; 84484; 85025; 93005; 94640; 96374; 99285; Q9967; A4216

== ENCOUNTER → 2023-08-14 | Outpatient (CLI) | payer MEDICAID, SELFPAY ==
[2023-08-14 12:09] LABS: Absolute Lymphocyte Count 4.33 X10^3/uL (0.83-4.51); Absolute Neutrophil Count 4.5 X10^3/uL (2.0-7.7); Basophil# 0.08 X10^3/uL; Basophil% 0.8 % (0-1); Eosinophil# 0.63 X10^3/uL; Eosinophils% 6.1 % (0-5); Hematocrit 45.7 % (37-47); Lymphocyte # 4.33 X10^3/ul (0.83-4.51); Lymphocyte % 41.7 % (19-41); Mean Corp Hgb Conc 32.8 g/dL (32-36); Mean Corpuscular Hgb 31.1 pg (27.0-32.0); Mean Corpuscular Volume 94.6 fL (81-99); Mean Platelet Vol. 10.7 fl (6.2-12.0); Monocyte# 0.74 X10^3/uL; Monocyte% 7.1 % (0-10); NRBC Flagged by Analyzer 0 % (0-5); Neutrophil # 4.54 X10^3/uL (2.7-7.7); Neutrophil % 43.7 % (47-70); Platelet Count 299 K/mm3 (150-450); RBC Distribution Width CV 13.1 % (11.6-14.6); RBC Distribution Width SD 45.3 fl (35.1-43.9); Red Blood Count 4.83 M/mm3 (4.2-5.4); White Blood Count 10.4 K/mm3 (4.4-11.0)
[2023-08-14 12:33] LABS: ALB/GLOB Ratio 0.8 RATIO (0.9-2.4); AST(SGOT) 17 U/L (15-37); Alanine Aminotransfer ALT/SGPT 26 U/L (13-56); Albumin, Serum 3.4 g/dL (3.2-5.0); Alkaline Phosphatase 77 U/L (45-117); Anion Gap 10 (5-15); BUN 11 mg/dL (7-18); BUN/Creat Ratio 19.9 RATIO (10-20); Calcium,Total 9.5 mg/dL (8.5-10.1); Chloride 107 mmol/L (98-107); Cholesterol 170 mg/dL (200); Creatinine, Serum 0.55 mg/dL (0.55-1.02); EST Glomerular Filtration Rate 123 mL/min (>60); Est Glom Filt Rate - Afr Amer 149 mL/min (>60); Glucose 163 mg/dL (74-106); High Density Lipoprotein 52 mg/dL; Protein, Total 7.4 g/dL (6.4-8.2); Sodium Level 139 mmol/L (136-145); Triglycerides 211 mg/dL; Very Low Density Lipoprotein 42 mg/dL (5-40)
== END | disposition home or self-care (01) ==
LOC: BIMLAB 10:04
PROVIDERS: PCP Internal Medicine; Visit Provider Internal Medicine
DX: I10 Essential (primary) hypertension (principal); E11.9 Type 2 diabetes mellitus without complications
CPT/HCPCS: 80053; 80061; 85025

== ENCOUNTER → 2023-08-17 | Outpatient (CLI) | payer MEDICAID, SELFPAY ==
[2023-08-18 15:23] LABS: Microalbumin,Random Urine 12.3 mg/L (NO RANGE EST.); Microalbumin:Creatinine Ratio 7.4 mg/g CRE (<30 mg/g CRE)
== END | disposition home or self-care (01) ==
LOC: LABSPEC 10:48
PROVIDERS: PCP Internal Medicine; Visit Provider Internal Medicine
DX: I10 Essential (primary) hypertension (principal); E11.9 Type 2 diabetes mellitus without complications
CPT/HCPCS: 82043; 82570; 87635

== ENCOUNTER → 2023-11-08 | Outpatient (CLI) | payer MEDICAID, SELFPAY ==
--- NOTE | 2023-11-08 11:00 | RAD_ITS ---
STUDY: X-RAY - RIGHT HAND REASON FOR EXAM: Female, 53 years old. bilateral hand pain TECHNIQUE: 3 view(s) of the hand. COMPARISON: None. FINDINGS: Normal radiocarpal articulation. Normal distal radioulnar joint. Normal visualized carpal bones. Normal carpal articulations Normal carpometacarpal articulation of the thumb. Normal second through fifth carpometacarpal joints. Normal metacarpi. Normal metacarpophalangeal joint of the thumb. Normal interphalangeal joint of the thumb. Normal proximal and distal phalanges of the thumb. Normal metacarpophalangeal joints of the second through fifth fingers. There is diffuse articular joint space narrowing of the proximal and distal interphalangeal joints of the second through fifth fingers, but without erosive changes or periarticular soft tissue swelling. Normal phalanges of the second through fifth fingers. The soft tissue structures are unremarkable. RAD/Hand Min 3 Views IMPRESSION: Degenerative joint disease of the hand, as described above. Electronically Signed: Oliver Barr MD at 18:02 EDT ,
--- NOTE | 2023-11-08 11:00 | RAD_ITS ---
STUDY: X-RAY - LEFT HAND REASON FOR EXAM: Female, 53 years old. bilateral hand pain TECHNIQUE: 3 view(s) of the hand. COMPARISON: None. FINDINGS: Normal radiocarpal articulation. Normal distal radioulnar joint. Normal visualized carpal bones. Normal carpal articulations Normal carpometacarpal articulation of the thumb. Normal second through fifth carpometacarpal joints. Normal metacarpi. Normal metacarpophalangeal joint of the thumb. Normal interphalangeal joint of the thumb. Normal proximal and distal phalanges of the thumb. Normal metacarpophalangeal joints of the second through fifth fingers. There is diffuse articular joint space narrowing of the proximal and distal interphalangeal joints of the second through fifth fingers, but without erosive changes or periarticular soft tissue swelling. Normal phalanges of the second through fifth fingers. The soft tissue structures are unremarkable. RAD/Hand Min 3 Views IMPRESSION: Degenerative joint disease of the hand, as described above. Electronically Signed: Oliver Barr MD at 18:03 EDT ,
== END | disposition home or self-care (01) ==
PROVIDERS: PCP Internal Medicine; Referring Provider Internal Medicine; Visit Provider Internal Medicine
DX: M79.641 Pain in right hand (principal); M79.642 Pain in left hand
CPT/HCPCS: 73130

== ENCOUNTER 2023-12-18 08:10 | Day surgery (SDC) | payer MEDICAID, SELFPAY ==
[2023-12-18 08:42] VITALS: BP 143/80; PULSE 90; RESP 16; TEMP 36.6; O2SAT 96; BMI 40.3
--- NOTE | 2023-12-18 08:46 | PCM.PRE.AN2 ---
ASA Classification* ASA Classification ASA Classification: 3 Assessment & Plan Anesthesia* Anesthesia Assessment Anesthesia Assessment: Discussed sedation and/or anesthesia options, risks, benefits, and alternatives with patient/parents/legal guardian/POA. Questions invited. The patient/parents/legal guardian/POA seems to understand and agrees to proceed with anesthesia plan. Reviewed the physical assessment, medical history, allergy history and patient home medications list prior to surgery/procedure/anesthetic and documented any changes. Performed airway and anesthesia risk assessments. Anesthesia Type Anesthesia Type: MAC Anesthesia Focused Assessment* Airway Assessment Mouth opens: >3 cm Mallampati Score: II Focused Labs Anesthesia Preop lab: CBC WBC 10.4 K/mm3 (4.4-11.0) 08/14/23 10:04 RBC 4.83 M/mm3 (4.2-5.4) 08/14/23 10:04 Hgb 15.0 g/dL (12.0-15.0) 08/14/23 10:04 Hct 45.7 % (37-47) 08/14/23 10:04 Plt Count 299 K/mm3 (150-450) 08/14/23 10:04 CHEMISTRY Potassium 4.0 mmol/L (3.5-5.1) 08/14/23 10:04 Sodium 139 mmol/L (136-145) 08/14/23 10:04 Magnesium 1.7 mg/dL (1.6-2.6) 02/13/19 15:25 Phosphorus 2.9 mg/dL (2.5-4.9) 06/24/18 05:56 BUN 11 mg/dL (7-18) 08/14/23 10:04 Creatinine 0.55 mg/dL (0.55-1.02) 08/14/23 10:04 Glucose 163 mg/dL (74-106) H 08/14/23 10:04 POC Glucose 272 mg/dL (70-110) H 09/03/19 06:44 TSH 2.17 uIU/mL (0.358-3.74) 02/13/19 15:25 COAG PT 12.3 SECONDS (11.7-14.9) 11/06/21 09:00 Pre-Assessment Diagnosis/Proposed Procedure Planned Operative Procedure(s): CSCOPE OA Anesthesia History 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 When Was Last Pacemaker Check QUESTION #4 FULL TEXT: You/Your Family Experience fever (hyperthermia) with Anesthesia Last Oral Intake Last Oral intake: Last Oral Intake NPO since Meds taken in AM with sips of water? Meds patient instructed to take am of surgery PONV PONV - production line operator: PONV - production line operator Female Yes 12/14/23 13:33 HX of Motion Sickness No 12/14/23 13:33 HX of N/V After Surgery No 12/14/23 13:33 Non-Smoker No 12/14/23 13:33 Duration of Surgery greater No 12/14/23 13:33 than 60 minutes Number of Risk Factors 1 12/14/23 13:33 PONV Score Low Risk 12/14/23 13:33 Height & Weight Height & Weight: Anesthesia: Height & Weight Height 5 ft 2 in 12/07/23 14:29 Respiratory Assessment Respiratory Assessment - production line operator: Respiratory Tract Infection Hx - production line operator Hx Respiratory Tract Infection No 12/14/23 13:33 STOP Sleep Apnea STOP Sleep Apnea - production line operator: STOP Sleep Apnea - production line operator Hx Hypertension Yes: CONTROLLED WITH MED 12/14/23 13:33 Hx Sleep Apnea Yes 12/14/23 13:33 CPAP No 12/14/23 13:33 BIPAP Yes 12/14/23 13:33 Do you snore loudly (louder than talking or can be heard Do you often feel tired/ fatigued/ sleepy during daytime? Has anyone observed you stop breathing during sleep? STOP Results Positive 12/14/23 13:33 QUESTION #5 FULL TEXT : Do you snore loudly (louder than talking or can be heard through closed doors)? 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 Specify any problems Hx of Preganancy in last 3 No 12/14/23 13:33 Months Nurse Filling Out Transfusion DSCHRIBER 12/14/23 13:33 & Questions: Date: 12/14/23 12/14/23 13:33 Time: 13:34 12/14/23 13:33 Patient unable to answer at this time (ie. confused, unrespo /Reproduction History /Reproductive History - production line operator: /Reproductive Hx- production line operator Hx Now No 12/14/23 13:33 Gestational Age (in weeks): EDC: Hx Hx Para Hx Section SAB No 12/14/23 13:33 Active Medications Active Medications: Current Medications Generic Name Dose Route Start Last Admin Trade Name Freq PRN Reason Stop Dose Admin Lactated Ringer's 1,000 mls @ 15 mls/hr 12/18/23 08:30 IV .Q48H PRAMOD PFSH Medical History Post-menopausal Wears glasses Anxiety Diabetes Arthritis Fatty liver Pulmonary embolism Blood disorder Easy bruising High cholesterol Migraine headache Injury of head and neck Syncope Dietary restriction Gastric reflux Smoker BiPAP (biphasic positive airway pressure) dependence Asthma Shortness of breath on exertion History of pain when walking History of echocardiogram Cardiology follow-up encounter Tachycardia Arthritis Essential hypertension Hx of viral pneumonia Diarrhea Severe headache Hay fever Fatigue SOB (shortness of breath) Factor V Leiden Bronchiectasis RUFINA (obstructive sleep apnea) Venous insufficiency of both lower extremities Type 2 diabetes mellitus Iatrogenic pneumothorax Frequent sinus infections Anxiety Depression Vision problems GERD (gastroesophageal reflux disease) Fatty liver Hyperlipidemia Chronic bronchitis Asthma Seasonal allergies COPD (chronic obstructive pulmonary disease) Morbid obesity Home Medications ?Medication ?Instructions ?Recorded ?Last Taken ?Type calcium carbonate 600 mg PO DAILY supplement 01/22/18 06/09/19 08:00 History 600 mg mirtazapine 15 mg tablet 30 mg PO QHS 09/01/19 Unknown History albuterol sulfate 90 mcg/actuation 1 - 2 puff inhalation Q4H PRN PRN 10/26/22 Unknown Rx aerosol inhaler Shortness Of Breath ##1 blood pressure test kit-large #1 ea 05/04/23 Unknown Rx clonazepam 0.5 mg tablet 0.5 mg PO BID PRN PRN anxiety 05/04/23 Unknown History fluticasone 250 mcg-salmeterol 50 1 inh inhalation BID 05/04/23 Unknown History mcg/dose blistr powdr for inhalation (Advair Diskus) glimepiride 4 mg tablet 2 mg (1/2 x 4 mg) PO DAILY #90 tabs 06/01/23 Unknown Rx lisinopril 10 mg tablet 10 mg PO DAILY #90 tabs 06/01/23 Unknown Rx blood-glucose meter #1 ea 06/06/23 Unknown Rx prazosin 1 mg capsule 1 mg PO QHS 08/17/23 Unknown History omeprazole 20 mg capsule,delayed 20 mg PO DAILY #90 caps 10/31/23 Unknown Rx release metformin 1,000 mg tablet 1,000 mg PO BID #180 tabs 11/02/23 Unknown Rx simvastatin 40 mg tablet 20 mg (1/2 x 40 mg) PO QHS 11/02/23 Unknown Rx cholesterol #90 tabs aspirin 81 mg tablet,delayed 81 mg PO DAILY #30 TABLETS 11/08/23 Unknown Rx release mometasone 50 mcg/actuation nasal 2 spray intranasal DAILY #17 grams 11/15/23 Unknown Rx spray (Nasonex 24hr Allergy) fluticasone propionate 50 2 spray intranasal BID #16 grams 11/17/23 Unknown Rx mcg/actuation nasal spray,suspension (Flonase Allergy Relief) meloxicam 7.5 mg tablet 7.5 mg PO DAILY PRN pain #30 tabs 11/20/23 Unknown Rx blood sugar diagnostic (True #100 ea 11/28/23 Unknown Rx Metrix Glucose Test Strip) lancets (Accu-Chek Softclix #100 ea 11/29/23 Unknown Rx Lancets) omega-3 fatty acids-fish oil 360 1 cap PO DAILY 12/07/23 Unknown History mg-1,200 mg capsule (Fish Oil) Allergy/AdvReac Type Severity Reaction Status Date / Time latex AdvReac Hives Verified 12/14/23 13:30 Family History Mother Alcoholism Asthma Depression Respiratory disease Suicide attempt Drug abuse Hepatitis C Brother Alcoholism Asthma Diabetes Drug abuse Grandmother Depression Psychiatric care Father Diabetes Hypertension Emphysema of lung Alcoholism Heart failure Grandmother Dementia Aunt Colon cancer Other Bronchitis Heart disease Surgical History History of esophagogastroduodenoscopy (EGD) Social History household members: family housing: apartment current occupational status: disabled 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
[2023-12-18] MEDS: Lactated Ringers 1,000 ML 15 ML IV (08:55)
--- NOTE | 2023-12-18 09:00 | PCM.HP.STD ---
[facility] - General General Date of Admission: 12/18/23 Date of Service: 12/18/23 Chief Complaint: Screening colonoscopy HPI Narrative CARRIE VIVEROS, is a 53 F who presents today for screening colonoscopy. She has not had a colonoscopy in the past. She has past medical history of SVT this under control medicines and factor V Leiden for which she takes aspirin on a daily basis. She also has some seasonal allergies some mild gastroesophageal reflux disease and hypercholesterolemia. This is her first colonoscopy. She is not have any abdominal pain, cramping, chest pain or shortness of breath. PENDING SALE TO [facility] Medical History Post-menopausal Wears glasses Anxiety Diabetes Arthritis Fatty liver Pulmonary embolism Blood disorder Easy bruising High cholesterol Migraine headache Injury of head and neck Syncope Dietary restriction Gastric reflux Smoker BiPAP (biphasic positive airway pressure) dependence Asthma Shortness of breath on exertion History of pain when walking History of echocardiogram Cardiology follow-up encounter Tachycardia Arthritis Essential hypertension Hx of viral pneumonia Diarrhea Severe headache Hay fever Fatigue SOB (shortness of breath) Factor V Leiden Bronchiectasis RUFINA (obstructive sleep apnea) Venous insufficiency of both lower extremities Type 2 diabetes mellitus Iatrogenic pneumothorax Frequent sinus infections Anxiety Depression Vision problems GERD (gastroesophageal reflux disease) Fatty liver Hyperlipidemia Chronic bronchitis Asthma Seasonal allergies COPD (chronic obstructive pulmonary disease) Morbid obesity Home Medications ?Medication ?Instructions ?Recorded ?Last Taken ?Type calcium carbonate 600 mg PO DAILY supplement 01/22/18 06/09/19 08:00 History 600 mg mirtazapine 15 mg tablet 30 mg PO QHS 09/01/19 Unknown History albuterol sulfate 90 mcg/actuation 1 - 2 puff inhalation Q4H PRN PRN 10/26/22 Unknown Rx aerosol inhaler Shortness Of Breath ##1 blood pressure test kit-large #1 ea 05/04/23 Unknown Rx clonazepam 0.5 mg tablet 0.5 mg PO BID PRN PRN anxiety 05/04/23 Unknown History fluticasone 250 mcg-salmeterol 50 1 inh inhalation BID 05/04/23 Unknown History mcg/dose blistr powdr for inhalation (Advair Diskus) glimepiride 4 mg tablet 2 mg (1/2 x 4 mg) PO DAILY #90 tabs 06/01/23 Unknown Rx lisinopril 10 mg tablet 10 mg PO DAILY #90 tabs 06/01/23 Unknown Rx blood-glucose meter #1 ea 06/06/23 Unknown Rx prazosin 1 mg capsule 1 mg PO QHS 08/17/23 Unknown History omeprazole 20 mg capsule,delayed 20 mg PO DAILY #90 caps 10/31/23 Unknown Rx release metformin 1,000 mg tablet 1,000 mg PO BID #180 tabs 11/02/23 Unknown Rx simvastatin 40 mg tablet 20 mg (1/2 x 40 mg) PO QHS 11/02/23 Unknown Rx cholesterol #90 tabs aspirin 81 mg tablet,delayed 81 mg PO DAILY #30 TABLETS 11/08/23 Unknown Rx release mometasone 50 mcg/actuation nasal 2 spray intranasal DAILY #17 grams 11/15/23 Unknown Rx spray (Nasonex 24hr Allergy) fluticasone propionate 50 2 spray intranasal BID #16 grams 11/17/23 Unknown Rx mcg/actuation nasal spray,suspension (Flonase Allergy Relief) meloxicam 7.5 mg tablet 7.5 mg PO DAILY PRN pain #30 tabs 11/20/23 Unknown Rx blood sugar diagnostic (True #100 ea 11/28/23 Unknown Rx Metrix Glucose Test Strip) lancets (Accu-Chek Softclix #100 ea 11/29/23 Unknown Rx Lancets) omega-3 fatty acids-fish oil 360 1 cap PO DAILY 12/07/23 Unknown History mg-1,200 mg capsule (Fish Oil) Allergy/AdvReac Type Severity Reaction Status Date / Time latex AdvReac Hives Verified 12/14/23 13:30 Family History Mother Alcoholism Asthma Depression Respiratory disease Suicide attempt Drug abuse Hepatitis C Brother Alcoholism Asthma Diabetes Drug abuse Grandmother Depression Psychiatric care Father Diabetes Hypertension Emphysema of lung Alcoholism Heart failure Grandmother Dementia Aunt Colon cancer Other Bronchitis Heart disease Surgical History History of esophagogastroduodenoscopy (EGD) Social History household members: family housing: apartment current occupational status: disabled 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 Smoking Status: Current every day smoker tobacco type: cigarettes Tobacco: How many years used: 32 Smokeless tobacco user: other Electronic Cigarette Use: not used alcohol intake: never substance use type: does not use caffeine: Yes Type: tea Number of servings: 2 what type of physical activity do you participate in: none and walking frequency: 1-2 times per week do you feel safe at home: Yes ROS Review of Systems ROS Unobtainable: other Constitutional Constitutional: Denies fatigue, fever(s), poor appetite, weight gain or weight loss ENT HEENT: Denies mouth lesions Cardiovascular Cardiovascular: Denies abdominal bloating, abdominal edema or abdominal pain Respiratory/Chest Respiratory/Chest: Denies change in mental status, change in phlegm color, chest congestion or chest tightness Gastrointestinal Gastrointestinal: Denies belching, bloating, change in bowel habits, change in stool character, chewing difficulty, coffee ground emesis, constipation, cramping, diarrhea, dyspepsia, dysphagia, early satiety, excessive flatus, fecal incontinence, heartburn, hematemesis, hematochezia, hemorrhoids, loose stools, melena, nausea, odynophagia, rectal bleeding, tenesmus, vomiting or weight changes Genitourinary Genitourinary: Denies abdominal discomfort, burning urination or itching Musculoskeletal Musculoskeletal: Reports as per HPI; Denies muscle weakness or myalgias Integumentary Integumentary: Denies jaundice Neurologic Neurologic: Denies lack of coordination or weakness Psychiatric Psychiatric: Denies confusion, depression, memory loss, mood swings, paranoia or suicidal ideation Endocrine Endocrinology: Denies systems reviewed and no addt'l complaints, except as documented Hematologic/Lymphatic Hematologic/Lymphatic: Denies anemia, easy bleeding, easy bruising or lymphadenopathy Allergic/Immunologic Allergic/Immunologic: Denies systems reviewed and no addt'l complaints, except as documented Vital Signs Vital Signs Vital Signs: Weight Weight: 220 lb 7.396 oz Body Mass Index (BMI) 40.3 Physical Exam Const alert General Appearance: cooperative Orientation / Consciousness: oriented to person HEENT hearing grossly normal bilaterally Head and Scalp: normal to inspection Face and Sinus: face symmetric Nose: external nose normal Mouth: oral and palatal mucosa normal Eyes conjunctivae normal General Eye: normal appearance of both eyes Neck full ROM General: normal visual inspection Lymph Lymphatic: no lymphadenopathy noted Chest inspection of chest normal and palpation of chest normal Chest: symmetrical chest wall rise Resp normal respiratory effort Effort and Inspection: able to speak in complete sentences Cardio regular rate GI non-distended Percussion: normal to percussion Rectal Exam: deferred Neuro Speech: speech normal Gait (Neuro): normal gait Assessment & Plan Assessment/Plan (1) Encounter for screening for malignant neoplasm of colon: PLAN: She will undergo screening colonoscopy. She was explained alternatives, risk, benefits include not withstanding bleeding, infection, sepsis, perforation, need for emergent urgent . She have an ASA of 3.
--- NOTE | 2023-12-18 09:00 | PCM.HP.STD ---
HPI - General General Date of Admission: 12/18/23 Date of Service: 12/18/23 Chief Complaint: Screening colonoscopy HPI Narrative CARRIE VIVEROS, is a 53 F who presents for screening colonoscopy. She has not had a colonoscopy in the past. She does suffer from PTSD. And factor V Leiden. She is not have any bleeding issues she is not have any constipation. She denies any abdominal pain or cramping. [facility] Medical History Post-menopausal Wears glasses Anxiety Diabetes Arthritis Fatty liver Pulmonary embolism Blood disorder Easy bruising High cholesterol Migraine headache Injury of head and neck Syncope Dietary restriction Gastric reflux Smoker BiPAP (biphasic positive airway pressure) dependence Asthma Shortness of breath on exertion History of pain when walking History of echocardiogram Cardiology follow-up encounter Tachycardia Arthritis Essential hypertension Hx of viral pneumonia Diarrhea Severe headache Hay fever Fatigue SOB (shortness of breath) Factor V Leiden Bronchiectasis RUFINA (obstructive sleep apnea) Venous insufficiency of both lower extremities Type 2 diabetes mellitus Iatrogenic pneumothorax Frequent sinus infections Anxiety Depression Vision problems GERD (gastroesophageal reflux disease) Fatty liver Hyperlipidemia Chronic bronchitis Asthma Seasonal allergies COPD (chronic obstructive pulmonary disease) Morbid obesity Home Medications ?Medication ?Instructions ?Recorded ?Last Taken ?Type calcium carbonate 600 mg PO DAILY supplement 01/22/18 06/09/19 08:00 History 600 mg mirtazapine 15 mg tablet 30 mg PO QHS 09/01/19 Unknown History albuterol sulfate 90 mcg/actuation 1 - 2 puff inhalation Q4H PRN PRN 10/26/22 Unknown Rx aerosol inhaler Shortness Of Breath ##1 blood pressure test kit-large #1 ea 05/04/23 Unknown Rx clonazepam 0.5 mg tablet 0.5 mg PO BID PRN PRN anxiety 05/04/23 Unknown History fluticasone 250 mcg-salmeterol 50 1 inh inhalation BID 05/04/23 Unknown History mcg/dose blistr powdr for inhalation (Advair Diskus) glimepiride 4 mg tablet 2 mg (1/2 x 4 mg) PO DAILY #90 tabs 06/01/23 Unknown Rx lisinopril 10 mg tablet 10 mg PO DAILY #90 tabs 06/01/23 Unknown Rx blood-glucose meter #1 ea 06/06/23 Unknown Rx prazosin 1 mg capsule 1 mg PO QHS 08/17/23 Unknown History omeprazole 20 mg capsule,delayed 20 mg PO DAILY #90 caps 10/31/23 Unknown Rx release metformin 1,000 mg tablet 1,000 mg PO BID #180 tabs 11/02/23 Unknown Rx simvastatin 40 mg tablet 20 mg (1/2 x 40 mg) PO QHS 11/02/23 Unknown Rx cholesterol #90 tabs aspirin 81 mg tablet,delayed 81 mg PO DAILY #30 TABLETS 11/08/23 Unknown Rx release mometasone 50 mcg/actuation nasal 2 spray intranasal DAILY #17 grams 11/15/23 Unknown Rx spray (Nasonex 24hr Allergy) fluticasone propionate 50 2 spray intranasal BID #16 grams 11/17/23 Unknown Rx mcg/actuation nasal spray,suspension (Flonase Allergy Relief) meloxicam 7.5 mg tablet 7.5 mg PO DAILY PRN pain #30 tabs 11/20/23 Unknown Rx blood sugar diagnostic (True #100 ea 11/28/23 Unknown Rx Metrix Glucose Test Strip) lancets (Accu-Chek Softclix #100 ea 11/29/23 Unknown Rx Lancets) omega-3 fatty acids-fish oil 360 1 cap PO DAILY 12/07/23 Unknown History mg-1,200 mg capsule (Fish Oil) Allergy/AdvReac Type Severity Reaction Status Date / Time latex AdvReac Hives Verified 12/14/23 13:30 Family History Mother Alcoholism Asthma Depression Respiratory disease Suicide attempt Drug abuse Hepatitis C Brother Alcoholism Asthma Diabetes Drug abuse Grandmother Depression Psychiatric care Father Diabetes Hypertension Emphysema of lung Alcoholism Heart failure Grandmother Dementia Aunt Colon cancer Other Bronchitis Heart disease Surgical History History of esophagogastroduodenoscopy (EGD) Social History household members: family housing: apartment current occupational status: disabled 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 Smoking Status: Current every day smoker tobacco type: cigarettes Tobacco: How many years used: 32 Smokeless tobacco user: other Electronic Cigarette Use: not used alcohol intake: never substance use type: does not use caffeine: Yes Type: tea Number of servings: 2 what type of physical activity do you participate in: none and walking frequency: 1-2 times per week do you feel safe at home: Yes ROS Review of Systems ROS Unobtainable: other Constitutional Constitutional: Denies fatigue, fever(s), poor appetite, weight gain or weight loss ENT HEENT: Denies mouth lesions Cardiovascular Cardiovascular: Denies abdominal bloating, abdominal edema or abdominal pain Respiratory/Chest Respiratory/Chest: Denies change in mental status, change in phlegm color, chest congestion or chest tightness Gastrointestinal Gastrointestinal: Denies belching, bloating, change in bowel habits, change in stool character, chewing difficulty, coffee ground emesis, constipation, cramping, diarrhea, dyspepsia, dysphagia, early satiety, excessive flatus, fecal incontinence, heartburn, hematemesis, hematochezia, hemorrhoids, loose stools, melena, nausea, odynophagia, rectal bleeding, tenesmus, vomiting or weight changes Genitourinary Genitourinary: Denies abdominal discomfort, burning urination or itching Musculoskeletal Musculoskeletal: Reports as per HPI; Denies muscle weakness or myalgias Integumentary Integumentary: Denies jaundice Neurologic Neurologic: Denies lack of coordination or weakness Psychiatric Psychiatric: Denies confusion, depression, memory loss, mood swings, paranoia or suicidal ideation Endocrine Endocrinology: Denies systems reviewed and no addt'l complaints, except as documented Hematologic/Lymphatic Hematologic/Lymphatic: Denies anemia, easy bleeding, easy bruising or lymphadenopathy Allergic/Immunologic Allergic/Immunologic: Denies systems reviewed and no addt'l complaints, except as documented Vital Signs Vital Signs Vital Signs: Weight Weight: 220 lb 7.396 oz Body Mass Index (BMI) 40.3 Physical Exam Const alert General Appearance: cooperative Orientation / Consciousness: oriented to person HEENT hearing grossly normal bilaterally Head and Scalp: normal to inspection Face and Sinus: face symmetric Nose: external nose normal Mouth: oral and palatal mucosa normal Eyes conjunctivae normal General Eye: normal appearance of both eyes Neck full ROM General: normal visual inspection Lymph Lymphatic: no lymphadenopathy noted Chest inspection of chest normal and palpation of chest normal Chest: symmetrical chest wall rise Resp normal respiratory effort Effort and Inspection: able to speak in complete sentences Cardio regular rate GI non-distended Percussion: normal to percussion Rectal Exam: deferred Neuro Speech: speech normal Gait (Neuro): normal gait Assessment & Plan Assessment/Plan (1) Encounter for screening for malignant neoplasm of colon: PLAN: Plan She will undergo screening colonoscopy. She was explained alternatives, risk, benefits include not withstanding bleeding, infection, sepsis, perforation, need for emergent surgery . She will have an ASA of 3.
--- NOTE | 2023-12-18 09:45 | COLBX_PTH ---
PATIENT: CARRIE VIVEROS LOC: EN U#:[id number] AGE/SX: 53/F ROOM: RE12/18/[address]: Dr. Jaime Berg DO : 1970 BED: DIS: 12/18/2023 SPEC #: [id number] RECD: 12/18/23 13:12 STATUS: CRICKET OUSMANE #: [id number] ROSIO: 12/18/23 09:[address]: Jaime Berg DEPT: SURGICAL PATHOLOGY RECD BY: Cassy Stevens ENTERED: 12/18/23 13:50 SP TYPE: COLON BX TERRANCE DR: Dr. Saida Forbes MD Tissues: A - Ileum, NOS B - Cecum, NOS C - Sigmoid colon biopsy Procedures: Surgery Specimen Level IV HEADER OPERATION: Colonoscopy with biopsy and polypectomy PRE-OP DIAGNOSIS: Encounter for screening for malignant neoplasm of colon TISSUE SUBMITTED: A- Terminal ileum biopsy, B- Cecum biopsy, C- Sigmoid polyp x2 MICROSCOPIC DIAGNOSIS A. Terminal ileum, biopsy: No pathologic change. B. Cecum, biopsy: No significant pathologic change. See comment. C. Sigmoid polyp, biopsy: Fragments of tubular adenoma. AM/mr 12/19/2023 COMMENT B. Eosinophils are mildly increased in the mucosa. The significance of this is unclear. Clinical correlation is suggested. Case has been reviewed in consultation with Dr. Lundy who concurs with the above diagnosis. IDC:SJ MICROSCOPIC DESCRIPTION Slides are reviewed. GROSS DESCRIPTION A. Received in fixative is one container labeled with the patient's name and designated Terminal ileum biopsy. The specimen consists of multiple irregular fragments of light nolasco soft tissue that in aggregate measure 0.7 x 0.5 x 0.1 cm. The specimen is totally submitted in one cassette. B. Received in fixative is one container labeled with the patient's name and designated Cecum biopsy. The specimen consists of one irregular fragment of light nolasco soft tissue that measures 0.5 x 0.2 x 0.1 cm. The specimen is totally submitted in one cassette. C. Received in fixative is one container labeled with the patient's name and designated Sigmoid polyp colon biopsy. The specimen consists of multiple irregular fragments of light nolasco soft tissue that in aggregate measure 2.0 x 0.1 x 0.1 cm. The specimen is totally submitted in one cassette. 12/18/2023 TC:[id number]:[id number]
[2023-12-18 09:52] LABS: Bedside Glucose 173 mg/dL (74-106)
[2023-12-18 10:15] VITALS: BP 105/69; BP 143/80; PULSE 80; RESP 16; TEMP 36.9; O2SAT 97
--- NOTE | 2023-12-18 10:17 | OP.CCLET_ITS ---
12/18/2023 Saida Forbes Md Re : Colonoscopy procedure for Lamar Galicia Dear Leidy This procedure was performed on Monday, December 18, 2023. My impressions and recommendations are as follows: Impressions : - Two 1 to 2 mm polyps in the sigmoid colon, removed with a hot snare. Resected and retrieved. - Diverticulosis in the recto-sigmoid colon and in the sigmoid colon. - Congested mucosa in the terminal ileum. Biopsied. - Patchy mild inflammation was found in the cecum secondary to colitis. Biopsied. Recommendations : - Discharge patient to home. - Resume previous diet. - Continue present medications. - Await pathology results. - Repeat colonoscopy in 5 years for surveillance. My findings are described in the full procedure note, which is enclosed. If I can be of further assistance, please feel free to contact me at . Sincerely, Jaime Berg, 12/18/2023 10:17:06 AM This report has been signed electronically.
--- NOTE | 2023-12-18 10:17 | OP.COLON_ITS ---
Patient Name: Lamar Galicia Procedure Date: 12/18/2023 9:40 AM Date of : 1970 Age: 53 Procedure: Colonoscopy Indications: Screening for colorectal malignant neoplasm Providers: Jaime Berg DO Medicines: Monitored Anesthesia Care Patient Profile: This is a 53 year old female. Refer to note in patient chart for documentation of history and physical. Last Colonoscopy: date unknown. Unable to locate last colonoscopy report. Complications: No immediate complications. Procedure: Pre-Anesthesia Assessment: - Prior to the procedure, a History and Physical was performed, and patient medications and allergies were reviewed. The patient is competent. The risks and benefits of the procedure and the sedation options and risks were discussed with the patient. All questions were answered and informed consent was obtained. Patient identification and proposed procedure were verified by the physician in the pre-procedure area. Mental Status Examination: alert and oriented. Airway Examination: normal oropharyngeal airway and neck mobility. Respiratory Examination: clear to auscultation. CV Examination: normal. Prophylactic Antibiotics: The patient does not require prophylactic antibiotics. Prior Anticoagulants: The patient has taken no anticoagulant or antiplatelet agents except for NSAID medication. ASA Grade Assessment: II - A patient with mild systemic disease. After reviewing the risks and benefits, the patient was deemed in satisfactory condition to undergo the procedure. The anesthesia plan was to use monitored anesthesia care (MAC). Immediately prior to administration of medications, the patient was re-assessed for adequacy to receive sedatives. The heart rate, respiratory rate, oxygen saturations, blood pressure, adequacy of pulmonary ventilation, and response to care were monitored throughout the procedure. The physical status of the patient was re-assessed after the procedure. After I obtained informed consent, the scope was passed under direct vision. Throughout the procedure, the patient's blood pressure, pulse, and oxygen saturations were monitored continuously. The Colonoscope was introduced through the anus and advanced to the terminal ileum. The colonoscopy was performed without difficulty. The patient tolerated the procedure well. The quality of the bowel preparation was adequate. Scope In: 9:52:50 AM Scope Withdrawal Time 0 hours 10 minutes 3 seconds Scope Out: 10:08:35 AM Total Procedure Duration Time 0 hours 15 minutes 45 seconds Findings: The perianal and digital rectal examinations were normal. Two sessile polyps were found in the sigmoid colon. The polyps were 1 to 2 mm in size. These polyps were removed with a hot snare. Resection and retrieval were complete. Verification of patient identification for the specimen was done. Estimated blood loss was minimal. Multiple small and large-mouthed diverticula were found in the recto-sigmoid colon and sigmoid colon. A patchy area of the terminal ileum was congested. Biopsies were taken with a cold forceps for histology. Verification of patient identification for the specimen was done. Estimated blood loss was minimal. Patchy mild inflammation characterized by erythema was found in the cecum. Biopsies were taken with a cold forceps for histology. Verification of patient identification for the specimen was done. Estimated blood loss was minimal. Impression: - Two 1 to 2 mm polyps in the sigmoid colon, removed with a hot snare. Resected and retrieved. - Diverticulosis in the recto-sigmoid colon and in the sigmoid colon. - Congested mucosa in the terminal ileum. Biopsied. - Patchy mild inflammation was found in the cecum secondary to colitis. Biopsied. Recommendation: - Discharge patient to home. - Resume previous diet. - Continue present medications. - Await pathology results. - Repeat colonoscopy in 5 years for surveillance. Procedure Code(s): --- Professional --- 07985, RT, Colonoscopy, flexible; with removal of tumor(s), polyp(s), or other lesion(s) by snare technique 92754, 59, Colonoscopy, flexible; with biopsy, single or multiple CPT copyright 2021 [employer]. All rights reserved. The codes documented in this report are preliminary and upon cpc coder review may be revised to meet current compliance requirements. Jaime Berg DO 12/18/2023 10:17:06 AM This report has been signed electronically. Number of Addenda: 0 Note Initiated On: 12/18/2023 9:40 AM
--- NOTE | 2023-12-18 10:17 | PCM.POST.ANE ---
Anesthesia: Postop Eval I Current Vital Signs Temperature: 98.4 F Pulse Rate: 80 Blood Pressure: 105/69 Respiratory Rate: 16 Pulse Ox: 97 Oxygen Delivery Method: Room Air Assessment Airway patent: Yes Spontaneous unlabored respirations: Yes Mental status: Awake and Calm nausea: No Vomiting: No Anesthesia Complication: No Fluid Hydration Crystalloid volume administer (ml): 350 Total IV fluid infused: 350 Progress Note Anesthesia document: Postop Eval 1 completed: Yes
[2023-12-18 10:18] VITALS: BP 105/69; PULSE 80; RESP 16; TEMP 36.9; O2SAT 97
[2023-12-18 10:20] VITALS: BP 139/82; BP 143/80; PULSE 76; RESP 16; O2SAT 96
[2023-12-18 10:25] VITALS: BP 140/88; BP 143/80; PULSE 79; RESP 16; TEMP 36.2; O2SAT 98
[2023-12-18 10:39] VITALS: BP 143/80
--- NOTE | 2023-12-18 13:43 | POSTOPAN2_ITS ---
Anesthesia Postop Eval I Sum Postop Eval Completion status Anesthesia document: Postop Eval 1 completed: Yes Anesthesia Postop Eval I Summary Anesthesia Postop Eval I Summary: Anesthesia Postop Eval I: Assessment Summary Airway patent Yes 12/18/23 10:18 [email or web address] Spontaneous unlabored Yes 12/18/23 10:18 [email or web address] respirations Mental status Awake,Calm 12/18/23 10:18 [email or web address] nausea No 12/18/23 10:18 [email or web address] Vomiting No 12/18/23 10:18 [email or web address] Anesthesia Postop Eval I: Fluid Summary Crystalloid volume administer 350 12/18/23 10:18 [email or web address] (ml) Colloids volume administered ( ml) Blood Product volume administered (ml) Total IV fluid infused 350 12/18/23 10:18 [email or web address] Anesthesia Postop Eval I: Summary Notes Anesthesia Complication No 12/18/23 10:18 [email or web address] Anesthesia Complication Comment: Post-operative progress note Anesthesia: Postop Eval II Evaluation Mental status: Awake and Calm Pain Level: 0 nausea: No Vomiting: No Complications Anesthesia Complication: No
--- NOTE | 2023-12-18 13:43 | PCM.POSTANE2 ---
Anesthesia Postop Eval I Sum Postop Eval Completion status Anesthesia document: Postop Eval 1 completed: Yes Anesthesia Postop Eval I Summary Anesthesia Postop Eval I Summary: Anesthesia Postop Eval I: Assessment Summary Airway patent Yes 12/18/23 10:18 [email or web address] Spontaneous unlabored Yes 12/18/23 10:18 [email or web address] respirations Mental status Awake,Calm 12/18/23 10:18 [email or web address] nausea No 12/18/23 10:18 [email or web address] Vomiting No 12/18/23 10:18 [email or web address] Anesthesia Postop Eval I: Fluid Summary Crystalloid volume administer 350 12/18/23 10:18 [email or web address] (ml) Colloids volume administered ( ml) Blood Product volume administered (ml) Total IV fluid infused 350 12/18/23 10:18 [email or web address] [email or web address] Anesthesia Postop Eval I: Summary Notes Anesthesia Complication No 12/18/23 10:18 [email or web address] [email or web address] Anesthesia Complication Comment: Post-operative progress note Anesthesia: Postop Eval II Evaluation Mental status: Awake and Calm Pain Level: 0 nausea: No Vomiting: No Complications Anesthesia Complication: No
== END 2023-12-18 10:52 | disposition home or self-care (01) ==
LOC: EN 08:11 → AC 08:13
PROVIDERS: PCP Internal Medicine; Referring Provider Internal Medicine; Visit Provider Internal Medicine Gastroenterology
PROC: 0DJD8ZZ Inspection of Lower Intestinal Tract, Via Natural or Artificial Opening Endoscopic (ICD-10-PCS; CPT 45378; principal; 2023-12-18 09:40)
DX: Z12.11 Encounter for screening for malignant neoplasm of colon (principal); J44.9 Chronic obstructive pulmonary disease, unspecified; E66.01 Morbid (severe) obesity due to excess calories; Z68.41 Body mass index [BMI] 40.0-44.9, adult; E11.9 Type 2 diabetes mellitus without complications; D12.5 Benign neoplasm of sigmoid colon; K52.9 Noninfective gastroenteritis and colitis, unspecified; F17.210 Nicotine dependence, cigarettes, uncomplicated; K21.9 Gastro-esophageal reflux disease without esophagitis; E78.5 Hyperlipidemia, unspecified; K57.30 Diverticulosis of large intestine without perforation or abscess without bleeding; I10 Essential (primary) hypertension; D68.51 Activated protein C resistance; E78.00 Pure hypercholesterolemia, unspecified; Z79.51 Long term (current) use of inhaled steroids; Z79.82 Long term (current) use of aspirin; Z79.84 Long term (current) use of oral hypoglycemic drugs; Z79.899 Other long term (current) drug therapy
CPT/HCPCS: 45385; 45380; 82962; 88305; J7120

== ENCOUNTER 2024-02-28 10:00 | Outpatient (RCR) | payer MEDICAID, SELFPAY ==
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
--- NOTE | 2024-04-23 13:04 | HP.PT.NRP ---
Patient Information Patient Information: CARRIE VIVEROS was seen in my office for initial evaluation on 02/28/24. The following Plan of Care was established for this patient: POC Established Initial Frequency: 2x /Week Initial Duration: 4-6 Weeks Anticipated Interventions Patient/Client Instruction: Educate patient on: Condition For the Purpose of:: To improve self management Therapeutic Exercise to Include: Strength training, Endurance training, Body mechanics, Postural training, Flexibilty training, In an aquatic setting and Dynamic Lumbar Stabilization For the Purpose of:: To decrease pain, To increase ROM and To improve muscle performance and motor function Last Seen Last Seen: This patient was last seen in our office . Pertinent comments regarding their Physical therapy will appear below: Discontinue At this point I will be discontinuing this patient from physical therapy. I would be happy to see this patient again in the future if found appropriate by the physician. Thank you! Miguel Bowling, PT, ATC Balance/Gait/Functional tests Balance/Special Test Scores Lower Extremity Functional Score: 36
== END 2024-02-28 19:00 | disposition home or self-care (01) ==
LOC: PT 10:00
PROVIDERS: PCP Internal Medicine; Referring Provider Internal Medicine; Visit Provider Internal Medicine
DX: M25.50 Pain in unspecified joint (principal)
CPT/HCPCS: 97161

== ENCOUNTER → 2024-03-18 | Outpatient (CLI) | payer MEDICAID, SELFPAY | END | disposition home or self-care (01) | LOC: LABSPEC 10:20 | PROVIDERS: PCP Internal Medicine; Referring Provider Internal Medicine; Visit Provider Internal Medicine | DX: R06.02 Shortness of breath (principal) | CPT/HCPCS: 87633 ==

== ENCOUNTER → 2024-03-28 | Outpatient (CLI) | payer MEDICAID, SELFPAY ==
[2024-03-28 18:17] LABS: HIV - WCH Non-Reactive (Nonreactive); Hepatitis B Surface Antigen Non-Reactive (Nonreactive); Hepatitis C Antibody Non-Reactive (Nonreactive); Syphilis Antibodies Non-reactive
[2024-04-01 22:06] LABS: Chlamydia By Nucleic Acid AMP Negative (Negative); Gonococcus By Nucleic Acid AMP Negative (Negative)
[2024-04-08 09:23] LABS: HPV APTIMA, High Risk Negative (Negative)
== END | disposition home or self-care (01) ==
LOC: BWCLAB 15:23
PROVIDERS: PCP Internal Medicine; Referring Provider Nurse Practitioner Family; Visit Provider Nurse Practitioner Family
DX: Z11.3 Encounter for screening for infections with a predominantly sexual mode of transmission (principal); Z12.4 Encounter for screening for malignant neoplasm of cervix; N89.8 Other specified noninflammatory disorders of vagina
CPT/HCPCS: 36415; 86695; 86696; 86703; 86780; 86803; 87070; 87205; 87340; 87491; 87591; 87624; 88175; G0145

== ENCOUNTER → 2024-04-15 | Outpatient (CLI) | payer MEDICAID, SELFPAY ==
--- NOTE | 2024-04-15 10:08 | NEURO ---
NCS and/or EMG Patient Report Ordering Doctor: Saida Forbes DATE OF SERVICE: 04/15/24 Clinical Summary: 53 year old female patient with symptoms of numbness and tingling in both hands. An EMG/NCS of the bilateral upper extremities was performed. Nerve Conduction Studies Summary: Nerve conduction studies of the bilateral upper extremities demonstrated prolonged median-D2 SNAP distal latencies. Otherwise, performed nerve conductions were within normal ranges. Needle Examination Summary: Needle examination of select muscles of the bilateral upper extremities was normal. Impression: This is an abnormal bilateral upper extremity study. There is electrodiagnostic evidence of the following - 1) Bilateral, mild median mononeuropathies at the wrists (carpal tunnel syndrome), with sensory fiber demyelination. There is no electrodiagnostic evidence of a right/left ulnar neuropathy or right/left cervical radiculopathy. Multi Select Codes Neurology Neurology Interp Codes: 53720-16 Musc test done w/n test comp (interp) (2) and 49143-20 Nrv cndj test 13/> studies (interp)
== END | disposition home or self-care (01) ==
PROVIDERS: PCP Internal Medicine; Referring Provider Internal Medicine; Visit Provider Internal Medicine
DX: M79.641 Pain in right hand (principal); M79.642 Pain in left hand
CPT/HCPCS: 95886; 95913

== ENCOUNTER → 2024-05-07 | Outpatient (CLI) | payer MEDICAID, SELFPAY | END | disposition home or self-care (01) | LOC: SL 09:29 | PROVIDERS: PCP Internal Medicine; Referring Provider Internal Medicine; Visit Provider Internal Medicine | DX: G47.33 Obstructive sleep apnea (adult) (pediatric) (principal) ==

== ENCOUNTER → 2024-06-28 | Outpatient (CLI) | payer MEDICAID, SELFPAY ==
--- NOTE | 2024-06-28 10:15 | BI_ITS ---
PROCEDURE: SCRN MAMM (CAD)W/KIP BILAT REASON FOR EXAM: F, Age 54 y/o , presents for annual screening mammogram. No family history of breast cancer. TECHNIQUE: Bilateral screening digital breast tomosynthesis with 2D and 3D images. Computer aided detection. COMPARISON: Prior exam(s) dating back to . FINDINGS: The breasts are almost entirely fatty. No suspicious masses, areas of developing architectural distortion, or suspicious calcifications. BI/SCRN MAMM (CAD)W/KIP BILAT IMPRESSION: There is no mammographic evidence of malignancy. BI-RADS 1: NEGATIVE. RECOMMEND ANNUAL MAMMOGRAPHIC SCREENING. Follow-up code: Routine Follow-up The patient will be notified of the results by letter. Reading Location: [place] [id number]
== END | disposition home or self-care (01) ==
PROVIDERS: PCP Internal Medicine; Referring Provider Nurse Practitioner Family; Visit Provider Nurse Practitioner Family
DX: Z12.31 Encounter for screening mammogram for malignant neoplasm of breast (principal)
CPT/HCPCS: 77063; 77067

== ENCOUNTER → 2024-07-01 | Outpatient (CLI) | payer MEDICAID, SELFPAY ==
[2024-07-01 12:49] LABS: Absolute Lymphocyte Count 3.96 X10^3/uL (0.83-4.51); Absolute Neutrophil Count 6.2 X10^3/uL (2.0-7.7); Basophil# 0.07 X10^3/uL; Basophil% 0.6 % (0-1); Eosinophils% 3.5 % (0-5); Hematocrit 45.6 % (37-47); Hemoglobin 15.2 g/dL (12.0-15.0); Lymphocyte # 3.96 X10^3/ul (0.83-4.51); Lymphocyte % 34.7 % (19-41); Mean Corp Hgb Conc 33.3 g/dL (32-36); Mean Corpuscular Hgb 31.7 pg (27.0-32.0); Mean Platelet Vol. 11.3 fl (6.2-12.0); Monocyte% 6.1 % (0-10); NRBC Flagged by Analyzer 0 % (0-5); Neutrophil # 6.19 X10^3/uL (2.7-7.7); Neutrophil % 54.3 % (47-70); Platelet Count 300 K/mm3 (150-450); RBC Distribution Width CV 13.6 % (11.6-14.6); RBC Distribution Width SD 47.6 fl (35.1-43.9); White Blood Count 11.4 K/mm3 (4.4-11.0)
[2024-07-01 12:59] LABS: Microalbumin,Random Urine < 12.0 mg/L (NO RANGE EST.); Microalbumin:Creatinine Ratio UNABLE TO CALCULATE mg/g CRE
[2024-07-01 13:13] LABS: ALB/GLOB Ratio 1.2 RATIO (0.9-2.4); AST(SGOT) 23 U/L (<=31); Alanine Aminotransfer ALT/SGPT 18 U/L (<=34); Albumin, Serum 4.2 g/dL (3.5-5.0); Alkaline Phosphatase 79 U/L (35-104); Anion Gap 15 (5-15); BUN 6 mg/dL (4-19); BUN/Creat Ratio 10.9 RATIO (10-20); Calcium,Total 9.5 mg/dL (7.6-11.0); Carbon Dioxide 19.2 mmol/L (21.0-32.0); Chloride 106 mmol/L (98-108); Creatinine, Serum 0.51 mg/dL (0.70-1.20); EST Glomerular Filtration Rate 112 (>60); Globulin 3.5 g/dL (2.2-4.2); Glucose 141 mg/dL (70-99); Potassium 4.3 mmol/L (3.3-5.1); Protein, Total 7.7 g/dL (5.9-8.4); Sodium Level 139 mmol/L (133-145); Total Bilirubin 0.27 mg/dL (0.00-1.30)
[2024-07-01 13:57] LABS: Cholesterol 177 mg/dL (<=200); High Density Lipoprotein 44 mg/dL; Low Density Lipoprotein Calc. 103 mg/dL; Triglycerides 153 mg/dL; Very Low Density Lipoprotein 31 mg/dL (5-40); Vitamin D,25 Hydroxy 24.7 ng/mL (30-100); cholesterol:hdl ratio screen 4.03
== END | disposition home or self-care (01) ==
LOC: BIMLAB 10:42
PROVIDERS: PCP Internal Medicine; Referring Provider Internal Medicine; Visit Provider Internal Medicine
DX: E11.65 Type 2 diabetes mellitus with hyperglycemia (principal); E55.9 Vitamin D deficiency, unspecified
CPT/HCPCS: 36415; 80053; 80061; 82043; 82306; 82570; 85025

== ENCOUNTER → 2024-12-30 | Outpatient (CLI) | payer MEDICAID, SELFPAY | END | disposition home or self-care (01) | LOC: LABSPEC 12:03 | PROVIDERS: PCP Internal Medicine; Referring Provider Internal Medicine; Visit Provider Internal Medicine | DX: R05.9 Cough, unspecified (principal) | CPT/HCPCS: 87631 ==